=== PATIENT | male | born 1945 | race Caucasian/White ===

== ENCOUNTER → 2017-11-18 06:08 | Outpatient (CLI) | payer MEDICARE, OTHER, SELFPAY ==
[2017-11-09 09:23] VITALS: BMI 35.1
[2017-11-09 10:01] VITALS: BP 110/80
--- NOTE | 2017-11-18 09:02 | STRESSREP ---
Stress Test Report Pharmacologic myocardial perfusion stress test. 72-year-old man with a history of chest pain. Stress protocol: Resting EKG demonstrates normal sinus rhythm with a rate of 65 bpm normal intervals and noted resting blood pressure is 132/78 mmHg. 0.4 mg of regadenoson was infused per usual protocol followed by rapid intravenous saline flush injection continuous EKG monitoring was performed. The patient maintained sinus rhythm with occasional premature atrial complexes noted. Heart rate attained was 83 bpm which was 56% of the maximum predicted heart rate the maximum workload attained was 1 metabolic equivalent. The resting blood pressure was 132/78 with a final blood pressure 136/76 meters of mercury. Cardial perfusion protocol. 14.7 mCi of technetium 99m sestamibi was injected at rest. 0.4 mg of regadenoson was infused per usual protocol peak infusion 44.4 mCi of technetium 99m sestamibi was injected. Stress images were obtained. Stress and rest images were reconstructed and compared in the short axis vertical long and horizontal long axis. Gated images were also obtained. Perfusion SPECT analysis. View of the stress images demonstrate normal uptake of tracer noted in all areas of the myocardium. The resting images similarly demonstrate normal uptake of tracer noted in all areas myocardium. There is some GI attenuation artifact noted which obscures the inferior wall. However overt ischemia is not apparent. Gated SPECT analysis: The gated ejection fraction is noted to be 41%. Conclusion Pharmacologic myocardial perfusion stress test with no overt ischemia noted. Extensive GI attenuation artifact noted. Low normal ejection fraction.
== END ==
PROVIDERS: Family Provider Family Medicine; PCP Family Medicine; Visit Provider Physician Assistant Medical
DX: I25.10 Atherosclerotic heart disease of native coronary artery without angina pectoris (principal); R06.09 Other forms of dyspnea; E11.9 Type 2 diabetes mellitus without complications; I10 Essential (primary) hypertension
CPT/HCPCS: 78452; 93017; A9500; A4216; J2785

== ENCOUNTER 2018-01-06 12:13 | Inpatient (IN) | payer MEDICARE, OTHER, SELFPAY ==
[2018-01-06] VITALS (15 sets, daily range): BP systolic 141–183; BP diastolic 74–80; PULSE 69–78; RESP 16–24; TEMP 36.6–37.1; O2SAT 88–98; BMI 34.2; BMI 34.3; BMI 34.0
--- NOTE | 2018-01-06 13:00 | EKG12_ITS ---
Test Reason : SOB Blood Pressure : / mmHG Vent. Rate : 074 BPM Atrial Rate : 074 BPM P-R Int : 160 ms QRS Dur : 112 ms QT Int : 412 ms P-R-T Axes : 007 -33 146 degrees QTc Int : 457 ms Sinus rhythm with Premature atrial complexes Left axis deviation Left ventricular hypertrophy with repolarization abnormality Abnormal ECG Confirmed by ABRAHAM KILGORE, IRINA ([id number]), web content editor KEN SIFUENTES ([id number]) on 01/12/2018 8:55:24 AM Referred By: JUNG/ALICIA Confirmed By:IRINA ROSARIO MD
--- NOTE | 2018-01-06 13:02 | ED.VISSUMM ---
- ER Visit Summary Date of Service: 01/06/18 Chief Complaint: Cough with wheezing with shortness of breath and chest tightness History of Present Illness: The patient is a 72 M history diabetes, hypertension, high cholesterol, renal insufficiency and known CAD. Had a quadruple bypass in 1997 at [facility]. Patient had a negative stress test within the last 6 months. Basically for the last week he has had cough and congestion with wheezing. He was seen at a urgent care at the [facility]. They started him on doxycycline with an inhaler. Today went for a follow-up appointment his pulse ox was 80s and a sodium in the ER. Physical Examination: Older male vital signs are stable reportedly his pulse ox here is 93% on room air however he is on oxygen when I am in the room. Is in mild respiratory distress. H EENT exam unremarkable. Neck nontender no JVD no lymphadenopathy. Lungs inspiratory wheezing throughout both sides. No rales or rhonchi. Heart regular rate and rhythm rate 70s no murmur. Chest wall nontender. Abdomen soft nontender. Normal bowel sounds no peritoneal signs. He is moving all 4 extremities. Neurovascular intact. He has 1+ pitting edema bilaterally which is chronic. Calves are nontender without cords. Neurologically is awake and alert moving all 4 extremities. Answering questions and following commands. Test Results: Show EKG is a sinus rhythm with LVH. He does have ST depression in leads V4 5 and 6 which is new when changed with the most recent EKG I have is from 2015. 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 EKG is changed from a prior. A second EKG was done today in the ER which is unchanged from the first. Both show ST-T wave inversion depression in V4 5 and 6. Consistent with cardiac ischemia. CBC shows a white count of 3 H&H 12 and 39. Electrolytes show a BUN of 47 creatinine 1.87 he has known renal insufficiency. Anion gap is 6. Troponin is elevated at 3.16. Chest x-ray shows chronic changes with a elevated right hemidiaphragm and a prior sternotomy. Also atelectasis read both by myself the radiologist. Emergency Department Course and Treatment: To undergo a cardiac workup along with receiving IV Solu-Medrol and aerosol treatments. Treatment Plan: Rad exam patient feels better his wheezing is much better after aerosols and Solu-Medrol. I discussed with both he and his that I think there is 2 problems going on. I do think he has an underlying URI. I think the hypoxia and a URI stressed his heart and he also had a cardiac event. I have spoken to Dr. Burton who will be consult the patient's care. We will start the patient on Plavix and Lovenox along with one subcu nitroglycerin. I spoken to the hospitalist Dr. Gaffney and she will be done to evaluate patient for admission to the PCU. Disposition: [place] Impression: Acute dyspnea Acute non-ST elevation [place] with EKG changes in leads V4, 5 and 6 Acute bronchitis Acute on chronic renal insufficiency History of insulin-dependent diabetes History of CAD with prior CABG in 1997 This note was generated with [employer] dictation software. It may contain incorrect words, spelling, and punctuation that were not noted in review of the chart prior to signing ED Disposition - Plan for ED Patient: Chief Complaint: Shortness of Breath Referrals: Jackson Mesa MD [Primary Care Provider] -
--- NOTE | 2018-01-06 13:06 | ED.DCSUM_ITS ---
- ER Visit Summary Date of Service: 01/06/18 Chief Complaint: Cough with wheezing with shortness of breath and chest tightness History of Present Illness: The patient is a 72 M history diabetes, hypertension , high cholesterol, renal insufficiency and known CAD. Had a quadruple bypass in 1997 at [facility]. Patient had a negative stress test within the last 6 months. Basically for the last week he has had cough and congestion with wheezing. He was seen at a urgent care at the [facility]. They started him on doxycycline with an inhaler. Today went for a follow-up appointment his pulse ox was 80s and a sodium in the ER. Physical Examination: Older male vital signs are stable reportedly his pulse ox here is 93% on room air however he is on oxygen when I am in the room. Is in mild respiratory distress. H EENT exam unremarkable. Neck nontender no JVD no lymphadenopathy. Lungs inspiratory wheezing throughout both sides. No rales or rhonchi. Heart regular rate and rhythm rate 70s no murmur. Chest wall nontender. Abdomen soft nontender. Normal bowel sounds no peritoneal signs. He is moving all 4 extremities. Neurovascular intact. He has 1+ pitting edema bilaterally which is chronic. Calves are nontender without cords. Neurologically is awake and alert moving all 4 extremities. Answering questions and following commands. Test Results: Show EKG is a sinus rhythm with LVH. He does have ST depression in leads V4 5 and 6 which is new when changed with the most recent EKG I have is from 2015. 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 EKG is changed from a prior. A second EKG was done today in the ER which is unchanged from the first. Both show ST-T wave inversion depression in V4 5 and 6. Consistent with cardiac ischemia. CBC shows a white count of 3 H&H 12 and 39. Electrolytes show a BUN of 47 creatinine 1.87 he has known renal insufficiency. Anion gap is 6. Troponin is elevated at 3.16. Chest x-ray shows chronic changes with a elevated right hemidiaphragm and a prior sternotomy. Also atelectasis read both by myself the radiologist. Emergency Department Course and Treatment: To undergo a cardiac workup along with receiving IV Solu-Medrol and aerosol treatments. Treatment Plan: Rad exam patient feels better his wheezing is much better after aerosols and Solu-Medrol. I discussed with both he and his that I think there is 2 problems going on. I do think he has an underlying URI. I think the hypoxia and a URI stressed his heart and he also had a cardiac event. I have spoken to Dr. Burton who will be consult the patient's care. We will start the patient on Plavix and Lovenox along with one subcu nitroglycerin. I spoken to the hospitalist Dr. Gaffney and she will be done to evaluate patient for admission to the PCU. Disposition: [place] Impression: Acute dyspnea Acute non-ST elevation [place] with EKG changes in leads V4, 5 and 6 Acute bronchitis Acute on chronic renal insufficiency History of insulin-dependent diabetes History of CAD with prior CABG in 1997 This note was generated with i[employer]ise dictation software. It may contain incorrect words, spelling, and punctuation that were not noted in review of the chart prior to signing ED Disposition - Plan for ED Patient: Chief Complaint: Shortness of Breath Referrals: Jackson Mesa MD [Primary Care Provider] -
[2018-01-06] MEDS: Aspirin 81 MG TAB.CHEW 324 MG PO (13:07)
[2018-01-06] MEDS: Ipratropium/Albuterol Sulfate 3 ML AMPUL.NEB INHALATION ×3 (13:08→23:16)
[2018-01-06] MEDS: Albuterol 2.5 MG/3 ML VIAL.NEB. INHALATION ×2 (13:08→13:31)
[2018-01-06] MEDS: MethylPREDNISolone 125 MG/2 ML Vial IV (13:09)
--- NOTE | 2018-01-06 13:10 | RAD_ITS ---
STUDY: X-RAY CHEST REASON FOR EXAM: Male, 72 years old. Chest pain. Shortness of breath. TECHNIQUE: Single AP portable view of the chest. COMPARISON: Comparison is made with prior study dated October 16, 2014. FINDINGS: EKG markers are seen. Elevation of the right hemidiaphragm with underlying right basilar atelectasis and/or infiltrate. There is no demonstrated pleural abnormality. Sternal cerclage wires and vascular clips are present from a prior sternotomy and coronary artery bypass graft procedure (CABG). Moderate sized cardiomegaly. Normal mediastinum and jacinto. Normal visualized pulmonary arteries. Normal visualized aortic arch and descending thoracic aorta. Normal visualized thoracic spine. Normal visualized ribs, clavicles, and shoulders. There is no demonstrated abnormality of the visualized soft tissue structures of the upper abdomen. RAD/Chest 1 View (Portable) IMPRESSION: Elevation of the right hemidiaphragm with right basilar atelectasis and/or infiltrate. Electronically Signed: Lonny Henry MD at 13:51 EDT Tel [phone], Service support ,
[2018-01-06 13:40] LABS: Absolute Lymphocyte Count 0.56 X10^3/ul (0.83-4.51); Absolute Neutrophil Count 2.3 X10^3/uL (2.0-7.7); Basophil# 0.01 X10^3/uL; Basophil% 0.3 % (0-1); Eosinophil# 0.03 X10^3/uL; Eosinophils% 0.9 % (0-5); Hematocrit 39.9 % (40-54); Hemoglobin 12.5 g/dl (13.0-16.5); Lymphocyte # 0.56 X10^3/ul (4.0); Lymphocyte % 17.1 % (19-41); Mean Corp Hgb Conc 31.3 g/gl (32-36); Mean Corpuscular Volume 92.6 fL (80-94); Mean Platelet Vol. 9.4 fl (6.2-12.0); Monocyte% 12.2 % (0-10); Neutrophil # 2.26 X10^3/uL (2.7-7.7); Neutrophil % 69.2 % (47-70); Platelet Count 141 K/mm3 (150-450); RBC Distribution Width CV 14.3 % (11.6-14.6); RBC Distribution Width SD 48.5 fl (35.1-43.9); Red Blood Count 4.31 M/mm3 (4.6-6.2); White Blood Count 3.3 K/mm3 (4.4-11.0)
[2018-01-06 13:41] LABS: Differential Indicated SCAN CRITERIA MET; POSITIVE COUNT NO; POSITIVE DIFFERENTIAL YES; POSITIVE MORPHOLOGY NO
[2018-01-06 13:41] LABS: Anion Gap 6 (5-15); BUN 47 mg/dL (7-18); BUN/Creat Ratio 25.1 RATIO (10-20); Calcium,Total 8.8 mg/dL (8.5-10.1); Chloride 102 mmol/L (98-107); Creatinine, Serum 1.87 mg/dL (0.70-1.30); EST Glomerular Filtration Rate 38 mL/min (>60); Est Glom Filt Rate - Afr Amer 46 mL/min (>60); Estimated Creatinine Clearance 34.66 ml/min; Glucose 212 mg/dL (74-106); Potassium 3.9 mmol/L (3.5-5.1); Sodium Level 141 mmol/L (136-145)
--- NOTE | 2018-01-06 14:00 | EKG12_ITS ---
Test Reason : REPEAT-SOB Blood Pressure : / mmHG Vent. Rate : 072 BPM Atrial Rate : 072 BPM P-R Int : 160 ms QRS Dur : 110 ms QT Int : 426 ms P-R-T Axes : 000 -30 167 degrees QTc Int : 466 ms Sinus rhythm with Premature atrial complexes Left axis deviation Left ventricular hypertrophy with repolarization abnormality Abnormal ECG Confirmed by ABRAHAM KILGORE, IRINA ([id number]), society editor KEN SIFUENTES ([id number]) on 01/12/2018 8:55:39 AM Referred By: ALICIA Confirmed By:IRINA ROSARIO MD
--- NOTE | 2018-01-06 14:17 | ECHOD_ITS ---
Reason For Study: Abn. EKG Procedure This was a 2D Doppler, Color Flow transthoracic echocardiogram. Exam performed portable in ED. Left Ventricle Moderately dilated left ventricle. Mild concentric left ventricular hypertrophy. The estimated ejection fraction is 35-40 %. Stage 2 diastolic dysfunction. There is moderate to severe global hypokinesis of the left ventricle. Right Ventricle Normal size and thickness. Normal systolic function. Atria The left atrium is moderately enlarged. Normal right atrium. Normal atrial septum. Mitral Valve The mitral valve is structurally normal. No prolapse or stenosis seen. Mild (1+) mitral valve insufficiency. Tricuspid Valve Normal tricuspid valve. Trivial tricuspid valve insufficiency. Right ventricular systolic pressure estimated to be 28 mmHg. Aortic Valve Trisinus/trileaflet aortic valve. Mild focal aortic valve thickening. Pulmonic Valve The pulmonic valve is not well visualized. Great Vessels Normal aortic root. Normal arch. The inferior vena cava is dilated. No collapse of the inferior vena cava. Pericardium/Pleural No pericardial effusion. MMode/2D Measurements & Calculations LVIDd: 5.2 cm IVSd: 1.2 cm Ao root diam: 2.9 cm LVIDs: 4.0 cm LVPWd: 1.4 cm LA dimension: 5.5 cm RVDd: 3.7 cm FS: 22.4 % LAV(MOD-bp): 90.5 ml LA A4 area: 22.9 cm2 RA A4 area: 15.9 cm2 LAV(MOD-bp) Indexed: 41.1 ml/m2 LAV(MOD-sp2): 101.9 ml LAV(MOD-sp4): 77.1 ml Doppler Measurements & Calculations MV E max moisés: 82.3 cm/sec Lat Peak E' Moisés: 4.8 cm/sec Med Peak E' Moisés: 5.0 cm/sec MV A max moisés: 47.9 cm/sec E/E' lat: 17.0 E/E' med: 16.3 MV E/A: 1.7 Ao V2 max: 137.5 cm/sec LV V1 max: 99.4 cm/sec PA V2 max: 76.4 cm/sec Ao max P.6 mmHg LV V1 max P.0 mmHg TR max moisés: 241.6 cm/sec TR max P.4 mmHg Interpretation Summary Moderately dilated left ventricle. The estimated ejection fraction is 35-40 %. There is moderate to severe global hypokinesis of the left ventricle. Stage 2 diastolic dysfunction. The left atrium is moderately enlarged. Mild (1+) mitral valve insufficiency. Right ventricular systolic pressure estimated to be 28 mmHg. The inferior vena cava is dilated Compared to echo rerport dated 10/16/2014, LV Function has worsened from 55% to 30-35%. RVSP has remained the same. Ordering Physician: Jackson Coffman Referring Physician: Jackson Mesa Performed By: Ayaka Tejada RDCS
[2018-01-06] MEDS: Clopidogrel Bisulfate 75 MG Tablet PO (14:34)
[2018-01-06] MEDS: Enoxaparin 100 MG/ML Syringe SC ×2 (14:34→22:29)
--- NOTE | 2018-01-06 14:40 | PCM.HP.STD ---
Problem List (1) NSTEMI (non-ST elevated myocardial infarction) Status: Acute (2) Bronchitis with bronchospasm Status: Acute (3) Acute respiratory failure with hypoxia Status: Acute (4) Renal insufficiency Status: Chronic Comment: CKD3, creatinines ranings 1.7 since 2015 (5) Atherosclerotic heart disease of [place] coronary artery without angina pectoris Status: Chronic Qualifiers: [place] vs. transplanted heart: [place] heart (6) H/O coronary artery bypass surgery Status: Chronic Comment: CABG X 1988 @ [facility] records unavailable (7) Chronic diastolic (congestive) heart failure Status: Chronic (8) Type II diabetes mellitus Status: Chronic Qualifiers: Diabetes mellitus fdc insulin use: with roasterman use Diabetes mellitus complication detail: with chronic kidney disease Chronic kidney disease stage: stage 3 (moderate) (9) Hypertension Status: Chronic Qualifiers: Hypertension type: essential hypertension (10) Hyperlipidemia Status: Chronic Qualifiers: Hyperlipidemia type: mixed hyperlipidemia Qualified Code(s): E78.2 - Mixed hyperlipidemia (11) Coronary artery disease Status: Chronic Qualifiers: Coronary Disease-Associated Artery/Lesion type: [place] artery [place] vs. transplanted heart: [place] heart Comment: Status post CABG History of Present Illness Date of Admission: 01/06/18 Chief Complaint: Shortness of breath; chest tightness The patient is a 72 year old M A of CAD, status post CABG ?4 in 1997, hypertension, diabetes mellitus 2 on insulin with CKD 3, hyperlipidemia, remote smoker. He presented to emergency department for further evaluation of weeks history of cough with wheezing and chest tightness. He was seen earlier this week and placed on doxycycline and pro-air inhaler. On follow-up today he was noted to be hypoxemic and still wheezing with pulse ox in the 80s. He received an aerosol in the urgent care and was referred to ED. In the emergency department, he was noted to be wheezing with saturation 96% on 4 L, heart rate 74, blood pressure 183/77, respiratory rate 21. Orders were pertinent for white count 3.3, hemoglobin 12.5, platelet count 141, creatinine 1.87, BUN 47, random glucose 212, and troponin 3.16. Chest x-ray revealed no acute disease. EKG revealed new T-wave inversions across the anterior precordium. He received albuterol aerosol, DuoNeb aerosol, aspirin 324 mg, Plavix 75 mg, Lovenox 100 mg subcu, nitro sublingual, and Solu-Medrol 125 mg IV. Upon seeing the patient, he denies any chest discomfort. The patient endorses over the past week worsening exertional shortness of breath. He notes wheezing, cough is productive. He has had no fevers or toxic symptoms. He has had no yong orthopnea or PND. Leg edema is stable. He denies syncope, presyncope, headache, pleuritic pain or back pain. Allergies, prior to admission medications are reviewed. [] Past Medical History Past Medical History (Chronic Problems): Chronic Problems (Last Updated 11/09/17 @ 09:46 by MALIK Howell) Atherosclerosis of coronary artery bypass graft without angina pectoris (Chronic) CABG X 1988 @ [facility] records unavailable Bilateral lower extremity edema (Chronic) Renal insufficiency (Chronic) CKD3, creatinines ranings 1.7 since 2014 Atherosclerotic heart disease of [place] coronary artery without angina pectoris (Chronic) H/O coronary artery bypass surgery (Chronic) CABG X 1988 @ [facility] records unavailable Premature atrial contractions (Chronic) Chronic diastolic (congestive) heart failure (Chronic) Type II diabetes mellitus (Chronic) Hypertension (Chronic) Hyperlipidemia (Chronic) Coronary artery disease (Chronic) Status post CABG Allergies No Known Allergies Allergy (Verified 01/06/18 12:14) Home Medications: Ambulatory Orders Medication Instructions Recorded Atorvastatin Calcium [Lipitor] 80 mg PO QHS 10/16/14 aspirin 81 mg tablet,delayed 81 mg PO DAILY 10/27/17 release bumetanide 2 mg tablet 2 mg PO BID 10/27/17 cholecalciferol (vitamin D3) 2,000 2,000 unit PO DAILY tab 10/27/17 unit tablet losartan 50 mg tablet 50 mg PO BID tab 11/09/17 Amlodipine [Norvasc] 5 mg PO DAILY 01/06/18 Doxycycline Hyclate [Doxycycline 100 mg PO BID 01/06/18 Hyclate] Insulin U-500 [Humulin R U-500 75 mg PO DINNER 01/06/18 ([facility])] Insulin U-500 [Humulin R U-500 75 unit SC LUNCH 01/06/18 ([facility])] Insulin U-500 [Humulin R U-500 90 units SC BREAKFAST 01/06/18 ([facility])] Metoprolol(XL)Succ [Toprol Xl 100 mg PO DAILY 01/06/18 ([facility] Harshal)] Surgical History: appendectomy, coronary bypass surgery Psychiatric History: No pertinent psych hx Lives: Spouse/ Significant Other Smoking Status: Former smoker Alcohol: Rare Drugs: None - *Family History Maternal History Items: No pertinent history Paternal History Items: No pertinent history Review of Systems Respiratory: Reports: Cough, Shortness of breath upon exertion, Wheezing VTE Information - Inpt Only VTE Present on Admission: No VTE Mechan Device Prophylaxis: SCD's VTE Pharm Prophylaxis ordered?: No Reason prophylaxis not ordered:: Medical Contraindication - already anticoagulated (therapeutic Lovenox) Patient Problems: Active and Suspected Problems (Last Updated 11/09/17 @ 09:46 by MALIK Howell) NSTEMI (non-ST elevated myocardial infarction) (Acute) Bronchitis with bronchospasm (Acute) Acute respiratory failure with hypoxia (Acute) - Physical Exam General: Alert, Oriented x3, Cooperative, No apparent distress HEENT: Atraumatic, PERRLA, EOMI Oral: Moist Mucosa Neck: Supple, No JVD, Negative Carotid Bruits, Negative Hepatojugular Reflux Lungs: Wheezes Cardiovascular: Regular rate, Regular Rhythm, Normal S1, Normal S2, No murmurs Abdomen: Bowel Sounds Present, Soft, Non Tender Extremities: Edema - trace bilaterally Skin: No rashes, No breakdown Psych/Mental Status: Normal Affect, Appropriate Vital Signs Temp Pulse Resp BP Pulse Ox 97.9 F 73 21 H 183/77 H 96 01/06/18 12:14 01/06/18 14:34 01/06/18 14:33 01/06/18 14:34 01/06/18 14:33 Oxygen Flow Rate (L/min) 4 Oxygen Delivery Method Nasal Cannula Weight: 232 lb 2.348 oz Body Mass Index (BMI) 34.2 Laboratory Tests Past 24 Hrs 01/06/18 01/06/18 12:15 12:40 WBC 3.3 L RBC 4.31 L Hgb 12.5 L Hct 39.9 L MCV 92.6 MCH 29.0 MCHC 31.3 L RDW 14.3 RDW Differential 48.5 H Plt Count 141 L MPV 9.4 Immature Gran % (Auto) 0.300 Neut % (Auto) 69.2 Lymph % (Auto) 17.1 L [place] % (Auto) 12.2 H Eos % (Auto) 0.9 Baso % (Auto) 0.3 Absolute Neuts (auto) 2.3 Absolute Lymphs (auto) 0.56 L Total Counted Not Reportable Sodium 141 Potassium 3.9 Chloride 102 Carbon Dioxide 33.0 H Anion Gap 6 BUN 47 H Creatinine 1.87 H Estim Creat Clear Calc 34.66 Est GFR (MDRD) Af Amer 46 L Est GFR (MDRD) Non-Af 38 L BUN/Creatinine Ratio 25.1 H Glucose 212 H Calcium 8.8 Troponin I 3.16 H* Assessment/Plan Active and Suspected Problems (Last Updated 11/09/17 @ 09:46 by MALIK Howell) NSTEMI (non-ST elevated myocardial infarction) (Acute) Bronchitis with bronchospasm (Acute) Acute respiratory failure with hypoxia (Acute) The patient is a 72-year-old pleasant gentleman who has had an upper respiratory infection/bronchitis for the past week, characterized by wheezing and productive cough, for which he has been on doxycycline/inhaler started 2 days ago. He presented to the office for follow-up today where he was found to be diffusely wheezing and hypoxemic. He was referred to emergency department where he was found to have new EKG changes (T-wave inversion across the precordial leads) and elevated troponin T of 3. He denied chest pain, but felt more short of breath with exertion. He currently is pain-free with acceptable vital signs. Creatinine is 1.8. Plan at this time is admission to PCU, medical management with the addition of nitrates, Lovenox, and Plavix, aggressive pulmonary toilet with steroids, glycemic control, gentle hydration, and cardiac consultation for planned catheterization tomorrow. NPO post MN except meds; hold AM insulin dose. 1. Non-STEMI -consistent with type II event, demand ischemia in setting of acute illness T-wave inversions across the anterior precordium Plavix 75 mg daily, Lovenox 100 mg subcu twice daily, oxygen, nitrates as needed, continue statin and beta-harshal Add metoprolol 2.5 mg IV every 4 hours as needed heart rate greater than 100 Telemetry monitoring and serial cardiac biomarkers Cardiology opinion N.p.o. post midnight; cardiac catheterization planned 2. Bronchitis with bronchospasm Pulmonary toilet with aerosols, IV Solu-Medrol Glycemic control whilst on IV Solu-Medrol Supportive oxygen Mucinex, Cepacol as needed Continue doxycycline Legionella and streptococcal urinary antigens 3. acute hypoxemic respiratory failure 2/2 #2 oxygen protocol 3. Diabetes mellitus 2 on insulin, with CKD 3 Continue usual insulin dosing mealtime; add NovoLog scale medium. Hold his morning as scheduled insulin as he will be n.p.o. for cardiac catheterization 4.CKD 3 Baseline creatinine 1.7; gently hydrate, daily lab 5. Hypertension Continue metoprolol, amlodipine, losartan 6. Hyperlipidemia Statin 7. DVT prophylaxis Already anticoagulated Code Visit Inpatient E&M: 93646 Init Hosp L2
--- NOTE | 2018-01-06 15:02 | HP.PCM_ITS ---
Problem List (1) NSTEMI (non-ST elevated myocardial infarction) Status: Acute (2) Bronchitis with bronchospasm Status: Acute (3) Acute respiratory failure with hypoxia Status: Acute (4) Renal insufficiency Status: Chronic Comment: CKD3, creatinines ranings 1.7 since 2015 (5) Atherosclerotic heart disease of [place] coronary artery without angina pectoris Status: Chronic Qualifiers: [place] vs. transplanted heart: [place] heart (6) H/O coronary artery bypass surgery Status: Chronic Comment: CABG X 1988 @ [facility] records unavailable (7) Chronic diastolic (congestive) heart failure Status: Chronic (8) Type II diabetes mellitus Status: Chronic Qualifiers: Diabetes mellitus snf insulin use: with terminal gauger use Diabetes mellitus complication detail: with chronic kidney disease Chronic kidney disease stage: stage 3 (moderate) (9) Hypertension Status: Chronic Qualifiers: Hypertension type: essential hypertension (10) Hyperlipidemia Status: Chronic Qualifiers: Hyperlipidemia type: mixed hyperlipidemia Qualified Code(s): E78.2 - Mixed hyperlipidemia (11) Coronary artery disease Status: Chronic Qualifiers: Coronary Disease-Associated Artery/Lesion type: [place] artery [place] vs. transplanted heart: [place] heart Comment: Status post CABG History of Present Illness Date of Admission: 01/06/18 Chief Complaint: Shortness of breath; chest tightness The patient is a 72 year old M A of CAD, status post CABG ?4 in 1997, hypertension, diabetes mellitus 2 on insulin with CKD 3, hyperlipidemia, remote smoker. He presented to emergency department for further evaluation of weeks history of cough with wheezing and chest tightness. He was seen earlier this week and placed on doxycycline and pro-air inhaler. On follow-up today he was noted to be hypoxemic and still wheezing with pulse ox in the 80s. He received an aerosol in the urgent care and was referred to ED. In the emergency department, he was noted to be wheezing with saturation 96% on 4 L, heart rate 74, blood pressure 183/77, respiratory rate 21. Orders were pertinent for white count 3.3, hemoglobin 12.5, platelet count 141, creatinine 1.87, BUN 47, random glucose 212, and troponin 3.16. Chest x-ray revealed no acute disease. EKG revealed new T-wave inversions across the anterior precordium. He received albuterol aerosol, DuoNeb aerosol, aspirin 324 mg, Plavix 75 mg, Lovenox 100 mg subcu, nitro sublingual, and Solu-Medrol 125 mg IV. Upon seeing the patient, he denies any chest discomfort. The patient endorses over the past week worsening exertional shortness of breath. He notes wheezing , cough is productive. He has had no fevers or toxic symptoms. He has had no yong orthopnea or PND. Leg edema is stable. He denies syncope, presyncope, headache, pleuritic pain or back pain. Allergies, prior to admission medications are reviewed. [] Past Medical History Past Medical History (Chronic Problems): Chronic Problems (Last Updated 11/09/17 @ 09:46 by MALIK Howell) Atherosclerosis of coronary artery bypass graft without angina pectoris (Chronic ) CABG X 1988 @ [facility] records unavailable Bilateral lower extremity edema (Chronic) Renal insufficiency (Chronic) CKD3, creatinines ranings 1.7 since 2014 Atherosclerotic heart disease of [place] coronary artery without angina pectoris (Chronic) H/O coronary artery bypass surgery (Chronic) CABG X 1988 @ [facility] records unavailable Premature atrial contractions (Chronic) Chronic diastolic (congestive) heart failure (Chronic) Type II diabetes mellitus (Chronic) Hypertension (Chronic) Hyperlipidemia (Chronic) Coronary artery disease (Chronic) Status post CABG Allergies No Known Allergies Allergy (Verified 01/06/18 12:14) Home Medications: Ambulatory Orders Medication Instructions Recorded Atorvastatin Calcium [Lipitor] 80 mg PO QHS 10/16/14 aspirin 81 mg tablet,delayed 81 mg PO DAILY 10/27/17 release bumetanide 2 mg tablet 2 mg PO BID 10/27/17 cholecalciferol (vitamin D3) 2,000 2,000 unit PO DAILY tab 10/27/17 unit tablet losartan 50 mg tablet 50 mg PO BID tab 11/09/17 Amlodipine [Norvasc] 5 mg PO DAILY 01/06/18 Doxycycline Hyclate [Doxycycline 100 mg PO BID 01/06/18 Hyclate] Insulin U-500 [Humulin R U-500 75 mg PO DINNER 01/06/18 ([facility])] Insulin U-500 [Humulin R U-500 75 unit SC LUNCH 01/06/18 ([facility])] Insulin U-500 [Humulin R U-500 90 units SC BREAKFAST 01/06/18 ([facility])] Metoprolol(XL)Succ [Toprol Xl 100 mg PO DAILY 01/06/18 ([facility])] Surgical History: appendectomy, coronary bypass surgery Psychiatric History: No pertinent psych hx Lives: Spouse/ Significant Other Smoking Status: Former smoker Alcohol: Rare Drugs: None - *Family History Maternal History Items: No pertinent history Paternal History Items: No pertinent history Review of Systems Respiratory: Reports: Cough, Shortness of breath upon exertion, Wheezing VTE Information - Inpt Only VTE Present on Admission: No VTE Mechan Device Prophylaxis: SCD's VTE Pharm Prophylaxis ordered?: No Reason prophylaxis not ordered:: Medical Contraindication - already anticoagulated (therapeutic Lovenox) Patient Problems: Active and Suspected Problems (Last Updated 11/09/17 @ 09:46 by MALIK Howell) NSTEMI (non-ST elevated myocardial infarction) (Acute) Bronchitis with bronchospasm (Acute) Acute respiratory failure with hypoxia (Acute) - Physical Exam General: Alert, Oriented x3, Cooperative, No apparent distress HEENT: Atraumatic, PERRLA, EOMI Oral: Moist Mucosa Neck: Supple, No JVD, Negative Carotid Bruits, Negative Hepatojugular Reflux Lungs: Wheezes Cardiovascular: Regular rate, Regular Rhythm, Normal S1, Normal S2, No murmurs Abdomen: Bowel Sounds Present, Soft, Non Tender Extremities: Edema - trace bilaterally Skin: No rashes, No breakdown Psych/Mental Status: Normal Affect, Appropriate Vital Signs Temp Pulse Resp BP Pulse Ox 97.9 F 73 21 H 183/77 H 96 01/06/18 12:14 01/06/18 14:34 01/06/18 14:33 01/06/18 14:34 01/06/18 14:33 Oxygen Flow Rate (L/min) 4 Oxygen Delivery Method Nasal Cannula Weight: 232 lb 2.348 oz Body Mass Index (BMI) 34.2 Laboratory Tests Past 24 Hrs 01/06/18 01/06/18 12:15 12:40 WBC 3.3 L RBC 4.31 L Hgb 12.5 L Hct 39.9 L MCV 92.6 MCH 29.0 MCHC 31.3 L RDW 14.3 RDW Differential 48.5 H Plt Count 141 L MPV 9.4 Immature Gran % (Auto) 0.300 Neut % (Auto) 69.2 Lymph % (Auto) 17.1 L [place] % (Auto) 12.2 H Eos % (Auto) 0.9 Baso % (Auto) 0.3 Absolute Neuts (auto) 2.3 Absolute Lymphs (auto) 0.56 L Total Counted Not Reportable Sodium 141 Potassium 3.9 Chloride 102 Carbon Dioxide 33.0 H Anion Gap 6 BUN 47 H Creatinine 1.87 H Estim Creat Clear Calc 34.66 Est GFR (MDRD) Af Amer 46 L Est GFR (MDRD) Non-Af 38 L BUN/Creatinine Ratio 25.1 H Glucose 212 H Calcium 8.8 Troponin I 3.16 H* Assessment/Plan Active and Suspected Problems (Last Updated 11/09/17 @ 09:46 by MALIK Howell) NSTEMI (non-ST elevated myocardial infarction) (Acute) Bronchitis with bronchospasm (Acute) Acute respiratory failure with hypoxia (Acute) The patient is a 72-year-old pleasant gentleman who has had an upper respiratory infection/bronchitis for the past week, characterized by wheezing and productive cough, for which he has been on doxycycline/inhaler started 2 days ago. He presented to the office for follow-up today where he was found to be diffusely wheezing and hypoxemic. He was referred to emergency department where he was found to have new EKG changes (T-wave inversion across the precordial leads) and elevated troponin T of 3. He denied chest pain, but felt more short of breath with exertion. He currently is pain-free with acceptable vital signs. Creatinine is 1.8. Plan at this time is admission to PCU, medical management with the addition of nitrates, Lovenox, and Plavix, aggressive pulmonary toilet with steroids, glycemic control, gentle hydration, and cardiac consultation for planned catheterization tomorrow. NPO post MN except meds; hold AM insulin dose. 1. Non-STEMI -consistent with type II event, demand ischemia in setting of acute illness T-wave inversions across the anterior precordium Plavix 75 mg daily, Lovenox 100 mg subcu twice daily, oxygen, nitrates as needed , continue statin and beta-harshal Add metoprolol 2.5 mg IV every 4 hours as needed heart rate greater than 100 Telemetry monitoring and serial cardiac biomarkers Cardiology opinion N.p.o. post midnight; cardiac catheterization planned 2. Bronchitis with bronchospasm Pulmonary toilet with aerosols, IV Solu-Medrol Glycemic control whilst on IV Solu-Medrol Supportive oxygen Mucinex, Cepacol as needed Continue doxycycline Legionella and streptococcal urinary antigens 3. acute hypoxemic respiratory failure 2/2 #2 oxygen protocol 3. Diabetes mellitus 2 on insulin, with CKD 3 Continue usual insulin dosing mealtime; add NovoLog scale medium. Hold his morning as scheduled insulin as he will be n.p.o. for cardiac catheterization 4.CKD 3 Baseline creatinine 1.7; gently hydrate, daily lab 5. Hypertension Continue metoprolol, amlodipine, losartan 6. Hyperlipidemia Statin 7. DVT prophylaxis Already anticoagulated Code Visit Inpatient E&M: 04675 Init Hosp L2
--- NOTE | 2018-01-06 15:02 | NURSING ---
127 NSTEMI, BRONCHOSPASM RAGHAV
--- NOTE | 2018-01-06 15:06 | CASEMGMT ---
Social Work Note SW attempted to see pt for initial assessment before admission, but presently undergoing an echo and then will be transported to floor. RN CM to follow to identify transition of care needs. Glenna Dowd, MASH FILTER PRESS OPERATOR, COMPUTER TECHNOLOGY INSTRUCTOR
[2018-01-06 15:36] LABS: Bedside Glucose 115 mg/dL (70-110)
[2018-01-06] MEDS: 0.9% Normal Saline 1,000 ML 75 ML IV (16:27)
--- NOTE | 2018-01-06 17:42 | PCM.CONS.C ---
Problem List (1) NSTEMI (non-ST elevated myocardial infarction) Status: Acute (2) Atherosclerosis of coronary artery bypass graft without angina pectoris Status: Chronic Comment: CABG X 1988 @ [facility] records unavailable (3) Atherosclerotic heart disease of [place] coronary artery without angina pectoris Status: Chronic Qualifiers: [place] vs. transplanted heart: [place] heart (4) H/O coronary artery bypass surgery Status: Chronic Comment: CABG X 4, 1988 @ [facility] records unavailable (5) Hypertension Status: Chronic Qualifiers: Hypertension type: essential hypertension (6) Hyperlipidemia Status: Chronic Qualifiers: Hyperlipidemia type: mixed hyperlipidemia Qualified Code(s): E78.2 - Mixed hyperlipidemia (7) Coronary artery disease Status: Chronic Qualifiers: Coronary Disease-Associated Artery/Lesion type: [place] artery [place] vs. transplanted heart: [place] heart Comment: Status post CABG Reason for Consult Date of Consultation: 01/06/18 Reason for Consultation: Non-STEMI, abnormal EKG, coronary artery disease, shortness of breath, congestive heart failure. History of Present Illness: The patient is a 72 year old M, patient of Dr. Rizo's with a history of hypertension, obesity, diabetes, hypercholesterolemia, coronary artery disease status post four-vessel bypass surgery at [facility] in 1997. At that time his presenting symptoms were shortness of breath and fatigue. He had no anginal symptoms that he can recollect. Patient quit smoking in the 1980s after approximately 1 pack per day for about 10 years during the 1970s. He has never had pulmonary function tests. Patient's most recent visit with Dr. Rizo was approximately 8 months ago, and he was doing fairly well. Apparently he had seen in CARDIOTHORACIC ANESTHESIA TECHNICIAN in our office in November 2017, and underwent a stress test which apparently was negative for inducible ischemia per the patient. The patient was doing well up until last when he began developing fatigue, productive cough, feeling of unwellness, and worsening shortness of breath/dyspnea on exertion. Over the patient 8 [place] salty foods, and his shortness of breath worsened. The patient sought medical attention at an urgent care center on Thursday, and he had apparently decreased O2 sats but was subsequently sent home for follow-up today. Patient followed up today and was found to be worse with bilateral wheezing, shortness of breath, increasing oxygen requirements. He was referred to [facility] ER where he was found to have bilateral wheezing, decreased O2 sats, tachycardia, with new anterolateral ST segment depression, and what appeared to be new inferior Q waves consistent with myocardial infarction which was different from EKG in November 2017. His initial troponin was 3.16, and the patient was treated with oxygen, nebulizer therapy, IV steroids, IV diuretics, Lovenox, baby aspirin and loaded with Plavix. Currently the patient is resting comfortably on O2 nasal cannula, denies any chest pain or angina either prior to or subsequent to this admission. He also has baseline lower extremity edema which has not appreciably worsened. He is on Bumex at home and has been compliant with his medications. He has never had pulmonary function test and denies obstructive sleep apnea. Patient underwent repeat echocardiogram today which demonstrates moderate to severe LV dysfunction with an EF around 35% with evidence of inferior basal hypokinesis, RVSP of approximately 20 mmHg, may be underestimated, previous echocardiogram showed an EF of 55%. His bilateral pulmonary edema. [] Past Medical History Allergies/Adverse Reactions: Allergies No Known Allergies Allergy (Verified 01/06/18 12:14) Home Medications: Ambulatory Orders Medication Instructions Recorded Atorvastatin Calcium [Lipitor] 80 mg PO QHS 10/16/14 aspirin 81 mg tablet,delayed 81 mg PO DAILY 10/27/17 release bumetanide 2 mg tablet 2 mg PO BID 10/27/17 cholecalciferol (vitamin D3) 2,000 2,000 unit PO DAILY tab 10/27/17 unit tablet losartan 50 mg tablet 50 mg PO BID tab 11/09/17 Amlodipine [Norvasc] 5 mg PO DAILY 01/06/18 Doxycycline Hyclate [Doxycycline 100 mg PO BID 01/06/18 Hyclate] Insulin U-500 [Humulin R U-500 75 mg PO DINNER 01/06/18 ([facility])] Insulin U-500 [Humulin R U-500 75 unit SC LUNCH 01/06/18 ([facility])] Insulin U-500 [Humulin R U-500 90 units SC BREAKFAST 01/06/18 ([facility])] Metoprolol(XL)Succ [Toprol Xl 100 mg PO DAILY 01/06/18 ([facility])] Past Medical History (Chronic Problems): Chronic Problems (Last Updated 11/09/17 @ 09:46 by MALIK Howell) Atherosclerosis of coronary artery bypass graft without angina pectoris (Chronic) CABG X 4, 1988 @ [facility] records unavailable Bilateral lower extremity edema (Chronic) Renal insufficiency (Chronic) CKD3, creatinines ranings 1.7 since 2014 Atherosclerotic heart disease of [place] coronary artery without angina pectoris (Chronic) H/O coronary artery bypass surgery (Chronic) CABG X 4, 1988 @ [facility] records unavailable Premature atrial contractions (Chronic) Chronic diastolic (congestive) heart failure (Chronic) Type II diabetes mellitus (Chronic) Hypertension (Chronic) Hyperlipidemia (Chronic) Coronary artery disease (Chronic) Status post CABG Surgical History: appendectomy, coronary bypass surgery Psychiatric History: No pertinent psych hx - *Family History Maternal Family History: Family History (Last Updated 11/06/17 @ 18:12 by Fidel Gtz) Mother Cancer History Items: No pertinent history Paternal Family History: Family History (Last Updated 11/06/17 @ 18:12 by Fidel Gtz) Mother Cancer History Items: No pertinent history Lives: Spouse/ Significant Other Smoking Status: Former smoker Alcohol: Rare Drugs: None Review of Systems - Review of Systems General: Denies: Fever, Night Sweats, Fatigue Cardiovascular: Reports: Shortness of Breath at Rest, Orthopnea, PND, Peripheral Edema. Denies: Chest Discomfort, Shortness of Breath, Palpitations, Lightheadedness, Dizziness, Near Syncope, Syncope Respiratory: Reports: Cough, Sputum Production, Wheezing. Denies: Hemoptysis Gastrointestinal: Denies: Hematemesis, Hematochezia, Melena Genitourinary: Denies: Dysuria, Hematuria Skin: Denies: Rash Subjectve: Patient sitting up in bed, no acute distress. Unable to lay down flat due to shortness of breath. Objective: Vital Signs Temp Pulse Resp BP Pulse Ox 98.2 F 73 24 H 169/80 H 95 01/06/18 15:20 01/06/18 15:47 01/06/18 15:20 01/06/18 15:20 01/06/18 15:20 Oxygen Flow Rate (L/min) 4 Oxygen Delivery Method Nasal Cannula Weight: 229 lb 8 oz Body Mass Index (BMI) 34.0 General: Awake, Alert, Oriented x 3 HEENT: PERRL, EOMI, Sclera Non Icteric Neck: Supple, Good ROM, No Lymph Node Enlargement Lungs: Rales - Scott Bases, Expiratory Wheezes-Scott Cardiovascular: Regular Rhythm, Normal S1, Normal S2, No Murmurs, No Rubs, No Gallops Vascular: No Carotid Bruits, Normal Femoral Pulses, Normal Radial Pulses, Normal Dorsalis Pedal Pulse, Normal Posterior Tibial Pulses Abdomen: Bowel Sounds Present, Soft, Non Tender, No HSM, No Organomegaly Extremities: No Cyanosis, No Clubbing, No edema Neurological: No Focal Motor or Sensory Deficit 01/06/18 16:44: Troponin I 3.76 H* Rhythm: EKG: As above ECHO: As above Stress Test: Cardiac Cath: Pending PCI: CT Surgery: Holter monitor: EPS: PPM: CXR: Chest CT Scan: Assessment/Plan 1. Non-STEMI: The patient has progressively worsening dyspnea on exertion, shortness of breath, bilateral wheezing, lower extremity edema, and evidence on chest x-ray of worsening pulmonary edema. In addition his echocardiogram today demonstrates a marked difference in his LV function decreasing from 55% to around 35-40% with inferior posterior hypokinesis. In addition he has dynamic EKG changes of anterolateral leads consistent with ischemia and evidence of new inferior Q waves possible posterior involvement. I recommend the patient continue baby aspirin, be loaded with Plavix 3 mg ?1 followed by 75 mg a day, Lasix 40 mg IV every 8 hours to attempt diuresis of the patient may be able to lay down flat for eventual left her catheterization with graft angiography. Patient has baseline chronic renal insufficiency, and would recommend consideration of avoiding LV gram during catheterization. The patient is unable to lay down flat tomorrow morning, we will hold off on catheterization until Thursday. In addition his chest x-ray demonstrates elevated right hemidiaphragm, which may be a right pleural effusion given the patient's presenting symptoms. Would recommend IV diuresis and consideration of either repeat chest x-ray, or ultrasound evaluation for possible thoracentesis. Would also recommend discontinuation of Toprol, and switching him to Coreg 6.25 mg p.o. twice daily. Patient has baseline chronic renal insufficiency and is on losartan 100 mg p.o. daily. Recommend continuing this for now. It also recommend 1500 cc fluid restriction given the patient's significant LV dysfunction. In addition recommend Lovenox 1 mg/kg subcu for anticoagulation given his non-STEMI. Obtaining his old bypass surgery records has been somewhat problematic, catheterization may need to take place without previous bypass surgery report. 2. Hyperlipidemia: Recommend obtaining a fasting lipid profile, and continuing Lipitor therapy. His LDL should be less than 70. 3. Discussed patient findings with his primary river driver Dr. Rizo, who will proceed with catheterization either tomorrow, , or Thursday depending upon the patient's ability to lay down flat. 4. Thank you very much for the opportunity to participate in the cardiac care of your patient. Consultation time took place between 515 and 5:57 PM. Code Visit Inpatient E&M: 06253 Init Hosp L2
--- NOTE | 2018-01-06 17:53 | CON.PCM_ITS ---
Problem List (1) NSTEMI (non-ST elevated myocardial infarction) Status: Acute (2) Atherosclerosis of coronary artery bypass graft without angina pectoris Status: Chronic Comment: CABG X 1988 @ [facility] records unavailable (3) Atherosclerotic heart disease of [place] coronary artery without angina pectoris Status: Chronic Qualifiers: [place] vs. transplanted heart: [place] heart (4) H/O coronary artery bypass surgery Status: Chronic Comment: CABG X 4, 1988 @ [facility] records unavailable (5) Hypertension Status: Chronic Qualifiers: Hypertension type: essential hypertension (6) Hyperlipidemia Status: Chronic Qualifiers: Hyperlipidemia type: mixed hyperlipidemia Qualified Code(s): E78.2 - Mixed hyperlipidemia (7) Coronary artery disease Status: Chronic Qualifiers: Coronary Disease-Associated Artery/Lesion type: [place] artery [place] vs. transplanted heart: [place] heart Comment: Status post CABG Reason for Consult Date of Consultation: 01/06/18 Reason for Consultation: Non-STEMI, abnormal EKG, coronary artery disease, shortness of breath, congestive heart failure. History of Present Illness: The patient is a 72 year old M, patient of Dr. Rizo's with a history of hypertension, obesity, diabetes, hypercholesterolemia, coronary artery disease status post four-vessel bypass surgery at [facility] in 1997. At that time his presenting symptoms were shortness of breath and fatigue. He had no anginal symptoms that he can recollect. Patient quit smoking in the 1980s after approximately 1 pack per day for about 10 years during the 1970s. He has never had pulmonary function tests. Patient's most recent visit with Dr. Rizo was approximately 8 months ago, and he was doing fairly well. Apparently he had seen in BUSINESS TEAM LEADER in our office in November 2017, and underwent a stress test which apparently was negative for inducible ischemia per the patient. The patient was doing well up until last when he began developing fatigue, productive cough, feeling of unwellness, and worsening shortness of breath/dyspnea on exertion. Over the patient 8 [place] salty foods, and his shortness of breath worsened. The patient sought medical attention at an urgent care center on Thursday, and he had apparently decreased O2 sats but was subsequently sent home for follow-up today. Patient followed up today and was found to be worse with bilateral wheezing, shortness of breath , increasing oxygen requirements. He was referred to [facility] ER where he was found to have bilateral wheezing, decreased O2 sats, tachycardia, with new anterolateral ST segment depression, and what appeared to be new inferior Q waves consistent with myocardial infarction which was different from EKG in November 2017. His initial troponin was 3.16, and the patient was treated with oxygen, nebulizer therapy, IV steroids, IV diuretics, Lovenox, baby aspirin and loaded with Plavix. Currently the patient is resting comfortably on O2 nasal cannula, denies any chest pain or angina either prior to or subsequent to this admission. He also has baseline lower extremity edema which has not appreciably worsened. He is on Bumex at home and has been compliant with his medications. He has never had pulmonary function test and denies obstructive sleep apnea. Patient underwent repeat echocardiogram today which demonstrates moderate to severe LV dysfunction with an EF around 35% with evidence of inferior basal hypokinesis, RVSP of approximately 20 mmHg, may be underestimated, previous echocardiogram showed an EF of 55%. His bilateral pulmonary edema. [] Past Medical History Allergies/Adverse Reactions: Allergies No Known Allergies Allergy (Verified 01/06/18 12:14) Home Medications: Ambulatory Orders Medication Instructions Recorded Atorvastatin Calcium [Lipitor] 80 mg PO QHS 10/16/14 aspirin 81 mg tablet,delayed 81 mg PO DAILY 10/27/17 release bumetanide 2 mg tablet 2 mg PO BID 10/27/17 cholecalciferol (vitamin D3) 2,000 2,000 unit PO DAILY tab 10/27/17 unit tablet losartan 50 mg tablet 50 mg PO BID tab 11/09/17 Amlodipine [Norvasc] 5 mg PO DAILY 01/06/18 Doxycycline Hyclate [Doxycycline 100 mg PO BID 01/06/18 Hyclate] Insulin U-500 [Humulin R U-500 75 mg PO DINNER 01/06/18 ([facility])] Insulin U-500 [Humulin R U-500 75 unit SC LUNCH 01/06/18 ([facility])] Insulin U-500 [Humulin R U-500 90 units SC BREAKFAST 01/06/18 ([facility])] Metoprolol(XL)Succ [Toprol Xl 100 mg PO DAILY 01/06/18 ([facility])] Past Medical History (Chronic Problems): Chronic Problems (Last Updated 11/09/17 @ 09:46 by MALIK Howell) Atherosclerosis of coronary artery bypass graft without angina pectoris (Chronic ) CABG X 4, 1988 @ [facility] records unavailable Bilateral lower extremity edema (Chronic) Renal insufficiency (Chronic) CKD3, creatinines ranings 1.7 since 2014 Atherosclerotic heart disease of [place] coronary artery without angina pectoris (Chronic) H/O coronary artery bypass surgery (Chronic) CABG X 4, 1988 @ [facility] records unavailable Premature atrial contractions (Chronic) Chronic diastolic (congestive) heart failure (Chronic) Type II diabetes mellitus (Chronic) Hypertension (Chronic) Hyperlipidemia (Chronic) Coronary artery disease (Chronic) Status post CABG Surgical History: appendectomy, coronary bypass surgery Psychiatric History: No pertinent psych hx - *Family History Maternal Family History: Family History (Last Updated 11/06/17 @ 18:12 by Fidel Gtz) Mother Cancer History Items: No pertinent history Paternal Family History: Family History (Last Updated 11/06/17 @ 18:12 by Fidel Gtz) Mother Cancer History Items: No pertinent history Lives: Spouse/ Significant Other Smoking Status: Former smoker Alcohol: Rare Drugs: None Review of Systems - Review of Systems General: Denies: Fever, Night Sweats, Fatigue Cardiovascular: Reports: Shortness of Breath at Rest, Orthopnea, PND, Peripheral Edema. Denies: Chest Discomfort, Shortness of Breath, Palpitations, Lightheadedness, Dizziness, Near Syncope, Syncope Respiratory: Reports: Cough, Sputum Production, Wheezing. Denies: Hemoptysis Gastrointestinal: Denies: Hematemesis, Hematochezia, Melena Genitourinary: Denies: Dysuria, Hematuria Skin: Denies: Rash Subjectve: Patient sitting up in bed, no acute distress. Unable to lay down flat due to shortness of breath. Objective: Vital Signs Temp Pulse Resp BP Pulse Ox 98.2 F 73 24 H 169/80 H 95 01/06/18 15:20 01/06/18 15:47 01/06/18 15:20 01/06/18 15:20 01/06/18 15:20 Oxygen Flow Rate (L/min) 4 Oxygen Delivery Method Nasal Cannula Weight: 229 lb 8 oz Body Mass Index (BMI) 34.0 General: Awake, Alert, Oriented x 3 HEENT: PERRL, EOMI, Sclera Non Icteric Neck: Supple, Good ROM, No Lymph Node Enlargement Lungs: Rales - Scott Bases, Expiratory Wheezes-Scott Cardiovascular: Regular Rhythm, Normal S1, Normal S2, No Murmurs, No Rubs, No Gallops Vascular: No Carotid Bruits, Normal Femoral Pulses, Normal Radial Pulses, Normal Dorsalis Pedal Pulse, Normal Posterior Tibial Pulses Abdomen: Bowel Sounds Present, Soft, Non Tender, No HSM, No Organomegaly Extremities: No Cyanosis, No Clubbing, No edema Neurological: No Focal Motor or Sensory Deficit 01/06/18 16:44: Troponin I 3.76 H* Rhythm: EKG: As above ECHO: As above Stress Test: Cardiac Cath: Pending PCI: CT Surgery: Holter monitor: EPS: PPM: CXR: Chest CT Scan: Assessment/Plan 1. Non-STEMI: The patient has progressively worsening dyspnea on exertion, shortness of breath, bilateral wheezing, lower extremity edema, and evidence on chest x-ray of worsening pulmonary edema. In addition his echocardiogram today demonstrates a marked difference in his LV function decreasing from 55% to around 35-40% with inferior posterior hypokinesis. In addition he has dynamic EKG changes of anterolateral leads consistent with ischemia and evidence of new inferior Q waves possible posterior involvement. I recommend the patient continue baby aspirin, be loaded with Plavix 3 mg ?1 followed by 75 mg a day, Lasix 40 mg IV every 8 hours to attempt diuresis of the patient may be able to lay down flat for eventual left her catheterization with graft angiography. Patient has baseline chronic renal insufficiency, and would recommend consideration of avoiding LV gram during catheterization. The patient is unable to lay down flat tomorrow morning, we will hold off on catheterization until Thursday. In addition his chest x-ray demonstrates elevated right hemidiaphragm, which may be a right pleural effusion given the patient's presenting symptoms. Would recommend IV diuresis and consideration of either repeat chest x-ray, or ultrasound evaluation for possible thoracentesis. Would also recommend discontinuation of Toprol, and switching him to Coreg 6.25 mg p.o. twice daily. Patient has baseline chronic renal insufficiency and is on losartan 100 mg p.o. daily. Recommend continuing this for now. It also recommend 1500 cc fluid restriction given the patient's significant LV dysfunction. In addition recommend Lovenox 1 mg/kg subcu for anticoagulation given his non-STEMI. Obtaining his old bypass surgery records has been somewhat problematic, catheterization may need to take place without previous bypass surgery report. 2. Hyperlipidemia: Recommend obtaining a fasting lipid profile, and continuing Lipitor therapy. His LDL should be less than 70. 3. Discussed patient findings with his primary chairman & chief executive officer Dr. Rizo, who will proceed with catheterization either tomorrow, , or Thursday depending upon the patient's ability to lay down flat. 4. Thank you very much for the opportunity to participate in the cardiac care of your patient. Consultation time took place between 515 and 5:57 PM. Code Visit Inpatient E&M: 17551 Init Hosp L2
--- NOTE | 2018-01-06 17:59 | US_ITS ---
STUDY: SUPERFICIAL ULTRASOUND - LEFT PLEURAL SPACE. REASON FOR EXAM: Male, 72 years old. Possible left pleural effusion and thoracentesis. TECHNIQUE: A superficial ultrasound was performed with real-time and static villeda-scale imaging. COMPARISON: None. FINDINGS: No pleural effusion is seen. US/Chest IMPRESSION: No pleural effusion is seen. Electronically Signed: Lonny Henry MD at 12:43 EDT Tel [phone], Service support ,
[2018-01-06 18:50] LABS: Cholesterol 108 mg/dL (200); High Density Lipoprotein 31 mg/dL; Triglycerides 111 mg/dL; Very Low Density Lipoprotein 22 mg/dL (5-40)
[2018-01-06 21:07] LABS: International Normalized Ratio 1.2; Prothrombin Time (Protime)PT. 14.9 SECONDS (11.7-14.9)
[2018-01-06 21:08] LABS: Partial Thromboplast Time 42.9 Seconds (24.1-36.2)
[2018-01-06] MEDS: Doxycycline 100 MG CAPSULE PO (22:27)
[2018-01-06] MEDS: Losartan Potassium 50 MG Tablet PO (22:27)
[2018-01-06] MEDS: MethylPREDNISolone 125 MG/2 ML Vial 60 MG IV (22:28)
[2018-01-06] MEDS: Atorvastatin Calcium 80 MG Tablet PO (22:28)
[2018-01-06] MEDS: Carvedilol 6.25 MG Tablet PO (22:33)
[2018-01-06] MEDS: Furosemide 40 MG/4 ML Vial IV (22:33)
[2018-01-06] MEDS: guaiFENesin 600 MG Tablet PO (22:39)
[2018-01-06 23:25] LABS: Bedside Glucose 230 mg/dL (70-110)
[2018-01-07] VITALS (17 sets, daily range): BP systolic 155–178; BP diastolic 67–74; PULSE 69–90; RESP 16–24; TEMP 36.6–36.8; O2SAT 93–95
[2018-01-07 00:56] LABS: Mucous, Urine 0 SEEN /hpf (<or=2+); White Blood Cells 0 SEEN /hpf (0-5)
[2018-01-07 00:58] LABS: Color, Urine Yellow (Yellow); Glucose, Dipstick Normal (Normal); Ketone-Dipstick Negative (Negative); Leukocyte Esterase-Dipstick Negative /ul (Negative); Nitrite-Dipstick Negative (Negative); Occult Blood-Urine 10 /ul (Negative); Protein-Dipstick 100 mg/dl (Negative); Urine Bilirubin Dipstick Negative (Negative); Urine Clarity Clear (Clear); Urine Urobilinogen Normal (Normal)
[2018-01-07 01:11] LABS: Bacteria RARE /hpf (None Seen); Red Blood Cells-Urine 0-5 SEEN /hpf (0-5); Squamous Epithelial Cells - UA 0-5 SEEN /hpf (0-5)
[2018-01-07 02:46] LABS: Absolute Lymphocyte Count 0.32 X10^3/ul (0.83-4.51); Absolute Neutrophil Count 2.9 X10^3/uL (2.0-7.7); Hematocrit 40.5 % (40-54); Hemoglobin 12.9 g/dl (13.0-16.5); Lymphocyte # 0.32 X10^3/ul (4.0); Lymphocyte % 9.8 % (19-41); Mean Corp Hgb Conc 31.9 g/gl (32-36); Mean Corpuscular Hgb 28.8 pg (27.0-32.0); Mean Corpuscular Volume 90.4 fL (80-94); Mean Platelet Vol. 8.9 fl (6.2-12.0); Monocyte# 0.07 X10^3/uL; Monocyte% 2.1 % (0-10); Neutrophil # 2.87 X10^3/uL (2.7-7.7); Neutrophil % 87.5 % (47-70); Platelet Count 150 K/mm3 (150-450); RBC Distribution Width SD 46.5 fl (35.1-43.9); Red Blood Count 4.48 M/mm3 (4.6-6.2); White Blood Count 3.3 K/mm3 (4.4-11.0)
[2018-01-07 02:47] LABS: Differential Indicated SCAN CRITERIA MET; POSITIVE COUNT NO; POSITIVE DIFFERENTIAL YES; POSITIVE MORPHOLOGY NO
[2018-01-07 02:57] LABS: International Normalized Ratio 1.2; Prothrombin Time (Protime)PT. 14.9 SECONDS (11.7-14.9)
[2018-01-07 02:58] LABS: Partial Thromboplast Time 42.2 Seconds (24.1-36.2)
[2018-01-07 03:06] LABS: ALB/GLOB Ratio 0.9 RATIO (0.9-2.4); AST(SGOT) 35 U/L (15-37); Alanine Aminotransfer ALT/SGPT 33 U/L (16-61); Albumin, Serum 3.4 g/dL (3.2-5.0); Alkaline Phosphatase 78 U/L (45-117); Anion Gap 9 (5-15); BUN 47 mg/dL (7-18); BUN/Creat Ratio 28.3 RATIO (10-20); Calcium,Total 8.8 mg/dL (8.5-10.1); Chloride 99 mmol/L (98-107); Cholesterol 117 mg/dL (200); Creatinine, Serum 1.66 mg/dL (0.70-1.30); EST Glomerular Filtration Rate 43 mL/min (>60); Est Glom Filt Rate - Afr Amer 52 mL/min (>60); Estimated Creatinine Clearance 37.77 ml/min; Globulin 3.7 g/dL (2.2-4.2); Glucose 258 mg/dL (74-106); High Density Lipoprotein 33 mg/dL; Magnesium 2.1 mg/dL (1.6-2.6); Potassium 3.7 mmol/L (3.5-5.1); Protein, Total 7.1 g/dL (6.4-8.2); Sodium Level 138 mmol/L (136-145); Triglycerides 110 mg/dL; Very Low Density Lipoprotein 22 mg/dL (5-40)
[2018-01-07] MEDS: Ipratropium/Albuterol Sulfate 3 ML AMPUL.NEB INHALATION ×5 (03:16→19:22)
[2018-01-07 04:17] LABS: BNP,B-Type NATRIURETIC PEPTIDE 262.7 pg/mL (0-100)
[2018-01-07] MEDS: MethylPREDNISolone 125 MG/2 ML Vial 60 MG IV ×3 (05:45→20:58)
[2018-01-07] MEDS: Losartan Potassium 50 MG Tablet PO ×2 (05:46→20:57)
[2018-01-07] MEDS: Carvedilol 6.25 MG Tablet PO ×2 (05:46→20:57)
[2018-01-07] MEDS: amLODIPine 5 MG Tablet PO (05:47)
--- NOTE | 2018-01-07 05:55 | EKG12_ITS ---
Test Reason : AM EKG Blood Pressure : / mmHG Vent. Rate : 073 BPM Atrial Rate : 073 BPM P-R Int : 166 ms QRS Dur : 114 ms QT Int : 406 ms P-R-T Axes : 013 -29 184 degrees QTc Int : 447 ms Sinus rhythm with occasional Premature ventricular complexes and Premature atrial complexes Left ventricular hypertrophy with repolarization abnormality Abnormal ECG When compared with ECG of 06-JAN-2018 14:00, MANUAL COMPARISON REQUIRED, DATA IS UNCONFIRMED Confirmed by ABRAHAM KILGORE, IRINA ([id number]), scientific editor KEN SIFUENTES ([id number]) on 01/12/2018 9:17:33 AM Referred By: RAGHAV Confirmed By:IRINA ROSARIO MD
[2018-01-07 07:06] LABS: Bedside Glucose 278 mg/dL (70-110)
[2018-01-07] MEDS: Furosemide 40 MG/4 ML Vial IV ×2 (07:33→13:50)
--- NOTE | 2018-01-07 08:48 | PN.CARD_ITS ---
Subjectve: Patient seen and evaluated and still short of breath Objective: Vital Signs Temp Pulse Resp BP Pulse Ox 98.3 F 72 18 155/74 H 95 01/07/18 04:15 01/07/18 07:15 01/07/18 07:15 01/07/18 04:15 01/07/18 07:54 Oxygen Flow Rate (L/min) 3 Oxygen Delivery Method Nasal Cannula Weight: 229 lb 8 oz Body Mass Index (BMI) 34.0 Intake and Output for Last 24 Hours 01/05/18 01/06/18 01/07/18 23:59 23:59 23:59 Intake Total 652 / 652 240 / 240 Output Total 400 / 400 400 / 400 Balance 252 / 252 -160 / -160 General: Awake, Alert, Oriented x 3 HEENT: PERRL, EOMI, Sclera Non Icteric Neck: Supple, Good ROM, No Lymph Node Enlargement Lungs: Diminished Scott Bases Cardiovascular: Regular Rhythm, Normal S1, Normal S2, No Murmurs, No Rubs, No Gallops Vascular: No Carotid Bruits, Normal Femoral Pulses, Normal Radial Pulses, Normal Dorsalis Pedal Pulse, Normal Posterior Tibial Pulses Abdomen: Bowel Sounds Present, Soft, Non Tender, No HSM, No Organomegaly Extremities: No Cyanosis, No Clubbing, Bilateral Edema +1 Neurological: No Focal Motor or Sensory Deficit 01/06/18 16:44: Troponin I 3.76 H* 01/06/18 16:44: Triglycerides 111, Cholesterol 108, LDL Cholesterol 55, VLDL Cholesterol 22, HDL Cholesterol 31 L 01/06/18 20:43: Troponin I 3.09 H* 01/06/18 20:43: PT 14.9, INR 1.2, APTT 42.9 H 01/06/18 23:00: Urine Color Yellow, Urine Clarity Clear, Urine pH 5.0, Ur Specific [place] 1.020, Urine Protein 100 H, Urine Glucose (UA) Normal, Urine Ketones Negative, Urine Occult Blood 10 H, Urine Nitrite Negative, Urine Bilirubin Negative, Urine Urobilinogen Normal, Ur Leukocyte Esterase Negative, Urine RBC 0-5 SEEN, Urine WBC 0 SEEN 01/07/18 02:25: B-Natriuretic Peptide 262.7 H 01/07/18 02:25: WBC 3.3 L, RBC 4.48 L, Hgb 12.9 L, Hct 40.5, MCV 90.4, MCH 28.8 , MCHC 31.9 L, RDW 14.0, RDW Differential 46.5 H, Plt Count 150, MPV 8.9, Immature Gran % (Auto) 0.600, Neut % (Auto) 87.5 H, Lymph % (Auto) 9.8 L, [place] % (Auto) 2.1, Eos % (Auto) 0.0, Baso % (Auto) 0.0, Absolute Neuts (auto) 2.9, Total Counted Not Reportable 01/07/18 02:25: Sodium 138, Potassium 3.7, Chloride 99, Carbon Dioxide 30.0, Anion Gap 9, BUN 47 H, Creatinine 1.66 H, Est GFR (MDRD) Af Amer 52 L, Est GFR ( MDRD) Non-Af 43 L, BUN/Creatinine Ratio 28.3 H, Glucose 258 H, Calcium 8.8, Magnesium 2.1, Total Bilirubin 0.60, Troponin I 2.52 H*, Triglycerides 110, Cholesterol 117, LDL Cholesterol 62, VLDL Cholesterol 22, HDL Cholesterol 33 L 01/07/18 02:25: PT 14.9, INR 1.2, APTT 42.2 H Rhythm: EKG: ECHO: Stress Test: Cardiac Cath: PCI: CT Surgery: Holter monitor: EPS: PPM: CXR: Chest CT Scan: Medical Necessity - Tobacco Use Smoking Status: Former smoker Assessment/Plan 1. Non-STEMI: The patient had progressively worsening dyspnea on exertion, shortness of breath, bilateral wheezing, lower extremity edema, and evidence on chest x-ray of worsening pulmonary edema. In addition his echocardiogram demonstrated a marked difference in his LV function decreasing from 55% to around 35-40% with inferior posterior hypokinesis. In addition he has dynamic EKG changes of anterolateral leads consistent with ischemia and evidence of new inferior Q waves possible posterior involvement. I recommend the patient continue baby aspirin, continue Plavix 75 mg a day, Lasix 40 mg IV every 8 hours to attempt diuresis of the patient may be able to lay down flat for eventual left her catheterization with graft angiography. At this time the patient still has some orthopnea and I would recommend deferring cardiac catheterization till AM. In addition his has some records regarding the bypass surgery and she will try and obtain this. 2. Congestive heart failure acute systolic In addition his chest x-ray demonstrates elevated right hemidiaphragm, I do not think that there is significant pleural effusion but he is scheduled for an ultrasound and depending on those findings further recommendations will be made. Would also recommend Coreg 6.25 mg p.o. twice daily. Patient has baseline chronic renal insufficiency and is on losartan 100 mg p.o. daily. Recommend continuing this for now. It also recommend 1500 cc fluid restriction given the patient's significant LV dysfunction. 3. Hyperlipidemia: Recommend obtaining a fasting lipid profile, and continuing Lipitor therapy. His LDL should be less than 70. 4. Status post coronary bypass surgery. He underwent coronary artery bypass surgery in 1997 with a left internal mammary artery sequential to the diagonal vessel as well as the left anterior descending artery, a saphenous vein graft to the circumflex artery obtuse marginal vessel, and a saphenous vein graft to the right coronary artery. This will be evaluated with the upcoming cardiac catheterization. Thank you for allowing me to participate in the care of your patient. Please don't hesitate to call if any issues arise
[2018-01-07] MEDS: Aspirin E.C. 81 MG Tablet PO (11:01)
[2018-01-07] MEDS: guaiFENesin 600 MG Tablet PO ×2 (11:01→20:58)
[2018-01-07] MEDS: Clopidogrel Bisulfate 75 MG Tablet PO (11:01)
[2018-01-07] MEDS: Doxycycline 100 MG CAPSULE PO ×2 (11:01→20:57)
--- NOTE | 2018-01-07 11:20 | CASEMGMT ---
Face to Face with patient for initial transition planning/care coordination assessment. JOSÉ LUIS GARCIA introduced self and role at [facility], pt voices understanding and consents to assessment at this time. Pt is sitting up in bed in no distress at this time. Pt A/O x4 at this time and answers all questions appropriately at this time. Care providers, pharmacy, and demographics verified. See attached link. Pt voices no further questions/concerns at this time. Advised pt to ask for CM if any further questions/concerns/needs arise, voices understanding. Advised pt/ that Ebonie HYDE would be in to complete AD paperwork sometime later today, voice understanding. Pt requests that no other friends/family other than be present when SW returns and Ebonie HYDE aware, voices understanding. [place] JOSÉ LUIS GARCIA
[2018-01-07 11:45] LABS: Bedside Glucose 397 mg/dL (70-110)
[2018-01-07] MEDS: 0.9% NaCl Peripheral Flush Adult/Peds IV ×2 (13:52→18:28)
--- NOTE | 2018-01-07 14:36 | CASEMGMT ---
SW received referral to complete LW/POA forms w/pt. SW assisted both pt and in completing living will/power of managed care specialist papers, pt put daughter Linda Toney([phone]) as primary and son Tuan Orantes([phone]) as secondary. SW gave pt and originals and copies, and copies placed on chart. 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
[2018-01-07 16:40] LABS: Bedside Glucose 401 mg/dL (70-110)
--- NOTE | 2018-01-07 17:08 | PCM.PN.HOSP ---
Patient Problems: Active and Suspected Problems (Last Updated 11/09/17 @ 09:46 by MALIK Howell) NSTEMI (non-ST elevated myocardial infarction) (Acute) Bronchitis with bronchospasm (Acute) Subjective: CC: Shortness of breath and cough Objective: This is a 72-year-old male who presented with shortness of breath and cough and found to have bronchitis as well as elevated troponin consistent with NSTEMI. Allergies have been consulted and the patient would likely undergo left heart catheterization tomorrow. He reports no chest pain, palpitations or rapid heartbeat at this point. Vitals/I&O's: Vital Signs Temp Pulse Resp BP Pulse Ox 98.1 F 72 24 H 178/67 H 95 01/07/18 14:42 01/07/18 15:42 01/07/18 15:15 01/07/18 14:42 01/07/18 14:42 Oxygen Flow Rate (L/min) 3 Oxygen Delivery Method Nasal Cannula Weight: 104.1 kg Body Mass Index (BMI) 34.0 Intake and Output for Last 24 Hours 01/05/18 01/06/18 01/07/18 23:59 23:59 23:59 Intake Total 652 / 652 760 / 760 Output Total 400 / 400 700 / 700 Balance 252 / 252 60 / 60 General: Alert, Oriented x3 Oral: Moist Mucosa Neck: Supple, No JVD Lungs: Wheezes Cardiovascular: Regular rate, Normal S1, Normal S2 Abdomen: Bowel Sounds Present, Soft, Non Tender, Non-Distended Extremities: No edema Musculoskeletal: Tenderness Neurological: Cranial nerves II-XII grossly intact, Motor Exam 5/5 strength throughout Psych/Mental Status: Normal Affect Microbiology Past 72 Hours 01/06/18 16:39 Urine, Clean Catch Legionella Antigen - Final 01/06/18 16:39 Urine, Clean Catch Streptococcus pneumoniae Antigen (M - Final Laboratory Results 01/06/18 16:44: Troponin I 3.76 H* 01/06/18 16:44: Triglycerides 111, Cholesterol 108, LDL Cholesterol 55, VLDL Cholesterol 22, HDL Cholesterol 31 L 01/06/18 20:43: Troponin I 3.09 H* 01/06/18 20:43: PT 14.9, INR 1.2, APTT 42.9 H 01/06/18 22:21: POC Glucose 230 H 01/06/18 23:00: Urine Color Yellow, Urine Clarity Clear, Urine pH 5.0, Ur Specific [place] 1.020, Urine Protein 100 H, Urine Glucose (UA) Normal, Urine Ketones Negative, Urine Occult Blood 10 H, Urine Nitrite Negative, Urine Bilirubin Negative, Urine Urobilinogen Normal, Ur Leukocyte Esterase Negative, Urine RBC 0-5 SEEN, Urine WBC 0 SEEN, Ur Squamous Epith Cells 0-5 SEEN, Urine Bacteria RARE, Urine Mucus 0 SEEN 01/07/18 02:25: B-Natriuretic Peptide 262.7 H 01/07/18 02:25: WBC 3.3 L, RBC 4.48 L, Hgb 12.9 L, Hct 40.5, MCV 90.4, MCH 28.8, MCHC 31.9 L, RDW 14.0, RDW Differential 46.5 H, Plt Count 150, MPV 8.9, Immature Gran % (Auto) 0.600, Neut % (Auto) 87.5 H, Lymph % (Auto) 9.8 L, [place] % (Auto) 2.1, Eos % (Auto) 0.0, Baso % (Auto) 0.0, Absolute Neuts (auto) 2.9, Absolute Lymphs (auto) 0.32 L, Total Counted Not Reportable 01/07/18 02:25: Sodium 138, Potassium 3.7, Chloride 99, Carbon Dioxide 30.0, Anion Gap 9, BUN 47 H, Creatinine 1.66 H, Estim Creat Clear Calc 37.77, Est GFR (MDRD) Af Amer 52 L, Est GFR (MDRD) Non-Af 43 L, BUN/Creatinine Ratio 28.3 H, Glucose 258 H, Calcium 8.8, Magnesium 2.1, Total Bilirubin 0.60, AST 35, ALT 33, Alkaline Phosphatase 78, Troponin I 2.52 H*, Total Protein 7.1, Albumin 3.4, Globulin 3.7, Albumin/Globulin Ratio 0.9, Triglycerides 110, Cholesterol 117, LDL Cholesterol 62, VLDL Cholesterol 22, HDL Cholesterol 33 L 01/07/18 02:25: PT 14.9, INR 1.2, APTT 42.2 H 01/07/18 06:51: POC Glucose 278 H 01/07/18 11:08: POC Glucose 397 H 01/07/18 16:36: POC Glucose 401 H Current Medications Acetaminophen (Tylenol) 650 mg PO Q6H PRN PRN PRN Reason: Mild Pain (scale 0-3)/T>100.7 Albuterol Sulfate (Ventolin Aerosols) 2.5 mg INHALATION Q2H.RT PRN PRN Reason: SOB/WHEEZING Albuterol/Ipratropium (Duoneb) 3 ml INHALATION Q4HWA.RT AUDREY Amlodipine Besylate (Norvasc) 5 mg PO DAILY [facility] Last Admin: 01/07/18 05:47 Dose: 5 mg Aspirin (Ecotrin) 81 mg PO DAILY [facility] Last Admin: 01/07/18 11:01 Dose: 81 mg Atorvastatin Calcium (Lipitor) 80 mg PO QHS [facility] Last Admin: 01/06/18 22:28 Dose: 80 mg Bisacodyl (Dulcolax) 10 mg PO DAILY PRN PRN PRN Reason: Constipation Carvedilol (Coreg) 6.25 mg PO BID [facility] Last Admin: 01/07/18 05:46 Dose: 6.25 mg Clopidogrel Bisulfate (Plavix) 75 mg PO DAILY [facility] Last Admin: 01/07/18 11:01 Dose: 75 mg Dextrose (D50w Syringe) 0 gm IV X1 PRN; Protocol PRN Reason: Hypoglycemia Diphenhydramine HCl (Benadryl) 50 mg PO X1 ONE Stop: 01/08/18 05:01 Docusate Sodium (Colace) 200 mg PO BID PRN PRN PRN Reason: Constipation Doxycycline Monohydrate (Doxycycline) 100 mg PO BID [facility] Last Admin: 01/07/18 11:01 Dose: 100 mg Furosemide (Lasix) 40 mg IV Q8 [facility] Last Admin: 01/07/18 13:50 Dose: 40 mg Glucagon () 1 mg IM .X1 PRN PRN Reason: Hypoglycemia Guaifenesin (Mucinex) 600 mg PO BID [facility] Last Admin: 01/07/18 11:01 Dose: 600 mg Sodium Chloride () 1,000 mls @ 0 mls/hr IV .Q0M [facility] PRN Reason: KVO Insulin Aspart (Novolog Flexpen ([facility])) 0 units SC ACHS [facility] PRN Reason: Protocol Last Admin: 01/07/18 11:10 Dose: 6 u Insulin Human Regular (Humulin R U-500 ([facility])) 0.15 ml SC DINNER [facility] Last Admin: 01/06/18 18:44 Dose: 0.15 ml Insulin Human Regular (Humulin R U-500 ([facility])) 0.15 ml SC LUNCH [facility] Last Admin: 01/07/18 12:22 Dose: 75 units Insulin Human Regular (Humulin R U-500 ([facility])) 0.18 ml SC BREAKFAST [facility] Last Admin: 01/07/18 09:25 Dose: 90 units Losartan Potassium (Cozaar) 50 mg PO BID [facility] Last Admin: 01/07/18 05:46 Dose: 50 mg Magnesium Hydroxide (Milk Of Magnesia) 30 ml PO DAILY PRN PRN Reason: Constipation Melatonin (Melatonin) 3 - 6 mg PO QHS PRN PRN Reason: SLEEP Methylprednisolone (Solu-Medrol) 60 mg IV Q8 [facility] Last Admin: 01/07/18 13:50 Dose: 60 mg Metoprolol Tartrate (Lopressor (Beta Harshal)) 2.5 mg IV Q4 PRN PRN Reason: heart rate greater than 100 Morphine Sulfate () 2 - 4 mg IV Q3H PRN PRN PRN Reason: Severe Pain (pain scale 6-10) Morphine Sulfate () 2 - 4 mg IV Q3H PRN PRN PRN Reason: Severe Pain (pain scale 6-10) Nitroglycerin (Nitrostat) 0.4 mg SUBLINGUAL Q5M PRN PRN Reason: CHEST PAIN Ondansetron HCl (Zofran) 4 mg IV Q8H PRN PRN PRN Reason: Nausea Sodium Chloride () 5 - 30 ml IV UD PRN PRN Reason: SALINE FLUSH Last Admin: 01/07/18 13:52 Dose: 30 ml Throat Lozenges (Cepacol Sore Throat Lozenge) 1 lozenge MUCOUS MEM PRN PRN PRN Reason: PAIN Medical Necessity - Tobacco Use Smoking Status: Former smoker Assessment/Plan Active and Suspected Problems (Last Updated 11/09/17 @ 09:46 by MALIK Howell) NSTEMI (non-ST elevated myocardial infarction) (Acute) Bronchitis with bronchospasm (Acute) 1. Non-STEMI; continue on current cardioprotective medications, left heart catheterization in a.m. 2. Bronchitis with bronchospasm; continue on IV steroids, bronchodilator therapy and p.o. doxycycline. 3. Acute Respiratory failure with hypoxia; continue on supplemental oxygen. 4. Coronary artery disease status post CABG; 5. DM type II; he is on U-500. 6. CKD 3; gentle hydration 7. Hypertension; BP still elevated I will increase his Coreg dose Code Visit Inpatient E&M: 29002 Subs Hosp L2
--- NOTE | 2018-01-07 17:11 | PN_ITS ---
Patient Problems: Active and Suspected Problems (Last Updated 11/09/17 @ 09:46 by MALIK Howell) NSTEMI (non-ST elevated myocardial infarction) (Acute) Bronchitis with bronchospasm (Acute) Subjective: CC: Shortness of breath and cough Objective: This is a 72-year-old male who presented with shortness of breath and cough and found to have bronchitis as well as elevated troponin consistent with NSTEMI. Allergies have been consulted and the patient would likely undergo left heart catheterization tomorrow. He reports no chest pain, palpitations or rapid heartbeat at this point. Vitals/I&O's: Vital Signs Temp Pulse Resp BP Pulse Ox 98.1 F 72 24 H 178/67 H 95 01/07/18 14:42 01/07/18 15:42 01/07/18 15:15 01/07/18 14:42 01/07/18 14:42 Oxygen Flow Rate (L/min) 3 Oxygen Delivery Method Nasal Cannula Weight: 104.1 kg Body Mass Index (BMI) 34.0 Intake and Output for Last 24 Hours 01/05/18 01/06/18 01/07/18 23:59 23:59 23:59 Intake Total 652 / 652 760 / 760 Output Total 400 / 400 700 / 700 Balance 252 / 252 60 / 60 General: Alert, Oriented x3 Oral: Moist Mucosa Neck: Supple, No JVD Lungs: Wheezes Cardiovascular: Regular rate, Normal S1, Normal S2 Abdomen: Bowel Sounds Present, Soft, Non Tender, Non-Distended Extremities: No edema Musculoskeletal: Tenderness Neurological: Cranial nerves II-XII grossly intact, Motor Exam 5/5 strength throughout Psych/Mental Status: Normal Affect Microbiology Past 72 Hours 01/06/18 16:39 Urine, Clean Catch Legionella Antigen - Final 01/06/18 16:39 Urine, Clean Catch Streptococcus pneumoniae Antigen (M - Final Laboratory Results 01/06/18 16:44: Troponin I 3.76 H* 01/06/18 16:44: Triglycerides 111, Cholesterol 108, LDL Cholesterol 55, VLDL Cholesterol 22, HDL Cholesterol 31 L 01/06/18 20:43: Troponin I 3.09 H* 01/06/18 20:43: PT 14.9, INR 1.2, APTT 42.9 H 01/06/18 22:21: POC Glucose 230 H 01/06/18 23:00: Urine Color Yellow, Urine Clarity Clear, Urine pH 5.0, Ur Specific [place] 1.020, Urine Protein 100 H, Urine Glucose (UA) Normal, Urine Ketones Negative, Urine Occult Blood 10 H, Urine Nitrite Negative, Urine Bilirubin Negative, Urine Urobilinogen Normal, Ur Leukocyte Esterase Negative, Urine RBC 0-5 SEEN, Urine WBC 0 SEEN, Ur Squamous Epith Cells 0-5 SEEN, Urine Bacteria RARE, Urine Mucus 0 SEEN 01/07/18 02:25: B-Natriuretic Peptide 262.7 H 01/07/18 02:25: WBC 3.3 L, RBC 4.48 L, Hgb 12.9 L, Hct 40.5, MCV 90.4, MCH 28.8 , MCHC 31.9 L, RDW 14.0, RDW Differential 46.5 H, Plt Count 150, MPV 8.9, Immature Gran % (Auto) 0.600, Neut % (Auto) 87.5 H, Lymph % (Auto) 9.8 L, [place] % (Auto) 2.1, Eos % (Auto) 0.0, Baso % (Auto) 0.0, Absolute Neuts (auto) 2.9, Absolute Lymphs (auto) 0.32 L, Total Counted Not Reportable 01/07/18 02:25: Sodium 138, Potassium 3.7, Chloride 99, Carbon Dioxide 30.0, Anion Gap 9, BUN 47 H, Creatinine 1.66 H, Estim Creat Clear Calc 37.77, Est GFR (MDRD) Af Amer 52 L, Est GFR (MDRD) Non-Af 43 L, BUN/Creatinine Ratio 28.3 H, Glucose 258 H, Calcium 8.8, Magnesium 2.1, Total Bilirubin 0.60, AST 35, ALT 33 , Alkaline Phosphatase 78, Troponin I 2.52 H*, Total Protein 7.1, Albumin 3.4, Globulin 3.7, Albumin/Globulin Ratio 0.9, Triglycerides 110, Cholesterol 117, LDL Cholesterol 62, VLDL Cholesterol 22, HDL Cholesterol 33 L 01/07/18 02:25: PT 14.9, INR 1.2, APTT 42.2 H 01/07/18 06:51: POC Glucose 278 H 01/07/18 11:08: POC Glucose 397 H 01/07/18 16:36: POC Glucose 401 H Current Medications Acetaminophen (Tylenol) 650 mg PO Q6H PRN PRN PRN Reason: Mild Pain (scale 0-3)/T>100.7 Albuterol Sulfate (Ventolin Aerosols) 2.5 mg INHALATION Q2H.RT PRN PRN Reason: SOB/WHEEZING Albuterol/Ipratropium (Duoneb) 3 ml INHALATION Q4HWA.RT AUDREY Amlodipine Besylate (Norvasc) 5 mg PO DAILY [facility] Last Admin: 01/07/18 05:47 Dose: 5 mg Aspirin (Ecotrin) 81 mg PO DAILY [facility] Last Admin: 01/07/18 11:01 Dose: 81 mg Atorvastatin Calcium (Lipitor) 80 mg PO QHS [facility] Last Admin: 01/06/18 22:28 Dose: 80 mg Bisacodyl (Dulcolax) 10 mg PO DAILY PRN PRN PRN Reason: Constipation Carvedilol (Coreg) 6.25 mg PO BID [facility] Last Admin: 01/07/18 05:46 Dose: 6.25 mg Clopidogrel Bisulfate (Plavix) 75 mg PO DAILY [facility] Last Admin: 01/07/18 11:01 Dose: 75 mg Dextrose (D50w Syringe) 0 gm IV X1 PRN; Protocol PRN Reason: Hypoglycemia Diphenhydramine HCl (Benadryl) 50 mg PO X1 ONE Stop: 01/08/18 05:01 Docusate Sodium (Colace) 200 mg PO BID PRN PRN PRN Reason: Constipation Doxycycline Monohydrate (Doxycycline) 100 mg PO BID [facility] Last Admin: 01/07/18 11:01 Dose: 100 mg Furosemide (Lasix) 40 mg IV Q8 [facility] Last Admin: 01/07/18 13:50 Dose: 40 mg Glucagon () 1 mg IM .X1 PRN PRN Reason: Hypoglycemia Guaifenesin (Mucinex) 600 mg PO BID [facility] Last Admin: 01/07/18 11:01 Dose: 600 mg Sodium Chloride () 1,000 mls @ 0 mls/hr IV .Q0M [facility] PRN Reason: KVO Insulin Aspart (Novolog Flexpen ([facility])) 0 units SC ACHS [facility] PRN Reason: Protocol Last Admin: 01/07/18 11:10 Dose: 6 u Insulin Human Regular (Humulin R U-500 ([facility])) 0.15 ml SC DINNER [facility] Last Admin: 01/06/18 18:44 Dose: 0.15 ml Insulin Human Regular (Humulin R U-500 ([facility])) 0.15 ml SC LUNCH [facility] Last Admin: 01/07/18 12:22 Dose: 75 units Insulin Human Regular (Humulin R U-500 ([facility])) 0.18 ml SC BREAKFAST [facility] Last Admin: 01/07/18 09:25 Dose: 90 units Losartan Potassium (Cozaar) 50 mg PO BID [facility] Last Admin: 01/07/18 05:46 Dose: 50 mg Magnesium Hydroxide (Milk Of Magnesia) 30 ml PO DAILY PRN PRN Reason: Constipation Melatonin (Melatonin) 3 - 6 mg PO QHS PRN PRN Reason: SLEEP Methylprednisolone (Solu-Medrol) 60 mg IV Q8 [facility] Last Admin: 01/07/18 13:50 Dose: 60 mg Metoprolol Tartrate (Lopressor (Beta Harshal)) 2.5 mg IV Q4 PRN PRN Reason: heart rate greater than 100 Morphine Sulfate () 2 - 4 mg IV Q3H PRN PRN PRN Reason: Severe Pain (pain scale 6-10) Morphine Sulfate () 2 - 4 mg IV Q3H PRN PRN PRN Reason: Severe Pain (pain scale 6-10) Nitroglycerin (Nitrostat) 0.4 mg SUBLINGUAL Q5M PRN PRN Reason: CHEST PAIN Ondansetron HCl (Zofran) 4 mg IV Q8H PRN PRN PRN Reason: Nausea Sodium Chloride () 5 - 30 ml IV UD PRN PRN Reason: SALINE FLUSH Last Admin: 01/07/18 13:52 Dose: 30 ml Throat Lozenges (Cepacol Sore Throat Lozenge) 1 lozenge MUCOUS MEM PRN PRN PRN Reason: PAIN Medical Necessity - Tobacco Use Smoking Status: Former smoker Assessment/Plan Active and Suspected Problems (Last Updated 11/09/17 @ 09:46 by MALIK Howell) NSTEMI (non-ST elevated myocardial infarction) (Acute) Bronchitis with bronchospasm (Acute) 1. Non-STEMI; continue on current cardioprotective medications, left heart catheterization in a.m. 2. Bronchitis with bronchospasm; continue on IV steroids, bronchodilator therapy and p.o. doxycycline. 3. Acute Respiratory failure with hypoxia; continue on supplemental oxygen. 4. Coronary artery disease status post CABG; 5. DM type II; he is on U-500. 6. CKD 3; gentle hydration 7. Hypertension; BP still elevated I will increase his Coreg dose Code Visit Inpatient E&M: 37853 Subs Hosp L2
[2018-01-07] MEDS: Furosemide 40 MG/4 ML Vial 80 MG IV (18:27)
[2018-01-07] MEDS: Atorvastatin Calcium 80 MG Tablet PO (20:57)
[2018-01-07] MEDS: MELATONIN 3 MG TABLET PO (21:01)
[2018-01-07 22:36] LABS: Bedside Glucose 232 mg/dL (70-110)
[2018-01-08] VITALS (57 sets, daily range): BP systolic 116–187; BP diastolic 46–97; PULSE 61–86; RESP 14–24; TEMP 36.3–37.1; O2SAT 90–98
[2018-01-08] MEDS: Furosemide 40 MG/4 ML Vial IV ×3 (04:55→21:09)
[2018-01-08] MEDS: MethylPREDNISolone 125 MG/2 ML Vial 60 MG IV ×3 (04:55→21:31)
--- NOTE | 2018-01-08 05:55 | EKG12_ITS ---
Test Reason : AM EKG Blood Pressure : / mmHG Vent. Rate : 063 BPM Atrial Rate : 063 BPM P-R Int : 184 ms QRS Dur : 114 ms QT Int : 444 ms P-R-T Axes : 013 -23 141 degrees QTc Int : 454 ms Sinus rhythm with Blocked Premature atrial complexes ST & T wave abnormality, consider lateral ischemia Abnormal ECG Confirmed by ABRAHAM KILGORE, IRINA ([id number]), editor book KEN SIFUENTES ([id number]) on 01/12/2018 9:08:06 AM Referred By: BETHANIE Confirmed By:IRINA ROSARIO MD
[2018-01-08 06:06] LABS: International Normalized Ratio 1.2; Partial Thromboplast Time 30.4 Seconds (24.1-36.2); Prothrombin Time (Protime)PT. 15.4 SECONDS (11.7-14.9)
[2018-01-08 06:08] LABS: Absolute Lymphocyte Count 0.48 X10^3/ul (0.83-4.51); Absolute Neutrophil Count 6.2 X10^3/uL (2.0-7.7); Differential Indicated SCAN CRITERIA MET; Hematocrit 39.9 % (40-54); Hemoglobin 12.6 g/dl (13.0-16.5); Lymphocyte # 0.48 X10^3/ul (4.0); Lymphocyte % 6.9 % (19-41); Mean Corp Hgb Conc 31.6 g/gl (32-36); Mean Corpuscular Hgb 28.8 pg (27.0-32.0); Mean Corpuscular Volume 91.3 fL (80-94); Mean Platelet Vol. 9.1 fl (6.2-12.0); Monocyte# 0.32 X10^3/uL; Monocyte% 4.6 % (0-10); Neutrophil # 6.17 X10^3/uL (2.7-7.7); Neutrophil % 88.4 % (47-70); POSITIVE COUNT NO; POSITIVE DIFFERENTIAL YES; POSITIVE MORPHOLOGY NO; Platelet Count 182 K/mm3 (150-450); RBC Distribution Width CV 14.1 % (11.6-14.6); Red Blood Count 4.37 M/mm3 (4.6-6.2)
[2018-01-08 06:13] LABS: Anion Gap 7 (5-15); BUN 62 mg/dL (7-18); BUN/Creat Ratio 37.3 RATIO (10-20); Calcium,Total 9.1 mg/dL (8.5-10.1); Chloride 104 mmol/L (98-107); Creatinine, Serum 1.66 mg/dL (0.70-1.30); EST Glomerular Filtration Rate 43 mL/min (>60); Est Glom Filt Rate - Afr Amer 52 mL/min (>60); Estimated Creatinine Clearance 37.77 ml/min; Glucose 93 mg/dL (74-106); Potassium 3.7 mmol/L (3.5-5.1); Sodium Level 145 mmol/L (136-145)
[2018-01-08] MEDS: Losartan Potassium 50 MG Tablet PO ×2 (06:18→21:08)
[2018-01-08] MEDS: Aspirin E.C. 81 MG Tablet PO (06:20)
[2018-01-08] MEDS: Carvedilol 6.25 MG Tablet PO (06:20)
[2018-01-08] MEDS: Clopidogrel Bisulfate 75 MG Tablet PO (06:20)
[2018-01-08] MEDS: amLODIPine 5 MG Tablet PO (06:20)
[2018-01-08 06:32] LABS: Differential Comment SCANNED
[2018-01-08] MEDS: DiphenhydrAMINE 25 MG Capsule 50 MG PO (06:52)
[2018-01-08 07:10] LABS: Bedside Glucose 93 mg/dL (70-110)
--- NOTE | 2018-01-08 07:45 | PCM.PN.CARD ---
Subjectve: Patient seen and evaluated and underwent cardiac catheterization today. Objective: Vital Signs Temp Pulse Resp BP Pulse Ox 97.8 F 69 20 H 160/74 H 97 01/08/18 06:14 01/08/18 06:53 01/08/18 06:14 01/08/18 06:14 01/08/18 06:14 Oxygen Flow Rate (L/min) 2 Oxygen Delivery Method Room Air Weight: 229 lb 8.019 oz Body Mass Index (BMI) 34.0 Intake and Output for Last 24 Hours 01/06/18 01/07/18 01/08/18 23:59 23:59 23:59 Intake Total 652 / 652 1240 / 1240 Output Total 400 / 400 1800 / 1800 750 / 750 Balance 252 / 252 -560 / -560 -750 / -750 General: Awake, Alert, Oriented x 3 HEENT: PERRL, EOMI, Sclera Non Icteric Neck: Supple, Good ROM, No Lymph Node Enlargement Lungs: Clear to auscultation Cardiovascular: Regular Rhythm, Normal S1, Normal S2, No Murmurs, No Rubs, No Gallops Vascular: No Carotid Bruits, Normal Femoral Pulses, Normal Radial Pulses, Normal Dorsalis Pedal Pulse, Normal Posterior Tibial Pulses Abdomen: Bowel Sounds Present, Soft, Non Tender, No HSM, No Organomegaly Extremities: No Cyanosis, No Clubbing, No edema Neurological: No Focal Motor or Sensory Deficit 01/08/18 05:40: WBC 7.0, RBC 4.37 L, Hgb 12.6 L, Hct 39.9 L, MCV 91.3, MCH 28.8, MCHC 31.6 L, RDW 14.1, RDW Differential 47.0 H, Plt Count 182, MPV 9.1, Immature Gran % (Auto) 0.100, Neut % (Auto) 88.4 H, Lymph % (Auto) 6.9 L, [place] % (Auto) 4.6, Eos % (Auto) 0.0, Baso % (Auto) 0.0, Absolute Neuts (auto) 6.2, Total Counted Not Reportable 01/08/18 05:40: PT 15.4 H, INR 1.2, APTT 30.4 01/08/18 05:40: Sodium 145, Potassium 3.7, Chloride 104, Carbon Dioxide 34.0 H, Anion Gap 7, BUN 62 H, Creatinine 1.66 H, Est GFR (MDRD) Af Amer 52 L, Est GFR (MDRD) Non-Af 43 L, BUN/Creatinine Ratio 37.3 H, Glucose 93, Calcium 9.1 Rhythm: EKG: ECHO: Stress Test: Cardiac Cath: PCI: CT Surgery: Holter monitor: EPS: PPM: CXR: Chest CT Scan: Medical Necessity - Tobacco Use Smoking Status: Former smoker Assessment/Plan 1. Non-STEMI: The patient had progressively worsening dyspnea on exertion, shortness of breath, bilateral wheezing, lower extremity edema, and evidence on chest x-ray of worsening pulmonary edema. In addition his echocardiogram demonstrated a marked difference in his LV function decreasing from 55% to around 35-40% with inferior posterior hypokinesis. In addition he has dynamic EKG changes of anterolateral leads consistent with ischemia and evidence of new inferior Q waves possible posterior involvement. His cardiac catheterization today demonstrated the following: Severe left main coronary artery stenosis. Left anterior descending artery totally occluded. Left circumflex artery totally occluded. Right coronary artery severely diseased and totally occluded. Left internal mammary artery to left anterior descending artery which is patent. Saphenous vein graft to the right coronary artery which is patent with mild distal disease. Saphenous vein graft to the circumflex artery which is patent with moderately severe distal [place] vessel disease. Based on the above angiographic findings, EKG changes will recommend patient undergo angioplasty to the [place] circumflex artery. Discussed with interventional list. I recommend the patient continue baby aspirin, continue Plavix 75 mg a day, 2. Congestive heart failure acute systolic The above has improved significantly. We will continue limited diuretics. Would also recommend Coreg 6.25 mg p.o. twice daily. Patient has baseline chronic renal insufficiency and is on losartan 100 mg p.o. daily. Recommend continuing this for now. It also recommend 1500 cc fluid restriction given the patient's significant LV dysfunction. 3. Hyperlipidemia: Recommend obtaining a fasting lipid profile, and continuing Lipitor therapy. His LDL should be less than 70. 4. Status post coronary bypass surgery. He underwent coronary artery bypass surgery in 1997 with a left internal mammary artery sequential to the diagonal vessel as well as the left anterior descending artery, a saphenous vein graft to the circumflex artery obtuse marginal vessel, and a saphenous vein graft to the right coronary artery. This will be evaluated with the upcoming cardiac catheterization. Thank you for allowing me to participate in the care of your patient. Please don't hesitate to call if any issues arise
--- NOTE | 2018-01-08 07:52 | PN.CARD_ITS ---
Subjectve: Patient seen and evaluated and underwent cardiac catheterization today. Objective: Vital Signs Temp Pulse Resp BP Pulse Ox 97.8 F 69 20 H 160/74 H 97 01/08/18 06:14 01/08/18 06:53 01/08/18 06:14 01/08/18 06:14 01/08/18 06:14 Oxygen Flow Rate (L/min) 2 Oxygen Delivery Method Room Air Weight: 229 lb 8.019 oz Body Mass Index (BMI) 34.0 Intake and Output for Last 24 Hours 01/06/18 01/07/18 01/08/18 23:59 23:59 23:59 Intake Total 652 / 652 1240 / 1240 Output Total 400 / 400 1800 / 1800 750 / 750 Balance 252 / 252 -560 / -560 -750 / -750 General: Awake, Alert, Oriented x 3 HEENT: PERRL, EOMI, Sclera Non Icteric Neck: Supple, Good ROM, No Lymph Node Enlargement Lungs: Clear to auscultation Cardiovascular: Regular Rhythm, Normal S1, Normal S2, No Murmurs, No Rubs, No Gallops Vascular: No Carotid Bruits, Normal Femoral Pulses, Normal Radial Pulses, Normal Dorsalis Pedal Pulse, Normal Posterior Tibial Pulses Abdomen: Bowel Sounds Present, Soft, Non Tender, No HSM, No Organomegaly Extremities: No Cyanosis, No Clubbing, No edema Neurological: No Focal Motor or Sensory Deficit 01/08/18 05:40: WBC 7.0, RBC 4.37 L, Hgb 12.6 L, Hct 39.9 L, MCV 91.3, MCH 28.8 , MCHC 31.6 L, RDW 14.1, RDW Differential 47.0 H, Plt Count 182, MPV 9.1, Immature Gran % (Auto) 0.100, Neut % (Auto) 88.4 H, Lymph % (Auto) 6.9 L, [place] % (Auto) 4.6, Eos % (Auto) 0.0, Baso % (Auto) 0.0, Absolute Neuts (auto) 6.2, Total Counted Not Reportable 01/08/18 05:40: PT 15.4 H, INR 1.2, APTT 30.4 01/08/18 05:40: Sodium 145, Potassium 3.7, Chloride 104, Carbon Dioxide 34.0 H, Anion Gap 7, BUN 62 H, Creatinine 1.66 H, Est GFR (MDRD) Af Amer 52 L, Est GFR ( MDRD) Non-Af 43 L, BUN/Creatinine Ratio 37.3 H, Glucose 93, Calcium 9.1 Rhythm: EKG: ECHO: Stress Test: Cardiac Cath: PCI: CT Surgery: Holter monitor: EPS: PPM: CXR: Chest CT Scan: Medical Necessity - Tobacco Use Smoking Status: Former smoker Assessment/Plan 1. Non-STEMI: The patient had progressively worsening dyspnea on exertion, shortness of breath, bilateral wheezing, lower extremity edema, and evidence on chest x-ray of worsening pulmonary edema. In addition his echocardiogram demonstrated a marked difference in his LV function decreasing from 55% to around 35-40% with inferior posterior hypokinesis. In addition he has dynamic EKG changes of anterolateral leads consistent with ischemia and evidence of new inferior Q waves possible posterior involvement. His cardiac catheterization today demonstrated the following: Severe left main coronary artery stenosis. Left anterior descending artery totally occluded. Left circumflex artery totally occluded. Right coronary artery severely diseased and totally occluded. Left internal mammary artery to left anterior descending artery which is patent. Saphenous vein graft to the right coronary artery which is patent with mild distal disease. Saphenous vein graft to the circumflex artery which is patent with moderately severe distal [place] vessel disease. Based on the above angiographic findings, EKG changes will recommend patient undergo angioplasty to the [place] circumflex artery. Discussed with interventional list. I recommend the patient continue baby aspirin, continue Plavix 75 mg a day, 2. Congestive heart failure acute systolic The above has improved significantly. We will continue limited diuretics. Would also recommend Coreg 6.25 mg p.o. twice daily. Patient has baseline chronic renal insufficiency and is on losartan 100 mg p.o. daily. Recommend continuing this for now. It also recommend 1500 cc fluid restriction given the patient's significant LV dysfunction. 3. Hyperlipidemia: Recommend obtaining a fasting lipid profile, and continuing Lipitor therapy. His LDL should be less than 70. 4. Status post coronary bypass surgery. He underwent coronary artery bypass surgery in 1997 with a left internal mammary artery sequential to the diagonal vessel as well as the left anterior descending artery, a saphenous vein graft to the circumflex artery obtuse marginal vessel, and a saphenous vein graft to the right coronary artery. This will be evaluated with the upcoming cardiac catheterization. Thank you for allowing me to participate in the care of your patient. Please don't hesitate to call if any issues arise
--- NOTE | 2018-01-08 08:13 | CL.D_ITS ---
Patient Name: SANJAY MORRIS Study Date: 01/08/2018 Performing: Eduardo Rizo MD Ht: 68.89 inches 175 cm : 1945 Wt: 229.28 lbs 104 kg Age: 72 Gender: male BSA: 2.19 PROCEDURE(S) PERFORMED [id number]/CABG CLINICAL PROFILE AND INDICATIONS Indications: ACS <= 24 hrs Heart Failure: NYHA Class: 2, Newly Diagnosed: Yes, Heart Failure Type: Systolic Stress/Imaging Stress/Image Study Performed: No CONCLUSIONS Severe [place] vessel disease. Saphenous vein graft to the right coronary artery and to the circumfle x artery patent with distal [place] circumflex artery disease. Internal mammary artery to the left an terior descending artery which is patent with distal LAD with mild disease. RECOMMENDATIONS Referred for immediate PCI DESCRIPTION OF PROCEDURE The patient arrived to the procedure lab. The risks and benefits of the procedure as well as a full d escription of our services here and current unavailability of surgical backup were fully explained to the patient and/or their significant other prior to the catheterization. The Timeout was completed, verifying the correct patient and procedure. The patient's procedural site was prepped and draped in the usual fashion. Local anesthetic was given subcutaneously to right groin region with Lidocaine 2%. Using a modified Seldinger technique, arterial access was obtained via the right femoral artery, a 5 Fr sheath was inserted. Left Coronary Artery selective angiography was performed in multiple views u sing a 5 Fr. JL4 catheter. Right Coronary Artery selective angiography was then performed in multiple views using a 5 Fr. 3DRC (Doe) catheter. Left internal mammary artery graft to the LAD selectiv e angiography was performed in multiple views using a 5 Fr. 3DRC (Doe) catheter. Left internal m ammary artery graft to the LAD sequential to Diag selective angiography was performed in multiple vie ws using a 5 Fr. IM catheter. Saphenous Vein graft to the Circumflex selective angiography was perfor med in multiple views using a 5 Fr. IM catheter. Saphenous Vein graft to the RCA selective angiograph y was performed in multiple views using a 5 Fr. IM catheter. CORONARY ANGIOGRAPHY DOMINANCE: Right Dominant LEFT HEART ASSESSMENT Left Ventricular Ejection Fraction: by Echo 35 % LEFT MAIN: 90 % Stenosis LEFT ANTERIOR DECENDING ARTERY: is occluded CIRCUMFLEX ARTERY: is occluded OM 2: Mid - 70 % Stenosis RIGHT CORONARY ARTERY: severe [place] vessel disease. GRAFTS: GANN graft to the Mid LAD is patent Saphenous Vein graft to the 2nd OM is patent Saphenous Vein graft to the RPDA is patent COMPLICATIONS PROCEDURE MEDICATIONS Versed 1 mg IV Versed 1 mg IV Oxygen: 2 L/min via nasal cannula Heparin 6000 unit(s) IV 01/08/2018 08:15:04 SUMMARY OF HEMODYNAMIC DATA Time AIR REST ECG 07:08:47 AO 187/91 (134) SA 07:19:27 Signed By Eduardo Rizo MD On 01/08/2018 08:15:31 Eduardo Rizo MD
--- NOTE | 2018-01-08 08:24 | NURSING ---
Called report to KESHAWN Silvestre RN at this time.
--- NOTE | 2018-01-08 08:48 | EKG12_ITS ---
Test Reason : PCI Blood Pressure : / mmHG Vent. Rate : 065 BPM Atrial Rate : 065 BPM P-R Int : 160 ms QRS Dur : 072 ms QT Int : 392 ms P-R-T Axes : 061 065 059 degrees QTc Int : 407 ms Normal sinus rhythm Normal ECG When compared with ECG of 08-JAN-2018 08:51, MANUAL COMPARISON REQUIRED, DATA IS UNCONFIRMED Confirmed by ABRAHAM KILGORE, IRINA ([id number]), assignment editor KEN SIFUENTES ([id number]) on 01/14/2018 2:23:33 PM Referred By: LIZZ Confirmed By:IRINA ROSARIO MD
[2018-01-08 09:41] LABS: Hematocrit 38.4 % (40-54); Hemoglobin 12.5 g/dl (13.0-16.5); Mean Corp Hgb Conc 32.6 g/gl (32-36); Mean Corpuscular Hgb 29.8 pg (27.0-32.0); Mean Corpuscular Volume 91.4 fL (80-94); Mean Platelet Vol. 9.2 fl (6.2-12.0); Platelet Count 216 K/mm3 (150-450); RBC Distribution Width SD 46.1 fl (35.1-43.9); White Blood Count 7.5 K/mm3 (4.4-11.0)
[2018-01-08 09:43] LABS: Scan Indicated on CBC? Y/N NO
[2018-01-08] MEDS: 0.9% Normal Saline 1,000 ML 150 ML IV (09:48)
[2018-01-08 10:04] LABS: CPK Total, Creatine Kinase 223 U/L (39-308)
[2018-01-08 10:16] LABS: ACT Activated Clotting Time 180 sec (74-137)
[2018-01-08 10:45] LABS: ACT Activated Clotting Time 136 sec (74-137)
[2018-01-08 11:16] LABS: M R Staph aureus DNA By PCR Negative (Negative); Probe Check PASS; Specimen Processing Control PASS
--- NOTE | 2018-01-08 13:40 | CRPHASE1 ---
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 ENGINEER Risk Factors/Lifestyle Smoking Status: Former smoker Hx Hypertension: Yes Hx Diabetes Mellitus Type 2: Yes Hx Dyslipidemia: Yes Hx Obesity: Yes Height: 5 ft 8 in - 229# Stress: Home/Family ETOH: Yes Risk Factor for Sedentary Lifestyle: Moderate Risk, Highest Risk Family History: Family History (Last Updated 11/06/17 @ 18:12 by Fidel Gtz) Mother Cancer Family History: Cancer Laboratory Values: Cardiac Rehab Phase I Labs Triglycerides 110 mg/dL (-199) 01/07/18 02:25 Cholesterol 117 mg/dL (200) 01/07/18 02:25 LDL Cholesterol 62 mg/dL (0-130) 01/07/18 02:25 HDL Cholesterol 33 mg/dL (40-) L 01/07/18 02:25 Phase I Education Given On:: [place], Nutrition, Antiplatelet medication, Diabetes - Type II Issues Affecting Care:: None Knowledge of Condition:: Yes Learning Preferences: Verbal Hospital Course Presenting Symptoms:: NSTEMI Medical/Surgical History [facility]:: Yes - NSTEMI CAD:: Yes Diabetes Type II:: Yes Hypertension:: Yes Dyslipidemia:: Yes Renal:: Yes - INSUFFIENCY CABG: Yes PTCA:: No - CABG 1989 Discharge/Home/Social Eval Discharge Disposition: Home Marital Status:
--- NOTE | 2018-01-08 13:44 | CRPHASE1_ITS ---
Patient Data/Charges Phase II Referral:: [facility] Start Phase II:: FOLLOWING OFFICE VISIT WITH MEAL ATTENDANT Risk Factors/Lifestyle Smoking Status: Former smoker Hx Hypertension: Yes Hx Diabetes Mellitus Type 2: Yes Hx Dyslipidemia: Yes Hx Obesity: Yes Height: 5 ft 8 in - 229# Stress: Home/Family ETOH: Yes Risk Factor for Sedentary Lifestyle: Moderate Risk, Highest Risk Family History: Family History (Last Updated 11/06/17 @ 18:12 by Fidel Gtz) Mother Cancer Family History: Cancer Laboratory Values: Cardiac Rehab Phase I Labs Triglycerides 110 mg/dL (-199) 01/07/18 02:25 Cholesterol 117 mg/dL (200) 01/07/18 02:25 LDL Cholesterol 62 mg/dL (0-130) 01/07/18 02:25 HDL Cholesterol 33 mg/dL (40-) L 01/07/18 02:25 Phase I Education Given On:: [place], Nutrition, Antiplatelet medication, Diabetes - Type II Issues Affecting Care:: None Knowledge of Condition:: Yes Learning Preferences: Verbal Hospital Course Presenting Symptoms:: NSTEMI Medical/Surgical History [place]:: Yes - NSTEMI CAD:: Yes Diabetes Type II:: Yes Hypertension:: Yes Dyslipidemia:: Yes Renal:: Yes - INSUFFIENCY CABG: Yes PTCA:: No - CABG 1989 Discharge/Home/Social Eval Discharge Disposition: Home Marital Status:
--- NOTE | 2018-01-08 13:44 | CRPH1.INSTRU ---
General Education CAD and cardiac anatomy and function:: Patient communicates acknowledgment, Family communicates acknowledgment Explanation of diagnoses and procedures:: Patient communicates acknowledgment, Family communicates acknowledgment Sign/Symptoms of [place]:: Patient communicates acknowledgment, Family communicates acknowledgment Antiplatelet therapy: Patient communicates acknowledgment, Family communicates acknowledgment Proper use of NTG-SL: Patient communicates acknowledgment, Family communicates acknowledgment Emergency procedures and activation of EMS: Patient communicates acknowledgment, Family communicates acknowledgment Compliance of all prescribed medications: Patient communicates acknowledgment, Family communicates acknowledgment Smoking Patient Nicotine/Smoking Risk Factors Are:: Non-smoker Recommendations Include:: Previous smoker; encourage continued cessation Nicotine/Smoking Response Code:: Patient communicates acknowledgment, Family communicates acknowledgment Dyslipidemia Recommendations Include:: Lipid profile provided, Reviewed NCEP/ATP guidelines, Therapeutic Lifestyle Change dietary guidelines Dyslipidemia Response Code:: Patient communicates acknowledgment, Family communicates acknowledgment Overweight/Obesity Patient Overweight/Obesity Risk Factors Are:: Obesity - > or = 30 Recommendations Include:: Weight loss of 5-10%, Reduced calorie diet, Exercise 5-7 times/week Overweight/Obesity:: Patient communicates acknowledgment, Family communicates acknowledgment Hypertension Recommendations Include:: BP <130/80 if diabetic, DASH dietary guidelines, Decrease/maintain normal body weight, Moderation of ETOH Hypertension:: Patient communicates acknowledgment, Family communicates acknowledgment Heart Disease Patient Heart Disease Risk Factors Are:: Previous cardiac event Recommendations Include:: Educated family members of their risk, Educated family members of importance of prevention of heart disease Heart Disease Response Code:: Patient communicates acknowledgment, Family communicates acknowledgment Diabetes Patient Diabetes Risk Factors Are:: Elevated blood sugars Recommendations Include:: Maintain fasting blood sugars 70-110 md/dL, Maintain HgbA1c of 6% or less, Monitor blood sugar as prescribed, Diabetic dietary guidelines, Decrease/maintain body weight Diabetes:: Patient communicates acknowledgment, Family communicates acknowledgment Metabolic Syndrome Patient Metabolic Syndrome Risk Factors Are [3 of 5]:: Waist circumference > 35 [female] or 40 [male], Hypertension, Low HDL <40 [male] or < 50 [female] Recommendations Include:: Reinforce compliance to risk factor modifications, Patient is diabetic, Encouraged follow-up with Primary Care Physician Metabolic Syndrome Response Code:: Patient communicates acknowledgment, Family communicates acknowledgment Sedentary Patient Sedentary Risk Factors Are:: Lack of regular exercise Recommendations Include:: Aerobic exercise 5-7 times/week for 20-30 minutes continuously, Benefits of regular exercise, Discussed home walking program, Monitored Outpatient Cardiac Rehab Sedentary Response Code:: Patient communicates acknowledgment, Family communicates acknowledgment Stress Recommendations Include:: Identification of stressors, and assessment of coping skills, Stress management techniques
--- NOTE | 2018-01-08 13:47 | CRPH1.INST_ITS ---
General Education CAD and cardiac anatomy and function:: Patient communicates acknowledgment, Family communicates acknowledgment Explanation of diagnoses and procedures:: Patient communicates acknowledgment, Family communicates acknowledgment Sign/Symptoms of [place]:: Patient communicates acknowledgment, Family communicates acknowledgment Antiplatelet therapy: Patient communicates acknowledgment, Family communicates acknowledgment Proper use of NTG-SL: Patient communicates acknowledgment, Family communicates acknowledgment Emergency procedures and activation of EMS: Patient communicates acknowledgment , Family communicates acknowledgment Compliance of all prescribed medications: Patient communicates acknowledgment, Family communicates acknowledgment Smoking Patient Nicotine/Smoking Risk Factors Are:: Non-smoker Recommendations Include:: Previous smoker; encourage continued cessation Nicotine/Smoking Response Code:: Patient communicates acknowledgment, Family communicates acknowledgment Dyslipidemia Recommendations Include:: Lipid profile provided, Reviewed NCEP/ATP guidelines, Therapeutic Lifestyle Change dietary guidelines Dyslipidemia Response Code:: Patient communicates acknowledgment, Family communicates acknowledgment Overweight/Obesity Patient Overweight/Obesity Risk Factors Are:: Obesity - > or = 30 Recommendations Include:: Weight loss of 5-10%, Reduced calorie diet, Exercise 5 -7 times/week Overweight/Obesity:: Patient communicates acknowledgment, Family communicates acknowledgment Hypertension Recommendations Include:: BP <130/80 if diabetic, DASH dietary guidelines, Decrease/maintain normal body weight, Moderation of ETOH Hypertension:: Patient communicates acknowledgment, Family communicates acknowledgment Heart Disease Patient Heart Disease Risk Factors Are:: Previous cardiac event Recommendations Include:: Educated family members of their risk, Educated family members of importance of prevention of heart disease Heart Disease Response Code:: Patient communicates acknowledgment, Family communicates acknowledgment Diabetes Patient Diabetes Risk Factors Are:: Elevated blood sugars Recommendations Include:: Maintain fasting blood sugars 70-110 md/dL, Maintain HgbA1c of 6% or less, Monitor blood sugar as prescribed, Diabetic dietary guidelines, Decrease/maintain body weight Diabetes:: Patient communicates acknowledgment, Family communicates acknowledgment Metabolic Syndrome Patient Metabolic Syndrome Risk Factors Are [3 of 5]:: Waist circumference > 35 [female] or 40 [male], Hypertension, Low HDL <40 [male] or < 50 [female] Recommendations Include:: Reinforce compliance to risk factor modifications, Patient is diabetic, Encouraged follow-up with Primary Care Physician Metabolic Syndrome Response Code:: Patient communicates acknowledgment, Family communicates acknowledgment Sedentary Patient Sedentary Risk Factors Are:: Lack of regular exercise Recommendations Include:: Aerobic exercise 5-7 times/week for 20-30 minutes continuously, Benefits of regular exercise, Discussed home walking program, Monitored Outpatient Cardiac Rehab Sedentary Response Code:: Patient communicates acknowledgment, Family communicates acknowledgment Stress Recommendations Include:: Identification of stressors, and assessment of coping skills, Stress management techniques
--- NOTE | 2018-01-08 13:50 | PCM.PN.HOSP ---
Patient Problems: Active and Suspected Problems (Last Updated 11/09/17 @ 09:46 by MALIK Howell) NSTEMI (non-ST elevated myocardial infarction) (Acute) Bronchitis with bronchospasm (Acute) Subjective: CC: Shortness of breath and cough Objective: Interval history: This is a 72-year-old male with coronary artery disease status post remote CABG who presented with shortness of breath and cough and found to have bronchitis as well as elevated troponin consistent with NSTEMI. He underwent left heart catheterization which angioplasty and stent placement to his [place] circumflex artery. He currently denies any chest pain, palpitations or rapid heartbeat. Vitals/I&O's: Vital Signs Temp Pulse Resp BP Pulse Ox 97.9 F 74 20 H 163/64 H 96 01/08/18 12:00 01/08/18 12:45 01/08/18 12:45 01/08/18 12:45 01/08/18 12:45 Oxygen Flow Rate (L/min) 2 Oxygen Delivery Method Nasal Cannula Weight: 104.1 kg Body Mass Index (BMI) 34.0 Intake and Output for Last 24 Hours 01/06/18 01/07/18 01/08/18 23:59 23:59 23:59 Intake Total 652 / 652 1240 / 1240 Output Total 400 / 400 1800 / 1800 750 / 750 Balance 252 / 252 -560 / -560 -750 / -750 General: Alert, Oriented x3 Oral: Moist Mucosa Neck: Supple, No JVD Lungs: Clear to auscultation Cardiovascular: Regular rate, Normal S1, Normal S2 Abdomen: Bowel Sounds Present, Soft, Non Tender Extremities: No edema Neurological: Cranial nerves II-XII grossly intact, Motor Exam 5/5 strength throughout Microbiology Past 72 Hours 01/06/18 16:39 Urine, Clean Catch Legionella Antigen - Final 01/06/18 16:39 Urine, Clean Catch Streptococcus pneumoniae Antigen (M - Final Laboratory Results 01/07/18 16:36: POC Glucose 401 H 01/07/18 20:53: POC Glucose 232 H 01/08/18 05:40: WBC 7.0, RBC 4.37 L, Hgb 12.6 L, Hct 39.9 L, MCV 91.3, MCH 28.8, MCHC 31.6 L, RDW 14.1, RDW Differential 47.0 H, Plt Count 182, MPV 9.1, Immature Gran % (Auto) 0.100, Neut % (Auto) 88.4 H, Lymph % (Auto) 6.9 L, [place] % (Auto) 4.6, Eos % (Auto) 0.0, Baso % (Auto) 0.0, Absolute Neuts (auto) 6.2, Absolute Lymphs (auto) 0.48 L, Total Counted Not Reportable, Differential Comment SCANNED 01/08/18 05:40: PT 15.4 H, INR 1.2, APTT 30.4 01/08/18 05:40: Sodium 145, Potassium 3.7, Chloride 104, Carbon Dioxide 34.0 H, Anion Gap 7, BUN 62 H, Creatinine 1.66 H, Estim Creat Clear Calc 37.77, Est GFR (MDRD) Af Amer 52 L, Est GFR (MDRD) Non-Af 43 L, BUN/Creatinine Ratio 37.3 H, Glucose 93, Calcium 9.1 01/08/18 06:50: POC Glucose 93 01/08/18 08:31: Activated Clotting Time 180 H 01/08/18 09:10: Total Creatine Kinase 223 01/08/18 09:10: WBC 7.5, RBC 4.20 L, Hgb 12.5 L, Hct 38.4 L, MCV 91.4, MCH 29.8, MCHC 32.6, RDW 14.0, RDW Differential 46.1 H, Plt Count 216, MPV 9.2 01/08/18 09:10: MRSA (PCR) Negative 01/08/18 10:34: Activated Clotting Time 136 Current Medications Acetaminophen (Tylenol) 650 mg PO Q6H PRN PRN PRN Reason: Mild Pain (scale 0-3)/T>100.7 Albuterol Sulfate (Ventolin Aerosols) 2.5 mg INHALATION Q2H.RT PRN PRN Reason: SOB/WHEEZING Albuterol/Ipratropium (Duoneb) 3 ml INHALATION Q4HWA.RT AUDREY Last Admin: 01/08/18 11:40 Dose: Not Given Amlodipine Besylate (Norvasc) 5 mg PO DAILY [facility] Last Admin: 01/08/18 06:20 Dose: 5 mg Aspirin (Ecotrin) 81 mg PO DAILY [facility] Last Admin: 01/08/18 06:20 Dose: 81 mg Atorvastatin Calcium (Lipitor) 80 mg PO QHS [facility] Last Admin: 01/07/18 20:57 Dose: 80 mg Atropine Sulfate () 0.5 mg IV UD PRN PRN Reason: HR <50 bpm Bisacodyl (Dulcolax) 10 mg PO DAILY PRN PRN PRN Reason: Constipation Carvedilol (Coreg) 6.25 mg PO BID [facility] Last Admin: 01/08/18 06:20 Dose: 6.25 mg Clopidogrel Bisulfate (Plavix) 75 mg PO DAILY [facility] Last Admin: 01/08/18 06:20 Dose: 75 mg Dextrose (D50w Syringe) 0 gm IV X1 PRN; Protocol PRN Reason: Hypoglycemia Docusate Sodium (Colace) 200 mg PO BID PRN PRN PRN Reason: Constipation Doxycycline Monohydrate (Doxycycline) 100 mg PO BID [facility] Last Admin: 01/07/18 20:57 Dose: 100 mg Furosemide (Lasix) 40 mg IV Q8 [facility] Last Admin: 01/08/18 04:55 Dose: 40 mg Glucagon () 1 mg IM .X1 PRN PRN Reason: Hypoglycemia Guaifenesin (Mucinex) 600 mg PO BID [facility] Last Admin: 01/07/18 20:58 Dose: 600 mg Heparin Sodium (Beef Lung) (Heparin 500 Unit/5 Ml (100/Ml)) 500 unit IV UD PRN PRN Reason: HEPARIN FLUSH Sodium Chloride () 1,000 mls @ 0 mls/hr IV .Q0M AUDREY PRN Reason: KVO Sodium Chloride () 1,000 mls @ 150 mls/hr IV .[id number] [facility] Stop: 01/08/18 15:27 Last Admin: 01/08/18 09:48 Dose: 150 mls/hr Nitroglycerin/Dextrose 25 mg/ (N/A) 250 mls @ 3 mls/hr IV .[id number] AUDREY; 5 MCG/MIN PRN Reason: Protocol Last Admin: 01/08/18 10:02 Dose: Not Given Sodium Chloride () 250 mls @ 15 mls/hr IV .[id number] PRN PRN Reason: SALINE FLUSH Insulin Aspart (Novolog Flexpen (Bkc)) 0 units SC ACHS AUDREY PRN Reason: Protocol Last Admin: 01/08/18 07:31 Dose: Not Given Insulin Human Regular (Humulin R U-500 (Bkc)) 0.15 ml SC DINNER [facility] Last Admin: 01/07/18 17:23 Dose: 0.15 ml Insulin Human Regular (Humulin R U-500 (Bkc)) 0.15 ml SC LUNCH [facility] Last Admin: 01/07/18 12:22 Dose: 75 units Insulin Human Regular (Humulin R U-500 (Bkc)) 0.18 ml SC BREAKFAST [facility] Last Admin: 01/07/18 09:25 Dose: 90 units Losartan Potassium (Cozaar) 50 mg PO BID [facility] Last Admin: 01/08/18 06:18 Dose: 50 mg Magnesium Hydroxide (Milk Of Magnesia) 30 ml PO DAILY PRN PRN Reason: Constipation Melatonin (Melatonin) 3 - 6 mg PO QHS PRN PRN Reason: SLEEP Last Admin: 01/07/18 21:01 Dose: 6 mg Methylprednisolone (Solu-Medrol) 60 mg IV Q8 [facility] Last Admin: 01/08/18 04:55 Dose: 60 mg Metoclopramide HCl (Reglan) 5 mg IV Q6H PRN PRN PRN Reason: NAUSEA/VOMITING Metoprolol Tartrate (Lopressor (Beta Harshal)) 2.5 mg IV Q4 PRN PRN Reason: heart rate greater than 100 Morphine Sulfate () 2 - 4 mg IV Q3H PRN PRN PRN Reason: Severe Pain (pain scale 6-10) Morphine Sulfate () 2 - 4 mg IV Q3H PRN PRN PRN Reason: Severe Pain (pain scale 6-10) Nitroglycerin (Nitrostat) 0.4 mg SUBLINGUAL Q5M PRN PRN Reason: CHEST PAIN Ondansetron HCl (Zofran) 4 mg IV Q8H PRN PRN PRN Reason: Nausea Sodium Chloride () 5 - 30 ml IV UD PRN PRN Reason: SALINE FLUSH Last Admin: 01/07/18 18:28 Dose: 20 ml Sodium Chloride () 500 ml IV BOLUS PRN PRN Reason: VASO-VAGAL PROTOCOL Throat Lozenges (Cepacol Sore Throat Lozenge) 1 lozenge MUCOUS MEM PRN PRN PRN Reason: PAIN Medical Necessity - Tobacco Use Smoking Status: Former smoker Assessment/Plan Active and Suspected Problems (Last Updated 11/09/17 @ 09:46 by MALIK Howell) NSTEMI (non-ST elevated myocardial infarction) (Acute) Bronchitis with bronchospasm (Acute) 1. Non-STEMI; he is s/p left heart catheterization today with angioplasty with stent placement to his [place] circ. We will continue him on guideline directed medical therapy. 2. Coronary artery disease status post CABG with subsequent PTCA with stenting. 3. Bronchitis with bronchospasm; continue on IV steroids, bronchodilator therapy and p.o. doxycycline. 4. Acute Respiratory failure with hypoxia; he is on supplemental oxygen per nasal cannula, wean oxygen as tolerated. 5. DM type II; he is on U-500 tid. 6. CKD 3; we will continue gentle hydration post heart cath and repeat renal parameters in a.m. 7. Hypertension; BP still elevated I will increase his Coreg dose.
[2018-01-08 14:01] LABS: Bedside Glucose 201 mg/dL (70-110)
--- NOTE | 2018-01-08 14:02 | PN_ITS ---
Patient Problems: Active and Suspected Problems (Last Updated 11/09/17 @ 09:46 by MALIK Howell) NSTEMI (non-ST elevated myocardial infarction) (Acute) Bronchitis with bronchospasm (Acute) Subjective: CC: Shortness of breath and cough Objective: Interval history: This is a 72-year-old male with coronary artery disease status post remote CABG who presented with shortness of breath and cough and found to have bronchitis as well as elevated troponin consistent with NSTEMI. He underwent left heart catheterization which angioplasty and stent placement to his tolowa dee-ni' circumflex artery. He currently denies any chest pain, palpitations or rapid heartbeat. Vitals/I&O's: Vital Signs Temp Pulse Resp BP Pulse Ox 97.9 F 74 20 H 163/64 H 96 01/08/18 12:00 01/08/18 12:45 01/08/18 12:45 01/08/18 12:45 01/08/18 12:45 Oxygen Flow Rate (L/min) 2 Oxygen Delivery Method Nasal Cannula Weight: 104.1 kg Body Mass Index (BMI) 34.0 Intake and Output for Last 24 Hours 01/06/18 01/07/18 01/08/18 23:59 23:59 23:59 Intake Total 652 / 652 1240 / 1240 Output Total 400 / 400 1800 / 1800 750 / 750 Balance 252 / 252 -560 / -560 -750 / -750 General: Alert, Oriented x3 Oral: Moist Mucosa Neck: Supple, No JVD Lungs: Clear to auscultation Cardiovascular: Regular rate, Normal S1, Normal S2 Abdomen: Bowel Sounds Present, Soft, Non Tender Extremities: No edema Neurological: Cranial nerves II-XII grossly intact, Motor Exam 5/5 strength throughout Microbiology Past 72 Hours 01/06/18 16:39 Urine, Clean Catch Legionella Antigen - Final 01/06/18 16:39 Urine, Clean Catch Streptococcus pneumoniae Antigen (M - Final Laboratory Results 01/07/18 16:36: POC Glucose 401 H 01/07/18 20:53: POC Glucose 232 H 01/08/18 05:40: WBC 7.0, RBC 4.37 L, Hgb 12.6 L, Hct 39.9 L, MCV 91.3, MCH 28.8 , MCHC 31.6 L, RDW 14.1, RDW Differential 47.0 H, Plt Count 182, MPV 9.1, Immature Gran % (Auto) 0.100, Neut % (Auto) 88.4 H, Lymph % (Auto) 6.9 L, Hill % (Auto) 4.6, Eos % (Auto) 0.0, Baso % (Auto) 0.0, Absolute Neuts (auto) 6.2, Absolute Lymphs (auto) 0.48 L, Total Counted Not Reportable, Differential Comment SCANNED 01/08/18 05:40: PT 15.4 H, INR 1.2, APTT 30.4 01/08/18 05:40: Sodium 145, Potassium 3.7, Chloride 104, Carbon Dioxide 34.0 H, Anion Gap 7, BUN 62 H, Creatinine 1.66 H, Estim Creat Clear Calc 37.77, Est GFR (MDRD) Af Amer 52 L, Est GFR (MDRD) Non-Af 43 L, BUN/Creatinine Ratio 37.3 H, Glucose 93, Calcium 9.1 01/08/18 06:50: POC Glucose 93 01/08/18 08:31: Activated Clotting Time 180 H 01/08/18 09:10: Total Creatine Kinase 223 01/08/18 09:10: WBC 7.5, RBC 4.20 L, Hgb 12.5 L, Hct 38.4 L, MCV 91.4, MCH 29.8 , MCHC 32.6, RDW 14.0, RDW Differential 46.1 H, Plt Count 216, MPV 9.2 01/08/18 09:10: MRSA (PCR) Negative 01/08/18 10:34: Activated Clotting Time 136 Current Medications Acetaminophen (Tylenol) 650 mg PO Q6H PRN PRN PRN Reason: Mild Pain (scale 0-3)/T>100.7 Albuterol Sulfate (Ventolin Aerosols) 2.5 mg INHALATION Q2H.RT PRN PRN Reason: SOB/WHEEZING Albuterol/Ipratropium (Duoneb) 3 ml INHALATION Q4HWA.RT [facility] Last Admin: 01/08/18 11:40 Dose: Not Given Amlodipine Besylate (Norvasc) 5 mg PO DAILY [facility] Last Admin: 01/08/18 06:20 Dose: 5 mg Aspirin (Ecotrin) 81 mg PO DAILY [facility] Last Admin: 01/08/18 06:20 Dose: 81 mg Atorvastatin Calcium (Lipitor) 80 mg PO QHS [facility] Last Admin: 01/07/18 20:57 Dose: 80 mg Atropine Sulfate () 0.5 mg IV UD PRN PRN Reason: HR <50 bpm Bisacodyl (Dulcolax) 10 mg PO DAILY PRN PRN PRN Reason: Constipation Carvedilol (Coreg) 6.25 mg PO BID [facility] Last Admin: 01/08/18 06:20 Dose: 6.25 mg Clopidogrel Bisulfate (Plavix) 75 mg PO DAILY [facility] Last Admin: 01/08/18 06:20 Dose: 75 mg Dextrose (D50w Syringe) 0 gm IV X1 PRN; Protocol PRN Reason: Hypoglycemia Docusate Sodium (Colace) 200 mg PO BID PRN PRN PRN Reason: Constipation Doxycycline Monohydrate (Doxycycline) 100 mg PO BID [facility] Last Admin: 01/07/18 20:57 Dose: 100 mg Furosemide (Lasix) 40 mg IV Q8 [facility] Last Admin: 01/08/18 04:55 Dose: 40 mg Glucagon () 1 mg IM .X1 PRN PRN Reason: Hypoglycemia Guaifenesin (Mucinex) 600 mg PO BID [facility] Last Admin: 01/07/18 20:58 Dose: 600 mg Heparin Sodium (Beef Lung) (Heparin 500 Unit/5 Ml (100/Ml)) 500 unit IV UD PRN PRN Reason: HEPARIN FLUSH Sodium Chloride () 1,000 mls @ 0 mls/hr IV .Q0M [facility] PRN Reason: KVO Sodium Chloride () 1,000 mls @ 150 mls/hr IV .[id number] [facility] Stop: 01/08/18 15:27 Last Admin: 01/08/18 09:48 Dose: 150 mls/hr Nitroglycerin/Dextrose 25 mg/ (N/A) 250 mls @ 3 mls/hr IV .[id number] [facility]; 5 MCG/ MIN PRN Reason: Protocol Last Admin: 01/08/18 10:02 Dose: Not Given Sodium Chloride () 250 mls @ 15 mls/hr IV .[id number] PRN PRN Reason: SALINE FLUSH Insulin Aspart (Novolog Flexpen (Bkc)) 0 units SC ACHS [facility] PRN Reason: Protocol Last Admin: 01/08/18 07:31 Dose: Not Given Insulin Human Regular (Humulin R U-500 (Bkc)) 0.15 ml SC DINNER [facility] Last Admin: 01/07/18 17:23 Dose: 0.15 ml Insulin Human Regular (Humulin R U-500 (Bkc)) 0.15 ml SC LUNCH [facility] Last Admin: 01/07/18 12:22 Dose: 75 units Insulin Human Regular (Humulin R U-500 (Bkc)) 0.18 ml SC BREAKFAST [facility] Last Admin: 01/07/18 09:25 Dose: 90 units Losartan Potassium (Cozaar) 50 mg PO BID [facility] Last Admin: 01/08/18 06:18 Dose: 50 mg Magnesium Hydroxide (Milk Of Magnesia) 30 ml PO DAILY PRN PRN Reason: Constipation Melatonin (Melatonin) 3 - 6 mg PO QHS PRN PRN Reason: SLEEP Last Admin: 01/07/18 21:01 Dose: 6 mg Methylprednisolone (Solu-Medrol) 60 mg IV Q8 [facility] Last Admin: 01/08/18 04:55 Dose: 60 mg Metoclopramide HCl (Reglan) 5 mg IV Q6H PRN PRN PRN Reason: NAUSEA/VOMITING Metoprolol Tartrate (Lopressor (Beta Harshal)) 2.5 mg IV Q4 PRN PRN Reason: heart rate greater than 100 Morphine Sulfate () 2 - 4 mg IV Q3H PRN PRN PRN Reason: Severe Pain (pain scale 6-10) Morphine Sulfate () 2 - 4 mg IV Q3H PRN PRN PRN Reason: Severe Pain (pain scale 6-10) Nitroglycerin (Nitrostat) 0.4 mg SUBLINGUAL Q5M PRN PRN Reason: CHEST PAIN Ondansetron HCl (Zofran) 4 mg IV Q8H PRN PRN PRN Reason: Nausea Sodium Chloride () 5 - 30 ml IV UD PRN PRN Reason: SALINE FLUSH Last Admin: 01/07/18 18:28 Dose: 20 ml Sodium Chloride () 500 ml IV BOLUS PRN PRN Reason: VASO-VAGAL PROTOCOL Throat Lozenges (Cepacol Sore Throat Lozenge) 1 lozenge MUCOUS MEM PRN PRN PRN Reason: PAIN Medical Necessity - Tobacco Use Smoking Status: Former smoker Assessment/Plan Active and Suspected Problems (Last Updated 11/09/17 @ 09:46 by MALIK Howell) NSTEMI (non-ST elevated myocardial infarction) (Acute) Bronchitis with bronchospasm (Acute) 1. Non-STEMI; he is s/p left heart catheterization today with angioplasty with stent placement to his tolowa dee-ni' circ. We will continue him on guideline directed medical therapy. 2. Coronary artery disease status post CABG with subsequent PTCA with stenting. 3. Bronchitis with bronchospasm; continue on IV steroids, bronchodilator therapy and p.o. doxycycline. 4. Acute Respiratory failure with hypoxia; he is on supplemental oxygen per nasal cannula, wean oxygen as tolerated. 5. DM type II; he is on U-500 tid. 6. CKD 3; we will continue gentle hydration post heart cath and repeat renal parameters in a.m. 7. Hypertension; BP still elevated I will increase his Coreg dose.
[2018-01-08] MEDS: 0.9% NaCl Peripheral Flush Adult/Peds IV (14:32)
[2018-01-08 14:34] LABS: Hematocrit 37.2 % (40-54); Hemoglobin 12.3 g/dl (13.0-16.5); Mean Corp Hgb Conc 33.1 g/gl (32-36); Mean Corpuscular Hgb 30.5 pg (27.0-32.0); Mean Corpuscular Volume 92.3 fL (80-94); Mean Platelet Vol. 8.9 fl (6.2-12.0); Platelet Count 206 K/mm3 (150-450); RBC Distribution Width CV 14.1 % (11.6-14.6); RBC Distribution Width SD 46.2 fl (35.1-43.9); Red Blood Count 4.03 M/mm3 (4.6-6.2); Scan Indicated on CBC? Y/N NO; White Blood Count 7.6 K/mm3 (4.4-11.0)
[2018-01-08 14:50] LABS: CPK Total, Creatine Kinase 161 U/L (39-308)
[2018-01-08] MEDS: Ipratropium/Albuterol Sulfate 3 ML AMPUL.NEB INHALATION ×2 (14:57→19:39)
[2018-01-08] MEDS: guaiFENesin 600 MG Tablet PO ×2 (16:35→21:31)
[2018-01-08] MEDS: Doxycycline 100 MG CAPSULE PO ×2 (16:35→21:06)
--- NOTE | 2018-01-08 17:47 | NURSING ---
Pt up & walked around in room. RT femoral site remains benign. Up in chair for supper.
[2018-01-08 17:50] LABS: Bedside Glucose 328 mg/dL (70-110)
[2018-01-08] MEDS: Acetaminophen 325 MG Tablet 650 MG PO (20:40)
[2018-01-08 20:48] LABS: Hematocrit 39.4 % (40-54); Hemoglobin 12.4 g/dl (13.0-16.5); Mean Corp Hgb Conc 31.5 g/gl (32-36); Mean Corpuscular Hgb 29.1 pg (27.0-32.0); Mean Corpuscular Volume 92.5 fL (80-94); Mean Platelet Vol. 9.2 fl (6.2-12.0); Platelet Count 202 K/mm3 (150-450); RBC Distribution Width CV 14.3 % (11.6-14.6); RBC Distribution Width SD 47.9 fl (35.1-43.9); Red Blood Count 4.26 M/mm3 (4.6-6.2)
[2018-01-08 20:50] LABS: Scan Indicated on CBC? Y/N NO
[2018-01-08 21:05] LABS: CPK Total, Creatine Kinase 154 U/L (39-308)
[2018-01-08] MEDS: MELATONIN 3 MG TABLET PO (21:05)
[2018-01-08] MEDS: Atorvastatin Calcium 80 MG Tablet PO (21:06)
[2018-01-08] MEDS: Carvedilol 12.5 MG Tablet PO (21:07)
[2018-01-08 21:41] LABS: Bedside Glucose 298 mg/dL (70-110)
[2018-01-09] VITALS (17 sets, daily range): BP systolic 122–163; BP diastolic 44–75; PULSE 63–94; RESP 11–20; TEMP 36.7–37.1; O2SAT 93–98
[2018-01-09 02:34] LABS: Hematocrit 36.8 % (40-54); Hemoglobin 11.7 g/dl (13.0-16.5); Mean Corp Hgb Conc 31.8 g/gl (32-36); Mean Corpuscular Hgb 29.1 pg (27.0-32.0); Mean Corpuscular Volume 91.5 fL (80-94); Mean Platelet Vol. 9.2 fl (6.2-12.0); Platelet Count 185 K/mm3 (150-450); RBC Distribution Width CV 14.4 % (11.6-14.6); RBC Distribution Width SD 48.1 fl (35.1-43.9); Red Blood Count 4.02 M/mm3 (4.6-6.2)
[2018-01-09 02:35] LABS: Scan Indicated on CBC? Y/N NO
--- NOTE | 2018-01-09 05:55 | EKG12_ITS ---
Test Reason : PCI Blood Pressure : / mmHG Vent. Rate : 078 BPM Atrial Rate : 078 BPM P-R Int : 172 ms QRS Dur : 120 ms QT Int : 438 ms P-R-T Axes : 049 -26 072 degrees QTc Int : 499 ms Sinus rhythm with Premature atrial complexes Left ventricular hypertrophy with QRS widening Nonspecific ST and T wave abnormality Abnormal ECG When compared with ECG of 08-JAN-2018 05:40, MANUAL COMPARISON REQUIRED, DATA IS UNCONFIRMED Confirmed by ABRAHAM KILGORE, IRINA ([id number]), rewrite editor KEN SIFUENTES ([id number]) on 01/14/2018 2:23:43 PM Referred By: LIZZ Confirmed By:IRINA ROSARIO MD
[2018-01-09] MEDS: MethylPREDNISolone 125 MG/2 ML Vial 60 MG IV (06:44)
[2018-01-09] MEDS: Furosemide 40 MG/4 ML Vial IV (06:44)
[2018-01-09] MEDS: Ipratropium/Albuterol Sulfate 3 ML AMPUL.NEB INHALATION ×2 (06:48→11:18)
[2018-01-09] MEDS: 0.9% NaCl Peripheral Flush Adult/Peds IV ×2 (06:48→08:39)
[2018-01-09 06:59] LABS: Anion Gap 9 (5-15); BUN 71 mg/dL (7-18); BUN/Creat Ratio 36.8 RATIO (10-20); Calcium,Total 8.3 mg/dL (8.5-10.1); Chloride 102 mmol/L (98-107); Creatinine, Serum 1.93 mg/dL (0.70-1.30); EST Glomerular Filtration Rate 36 mL/min (>60); Est Glom Filt Rate - Afr Amer 44 mL/min (>60); Estimated Creatinine Clearance 32.49 ml/min; Glucose 202 mg/dL (74-106); Potassium 3.7 mmol/L (3.5-5.1); Sodium Level 143 mmol/L (136-145)
[2018-01-09 07:01] LABS: Bedside Glucose 259 mg/dL (70-110)
[2018-01-09] MEDS: Carvedilol 12.5 MG Tablet PO ×2 (08:22→12:47)
[2018-01-09] MEDS: Clopidogrel Bisulfate 75 MG Tablet PO (08:24)
[2018-01-09] MEDS: Doxycycline 100 MG CAPSULE PO (08:24)
[2018-01-09] MEDS: amLODIPine 5 MG Tablet PO (08:24)
[2018-01-09] MEDS: Aspirin E.C. 81 MG Tablet PO (08:24)
[2018-01-09] MEDS: guaiFENesin 600 MG Tablet PO (08:24)
[2018-01-09] MEDS: Losartan Potassium 50 MG Tablet PO (08:35)
--- NOTE | 2018-01-09 08:48 | EKG12_ITS ---
Test Reason : AM EKG Blood Pressure : / mmHG Vent. Rate : 068 BPM Atrial Rate : 068 BPM P-R Int : 158 ms QRS Dur : 120 ms QT Int : 438 ms P-R-T Axes : 021 -24 128 degrees QTc Int : 465 ms Sinus rhythm with Blocked Premature atrial complexes Left ventricular hypertrophy with QRS widening ST & T wave abnormality, consider lateral ischemia Abnormal ECG When compared with ECG of 08-JAN-2018 12:05, MANUAL COMPARISON REQUIRED, DATA IS UNCONFIRMED Confirmed by ABRAHAM KILGORE, IRINA ([id number]), photographic editor KEN SIFUENTES ([id number]) on 01/14/2018 2:22:13 PM Referred By: BETHANIE Confirmed By:IRINA ROSARIO MD
[2018-01-09 08:54] LABS: Hematocrit 38.4 % (40-54); Hemoglobin 12.2 g/dl (13.0-16.5); Mean Corp Hgb Conc 31.8 g/gl (32-36); Mean Corpuscular Volume 91.4 fL (80-94); Mean Platelet Vol. 9.1 fl (6.2-12.0); Platelet Count 184 K/mm3 (150-450); RBC Distribution Width CV 14.4 % (11.6-14.6); RBC Distribution Width SD 47.9 fl (35.1-43.9); Scan Indicated on CBC? Y/N NO; White Blood Count 6.8 K/mm3 (4.4-11.0)
--- NOTE | 2018-01-09 09:10 | PCM.PN.HOSP ---
Subjective: Patient seen and examined. He is 73-year-old male with a history of CAD status post remote CABG was admitted with a complaint of shortness of breath and cough and was found to have bronchitis. He also had elevated troponins consistent with an STEMI. He had left heart catheterization and status post stent placement and angioplasties to his chilkat circumflex arteries. Patient was seen this morning. He had no complaints this morning. He denied any fever or chills, shortness of breath, chest pain, abdominal pain, palpitations, diarrhea vomiting. He was concerned about his insulin because his Humulin had been on hold as he had a left heart cath yesterday. Per patient, he was previously on Lantus but this was held by his doctor because he kept on having episodes of hypoglycemia and hypoglycemia. He has since been on Humulin 90 units in the morning, 75 units in the afternoons and 75 units in the evening which she says it does stick in a year to get to the state control his blood sugars. Review of systems otherwise negative. Vitals/I&O's: Vital Signs Temp Pulse Resp BP Pulse Ox 98.0 F 66 17 148/56 H 98 01/09/18 08:00 01/09/18 08:00 01/09/18 08:00 01/09/18 08:00 01/09/18 08:00 Oxygen Flow Rate (L/min) 2 Oxygen Delivery Method Room Air Weight: 236 lb 15.951 oz Body Mass Index (BMI) 34.0 Intake and Output for Last 24 Hours 01/07/18 01/08/18 01/09/18 23:59 23:59 23:59 Intake Total 1240 / 1240 1932 / 1932 201 / 201 Output Total 1800 / 1800 2125 / 2125 720 / 720 Balance -560 / -560 -193 / -193 -519 / -519 General: Alert, Oriented x3, Cooperative, No apparent distress HEENT: Atraumatic, PERRLA, EOMI, Normocephalic Oral: Moist Mucosa Neck: Supple, No JVD, Negative Carotid Bruits Lungs: Clear to auscultation, Normal air movement, No rhonchi, No wheeze, No rales Cardiovascular: Regular rate, Regular Rhythm, Normal S1, Normal S2, No murmurs Abdomen: Bowel Sounds Present, Soft, Non Tender, Non-Distended, No Hepato-splenomegaly Extremities: No clubbing, No cyanosis, No edema Skin: No rashes, No breakdown, - - Right groin area outside of cath is nontender and nonerythematous with no swelling. Dressing is clean and dry. Musculoskeletal: No Tenderness to Palpation of Joints or Extremities Lymphatic: No Cervical, Supraclavicular, or Inguinal Adenopathy Neurological: Cranial nerves II-XII grossly intact, Neuro grossly intact Psych/Mental Status: Normal Affect, Appropriate, Alert and oriented to time, place, person, mood and affect Microbiology Past 72 Hours 01/06/18 16:39 Urine, Clean Catch Legionella Antigen - Final 01/06/18 16:39 Urine, Clean Catch Streptococcus pneumoniae Antigen (M - Final Laboratory Results 01/08/18 08:31: Activated Clotting Time 180 H 01/08/18 09:10: Total Creatine Kinase 223 01/08/18 09:10: WBC 7.5, RBC 4.20 L, Hgb 12.5 L, Hct 38.4 L, MCV 91.4, MCH 29.8, MCHC 32.6, RDW 14.0, RDW Differential 46.1 H, Plt Count 216, MPV 9.2 01/08/18 09:10: MRSA (PCR) Negative 01/08/18 10:34: Activated Clotting Time 136 01/08/18 13:40: POC Glucose 201 H 01/08/18 14:25: WBC 7.6, RBC 4.03 L, Hgb 12.3 L, Hct 37.2 L, MCV 92.3, MCH 30.5, MCHC 33.1, RDW 14.1, RDW Differential 46.2 H, Plt Count 206, MPV 8.9 01/08/18 14:25: Total Creatine Kinase 161 01/08/18 17:38: POC Glucose 328 H 01/08/18 20:35: WBC 8.0, RBC 4.26 L, Hgb 12.4 L, Hct 39.4 L, MCV 92.5, MCH 29.1, MCHC 31.5 L, RDW 14.3, RDW Differential 47.9 H, Plt Count 202, MPV 9.2 01/08/18 20:35: Total Creatine Kinase 154 01/08/18 21:25: POC Glucose 298 H 01/09/18 02:00: WBC 7.0, RBC 4.02 L, Hgb 11.7 L, Hct 36.8 L, MCV 91.5, MCH 29.1, MCHC 31.8 L, RDW 14.4, RDW Differential 48.1 H, Plt Count 185, MPV 9.2 01/09/18 06:30: Sodium 143, Potassium 3.7, Chloride 102, Carbon Dioxide 32.0, Anion Gap 9, BUN 71 H, Creatinine 1.93 H, Estim Creat Clear Calc 32.49, Est GFR (MDRD) Af Amer 44 L, Est GFR (MDRD) Non-Af 36 L, BUN/Creatinine Ratio 36.8 H, Glucose 202 H, Calcium 8.3 L 01/09/18 06:52: POC Glucose 259 H 01/09/18 08:38: WBC 6.8, RBC 4.20 L, Hgb 12.2 L, Hct 38.4 L, MCV 91.4, MCH 29.0, MCHC 31.8 L, RDW 14.4, RDW Differential 47.9 H, Plt Count 184, MPV 9.1 Current Medications Acetaminophen (Tylenol) 650 mg PO Q6H PRN PRN PRN Reason: Mild Pain (scale 0-3)/T>100.7 Last Admin: 01/08/18 20:40 Dose: 650 mg Albuterol Sulfate (Ventolin Aerosols) 2.5 mg INHALATION Q2H.RT PRN PRN Reason: SOB/WHEEZING Albuterol/Ipratropium (Duoneb) 3 ml INHALATION Q4HWA.RT [facility] Last Admin: 01/09/18 06:48 Dose: 3 ml Amlodipine Besylate (Norvasc) 5 mg PO DAILY [facility] Last Admin: 01/09/18 08:24 Dose: 5 mg Aspirin (Ecotrin) 81 mg PO DAILY [facility] Last Admin: 01/09/18 08:24 Dose: 81 mg Atorvastatin Calcium (Lipitor) 80 mg PO QHS [facility] Last Admin: 01/08/18 21:06 Dose: 80 mg Atropine Sulfate () 0.5 mg IV UD PRN PRN Reason: HR <50 bpm Bisacodyl (Dulcolax) 10 mg PO DAILY PRN PRN PRN Reason: Constipation Carvedilol (Coreg) 12.5 mg PO BID [facility] Last Admin: 01/09/18 08:22 Dose: 12.5 mg Clopidogrel Bisulfate (Plavix) 75 mg PO DAILY [facility] Last Admin: 01/09/18 08:24 Dose: 75 mg Dextrose (D50w Syringe) 0 gm IV X1 PRN; Protocol PRN Reason: Hypoglycemia Docusate Sodium (Colace) 200 mg PO BID PRN PRN PRN Reason: Constipation Doxycycline Monohydrate (Doxycycline) 100 mg PO BID [facility] Last Admin: 01/09/18 08:24 Dose: 100 mg Furosemide (Lasix) 40 mg IV Q8 [facility] Last Admin: 01/09/18 06:44 Dose: 40 mg Glucagon () 1 mg IM .X1 PRN PRN Reason: Hypoglycemia Guaifenesin (Mucinex) 600 mg PO BID [facility] Last Admin: 01/09/18 08:24 Dose: 600 mg Heparin Sodium (Beef Lung) (Heparin 500 Unit/5 Ml (100/Ml)) 500 unit IV UD PRN PRN Reason: HEPARIN FLUSH Sodium Chloride () 1,000 mls @ 0 mls/hr IV .Q0M [facility] PRN Reason: KVO Sodium Chloride () 250 mls @ 15 mls/hr IV .[id number] PRN PRN Reason: SALINE FLUSH Insulin Aspart (Novolog Flexpen (Bkc)) 0 units SC ACHS [facility] PRN Reason: Protocol Last Admin: 01/09/18 08:21 Dose: 3 u Insulin Human Regular (Humulin R U-500 (Bkc)) 0.15 ml SC DINNER [facility] Last Admin: 01/08/18 18:02 Dose: 0.15 ml Insulin Human Regular (Humulin R U-500 (Bkc)) 0.15 ml SC LUNCH [facility] Last Admin: 01/08/18 14:33 Dose: 75 units Insulin Human Regular (Humulin R U-500 (Bkc)) 0.18 ml SC BREAKFAST [facility] Last Admin: 01/09/18 08:19 Dose: 90 units Losartan Potassium (Cozaar) 50 mg PO BID [facility] Last Admin: 01/09/18 08:35 Dose: 50 mg Magnesium Hydroxide (Milk Of Magnesia) 30 ml PO DAILY PRN PRN Reason: Constipation Melatonin (Melatonin) 3 - 6 mg PO QHS PRN PRN Reason: SLEEP Last Admin: 01/08/18 21:05 Dose: 6 mg Methylprednisolone (Solu-Medrol) 60 mg IV Q8 [facility] Last Admin: 01/09/18 06:44 Dose: 60 mg Metoclopramide HCl (Reglan) 5 mg IV Q6H PRN PRN PRN Reason: NAUSEA/VOMITING Metoprolol Tartrate (Lopressor (Beta Harshal)) 2.5 mg IV Q4 PRN PRN Reason: heart rate greater than 100 Morphine Sulfate () 2 - 4 mg IV Q3H PRN PRN PRN Reason: Severe Pain (pain scale 6-10) Morphine Sulfate () 2 - 4 mg IV Q3H PRN PRN PRN Reason: Severe Pain (pain scale 6-10) Nitroglycerin (Nitrostat) 0.4 mg SUBLINGUAL Q5M PRN PRN Reason: CHEST PAIN Ondansetron HCl (Zofran) 4 mg IV Q8H PRN PRN PRN Reason: Nausea Sodium Chloride () 5 - 30 ml IV UD PRN PRN Reason: SALINE FLUSH Last Admin: 01/09/18 08:39 Dose: 10 ml Sodium Chloride () 500 ml IV BOLUS PRN PRN Reason: VASO-VAGAL PROTOCOL Throat Lozenges (Cepacol Sore Throat Lozenge) 1 lozenge MUCOUS MEM PRN PRN PRN Reason: PAIN Medical Necessity - Tobacco Use Smoking Status: Former smoker Assessment/Plan 1. NSTEMI status left heart cath with angioplasty and stent placement to his chilkat circ. Stable. Still on nitroglycerin drip, discussed with application security specialist and stopped. Currently on aspirin and Plavix. Will continue. On statin and Coreg. Will continue. 2. Bronchitis: stable. Lungs are clear to auscultation. On IV steroids, breathing treatments and PO doxycycline. Will dc home on prednisone 40mg daily x 5 days, and PO doxycycline to complete 7 day course. 3. Acute respiratory failure with hypoxia: Stable. On as needed supplemental oxygen as needed. 4. Dm2: fasting sugar today is 201. 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 He is now on humulin 90IU in the morning, 75Iu in the afternoon and 50IU in the evenings. When had been on hold because patient was took off yesterday. Will resume Humulin. 5. CKD stage III: Creatinine is 1.93 today. Baseline is around 1.7. Will encourage gentle oral hydration. 6. Hypertension: BP today is 148/56 this morning. On amlodipine, losartan, and coreg. Coreg dose increased to 12.5mg bid. Will maintain current meds; to be adjusted as needed on outpatient basis, 7. CAD s/p remote CABG: on SL nitroglycerin prn. 8. DVT prophylaxis: heparin Disposition: DC home today. To follow up with PCP and application security specialist in one week. This note was generated with [employer] dictation software. It may contain incorrect words, spelling, and punctuation that were not noted in checking the note before signing. Code Visit Inpatient E&M: 89902 Subs Hosp L3
--- NOTE | 2018-01-09 09:22 | PN_ITS ---
Subjective: Patient seen and examined. He is 73-year-old male with a history of CAD status post remote CABG was admitted with a complaint of shortness of breath and cough and was found to have bronchitis. He also had elevated troponins consistent with an STEMI. He had left heart catheterization and status post stent placement and angioplasties to his [place] circumflex arteries. Patient was seen this morning. He had no complaints this morning. He denied any fever or chills, shortness of breath, chest pain, abdominal pain, palpitations, diarrhea vomiting. He was concerned about his insulin because his Humulin had been on hold as he had a left heart cath yesterday. Per patient , he was previously on Lantus but this was held by his doctor because he kept on having episodes of hypoglycemia and hypoglycemia. He has since been on Humulin 90 units in the morning, 75 units in the afternoons and 75 units in the evening which she says it does stick in a year to get to the state control his blood sugars. Review of systems otherwise negative. Vitals/I&O's: Vital Signs Temp Pulse Resp BP Pulse Ox 98.0 F 66 17 148/56 H 98 01/09/18 08:00 01/09/18 08:00 01/09/18 08:00 01/09/18 08:00 01/09/18 08:00 Oxygen Flow Rate (L/min) 2 Oxygen Delivery Method Room Air Weight: 236 lb 15.951 oz Body Mass Index (BMI) 34.0 Intake and Output for Last 24 Hours 01/07/18 01/08/18 01/09/18 23:59 23:59 23:59 Intake Total 1240 / 1240 1932 / 1932 201 / 201 Output Total 1800 / 1800 2125 / 2125 720 / 720 Balance -560 / -560 -193 / -193 -519 / -519 General: Alert, Oriented x3, Cooperative, No apparent distress HEENT: Atraumatic, PERRLA, EOMI, Normocephalic Oral: Moist Mucosa Neck: Supple, No JVD, Negative Carotid Bruits Lungs: Clear to auscultation, Normal air movement, No rhonchi, No wheeze, No rales Cardiovascular: Regular rate, Regular Rhythm, Normal S1, Normal S2, No murmurs Abdomen: Bowel Sounds Present, Soft, Non Tender, Non-Distended, No Hepato- splenomegaly Extremities: No clubbing, No cyanosis, No edema Skin: No rashes, No breakdown, - - Right groin area outside of cath is nontender and nonerythematous with no swelling. Dressing is clean and dry. Musculoskeletal: No Tenderness to Palpation of Joints or Extremities Lymphatic: No Cervical, Supraclavicular, or Inguinal Adenopathy Neurological: Cranial nerves II-XII grossly intact, Neuro grossly intact Psych/Mental Status: Normal Affect, Appropriate, Alert and oriented to time, place, person, mood and affect Microbiology Past 72 Hours 01/06/18 16:39 Urine, Clean Catch Legionella Antigen - Final 01/06/18 16:39 Urine, Clean Catch Streptococcus pneumoniae Antigen (M - Final Laboratory Results 01/08/18 08:31: Activated Clotting Time 180 H 01/08/18 09:10: Total Creatine Kinase 223 01/08/18 09:10: WBC 7.5, RBC 4.20 L, Hgb 12.5 L, Hct 38.4 L, MCV 91.4, MCH 29.8 , MCHC 32.6, RDW 14.0, RDW Differential 46.1 H, Plt Count 216, MPV 9.2 01/08/18 09:10: MRSA (PCR) Negative 01/08/18 10:34: Activated Clotting Time 136 01/08/18 13:40: POC Glucose 201 H 01/08/18 14:25: WBC 7.6, RBC 4.03 L, Hgb 12.3 L, Hct 37.2 L, MCV 92.3, MCH 30.5 , MCHC 33.1, RDW 14.1, RDW Differential 46.2 H, Plt Count 206, MPV 8.9 01/08/18 14:25: Total Creatine Kinase 161 01/08/18 17:38: POC Glucose 328 H 01/08/18 20:35: WBC 8.0, RBC 4.26 L, Hgb 12.4 L, Hct 39.4 L, MCV 92.5, MCH 29.1 , MCHC 31.5 L, RDW 14.3, RDW Differential 47.9 H, Plt Count 202, MPV 9.2 01/08/18 20:35: Total Creatine Kinase 154 01/08/18 21:25: POC Glucose 298 H 01/09/18 02:00: WBC 7.0, RBC 4.02 L, Hgb 11.7 L, Hct 36.8 L, MCV 91.5, MCH 29.1 , MCHC 31.8 L, RDW 14.4, RDW Differential 48.1 H, Plt Count 185, MPV 9.2 01/09/18 06:30: Sodium 143, Potassium 3.7, Chloride 102, Carbon Dioxide 32.0, Anion Gap 9, BUN 71 H, Creatinine 1.93 H, Estim Creat Clear Calc 32.49, Est GFR (MDRD) Af Amer 44 L, Est GFR (MDRD) Non-Af 36 L, BUN/Creatinine Ratio 36.8 H, Glucose 202 H, Calcium 8.3 L 01/09/18 06:52: POC Glucose 259 H 01/09/18 08:38: WBC 6.8, RBC 4.20 L, Hgb 12.2 L, Hct 38.4 L, MCV 91.4, MCH 29.0 , MCHC 31.8 L, RDW 14.4, RDW Differential 47.9 H, Plt Count 184, MPV 9.1 Current Medications Acetaminophen (Tylenol) 650 mg PO Q6H PRN PRN PRN Reason: Mild Pain (scale 0-3)/T>100.7 Last Admin: 01/08/18 20:40 Dose: 650 mg Albuterol Sulfate (Ventolin Aerosols) 2.5 mg INHALATION Q2H.RT PRN PRN Reason: SOB/WHEEZING Albuterol/Ipratropium (Duoneb) 3 ml INHALATION Q4HWA.RT [facility] Last Admin: 01/09/18 06:48 Dose: 3 ml Amlodipine Besylate (Norvasc) 5 mg PO DAILY [facility] Last Admin: 01/09/18 08:24 Dose: 5 mg Aspirin (Ecotrin) 81 mg PO DAILY [facility] Last Admin: 01/09/18 08:24 Dose: 81 mg Atorvastatin Calcium (Lipitor) 80 mg PO QHS [facility] Last Admin: 01/08/18 21:06 Dose: 80 mg Atropine Sulfate () 0.5 mg IV UD PRN PRN Reason: HR <50 bpm Bisacodyl (Dulcolax) 10 mg PO DAILY PRN PRN PRN Reason: Constipation Carvedilol (Coreg) 12.5 mg PO BID [facility] Last Admin: 01/09/18 08:22 Dose: 12.5 mg Clopidogrel Bisulfate (Plavix) 75 mg PO DAILY [facility] Last Admin: 01/09/18 08:24 Dose: 75 mg Dextrose (D50w Syringe) 0 gm IV X1 PRN; Protocol PRN Reason: Hypoglycemia Docusate Sodium (Colace) 200 mg PO BID PRN PRN PRN Reason: Constipation Doxycycline Monohydrate (Doxycycline) 100 mg PO BID [facility] Last Admin: 01/09/18 08:24 Dose: 100 mg Furosemide (Lasix) 40 mg IV Q8 [facility] Last Admin: 01/09/18 06:44 Dose: 40 mg Glucagon () 1 mg IM .X1 PRN PRN Reason: Hypoglycemia Guaifenesin (Mucinex) 600 mg PO BID [facility] Last Admin: 01/09/18 08:24 Dose: 600 mg Heparin Sodium (Beef Lung) (Heparin 500 Unit/5 Ml (100/Ml)) 500 unit IV UD PRN PRN Reason: HEPARIN FLUSH Sodium Chloride () 1,000 mls @ 0 mls/hr IV .Q0M [facility] PRN Reason: KVO Sodium Chloride () 250 mls @ 15 mls/hr IV .[id number] PRN PRN Reason: SALINE FLUSH Insulin Aspart (Novolog Flexpen (Bkc)) 0 units SC ACHS [facility] PRN Reason: Protocol Last Admin: 01/09/18 08:21 Dose: 3 u Insulin Human Regular (Humulin R U-500 (Bkc)) 0.15 ml SC DINNER [facility] Last Admin: 01/08/18 18:02 Dose: 0.15 ml Insulin Human Regular (Humulin R U-500 (Bkc)) 0.15 ml SC LUNCH [facility] Last Admin: 01/08/18 14:33 Dose: 75 units Insulin Human Regular (Humulin R U-500 (Bkc)) 0.18 ml SC BREAKFAST [facility] Last Admin: 01/09/18 08:19 Dose: 90 units Losartan Potassium (Cozaar) 50 mg PO BID [facility] Last Admin: 01/09/18 08:35 Dose: 50 mg Magnesium Hydroxide (Milk Of Magnesia) 30 ml PO DAILY PRN PRN Reason: Constipation Melatonin (Melatonin) 3 - 6 mg PO QHS PRN PRN Reason: SLEEP Last Admin: 01/08/18 21:05 Dose: 6 mg Methylprednisolone (Solu-Medrol) 60 mg IV Q8 [facility] Last Admin: 01/09/18 06:44 Dose: 60 mg Metoclopramide HCl (Reglan) 5 mg IV Q6H PRN PRN PRN Reason: NAUSEA/VOMITING Metoprolol Tartrate (Lopressor (Beta Harshal)) 2.5 mg IV Q4 PRN PRN Reason: heart rate greater than 100 Morphine Sulfate () 2 - 4 mg IV Q3H PRN PRN PRN Reason: Severe Pain (pain scale 6-10) Morphine Sulfate () 2 - 4 mg IV Q3H PRN PRN PRN Reason: Severe Pain (pain scale 6-10) Nitroglycerin (Nitrostat) 0.4 mg SUBLINGUAL Q5M PRN PRN Reason: CHEST PAIN Ondansetron HCl (Zofran) 4 mg IV Q8H PRN PRN PRN Reason: Nausea Sodium Chloride () 5 - 30 ml IV UD PRN PRN Reason: SALINE FLUSH Last Admin: 01/09/18 08:39 Dose: 10 ml Sodium Chloride () 500 ml IV BOLUS PRN PRN Reason: VASO-VAGAL PROTOCOL Throat Lozenges (Cepacol Sore Throat Lozenge) 1 lozenge MUCOUS MEM PRN PRN PRN Reason: PAIN Medical Necessity - Tobacco Use Smoking Status: Former smoker Assessment/Plan 1. NSTEMI status left heart cath with angioplasty and stent placement to his [place] circ. * Stable. Still on nitroglycerin drip, discussed with cloth shrinking machine operator and stopped. * Currently on aspirin and Plavix. Will continue. * On statin and Coreg. Will continue. * 2. Bronchitis: stable. Lungs are clear to auscultation. On IV steroids, breathing treatments and PO doxycycline. Will dc home on prednisone 40mg daily x 5 days, and PO doxycycline to complete 7 day course. 3. Acute respiratory failure with hypoxia: Stable. On as needed supplemental oxygen as needed. 4. Dm2: fasting sugar today is 201. 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 He is now on humulin 90IU in the morning, 75Iu in the afternoon and 50IU in the evenings. When had been on hold because patient was took off yesterday. Will resume Humulin. 5. CKD stage III: Creatinine is 1.93 today. Baseline is around 1.7. Will encourage gentle oral hydration. 6. Hypertension: BP today is 148/56 this morning. On amlodipine, losartan, and coreg. Coreg dose increased to 12.5mg bid. Will maintain current meds; to be adjusted as needed on outpatient basis, 7. CAD s/p remote CABG: on SL nitroglycerin prn. 8. DVT prophylaxis: heparin Disposition: DC home today. To follow up with PCP and cloth shrinking machine operator in one week. This note was generated with [employer] dictation software. It may contain incorrect words, spelling, and punctuation that were not noted in checking the note before signing. Code Visit Inpatient E&M: 25486 Subs Hosp L3
--- NOTE | 2018-01-09 09:28 | PCM.DC ---
- Discharge Diagnoses Current Active Problems: Current Active and Chronic Problems (Last Updated 11/09/17 @ 09:46 by MALIK Howell) NSTEMI (non-ST elevated myocardial infarction) (Acute) Bronchitis with bronchospasm (Acute) Discharge Activity: Return to Normal Activity May resume sexual activity in: No Restrictions Weight Bearing Status: Weight bearing as tolerated Allergies/Adverse Reactions: Allergies No Known Allergies Allergy (Verified 01/06/18 12:14) Medications to take at Discharge Atorvastatin Calcium [Lipitor] 80 mg PO QHS 10/16/14 aspirin 81 mg tablet,delayed release 81 mg PO DAILY 10/27/17 bumetanide 2 mg tablet 2 mg PO BID 10/27/17 cholecalciferol (vitamin D3) 2,000 unit tablet 2,000 unit PO DAILY tab 10/27/17 losartan 50 mg tablet 50 mg PO BID tab 11/09/17 Amlodipine [Norvasc] 5 mg PO DAILY 01/06/18 Insulin U-500 [Humulin R U-500 (BKC)] 75 mg PO DINNER 01/06/18 Insulin U-500 [Humulin R U-500 (BKC)] 75 unit SC LUNCH 01/06/18 Insulin U-500 [Humulin R U-500 (BKC)] 90 units SC BREAKFAST 01/06/18 Bisacodyl [Dulcolax] 10 mg PO DAILY PRN PRN tablet 01/09/18 Carvedilol [Coreg (Beta Harshal)] 12.5 mg PO BID 30 Days #60 tab 01/09/18 Clopidogrel Bisulfate [Plavix] 75 mg PO DAILY #30 tab 01/09/18 Doxycycline Hyclate 100 mg PO BID 3 Days #6 tab 01/09/18 Nitroglycerin [Nitrostat] 0.4 mg SUBLINGUAL Q5M PRN #30 tab 01/09/18 Prednisone [Deltasone] 40 mg PO DAILY 5 Days #10 tab 01/09/18 The following prescriptions were given: Clopidogrel Bisulfate [Plavix] 75 mg PO DAILY #30 tab Nitroglycerin [Nitrostat] 0.4 mg SUBLINGUAL Q5M PRN #30 tab PRN Reason: Chest Pain Prednisone [Deltasone] 40 mg PO DAILY 5 Days #10 tab Carvedilol [Coreg (Beta Harshal)] 12.5 mg PO BID 30 Days #60 tab Doxycycline Hyclate 100 mg PO BID 3 Days #6 tab Primary Care Physician: Jackson Mesa MD [Primary Care Provider] - Please Follow Up With: Eduardo Rizo MD When: in one week
--- NOTE | 2018-01-09 09:29 | PCM.PN.CARD ---
Subjectve: Patient seen and evaluated.. Appears to be doing very well. No complaints. Objective: Vital Signs Temp Pulse Resp BP Pulse Ox 98.0 F 78 15 157/52 H 93 01/09/18 08:00 01/09/18 09:00 01/09/18 09:00 01/09/18 09:00 01/09/18 09:00 Oxygen Flow Rate (L/min) 2 Oxygen Delivery Method Room Air Weight: 236 lb 15.951 oz Body Mass Index (BMI) 34.0 Intake and Output for Last 24 Hours 01/07/18 01/08/18 01/09/18 23:59 23:59 23:59 Intake Total 1240 / 1240 1932 / 1932 201 / 201 Output Total 1800 / 1800 2125 / 2125 720 / 720 Balance -560 / -560 -193 / -193 -519 / -519 General: Awake, Alert, Oriented x 3 HEENT: PERRL, EOMI, Sclera Non Icteric Neck: Supple, Good ROM, No Lymph Node Enlargement Lungs: Clear to auscultation Cardiovascular: Regular Rhythm, Normal S1, Normal S2, No Murmurs, No Rubs, No Gallops Vascular: No Carotid Bruits, Normal Femoral Pulses, Normal Radial Pulses, Normal Dorsalis Pedal Pulse, Normal Posterior Tibial Pulses Abdomen: Bowel Sounds Present, Soft, Non Tender, No HSM, No Organomegaly Extremities: No Cyanosis, No Clubbing, No edema Neurological: No Focal Motor or Sensory Deficit 01/08/18 09:10: WBC 7.5, RBC 4.20 L, Hgb 12.5 L, Hct 38.4 L, MCV 91.4, MCH 29.8, MCHC 32.6, RDW 14.0, RDW Differential 46.1 H, Plt Count 216, MPV 9.2 01/08/18 14:25: WBC 7.6, RBC 4.03 L, Hgb 12.3 L, Hct 37.2 L, MCV 92.3, MCH 30.5, MCHC 33.1, RDW 14.1, RDW Differential 46.2 H, Plt Count 206, MPV 8.9 01/08/18 20:35: WBC 8.0, RBC 4.26 L, Hgb 12.4 L, Hct 39.4 L, MCV 92.5, MCH 29.1, MCHC 31.5 L, RDW 14.3, RDW Differential 47.9 H, Plt Count 202, MPV 9.2 01/09/18 02:00: WBC 7.0, RBC 4.02 L, Hgb 11.7 L, Hct 36.8 L, MCV 91.5, MCH 29.1, MCHC 31.8 L, RDW 14.4, RDW Differential 48.1 H, Plt Count 185, MPV 9.2 01/09/18 06:30: Sodium 143, Potassium 3.7, Chloride 102, Carbon Dioxide 32.0, Anion Gap 9, BUN 71 H, Creatinine 1.93 H, Est GFR (MDRD) Af Amer 44 L, Est GFR (MDRD) Non-Af 36 L, BUN/Creatinine Ratio 36.8 H, Glucose 202 H, Calcium 8.3 L 01/09/18 08:38: WBC 6.8, RBC 4.20 L, Hgb 12.2 L, Hct 38.4 L, MCV 91.4, MCH 29.0, MCHC 31.8 L, RDW 14.4, RDW Differential 47.9 H, Plt Count 184, MPV 9.1 Rhythm: EKG: ECHO: Stress Test: Cardiac Cath: PCI: CT Surgery: Holter monitor: EPS: PPM: CXR: Chest CT Scan: Medical Necessity - Tobacco Use Smoking Status: Former smoker Assessment/Plan 1. Non-STEMI: The patient had progressively worsening dyspnea on exertion, shortness of breath, bilateral wheezing, lower extremity edema, and evidence on chest x-ray of worsening pulmonary edema. In addition his echocardiogram demonstrated a marked difference in his LV function decreasing from 55% to around 35-40% with inferior posterior hypokinesis. In addition he has dynamic EKG changes of anterolateral leads consistent with ischemia and evidence of new inferior Q waves possible posterior involvement. His cardiac catheterization demonstrated the following: Severe left main coronary artery stenosis. Left anterior descending artery totally occluded. Left circumflex artery totally occluded. Right coronary artery severely diseased and totally occluded. Left internal mammary artery to left anterior descending artery which is patent. Saphenous vein graft to the right coronary artery which is patent with mild distal disease. Saphenous vein graft to the circumflex artery which is patent with moderately severe distal [place] vessel disease. He underwent angioplasty and stenting of the [place] circumflex artery. He did well overnight with no significant drop in the hemoglobin. His creatinine however jumped by approximately 0.3. This will be rechecked as an outpatient. He did have baseline renal dysfunction and he will be hydrated orally. I recommend the patient continue baby aspirin, continue Plavix 75 mg a day, 2. Congestive heart failure acute systolic The above has improved significantly. We will continue limited diuretics. Would also recommend Coreg 6.25 mg p.o. twice daily. Patient has baseline chronic renal insufficiency and is on losartan 100 mg p.o. daily. Recommend continuing this for now. 3. Hyperlipidemia: Recommend obtaining a fasting lipid profile, and continuing Lipitor therapy. His LDL should be less than 70. 4. Status post coronary bypass surgery. He underwent coronary artery bypass surgery in 1997 with a left internal mammary artery sequential to the diagonal vessel as well as the left anterior descending artery, a saphenous vein graft to the circumflex artery obtuse marginal vessel, and a saphenous vein graft to the right coronary artery. 5. Hypertension He does have elevated blood pressure and in addition to the Coreg and losartan amlodipine 5 mg a day has been added to his regimen. This will be followed up in the office. The chemistry profile would also be obtained within the next week. Above was discussed with patient and hospitalist. Thank you for allowing me to participate in the care of your patient. Please don't hesitate to call if any issues arise
--- NOTE | 2018-01-09 09:32 | PN.CARD_ITS ---
Subjectve: Patient seen and evaluated.. Appears to be doing very well. No complaints. Objective: Vital Signs Temp Pulse Resp BP Pulse Ox 98.0 F 78 15 157/52 H 93 01/09/18 08:00 01/09/18 09:00 01/09/18 09:00 01/09/18 09:00 01/09/18 09:00 Oxygen Flow Rate (L/min) 2 Oxygen Delivery Method Room Air Weight: 236 lb 15.951 oz Body Mass Index (BMI) 34.0 Intake and Output for Last 24 Hours 01/07/18 01/08/18 01/09/18 23:59 23:59 23:59 Intake Total 1240 / 1240 1932 / 1932 201 / 201 Output Total 1800 / 1800 2125 / 2125 720 / 720 Balance -560 / -560 -193 / -193 -519 / -519 General: Awake, Alert, Oriented x 3 HEENT: PERRL, EOMI, Sclera Non Icteric Neck: Supple, Good ROM, No Lymph Node Enlargement Lungs: Clear to auscultation Cardiovascular: Regular Rhythm, Normal S1, Normal S2, No Murmurs, No Rubs, No Gallops Vascular: No Carotid Bruits, Normal Femoral Pulses, Normal Radial Pulses, Normal Dorsalis Pedal Pulse, Normal Posterior Tibial Pulses Abdomen: Bowel Sounds Present, Soft, Non Tender, No HSM, No Organomegaly Extremities: No Cyanosis, No Clubbing, No edema Neurological: No Focal Motor or Sensory Deficit 01/08/18 09:10: WBC 7.5, RBC 4.20 L, Hgb 12.5 L, Hct 38.4 L, MCV 91.4, MCH 29.8 , MCHC 32.6, RDW 14.0, RDW Differential 46.1 H, Plt Count 216, MPV 9.2 01/08/18 14:25: WBC 7.6, RBC 4.03 L, Hgb 12.3 L, Hct 37.2 L, MCV 92.3, MCH 30.5 , MCHC 33.1, RDW 14.1, RDW Differential 46.2 H, Plt Count 206, MPV 8.9 01/08/18 20:35: WBC 8.0, RBC 4.26 L, Hgb 12.4 L, Hct 39.4 L, MCV 92.5, MCH 29.1 , MCHC 31.5 L, RDW 14.3, RDW Differential 47.9 H, Plt Count 202, MPV 9.2 01/09/18 02:00: WBC 7.0, RBC 4.02 L, Hgb 11.7 L, Hct 36.8 L, MCV 91.5, MCH 29.1 , MCHC 31.8 L, RDW 14.4, RDW Differential 48.1 H, Plt Count 185, MPV 9.2 01/09/18 06:30: Sodium 143, Potassium 3.7, Chloride 102, Carbon Dioxide 32.0, Anion Gap 9, BUN 71 H, Creatinine 1.93 H, Est GFR (MDRD) Af Amer 44 L, Est GFR ( MDRD) Non-Af 36 L, BUN/Creatinine Ratio 36.8 H, Glucose 202 H, Calcium 8.3 L 01/09/18 08:38: WBC 6.8, RBC 4.20 L, Hgb 12.2 L, Hct 38.4 L, MCV 91.4, MCH 29.0 , MCHC 31.8 L, RDW 14.4, RDW Differential 47.9 H, Plt Count 184, MPV 9.1 Rhythm: EKG: ECHO: Stress Test: Cardiac Cath: PCI: CT Surgery: Holter monitor: EPS: PPM: CXR: Chest CT Scan: Medical Necessity - Tobacco Use Smoking Status: Former smoker Assessment/Plan 1. Non-STEMI: The patient had progressively worsening dyspnea on exertion, shortness of breath, bilateral wheezing, lower extremity edema, and evidence on chest x-ray of worsening pulmonary edema. In addition his echocardiogram demonstrated a marked difference in his LV function decreasing from 55% to around 35-40% with inferior posterior hypokinesis. In addition he has dynamic EKG changes of anterolateral leads consistent with ischemia and evidence of new inferior Q waves possible posterior involvement. His cardiac catheterization demonstrated the following: Severe left main coronary artery stenosis. Left anterior descending artery totally occluded. Left circumflex artery totally occluded. Right coronary artery severely diseased and totally occluded. Left internal mammary artery to left anterior descending artery which is patent. Saphenous vein graft to the right coronary artery which is patent with mild distal disease. Saphenous vein graft to the circumflex artery which is patent with moderately severe distal [place] vessel disease. He underwent angioplasty and stenting of the [place] circumflex artery. He did well overnight with no significant drop in the hemoglobin. His creatinine however jumped by approximately 0.3. This will be rechecked as an outpatient. He did have baseline renal dysfunction and he will be hydrated orally. I recommend the patient continue baby aspirin, continue Plavix 75 mg a day, 2. Congestive heart failure acute systolic The above has improved significantly. We will continue limited diuretics. Would also recommend Coreg 6.25 mg p.o. twice daily. Patient has baseline chronic renal insufficiency and is on losartan 100 mg p.o. daily. Recommend continuing this for now. 3. Hyperlipidemia: Recommend obtaining a fasting lipid profile, and continuing Lipitor therapy. His LDL should be less than 70. 4. Status post coronary bypass surgery. He underwent coronary artery bypass surgery in 1997 with a left internal mammary artery sequential to the diagonal vessel as well as the left anterior descending artery, a saphenous vein graft to the circumflex artery obtuse marginal vessel, and a saphenous vein graft to the right coronary artery. 5. Hypertension He does have elevated blood pressure and in addition to the Coreg and losartan amlodipine 5 mg a day has been added to his regimen. This will be followed up in the office. The chemistry profile would also be obtained within the next week. Above was discussed with patient and hospitalist. Thank you for allowing me to participate in the care of your patient. Please don't hesitate to call if any issues arise
--- NOTE | 2018-01-09 09:33 | PCM.DC.SUM ---
Discharge Date and Diagnosis Date of Admission: 01/06/18 Date of Discharge: 01/09/18 - Primary Discharge Diagnosis Active and Suspected Problems (Last Updated 11/09/17 @ 09:46 by MALIK Howell) NSTEMI (non-ST elevated myocardial infarction) (Acute) Bronchitis with bronchospasm (Acute) - Secondary Discharge Diagnosis Chronic Problems (Last Updated 11/09/17 @ 09:46 by MALIK Howell) Atherosclerosis of coronary artery bypass graft without angina pectoris (Chronic) CABG X 41988 @ [facility] records unavailable Bilateral lower extremity edema (Chronic) Renal insufficiency (Chronic) CKD3, creatinines ranings 1.7 since 2014 Atherosclerotic heart disease of [place] coronary artery without angina pectoris (Chronic) H/O coronary artery bypass surgery (Chronic) CABG X 1988 @ [facility] records unavailable Premature atrial contractions (Chronic) Chronic diastolic (congestive) heart failure (Chronic) Type II diabetes mellitus (Chronic) Hypertension (Chronic) Hyperlipidemia (Chronic) Coronary artery disease (Chronic) Status post CABG Hospital Course and Treatment Imaging Results: Diagnostic Data Chest X-Ray 01/06/18 13:10 IMPRESSION: Elevation of the right hemidiaphragm with right basilar atelectasis and/or infiltrate. Electronically Signed: Lonny Henry MD at 13:51 EDT Tel [phone], Service support , Chest Ultrasound 01/06/18 17:59 IMPRESSION: No pleural effusion is seen. Electronically Signed: Lonny Henry MD at 12:43 EDT Tel [phone], Service support , cardiology Operations: None, - Procedures: 2-D Echocardiogram - moderately enlarged LV, with mild concentric LV hypertrophy, and EF of 35-40%. Stage 2 diastolic dysfunction, moderate to severe global hypokinesis of LV.LA moderately enlarged. RVSP is 28mmHg., Thoracentesis Summary of Care Provided: The patient is a 72 year old M with a PMH of CAD s/p remote CABG who was admitted with a complaint of SOB and cough. He was managed for bronchitis. He was also found to have elevated troponins and was managed for NSTEMI. EKG showed t wave inversions in anterolateral leads and evidence of new inferior Q waves, indicating possible posterior involvement. He had a left heart cath which showed severe left main coronary artery stenosis, with LAD and left circumflex arteries totally occluded, and RCA severely diseased and totally occluded. He underwent angioplasty and stenting of his circumflex artery. He remained stable and was dced home on on aspirin and plavix. Coreg was also increased to 12.5mg bid. He is to have a follow up BMP in one week to assess his creatinine, as he had mild JUSTIN on CKD during admission. Cr at discharge was 1.93, with baseline being 1.7.He was discharged on aspirin, plavix, Coreg, losartan and lipitor. He is to follow up with PCP and arbitrator in one week. He is also to have cardiac rehab. [] Discharge Diet: 1800 Calorie Control Diet Discharge Activity: Return to Normal Activity May resume sexual activity in: No Restrictions Weight Bearing Status: Weight bearing as tolerated Home Medications: Medications to take at Discharge Atorvastatin Calcium [Lipitor] 80 mg PO QHS 10/16/14 aspirin 81 mg tablet,delayed release 81 mg PO DAILY 10/27/17 bumetanide 2 mg tablet 2 mg PO BID 10/27/17 cholecalciferol (vitamin D3) 2,000 unit tablet 2,000 unit PO DAILY tab 10/27/17 losartan 50 mg tablet 50 mg PO BID tab 11/09/17 Amlodipine [Norvasc] 5 mg PO DAILY 01/06/18 Insulin U-500 [Humulin R U-500 ([facility])] 75 mg PO DINNER 01/06/18 Insulin U-500 [Humulin R U-500 ([facility])] 75 unit SC LUNCH 01/06/18 Insulin U-500 [Humulin R U-500 ([facility])] 90 units SC BREAKFAST 01/06/18 Benzonatate [Tessalon Perle] 100 mg PO Q4H PRN PRN #30 cap 01/09/18 Bisacodyl [Dulcolax] 10 mg PO DAILY PRN PRN tablet 01/09/18 Carvedilol [Coreg (Beta Harshal)] 12.5 mg PO BID 30 Days #60 tab 01/09/18 Clopidogrel Bisulfate [Plavix] 75 mg PO DAILY #30 tab 01/09/18 Doxycycline Hyclate 100 mg PO BID 3 Days #6 tab 01/09/18 Nitroglycerin [Nitrostat] 0.4 mg SUBLINGUAL Q5M PRN #30 tab 01/09/18 Prednisone [Deltasone] 40 mg PO DAILY 5 Days #10 tab 01/09/18 Following Prescrptions Were Given to Patient: Benzonatate [Tessalon Perle] 100 mg PO Q4H PRN PRN #30 cap PRN Reason: Cough Clopidogrel Bisulfate [Plavix] 75 mg PO DAILY #30 tab Nitroglycerin [Nitrostat] 0.4 mg SUBLINGUAL Q5M PRN #30 tab PRN Reason: Chest Pain Prednisone [Deltasone] 40 mg PO DAILY 5 Days #10 tab Carvedilol [Coreg (Beta Harshal)] 12.5 mg PO BID 30 Days #60 tab Doxycycline Hyclate 100 mg PO BID 3 Days #6 tab Primary Care Physician: Jackson Mesa MD [Primary Care Provider] - Please follow up with your Primary Care Physician in: one week Please Follow Up With: Eduardo Rizo MD When: in one week Pending Tests Upon Discharge: to have renal function panel in one week. Disposition: Home Minutes spent on discharge:: 35 Patient Condition:: Good Medical Necessity - Tobacco Use Smoking Status: Former smoker Meaningful Use Info Meaningful Use Diagnoses (Choose all that apply): AMI - AMI Aspirin given w/in 24hrs of arrival?: Yes ASA at discharge?: Yes Statins at discharge?: Yes Thanh/ARB at discharge?: Yes Beta Harshal at discharge?: Yes Done w/ Acute OR measure.: Yes Code Visit Inpatient E&M: 52045 Disch Hosp
--- NOTE | 2018-01-12 13:05 | CL.I_ITS ---
Patient Name: SANJAY MORRIS Study Date: 01/08/2018 Performing: Ron Burton MD Ht: 68.9 inches 175 cm : 1945 Wt: 229.28 lbs 104 kg Age: 72 Gender: male BSA: 2.19 PROCEDURE(S) PERFORMED AH89-ZXT W OR WO PTCA, SINGLE CORONARY ARTERY CLINICAL PROFILE AND CO-MORBIDITIES Patient presents with NSTEMI for urgent cardiac cath Indications: ACS <= 24 hrs, ACS > 24 hrs, New Onset Angina <= 2 months, Cardiomyopathy Heart Failure: NYHA Class: 2, Newly Diagnosed: Yes, Heart Failure Type: Systolic, NYHA Class: 2 Stress/Imaging Stress/Image Study Performed: No Stress/Image Study Performed: No Angina Classification Anginal Classification w/in 2 Weeks: CCS III CAD Presentations: Unstable angina. Comorbidities/Risk Factors: Hypertension Dyslipidemia Prior CHF Prior CABG CONCLUSIONS Successful PTCA/VINICIO of the through SVG to OM#2, deployed in [place] OM#2 with a 2.25 x 16 Promus Syner gy, post dilated with a 2.25 x 8 NC balloon; 75%-->0%, no dissection. RECOMMENDATIONS Highly recommend quitting all tobacco products Follow up with primary horse rider Risk factor modification ASA Indefinitley Plavix for life given CAD and age of CABG grafts. Routine post interventional care Refer for Outpatient Cardiac Rehab Manual sheath removal per protocol Follow up with Dr. Rizo Risk factor modification DESCRIPTION OF PROCEDURE The patient arrived to the procedure lab. The risks and benefits of the procedure as well as a full d escription of our services here and current unavailability of surgical backup were fully explained to the patient and/or their significant other prior to the catheterization. The Timeout was completed, verifying the correct patient and procedure. The patient's procedural site was prepped and draped in the usual fashion. Local anesthetic was given subcutaneously to right groin region with Lidocaine 2% Using a modified Seldinger technique,arterial access was obtained via the right femoral artery, a 5Fr sheath was inserted. Left Coronary Artery selective angiography was performed in multiple views usin g a 5 Fr. JL4 catheter. Right Coronary Artery selective angiography was then performed in multiple vi ews using a 5 Fr. 3DRC (Doe) catheter. Left internal mammary artery graft to the LAD selective a ngiography was performed in multiple views using a 5 Fr. 3DRC (Doe) catheter. Left internal mamm lynette artery graft to the LAD sequential to Diag selective angiography was performed in multiple views using a 5 Fr. IM catheter. Saphenous Vein graft to the Circumflex selective angiography was performed in multiple views using a 5 Fr. IM catheter. Saphenous Vein graft to the RCA selective angiography w as performed in multiple views using a 5 Fr. IM catheter.The images were reviewed and options discuss ed. A decision was then made to proceed with an Intervention, IVUS or other adjunct procedure. Arterial sheath was exchanged for a 6 Fr Sheath HS II Guide catheter was inserted and engaged into th e SVG to the OM 1. BMW Guide wire was advanced to the OM emerge 2.00x12 Balloon catheter was inserted . PTCA balloon inflated at 8 atms for 12 secs synergy 2.25x16 Drug Eluting stent was inserted Angiogr am performed post stent deployment. nc emerge 2.25x8 Balloon catheter was inserted. PTCA balloon infl ated at 14 atms for 10 secs PTCA balloon inflated at 15 atms for 14 secs Angiogram performed post bal loon dilatation.. . The arterial sheath was sutured in place and capped. INTERVENTION INFORMATION LESION SITE: 2nd OM (Distal) Lesion Complexity: Non-High/Non-C, lesion at bifurcation: No, thrombus present: No, lesion length: 16 mm, culprit lesion: Yes Pre Stenosis: 75 % Pre intervention ALESSIA flow: 3 PROCEDURE: Drug Eluting Stent with pre and post dilatation Post Stenosis: 0 % Post intervention ALESSIA flow: 3 Lesion Devices: Smith .014 BMW Ovid Straight 190cm Dilip Sci EMERGE MR 2.00x12 BALLOON Dilip Sci Synergy MR VINICIO 2.25x16 Dilip Sci NC EMERGE MR 2.25x08 BALLOON Learndottronic 6 Fr HSII 100cm Guide Catheter COMPLICATIONS No Complications PROCEDURE MEDICATIONS Versed 1 mg IV Versed 1 mg IV Oxygen: 2 L/min via nasal cannula Heparin 6000 unit(s) IV 01/08/2018 08:15:04 Nitro 200 mcg IC 01/08/2018 08:19:22 Nitro 200 mcg IC 01/08/2018 08:19:22 Nitro glycerin 25mg / 250ml D5W @ 5 mcg/min IV started 01/08/2018 08:27:10 IV Bolus: .9 NaCl ml total 01/08/2018 08:15:11 SUMMARY OF HEMODYNAMIC DATA Time AIR REST ECG 07:08:47 AO 187/91 (134) SA 07:19:27 Signed By Ron Burton MD On 01/12/2018 13:05:09 Ron Burton MD
== END 2018-01-09 12:35 | disposition home or self-care (01) | DRG 246 ==
LOC: ED 13:16 → PCU 15:08 → ICU 01-08 08:55 → PCU 01-11 10:03
PROVIDERS: Internal Medicine; Internal Medicine Cardiovascular Disease; Admitting Provider Internal Medicine; Emergency Provider Emergency Medicine; Family Provider Family Medicine; PCP Family Medicine; Visit Provider Student in an Organized Health Care Education/Training Program
DX: I21.4 Non-ST elevation (NSTEMI) myocardial infarction (principal); J96.01 Acute respiratory failure with hypoxia; I50.23 Acute on chronic systolic (congestive) heart failure; N17.9 Acute kidney failure, unspecified; I13.0 Hypertensive heart and chronic kidney disease with heart failure and stage 1 through stage 4 chronic kidney disease, or unspecified chronic kidney disease; J20.9 Acute bronchitis, unspecified; I25.10 Atherosclerotic heart disease of native coronary artery without angina pectoris; I25.82 Chronic total occlusion of coronary artery; E11.22 Type 2 diabetes mellitus with diabetic chronic kidney disease; N18.3 Chronic kidney disease, stage 3 (moderate); E78.2 Mixed hyperlipidemia; Z79.4 Long term (current) use of insulin; Z79.82 Long term (current) use of aspirin; Z79.899 Other long term (current) drug therapy; Z95.1 Presence of aortocoronary bypass graft; Z87.891 Personal history of nicotine dependence
CPT/HCPCS: 36415; 71045; 76604; 80048; 80053; 80061; 81001; 82550; 82962; 83735; 83880; 84484; 85025; 85027; 85347; 85610; 85730; 87449; 87641; 92928; 93005; 93306; 93455; 94640; 97162; 99152; 99153; 99251; 99285; 99406; J7030; A4216; C1725; C1769; C1874; C1887; C9600; G0463; J1940; Q9967

== ENCOUNTER → 2018-01-15 12:40 | Outpatient (CLI) | payer MEDICARE, OTHER, SELFPAY ==
[2018-01-15 14:03] LABS: BUN 43 mg/dL (7-18); BUN/Creat Ratio 28.1 RATIO (10-20); Calcium,Total 8.4 mg/dL (8.5-10.1); Chloride 106 mmol/L (98-107); Creatinine, Serum 1.53 mg/dL (0.70-1.30); EST Glomerular Filtration Rate 48 mL/min (>60); Est Glom Filt Rate - Afr Amer 58 mL/min (>60); Glucose 205 mg/dL (74-106); Phosphorus 2.9 mg/dL (2.5-4.9); Potassium 3.7 mmol/L (3.5-5.1); Sodium Level 146 mmol/L (136-145)
== END ==
PROVIDERS: Family Provider Family Medicine; PCP Family Medicine; Visit Provider Student in an Organized Health Care Education/Training Program
DX: N18.3 Chronic kidney disease, stage 3 (moderate) (principal)
CPT/HCPCS: 36415; 80069

== ENCOUNTER → 2018-01-20 11:05 | Outpatient (CLI) | payer MEDICARE, OTHER, SELFPAY ==
[2018-01-20 12:43] LABS: BNP,B-Type NATRIURETIC PEPTIDE 163.8 pg/mL (0-100)
== END ==
PROVIDERS: Family Provider Family Medicine; PCP Family Medicine; Visit Provider Nurse Practitioner Family
DX: R06.00 Dyspnea, unspecified (principal)
CPT/HCPCS: 36415; 83880

== ENCOUNTER → 2018-02-03 12:37 | Outpatient (CLI) | payer MEDICARE, OTHER, SELFPAY ==
--- NOTE | 2018-02-03 12:48 | PCM.CR.HP2 ---
CR - History & Physical - General Arrival date:: 02/03/18 Arrival time:: 12:50 Date of Referral:: 01/21/18 Date of CR Evaluation:: 02/03/18 Referring Physician: Dr. Eduardo Rizo Primary Diagnosis: PCI w/coronary artery stent placement - History of Present Cardiac Event Onset Date: Enter Onset Date of cardiac illnesses in Comment field below Acute Myocardial Infarction within 12 months:: Yes - 01/07/2018 PTCA or coronary stenting:: Yes - 01/07/2018 Type of Symptoms:: thought just to be bronchitis or respiratory problem, just shortness of breath and coughing. Interventions with present event:: admitted for a couple of days and then taken for heart cath procedure Were there any complications?: none - Medications Home Medications: Ambulatory Orders Medication Instructions Recorded Atorvastatin Calcium [Lipitor] 80 mg PO QHS 10/16/14 aspirin 81 mg tablet,delayed 81 mg PO DAILY 10/27/17 release bumetanide 2 mg tablet 2 mg PO BID 10/27/17 cholecalciferol (vitamin D3) 2,000 2,000 unit PO DAILY tab 10/27/17 unit tablet losartan 50 mg tablet 50 mg PO BID tab 11/09/17 Amlodipine [Norvasc] 5 mg PO DAILY 01/06/18 Insulin U-500 [Humulin R U-500 75 mg PO DINNER 01/06/18 ([facility])] Insulin U-500 [Humulin R U-500 75 unit SC LUNCH 01/06/18 ([facility])] Insulin U-500 [Humulin R U-500 90 units SC BREAKFAST 01/06/18 ([facility])] Bisacodyl [Dulcolax] 10 mg PO DAILY PRN PRN tab 01/09/18 Carvedilol [Coreg (Beta Harshal)] 12.5 mg PO BID 30 Days #60 tab 01/09/18 Clopidogrel Bisulfate [Plavix] 75 mg PO DAILY #30 tab 01/09/18 Nitroglycerin [Nitrostat] 0.4 mg SUBLINGUAL Q5M PRN #30 tab 01/09/18 albuterol sulfate 2.5 mg/3 mL 2.5 mg INHALATION Q4H PRN #75 ml 01/20/18 (0.083 %) solution for nebulization - Allergies Allergies/Adverse Reactions: Allergies No Known Allergies Allergy (Verified 01/20/18 10:08) - Sleep Disorder Evaluation Hx of Sleep Apnea: No Do you snore loudly (louder than talking or can be heard through closed doors)?: No Do you often feel tired/ fatigued/ sleepy during daytime?: No Has anyone observed you stop breathing during sleep?: No History of Hypertension (for STOP score): Yes STOP Results: Negative Advanced Directives - Advanced Directives 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 Postal 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 Living Will: Yes Advance Directives Information Provided: No Advance Directives on File: Yes DNR Order?:: No - MOLST See MOLST form: No Past Medical History - Past Medical Illness Medical History: Past Medical History (Last Updated 02/03/18 @ 12:55 by Alberto Mckeon, QUIN, ROUGHING MILL OPERATOR, BS) History of coronary artery stent placement (Acute) Z95.5 NSTEMI (non-ST elevated myocardial infarction) (Acute) I21.4 Bronchitis with bronchospasm (Acute) J20.9 Atherosclerosis of coronary artery bypass graft without angina pectoris (Chronic) I25.810 CABG X 1988 @ [facility] records unavailable Bilateral lower extremity edema (Chronic) R60.0 Renal insufficiency (Chronic) N28.9 CKD3, creatinines ranings 1.7 since 2014 [address] heart disease of [place] coronary artery without angina pectoris (Chronic) I25.10 S/P CABG x4 in 1997; PTCA/VINICIO to 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 Social History - Smoking History Smoking Status: Former smoker Years Smokin Packs Smoked per Day: 1 Hx Smoking Cessation Date: 1981 Hx Tobacco Use: No Hx Smoking Exposure: No - Alcohol Use Alcohol Usage: Yes - occasionally - Substance Abuse Hx Substance Use: No - Occupation Occupation (List type of work in comments):: Retired - Hobbies, Recreation, Social Activities Hobbies: Other - auctions Recreational Activities: I am able to engage in a few activities - really weak, hard to get active. Social Environment - Status Marital Status: - Current Living Arrangements Living Environment:: Spouse - Children How many children do you have?: 2 Do any of your children live nearby?: Yes - Safety Do you feel safe in your surroundings?: Yes - Assistance Do you need any assistance at home?: none Review of Systems - Review of Systems Hints: Right click = Denies (Slash). Left click = Reports ([place]) Review of Present Symptoms: Reports: Shortness of Breath with Exertion - still experiencing, Dizziness/Lightheadedness - when first lays down at night for bed, split 2-3 seconds feels a little dizziness lightheadedness., Fatigue, Appetite - Normal - close to normal, Appetite - Special Diet - Diabetic diet, fighting going low BS; checks FSBS 3-4 times /day, Sleep - Normal - just getting bacl to beiong bale to sleep in bed, whole month of January pretty much out of synce, slept up in chair becasue of persistant coughing.. Denies: Shortness of Breath at Rest - Pain Is Patient Pain Free?: No Risk Factor Assessment - Vital Signs Temperature: 98.7 F Respiratory Rate: 16 Pulse Ox: 90 - room air Blood Pressure: 138/68 Nailbeds:: pink - Pulse Pulse Rate: 62 Pulse Rhythm: Regular - Hypertension How long have you been treated?: since about 1988 Blood Pressure Sitting - Right Arm: 138/68 - at rest - Diabetes Diabetic History: Type II, Insulin Dependent Nutrition Referral for Diabetes: Yes - Obesity Height: 5 ft 8 in Weight:: 236 lb - fully dressed Weight in Pounds: 236.0 lbs Body Mass Index (BMI): 35.9 Nutritional Referral for Obesity: Yes - Physical Inactivity Physical Inactivity: None Exercise Limitations: quickly. - Risk Stratification Risk Guidelines: Lowest Risk: Risk Factor for Smoking, Risk Factor for Dyslipidemia, Risk Factor for Depression, Moderate Risk: Risk Factor for Diabetes, Risk Factor for Hypertension, Risk Factor for Sedentary Lifestyle, Highest Risk: Risk Factor for Obesity - For Smoking Smoking Risk Guidelines: Smoking Low Risk: None or quit greater than 6 months ago. Smoking Moderate Risk: Smoker or quit 6 months or less ago. Smoking High Risk: Smoker - For Dyslipidemia Dyslipidemia Risk Guidelines: Low Risk: Moderate Risk: High Risk: 15-25% fat 25.1-29% fat >/= 30% fat. <7% sat fat 7-9% sat fat >9% sat fat. <150 mg chol 150-299 mg chol >/= 300 mg chol. LDL <100 LDL 100-129 LDL >/= 130. Chol/HDL ratio <5.0 Chol/HDL ratio 5.0-6.0 Chol/HDL ratio >6.0. Triglycerides <100 Triglycerides 100-149 Triglycerides >/= 150 - For Diabetes Mellitus Diabetes Risk Guidelines: Diabetes Low Risk: HgA1c <6.5% and/or FBG <120. Diabetes Moderate Risk: HgA1c 6.6-7.9% and/or FBG 120-180. Diabetes High Risk: HgA1c >/= 8% and/or FBG >180 - For Obesity/Overweight Obesity/Overweight Risk Guidelines: Obesity Low Risk: BMI <25.0. Obesity Moderate Risk: BMI 25-29.9. Obesity High Risk: BMI >/= 30.0 - For Hypertension Hypertension Risk Guidelines: Hypertension Low Risk: Systolic <120 and Diastolic <80. Hypertension Moderate Risk: Systolic 120-139 and Diastolic 80-89. Hypertension High Risk: Systolic >/= 140 and Diastolic >/= 90 - For Sedentary Lifestyle Sedentary Lifestyle Risk Guidelines: Sedentary Lifestyle Low Risk: >/= 1,500 kcal/week. Sedentary Lifestyle Moderate Risk: 700-1,499 kcal/week. Sedentary Lifestyle High Risk: < 700 kcal/week - For Depression Depression Risk Guidelines: Depression Low Risk: Not clinically depressed. Depression Moderate Risk: Mildly depressed. Depression High Risk: Clinically depressed - Family History Family History: Family History (Last Updated 02/03/18 @ 12:56 by Alberto Mckeon, WAFER MOUNTER, ROUGHING MILL OPERATOR, BS) Mother Cancer Father No problems noted. Motivation - Motivation to Participate On a scale of 1 to 10, how prepared are you to commit to attending program?: 10 What do you see as barriers to successfully being able to complete the program?: not being able to do the exercise What do you see as the benefits of succesfully completing the program? In other words, what do you hope to get out of participating in the program?: longevity and better health Are there issues you are dealing with that will interfere with completing the program?: weakness and being so tired. Do you have a spouse or signficant other, family or friends who will help support you to complete the program?: yes, excellent
--- NOTE | 2018-02-03 12:49 | PCM.CR.ITP ---
General Information - General Information Admitting Diagnosis: PCI w/ status post coronary stent placement 01/07/2018 Oxygen: none - Education/Goals Barriers to Learning: Vision Impairment Individual Counseling: Initial Assessment: Abnormal Cholesterol Levels, High Blood Pressure, Overweight/Obesity, Diabetes, Metabolic Syndrome (as evidenced by 3 of 5 A-E below), B. Waist Circumference >35/Females >40/Males, C. High Triglycerides >150, Hypertension, Sedentary Lifestyle Cardiac Rehabilitation Goals: 1. Maintain the individual as the primary focus of care. 2. To improve the patient's quality of life. 3. Identification of cardiac risk factors and provide cardiac risk factor management. 4. Enhance the psychosocial status of the patient. 5. Reconditioning enough to allow the patient to resume customary activities. 6. Control symptoms of cardiac disease Scale for measuring improvement of personal goals: Enter appropriate number in Comments. 2 = Unchanged. 3 = Slightly Better. 4 = Moderate Improvement. 5 = Met my Goal Personal Goals: Initial Assessment: Improve management of stress and emotions, Improve energy level, Get back to work, or to resume activities faster, Improve knowledge of cardiac disease, Improve muscle strength and endurance, Improve diet and eating habits (eat healthier), Control risk factors (learn risk factor modification) Exercise - Initial Assessment - Visit Date of Eval: 02/03/18 - established initial ITP w/patient. Session #:: 0 - Start date: - Stages of Change Stages of Change:: Action - Exercise Prescription Mode:: Treadmill, Rower, Airdyne, NuStep Angina with exercise?: No Target Heart Rate:: 109-116 - Hypertension Do any of the following apply?: Yes Resting Blood Pressure:: 138/68 - Intervention Home Exercise/Activity Goal:: Sitting Time <3 hrs/day - Education Goals:: Warm-up, RPE JENNIFER Scale, S/S, Safe Exercise, Self-Monitoring - Exercise Program Goals Exercise Program Goals: Aerobic Activity >30 min Nutrition - Initial Assessment - Program Goals Nutrition Program Goals: LDL <70. Total Cholesterol <200. HDL >45. Triglycerides <150. HgbA1C <7%. BMI <25 - Visit Date of Assessment:: 02/03/18 - start date: - Stages of Change Stages of Change:: Action - Diabetes Diabetes:: Yes Insulin: Yes Non-Insulin Dependent?: No Do you monitor your blood sugar at home?: Yes - 3-4 times daily - Weight Management Height: 5 ft 8 in Weight:: 236 lb Weight Goal (kg):: 218 lb - 1.5 pound weekly weight loss Body Fat %:: 35.9 Goal % Body Fat:: 30 - Intervention Referral to dietitian:: Yes Referral to Diabetic Clinic:: Yes Will attend diet classes:: Yes - Education Gave educational materials for:: Signs & symptoms of hypoglycemia, Signs & symptoms of hyperglycemia, Relate diabetes to coronary artery disease, Healthy eating Tobacco - Initial Assessment - Program Goals Tobacco Program Goals: Complete smoking cessation. Attend education classes. Improve Knowledge Test score - Stage of Change Stages of Change:: Action - Learning Barriers Learning Barriers: Vision, Ready to Learn - Family Support Do you have family support?: Yes - Tobacco Use Tobacco Use: Non-smoker - Quit smoking 1982, smoked less than 1 PPD. Do you use smokeless tobacco?: No - Intervention Smoking Cessation Referral:: No Individual Education/Counseling:: No Education Schedule Given:: Yes - Education Gave educational material for:: Coronary artery disease, Risk factors, Sexuality, Medical compliance, Cardiac A&P, Angina signs & symptoms Psychosocial - Initial Assess - Target Goals Target Goals: Assess presence or absence of depression. Using a valid screening tool, maximizes coping skills. Positive support system - Stages of Change Stages of Change:: Action - Psychosocial Test Tool Used:: HANDS Depression Questionnaire Self-reported stress:: dealing with the general weakness following this event. - Intervention PS - Interventions: Yes Attend Stress Management Classes, Yes Uses Stress Management Skills, No Referral to Mental Health, No Referral to [facility] Case Management, No Referral to Physician - Education Gave educational materials for:: Coping techniques, Signs & symptoms of depression, Stress management, Relaxation techniques - Patient/Program Goal Preventative Medication(s):: Aspirin, Clopidogrel, Statin/lipid - Assistive Devices Assistive Devices:: None Fall Risk Assessed:: Yes Patient Health Questionnaire Initial Assessment 1. Little interest or pleasure in doing things: More than half the days 2. Feeling down, depressed, or hopeless: Several days 3. Trouble falling or staying asleep, or sleeping too much: More than half the days 4. Feeling tired or having little energy: More than half the days 5. Poor appetite or overeating: More than half the days 6. Feeling bad about yourself -- or that you are a failure or have let yourself or your family down: More than half the days 7. Trouble concentrating on things, such as reading the newspaper or watching television: Several days 8. Moving or speaking so slowly that other people could have noticed. Or the opposite - being so fidgety or restless that you have been moving around a lot more than usual: Several days 9. Thoughts that you would be better off , or of hurting yourself in some way: Nearly every day How difficult have these problems made it for you to do your work, take care of things at home, or get along with other people?: Somewhat difficult Total Score: 16 CLYDE-Q SV Test - Statements CAD is a disease of the arteries in the heart: False Examples of risk factors for heart disease: True Angina is chest pain or discomfort: True The benefits of resistance training include: True Eating more meat and dairy products: False Anti-platelet medications such as aspirin are important: True The only effective way to manage stress: False An exercise warm-up slowly increases heart rate: True Prepared, processed foods usually have high sodium: True Depression is common after a heart attack: True The statin medications lower cholesterol: True To control blood pressure, lower the amount of sodium: True If someone gets chest discomfort during walking: False Transfats are partially hydrogenated vegetable oils: True Sleep apnea that is not treated increases the risk: False To control cholesterol, one should become a vegetarian: False Someone knows if he/she is exercising at the right level: False Diabetes cannot be prevented with exercise & health eating: True Stress is a large risk for heart attack: True A diet that can help lower blood pressure is rich in: True - Total Score Total Correct Responses: 18 Self-Efficacy Initial Assessment We would like to know how confident you are in doing certain activities. Please select your confidence level for:: Select your confidence level for the following using the scale 1-10 where 1 is not at all confident and 10 is totally confident. Your score is the average of all 6 responses. Fatigue: How confident are you that you can keep the fatigue caused by your disease from interfering with the things you want to do? Select Number: 4 Physical Discomfort or Pain: How confident are you that you can keep the physical discomfort or pain of your disease from interfering with the things you want to do? Select Number: 8 Emotional Distress: How confident are you that you can keep the emotional distress caused by your disease from interfering with the things you want to do? Select Number: 8 Other Symptoms or Health Problems: How confident are you that you can keep other symptoms or health problems from interfering with the things you want to do? Select Number: 5 Different Tasks and Activities: How confident are you that you can do the different tasks and activities needed to manage your health condition so as to reduce your need to see a doctor? Select Number: 5 Medication: How confident are you that you can do things other than just taking medication to reduce how much your illness affects your everyday life? Select Number: 8 Total Score:: 6 Nutrition Survey - Nutrition Survey Instructions Scoring Instructions: Scoring is as follows: Yes = 1 points. No = 0 point. Patient score that is >/=12 is considered to be at potential nutritional risk and could benefit from a referral to a registered dietitian. - Nutrition Survey Initial Have you lost >10 lbs over the past 2 months without trying?: No Are you following a special diet at home for diabetes, low fat, or low salt?: Yes Are you interested in meeting with a dietitian for help understanding your diet?: No Do you eat less than 3 meals a day?: No Do you eat fatty meats (kim, sausage, ribs, etc), fried foods, desserts, large amounts of salad dressings, margarine, butter, or cheese most days?: Yes Do you have food allergies? [Enter types in comment field]: No Do you eat in restaurants more than 3 times a week?: No Do you season food with salt, seasoning salt, or garlic salt?: Yes Do you used canned, boxed, frozen meals, or soups, seasoning packets?: Yes Total Score:: 4
--- NOTE | 2018-02-03 12:59 | CR.HP_ITS ---
CR - History & Physical - General Arrival date:: 02/03/18 Arrival time:: 12:50 Date of Referral:: 01/21/18 Date of CR Evaluation:: 02/03/18 Referring Physician: Dr. Eduardo Rizo Primary Diagnosis: PCI w/coronary artery stent placement - History of Present Cardiac Event Onset Date: Enter Onset Date of cardiac illnesses in Comment field below Acute Myocardial Infarction within 12 months:: Yes - 01/07/2018 PTCA or coronary stenting:: Yes - 01/07/2018 Type of Symptoms:: thought just to be bronchitis or respiratory problem, just shortness of breath and coughing. Interventions with present event:: admitted for a couple of days and then taken for heart cath procedure Were there any complications?: none - Medications Home Medications: Ambulatory Orders Medication Instructions Recorded Atorvastatin Calcium [Lipitor] 80 mg PO QHS 10/16/14 aspirin 81 mg tablet,delayed 81 mg PO DAILY 10/27/17 release bumetanide 2 mg tablet 2 mg PO BID 10/27/17 cholecalciferol (vitamin D3) 2,000 2,000 unit PO DAILY tab 10/27/17 unit tablet losartan 50 mg tablet 50 mg PO BID tab 11/09/17 Amlodipine [Norvasc] 5 mg PO DAILY 01/06/18 Insulin U-500 [Humulin R U-500 75 mg PO DINNER 01/06/18 ([facility])] Insulin U-500 [Humulin R U-500 75 unit SC LUNCH 01/06/18 ([facility])] Insulin U-500 [Humulin R U-500 90 units SC BREAKFAST 01/06/18 ([facility])] Bisacodyl [Dulcolax] 10 mg PO DAILY PRN PRN tab 01/09/18 Carvedilol [Coreg (Beta Harshal)] 12.5 mg PO BID 30 Days #60 tab 01/09/18 Clopidogrel Bisulfate [Plavix] 75 mg PO DAILY #30 tab 01/09/18 Nitroglycerin [Nitrostat] 0.4 mg SUBLINGUAL Q5M PRN #30 tab 01/09/18 albuterol sulfate 2.5 mg/3 mL 2.5 mg INHALATION Q4H PRN #75 ml 01/20/18 (0.083 %) solution for nebulization - Allergies Allergies/Adverse Reactions: Allergies No Known Allergies Allergy (Verified 01/20/18 10:08) - Sleep Disorder Evaluation Hx of Sleep Apnea: No Do you snore loudly (louder than talking or can be heard through closed doors)? : No Do you often feel tired/ fatigued/ sleepy during daytime?: No Has anyone observed you stop breathing during sleep?: No History of Hypertension (for STOP score): Yes STOP Results: Negative Advanced Directives - Advanced Directives Power of Supervisor Uranium Processing: Yes Living Will: Yes Advance Directives Information Provided: No Advance Directives on File: Yes DNR Order?:: No - MOLST See MOLST form: No Past Medical History - Past Medical Illness Medical History: Past Medical History (Last Updated 02/03/18 @ 12:55 by Alberto Mckeon, QUIN, HORIZONTAL DRILL OPERATOR, BS) History of coronary artery stent placement (Acute) Z95.5 NSTEMI (non-ST elevated myocardial infarction) (Acute) I21.4 Bronchitis with bronchospasm (Acute) J20.9 Atherosclerosis of coronary artery bypass graft without angina pectoris (Chronic ) I25.810 CABG X 1988 @ [facility] records unavailable Bilateral lower extremity edema (Chronic) R60.0 Renal insufficiency (Chronic) N28.9 CKD3, creatinines ranings 1.7 since 2014 Atherosclerotic heart disease of [place] coronary artery without angina pectoris (Chronic) I25.10 S/P CABG x4 in 1997; PTCA/VINICIO to [place] LCX in January 2018; Premature atrial contractions (Chronic) I49.1 Chronic diastolic (congestive) heart failure (Chronic) I50.32 Type II diabetes mellitus (Chronic) E11.9 Hypertension (Chronic) I10 Hyperlipidemia (Chronic) E78.5 Coronary artery disease (Chronic) I25.10 Status post CABG 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 Social History - Smoking History Smoking Status: Former smoker Years Smokin Packs Smoked per Day: 1 Hx Smoking Cessation Date: 1981 Hx Tobacco Use: No Hx Smoking Exposure: No - Alcohol Use Alcohol Usage: Yes - occasionally - Substance Abuse Hx Substance Use: No - Occupation Occupation (List type of work in comments):: Retired - Hobbies, Recreation, Social Activities Hobbies: Other - auctions Recreational Activities: I am able to engage in a few activities - really weak, hard to get active. Social Environment - Status Marital Status: - Current Living Arrangements Living Environment:: Spouse - Children How many children do you have?: 2 Do any of your children live nearby?: Yes - Safety Do you feel safe in your surroundings?: Yes - Assistance Do you need any assistance at home?: none Review of Systems - Review of Systems Hints: Right click = Denies ([place]). Left click = Reports ([place]) Review of Present Symptoms: Reports: Shortness of Breath with Exertion - still experiencing, Dizziness/Lightheadedness - when first lays down at night for bed , split 2-3 seconds feels a little dizziness lightheadedness., Fatigue, Appetite - Normal - close to normal, Appetite - Special Diet - Diabetic diet, fighting going low BS; checks FSBS 3-4 times /day, Sleep - Normal - just getting bacl to beiong bale to sleep in bed, whole month of January pretty much out of synce, slept up in chair becasue of persistant coughing.. Denies: Shortness of Breath at Rest - Pain Is Patient Pain Free?: No Risk Factor Assessment - Vital Signs Temperature: 98.7 F Respiratory Rate: 16 Pulse Ox: 90 - room air Blood Pressure: 138/68 Nailbeds:: pink - Pulse Pulse Rate: 62 Pulse Rhythm: Regular - Hypertension How long have you been treated?: since about 1988 Blood Pressure Sitting - Right Arm: 138/68 - at rest - Diabetes Diabetic History: Type II, Insulin Dependent Nutrition Referral for Diabetes: Yes - Obesity Height: 5 ft 8 in Weight:: 236 lb - fully dressed Weight in Pounds: 236.0 lbs Body Mass Index (BMI): 35.9 Nutritional Referral for Obesity: Yes - Physical Inactivity Physical Inactivity: None Exercise Limitations: quickly. - Risk Stratification Risk Guidelines: Lowest Risk: Risk Factor for Smoking, Risk Factor for Dyslipidemia, Risk Factor for Depression, Moderate Risk: Risk Factor for Diabetes, Risk Factor for Hypertension, Risk Factor for Sedentary Lifestyle, Highest Risk: Risk Factor for Obesity - For Smoking Smoking Risk Guidelines: Smoking Low Risk: None or quit greater than 6 months ago. Smoking Moderate Risk: Smoker or quit 6 months or less ago. Smoking High Risk: Smoker - For Dyslipidemia Dyslipidemia Risk Guidelines: Low Risk: Moderate Risk: High Risk: 15-25% fat 25.1-29% fat >/= 30% fat. <7% sat fat 7-9% sat fat >9% sat fat. <150 mg chol 150-299 mg chol >/= 300 mg chol. LDL <100 LDL 100-129 LDL >/= 130. Chol/HDL ratio <5.0 Chol/HDL ratio 5.0-6.0 Chol/HDL ratio >6.0. Triglycerides <100 Triglycerides 100-149 Triglycerides >/= 150 - For Diabetes Mellitus Diabetes Risk Guidelines: Diabetes Low Risk: HgA1c <6.5% and/or FBG <120. Diabetes Moderate Risk: HgA1c 6.6-7.9% and/or FBG 120-180. Diabetes High Risk: HgA1c >/= 8% and/or FBG >180 - For Obesity/Overweight Obesity/Overweight Risk Guidelines: Obesity Low Risk: BMI <25.0. Obesity Moderate Risk: BMI 25-29.9. Obesity High Risk: BMI >/= 30.0 - For Hypertension Hypertension Risk Guidelines: Hypertension Low Risk: Systolic <120 and Diastolic <80. Hypertension Moderate Risk: Systolic 120-139 and Diastolic 80-89. Hypertension High Risk: Systolic >/= 140 and Diastolic >/= 90 - For Sedentary Lifestyle Sedentary Lifestyle Risk Guidelines: Sedentary Lifestyle Low Risk: >/= 1 ,500 kcal/week. Sedentary Lifestyle Moderate Risk: 700-1,499 kcal/week. Sedentary Lifestyle High Risk: < 700 kcal/week - For Depression Depression Risk Guidelines: Depression Low Risk: Not clinically depressed. Depression Moderate Risk: Mildly depressed. Depression High Risk: Clinically depressed - Family History Family History: Family History (Last Updated 02/03/18 @ 12:56 by Alberto Mckeon, [employer], HORIZONTAL DRILL OPERATOR, BS) Mother Cancer Father No problems noted. Motivation - Motivation to Participate On a scale of 1 to 10, how prepared are you to commit to attending program?: 10 What do you see as barriers to successfully being able to complete the program? : not being able to do the exercise What do you see as the benefits of succesfully completing the program? In other words, what do you hope to get out of participating in the program?: longevity and better health Are there issues you are dealing with that will interfere with completing the program?: weakness and being so tired. Do you have a spouse or signficant other, family or friends who will help support you to complete the program?: yes, excellent
[2018-02-03 13:09] VITALS: BP 138/68; PULSE 62; RESP 16; TEMP 37.1; O2SAT 90; BMI 35.9
[2018-02-03 14:17] VITALS: BP 138/68
== END ==
PROVIDERS: Family Provider Family Medicine; PCP Family Medicine; Visit Provider Internal Medicine Cardiovascular Disease
DX: I25.10 Atherosclerotic heart disease of native coronary artery without angina pectoris (principal); E11.9 Type 2 diabetes mellitus without complications; I10 Essential (primary) hypertension; E78.5 Hyperlipidemia, unspecified; I25.2 Old myocardial infarction; Z95.5 Presence of coronary angioplasty implant and graft

== ENCOUNTER → 2018-02-17 10:44 | Outpatient (CLI) | payer MEDICARE, OTHER, SELFPAY | PROVIDERS: Family Provider Family Medicine; PCP Family Medicine; Visit Provider Internal Medicine Cardiovascular Disease | DX: I49.1 Atrial premature depolarization (principal) | CPT/HCPCS: 93225; 93226 ==

== ENCOUNTER 2018-03-03 14:15 | Outpatient (RCR) | payer MEDICARE, OTHER, SELFPAY ==
--- NOTE | 2018-02-24 09:11 | PCM.CR.ITP ---
General Information - General Information Admitting Diagnosis: NSTEMI - Education/Goals Barriers to Learning: None Cardiac Rehabilitation Goals: 1. Maintain the individual as the primary focus of care. 2. To improve the patient's quality of life. 3. Identification of cardiac risk factors and provide cardiac risk factor management. 4. Enhance the psychosocial status of the patient. 5. Reconditioning enough to allow the patient to resume customary activities. 6. Control symptoms of cardiac disease Scale for measuring improvement of personal goals: Enter appropriate number in Comments. 2 = Unchanged. 3 = Slightly Better. 4 = Moderate Improvement. 5 = Met my Goal Personal Goals: 30-day Re-assessment: Improve energy level, Improve muscle strength and endurance Exercise - 30-day Assessment - Visit Date of Eval: 02/24/18 Session #:: 8 - Stages of Change Stages of Change:: Contemplate - Exercise Prescription Mode:: Airdyne, NuStep Frequency (x/week): 3 - 20% met increase Duration:: 30 METs - Progression: 0.5-1 MET as tolerated: 3.0 Target Heart Rate:: 109-116 - Hypertension Resting Blood Pressure:: 134/60 Peak Exercise Blood Pressure:: 158/70 Medication Changes:: No - Intervention Home Exercise/Activity Goal:: Sitting Time <3 hrs/day - Education Goals:: Warm-up, RPE JENNIFER Scale, S/S, Safe Exercise, Self-Monitoring - Exercise Program Goals Exercise Program Goals: Aerobic Activity >30 min, B/P <130/80 Nutrition - Initial Assessment - Program Goals Nutrition Program Goals: LDL <70. Total Cholesterol <200. HDL >45. Triglycerides <150. HgbA1C <7%. BMI <25 - Diabetes Do you monitor your blood sugar at home?: Yes - 3-4 times daily Nutrition - 30-Day Assessment - Program Goals Nutrition Program Goals: LDL <70. Total Cholesterol <200. HDL >45. Triglycerides <150. HgbA1C <7%. BMI <25 - Visit Date of Eval: 02/24/18 - Stages of Change Stages of Change:: Contemplate - Diabetes Diabetes:: No - Weight Management Weight:: 109.996 kg - Intervention Referral to dietitian:: No Referral to Diabetic Clinic:: No Will attend diet classes:: Yes - Education Attended class for:: Signs & symptoms of hypoglycemia, Signs & symptoms of hyperglycemia, Relate diabetes to coronary artery disease, Healthy eating Tobacco - Initial Assessment - Program Goals Tobacco Program Goals: Complete smoking cessation. Attend education classes. Improve Knowledge Test score - Learning Barriers Learning Barriers: Vision, Ready to Learn Tobacco - 30-Day Assessment - Program Goals Tobacco Program Goals: Complete smoking cessation. Attend education classes. Improve Knowledge Test score - Stage of Change Stages of Change:: Contemplate - Learning Barriers Learning Barriers: Participates in education - Family Support Do you have family support?: Yes - Tobacco Use Tobacco Use: Non-smoker Do you use smokeless tobacco?: No - Intervention Smoking Cessation Referral:: No Individual Education/Counseling:: No Education Schedule Given:: Yes - Education Attended class for:: Tobacco triggers, Coronary artery disease, Risk factors, Sexuality, Medical compliance, Cardiac A&P, Angina signs & symptoms Psychosocial - Initial Assess - Target Goals Target Goals: Assess presence or absence of depression. Using a valid screening tool, maximizes coping skills. Positive support system - Psychosocial Test Tool Used:: HANDS Depression Questionnaire - Assistive Devices Fall Risk Assessed:: Yes Psychosocial - 30-Day Assess - Target Goals Target Goals: Assess presence or absence of depression. Using a valid screening tool, maximizes coping skills. Positive support system - Stages of Change Stages of Change:: Contemplate - Psychosocial Test Tool Used:: HANDS Depression Questionnaire - Intervention PS - Interventions: Yes Attend Stress Management Classes, Yes Uses Stress Management Skills, No Referral to Mental Health, No Referral to [facility] Case Management, No Referral to Physician - Education Attended classes for:: Coping techniques, Signs & symptoms of depression, Stress management, Relaxation techniques - Assistive Devices Assistive Devices:: None Fall Risk Assessed:: Yes Patient Health Questionnaire 30-Day Re-eval Assessment 1. Little interest or pleasure in doing things: More than half the days 2. Feeling down, depressed, or hopeless: Several days 3. Trouble falling or staying asleep, or sleeping too much: Several days 4. Feeling tired or having little energy: More than half the days 5. Poor appetite or overeating: Several days 6. Feeling bad about yourself -- or that you are a failure or have let yourself or your family down: Several days 7. Trouble concentrating on things, such as reading the newspaper or watching television: Several days 8. Moving or speaking so slowly that other people could have noticed. Or the opposite - being so fidgety or restless that you have been moving around a lot more than usual: Several days 9. Thoughts that you would be better off , or of hurting yourself in some way: Not at all How difficult have these problems made it for you to do your work, take care of things at home, or get along with other people?: Somewhat difficult Total Score: 10 Self-Efficacy 30-Day Re-eval Assessment We would like to know how confident you are in doing certain activities. Please select your confidence level for:: Select your confidence level for the following using the scale 1-10 where 1 is not at all confident and 10 is totally confident. Your score is the average of all 6 responses. Fatigue: How confident are you that you can keep the fatigue caused by your disease from interfering with the things you want to do? Select Number: 8 Physical Discomfort or Pain: How confident are you that you can keep the physical discomfort or pain of your disease from interfering with the things you want to do? Select Number: 8 Emotional Distress: How confident are you that you can keep the emotional distress caused by your disease from interfering with the things you want to do? Select Number: 8 Other Symptoms or Health Problems: How confident are you that you can keep other symptoms or health problems from interfering with the things you want to do? Select Number: 8 Different Tasks and Activities: How confident are you that you can do the different tasks and activities needed to manage your health condition so as to reduce your need to see a doctor? Select Number: 8 Medication: How confident are you that you can do things other than just taking medication to reduce how much your illness affects your everyday life? Select Number: 8 Total Score:: 8
[2018-02-24 09:20] VITALS: BP 134/60; BP 158/70
== END 2018-03-04 23:59 ==
LOC: CR 14:15
PROVIDERS: Family Provider Family Medicine; PCP Family Medicine; Visit Provider Internal Medicine Cardiovascular Disease
DX: I21.4 Non-ST elevation (NSTEMI) myocardial infarction (principal); I25.10 Atherosclerotic heart disease of native coronary artery without angina pectoris; Z95.5 Presence of coronary angioplasty implant and graft; Z95.1 Presence of aortocoronary bypass graft
CPT/HCPCS: 93798

== ENCOUNTER 2018-04-02 10:15 | Outpatient (RCR) | payer MEDICARE, OTHER, SELFPAY ==
[2018-03-05 01:07] VITALS: BP 134/60; BP 158/70
--- NOTE | 2018-03-26 14:29 | PCM.CR.ITP ---
Exercise - 60-Day Assessment - Visit Date of Eval: 03/26/18 Session #:: 18 - Stages of Change Stages of Change:: Action - Exercise Prescription Mode:: Treadmill, Rower, Airdyne, NuStep Frequency (x/week): 3 Duration:: 30 METs: 4 Target Heart Rate:: 109-116 - Hypertension Resting Blood Pressure:: 118/50 Peak Exercise Blood Pressure:: 142/78 Medication Changes:: No - Intervention Home Exercise/Activity Goal:: Moderate Exercise 30 min/day x 5 days/wk - Education Goals:: Warm-up, RPE JENNIFER Scale, S/S, Safe Exercise, Self-Monitoring - Exercise Program Goals Exercise Program Goals: Aerobic Activity >30 min Nutrition - Initial Assessment - Program Goals Nutrition Program Goals: LDL <70. Total Cholesterol <200. HDL >45. Triglycerides <150. HgbA1C <7%. BMI <25 - Diabetes Do you monitor your blood sugar at home?: Yes - 3-4 times daily Nutrition - 60-Day Assessment - Program Goals Nutrition Program Goals: LDL <70. Total Cholesterol <200. HDL >45. Triglycerides <150. HgbA1C <7%. BMI <25 - Visit Date of Eval: 03/26/18 - Stages of Change Stages of Change:: Action - Lipids Has the patient seen the dietitian?: Yes - Diabetes Diabetes:: Yes Insulin: Yes - U-500, - Weight Management Weight:: 232 lb - Intervention Referral to dietitian:: Yes Referral to Diabetic Clinic:: Yes Will attend diet classes:: Yes - Education Attended class for:: Signs & symptoms of hypoglycemia, Signs & symptoms of hyperglycemia, Relate diabetes to coronary artery disease, Healthy eating Tobacco - Initial Assessment - Program Goals Tobacco Program Goals: Complete smoking cessation. Attend education classes. Improve Knowledge Test score - Learning Barriers Learning Barriers: Vision, Ready to Learn Tobacco - 60-Day Assessment - Program Goals Tobacco Program Goals: Complete smoking cessation. Attend education classes. Improve Knowledge Test score - Stage of Change Stages of Change:: Action - Learning Barriers Learning Barriers: Participates in education - Family Support Do you have family support?: Yes - Tobacco Use Tobacco Use: Non-smoker - Intervention Education Schedule Given:: Yes - Education Attended class for:: Tobacco triggers, Coronary artery disease, Risk factors, Sexuality, Medical compliance, Cardiac A&P, Angina signs & symptoms Psychosocial - 60-Day Assess - Target Goals Target Goals: Assess presence or absence of depression. Using a valid screening tool, maximizes coping skills. Positive support system - Stages of Change Stages of Change:: Action - Psychosocial Test Tool Used:: HANDS Depression Questionnaire - Intervention PS - Interventions: Yes Attend Stress Management Classes, Yes Uses Stress Management Skills, No Referral to Mental Health, No Referral to [facility] Case Management, No Referral to Physician - Education Attended classes for:: Coping techniques, Signs & symptoms of depression, Stress management, Relaxation techniques - Patient/Program Goal Preventative Medication(s):: Aspirin, GEORGINA inhibitor, Clopidogrel, Beta monica, Statin/lipid - Assistive Devices Assistive Devices:: None Fall Risk Assessed:: Yes Patient Health Questionnaire 60-Day Re-eval Assessment 1. Little interest or pleasure in doing things: More than half the days 2. Feeling down, depressed, or hopeless: Several days 3. Trouble falling or staying asleep, or sleeping too much: Several days 4. Feeling tired or having little energy: More than half the days 5. Poor appetite or overeating: Several days 6. Feeling bad about yourself -- or that you are a failure or have let yourself or your family down: Several days 7. Trouble concentrating on things, such as reading the newspaper or watching television: Several days 8. Moving or speaking so slowly that other people could have noticed. Or the opposite - being so fidgety or restless that you have been moving around a lot more than usual: Several days 9. Thoughts that you would be better off , or of hurting yourself in some way: Not at all How difficult have these problems made it for you to do your work, take care of things at home, or get along with other people?: Somewhat difficult Total Score: 10 Self-Efficacy 60-Day Re-eval Assessment We would like to know how confident you are in doing certain activities. Please select your confidence level for:: Select your confidence level for the following using the scale 1-10 where 1 is not at all confident and 10 is totally confident. Your score is the average of all 6 responses. Fatigue: How confident are you that you can keep the fatigue caused by your disease from interfering with the things you want to do? Select Number: 8 Physical Discomfort or Pain: How confident are you that you can keep the physical discomfort or pain of your disease from interfering with the things you want to do? Select Number: 8 Emotional Distress: How confident are you that you can keep the emotional distress caused by your disease from interfering with the things you want to do? Select Number: 8 Other Symptoms or Health Problems: How confident are you that you can keep other symptoms or health problems from interfering with the things you want to do? Select Number: 8 Different Tasks and Activities: How confident are you that you can do the different tasks and activities needed to manage your health condition so as to reduce your need to see a doctor? Select Number: 8 Medication: How confident are you that you can do things other than just taking medication to reduce how much your illness affects your everyday life? Select Number: 8 Total Score:: 8
[2018-03-26 14:34] VITALS: BP 118/50; BP 142/78
== END 2018-04-03 23:59 ==
LOC: CR 10:15
PROVIDERS: Family Provider Family Medicine; PCP Family Medicine; Visit Provider Internal Medicine Cardiovascular Disease
DX: I25.810 Atherosclerosis of coronary artery bypass graft(s) without angina pectoris (principal); I21.4 Non-ST elevation (NSTEMI) myocardial infarction; I25.10 Atherosclerotic heart disease of native coronary artery without angina pectoris; Z95.1 Presence of aortocoronary bypass graft; Z95.5 Presence of coronary angioplasty implant and graft
CPT/HCPCS: 93798

== ENCOUNTER 2018-05-03 10:15 | Outpatient (RCR) | payer MEDICARE, OTHER, SELFPAY ==
[2018-04-04 00:56] VITALS: BP 118/50; BP 142/78
--- NOTE | 2018-04-28 14:42 | CR.ITP_ITS ---
Exercise - 90-Day Assessment - Visit Date of Eval: 04/28/18 Session #:: 30 - Stages of Change Stages of Change:: Action - Exercise Prescription Mode:: Treadmill, Rower, NuStep Frequency (x/week): 3 Duration:: 30 METs: 5 Target Heart Rate:: 109-116 - Hypertension Resting Blood Pressure:: 116/58 Peak Exercise Blood Pressure:: 154/70 Medication Changes:: Yes - Intervention Home Exercise/Activity Goal:: Moderate Exercise 30 min/day x 5 days/wk - Education Goals:: Warm-up, RPE JENNIFER Scale, S/S, Safe Exercise, Self-Monitoring - Exercise Program Goals Exercise Program Goals: Aerobic Activity >30 min Nutrition - Initial Assessment - Program Goals Nutrition Program Goals: LDL <70. Total Cholesterol <200. HDL >45. Triglycerides <150. HgbA1C <7%. BMI <25 - Diabetes Do you monitor your blood sugar at home?: Yes - 3-4 times daily Nutrition - 90-Day Assessment - Program Goals Nutrition Program Goals: LDL <70. Total Cholesterol <200. HDL >45. Triglycerides <150. HgbA1C <7%. BMI <25 - Visit Date of Eval: 04/28/18 - Stages of Change Stages of Change:: Action - Diabetes Diabetes:: No Insulin: No Non-Insulin Dependent?: No - Weight Management Weight:: 228 lb - Intervention Referral to dietitian:: No Referral to Diabetic Clinic:: No Will attend diet classes:: Yes - Education Attended class for:: Healthy eating Tobacco - Initial Assessment - Program Goals Tobacco Program Goals: Complete smoking cessation. Attend education classes. Improve Knowledge Test score - Learning Barriers Learning Barriers: Vision, Ready to Learn Tobacco - 90-Day Assessment - Program Goals Tobacco Program Goals: Complete smoking cessation. Attend education classes. Improve Knowledge Test score - Family Support Do you have family support?: Yes - Tobacco Use Tobacco Use: Non-smoker Do you use smokeless tobacco?: No - Intervention Smoking Cessation Referral:: No Individual Education/Counseling:: No Education Schedule Given:: Yes - Education Attended class for:: Coronary artery disease, Risk factors, Sexuality, Medical compliance, Cardiac A&P, Angina signs & symptoms Psychosocial - Initial Assess - Target Goals Target Goals: Assess presence or absence of depression. Using a valid screening tool, maximizes coping skills. Positive support system - Psychosocial Test Tool Used:: HANDS Depression Questionnaire - Assistive Devices Fall Risk Assessed:: Yes Psychosocial - 90-Day Assess - Target Goals Target Goals: Assess presence or absence of depression. Using a valid screening tool, maximizes coping skills. Positive support system - Stages of Change Stages of Change:: Action - Psychosocial Test Tool Used:: HANDS Depression Questionnaire - Intervention PS - Interventions: Yes Attend Stress Management Classes, Yes Uses Stress Management Skills, No Referral to Mental Health, No Referral to [facility] Case Management, No Referral to Physician - Education Attended classes for:: Coping techniques, Signs & symptoms of depression, Stress management, Relaxation techniques - Patient/Program Goal Preventative Medication(s):: Aspirin, Clopidogrel, Beta monica, Statin/lipid - Assistive Devices Assistive Devices:: None Fall Risk Assessed:: Yes Patient Health Questionnaire 90-Day Re-eval Assessment 1. Little interest or pleasure in doing things: Several days 2. Feeling down, depressed, or hopeless: Not at all 3. Trouble falling or staying asleep, or sleeping too much: Not at all 4. Feeling tired or having little energy: Several days 5. Poor appetite or overeating: Not at all 6. Feeling bad about yourself -- or that you are a failure or have let yourself or your family down: Not at all 7. Trouble concentrating on things, such as reading the newspaper or watching television: Not at all 8. Moving or speaking so slowly that other people could have noticed. Or the opposite - being so fidgety or restless that you have been moving around a lot more than usual: Several days 9. Thoughts that you would be better off , or of hurting yourself in some way: Not at all How difficult have these problems made it for you to do your work, take care of things at home, or get along with other people?: Not difficult at all Total Score: 3 Self-Efficacy 90-Day Re-eval Assessment We would like to know how confident you are in doing certain activities. Please select your confidence level for:: Select your confidence level for the following using the scale 1-10 where 1 is not at all confident and 10 is totally confident. Your score is the average of all 6 responses. Fatigue: How confident are you that you can keep the fatigue caused by your disease from interfering with the things you want to do? Select Number: 9 Physical Discomfort or Pain: How confident are you that you can keep the physical discomfort or pain of your disease from interfering with the things you want to do? Select Number: 9 Emotional Distress: How confident are you that you can keep the emotional distress caused by your disease from interfering with the things you want to do? Select Number: 9 Other Symptoms or Health Problems: How confident are you that you can keep other symptoms or health problems from interfering with the things you want to do? Select Number: 9 Different Tasks and Activities: How confident are you that you can do the different tasks and activities needed to manage your health condition so as to reduce your need to see a doctor? Select Number: 9 Medication: How confident are you that you can do things other than just taking medication to reduce how much your illness affects your everyday life? Select Number: 9 Total Score:: 9
[2018-04-28 15:01] VITALS: BP 116/58; BP 154/70
== END 2018-05-04 23:59 ==
LOC: CR 10:15
PROVIDERS: Family Provider Family Medicine; PCP Family Medicine; Visit Provider Internal Medicine Cardiovascular Disease
DX: I25.810 Atherosclerosis of coronary artery bypass graft(s) without angina pectoris (principal); I21.4 Non-ST elevation (NSTEMI) myocardial infarction; Z95.1 Presence of aortocoronary bypass graft; Z95.5 Presence of coronary angioplasty implant and graft
CPT/HCPCS: 93798

== ENCOUNTER 2018-05-07 10:15 | Outpatient (RCR) | payer MEDICARE, OTHER, SELFPAY ==
[2018-05-05 00:54] VITALS: BP 116/58; BP 154/70
--- NOTE | 2018-05-28 13:18 | CR.ITP_ITS ---
Exercise - Final/Discharge - Visit Date of Eval: 05/28/18 - graduated 05/07/18 - Stages of Change Stages of Change:: Action - Exercise Prescription Mode:: Treadmill, Rower, Airdyne, NuStep Frequency (x/week): 3 Duration:: 35 METs: 5 Target Heart Rate:: 109-116 - Hypertension Do any of the following apply?: Yes Resting Blood Pressure:: 128/64 Peak Exercise Blood Pressure:: 130/62 - Intervention Home Exercise/Activity Goal:: Moderate Exercise 30 min/day x 5 days/wk - Education Goal Progress: Goal Met - Exercise Program Goals Exercise Program Goals: Aerobic Activity >30 min Nutrition - Initial Assessment - Program Goals Nutrition Program Goals: LDL <70. Total Cholesterol <200. HDL >45. Triglycerides <150. HgbA1C <7%. BMI <25 - Diabetes Do you monitor your blood sugar at home?: Yes - 3-4 times daily Nutrition - Final Assessment - Program Goals Nutrition Program Goals: LDL <70. Total Cholesterol <200. HDL >45. Triglycerides <150. HgbA1C <7%. BMI <25 - Visit Date of Eval: 05/07/18 - graduated - Stages of Change Stages of Change:: Action - Diabetes Diabetes:: No - Weight Management Height: 5 ft 8 in Weight:: 228 lb 8 oz Body Fat %:: 35.9 - Intervention Referral to dietitian:: No Referral to Diabetic Clinic:: No Will attend diet classes:: Yes - Education Education Goal Reached?: Yes Tobacco - Initial Assessment - Program Goals Tobacco Program Goals: Complete smoking cessation. Attend education classes. Improve Knowledge Test score - Learning Barriers Learning Barriers: Vision, Ready to Learn Tobacco - Final Assessment - Program Goals Tobacco Program Goals: Complete smoking cessation. Attend education classes. Improve Knowledge Test score - Stage of Change Stages of Change:: Action - Learning Barriers Cardiac Knowledge Test Score:: 20 - Family Support Do you have family support?: Yes - Tobacco Use Tobacco Use: Non-smoker Do you use smokeless tobacco?: No - Intervention Smoking Cessation Referral:: No Education Schedule Given:: Yes - Education Education Goal Reached?: Yes Psychosocial - Initial Assess - Target Goals Target Goals: Assess presence or absence of depression. Using a valid screening tool, maximizes coping skills. Positive support system - Psychosocial Test Tool Used:: HANDS Depression Questionnaire - Assistive Devices Fall Risk Assessed:: Yes Psychosocial - Final Assessmen - Target Goals Target Goals: Assess presence or absence of depression. Using a valid screening tool, maximizes coping skills. Positive support system - Stages of Change Stages of Change:: Action - Psychosocial Test Tool Used:: HANDS Depression Questionnaire - Intervention PS - Interventions: Yes Attend Stress Management Classes, Yes Uses Stress Management Skills, No Referral to Mental Health, No Referral to [facility] Case Management, No Referral to Physician - Education Education Goal Reached?: Yes - Patient/Program Goal Preventative Medication(s):: Aspirin, Clopidogrel, Beta monica, Statin/lipid - Assistive Devices Assistive Devices:: None Fall Risk Assessed:: Yes Patient Health Questionnaire Discharge Assessment 1. Little interest or pleasure in doing things: Not at all 2. Feeling down, depressed, or hopeless: Not at all 3. Trouble falling or staying asleep, or sleeping too much: Several days 4. Feeling tired or having little energy: Not at all 5. Poor appetite or overeating: Not at all 6. Feeling bad about yourself -- or that you are a failure or have let yourself or your family down: Not at all 7. Trouble concentrating on things, such as reading the newspaper or watching television: Not at all 8. Moving or speaking so slowly that other people could have noticed. Or the opposite - being so fidgety or restless that you have been moving around a lot more than usual: Not at all 9. Thoughts that you would be better off , or of hurting yourself in some way: Not at all How difficult have these problems made it for you to do your work, take care of things at home, or get along with other people?: Not difficult at all Total Score: 1 CLYDE-Q SV Test - Statements CAD is a disease of the arteries in the heart: True Examples of risk factors for heart disease: True Angina is chest pain or discomfort: True The benefits of resistance training include: True Eating more meat and dairy products: False Anti-platelet medications such as aspirin are important: True The only effective way to manage stress: False An exercise warm-up slowly increases heart rate: True Prepared, processed foods usually have high sodium: True Depression is common after a heart attack: True The statin medications lower cholesterol: True To control blood pressure, lower the amount of sodium: True If someone gets chest discomfort during walking: False Transfats are partially hydrogenated vegetable oils: True Sleep apnea that is not treated increases the risk: False To control cholesterol, one should become a vegetarian: False Someone knows if he/she is exercising at the right level: True Diabetes cannot be prevented with exercise & health eating: False Stress is a large risk for heart attack: True A diet that can help lower blood pressure is rich in: True - Total Score Total Correct Responses: 19 Self-Efficacy Discharge Assessment We would like to know how confident you are in doing certain activities. Please select your confidence level for:: Select your confidence level for the following using the scale 1-10 where 1 is not at all confident and 10 is totally confident. Your score is the average of all 6 responses. Fatigue: How confident are you that you can keep the fatigue caused by your disease from interfering with the things you want to do? Select Number: 9 Physical Discomfort or Pain: How confident are you that you can keep the physical discomfort or pain of your disease from interfering with the things you want to do? Select Number: 10 Emotional Distress: How confident are you that you can keep the emotional distress caused by your disease from interfering with the things you want to do? Select Number: 10 Other Symptoms or Health Problems: How confident are you that you can keep other symptoms or health problems from interfering with the things you want to do? Select Number: 9 Different Tasks and Activities: How confident are you that you can do the different tasks and activities needed to manage your health condition so as to reduce your need to see a doctor? Select Number: 9 Medication: How confident are you that you can do things other than just taking medication to reduce how much your illness affects your everyday life? Select Number: 10 Total Score:: 9 Nutrition Survey - Nutrition Survey Instructions Scoring Instructions: Scoring is as follows: Yes = 1 points. No = 0 point. Patient score that is >/=12 is considered to be at potential nutritional risk and could benefit from a referral to a registered dietitian. - Nutrition Survey Discharge Have you lost >10 lbs over the past 2 months without trying?: No Are you following a special diet at home for diabetes, low fat, or low salt?: Yes Are you interested in meeting with a dietitian for help understanding your diet? : No Do you eat less than 3 meals a day?: No Do you eat fatty meats (kim, sausage, ribs, etc), fried foods, desserts, large amounts of salad dressings, margarine, butter, or cheese most days?: No Do you have food allergies? [Enter types in comment field]: No Do you eat in restaurants more than 3 times a week?: No Do you season food with salt, seasoning salt, or garlic salt?: No Do you used canned, boxed, frozen meals, or soups, seasoning packets?: No Total Score:: 1
[2018-05-28 13:21] VITALS: BP 128/64; BP 130/62
== END 2018-06-04 23:59 ==
LOC: CR 10:15
PROVIDERS: Family Provider Family Medicine; PCP Family Medicine; Visit Provider Internal Medicine Cardiovascular Disease
DX: I25.810 Atherosclerosis of coronary artery bypass graft(s) without angina pectoris (principal); I21.4 Non-ST elevation (NSTEMI) myocardial infarction; Z95.1 Presence of aortocoronary bypass graft; Z95.5 Presence of coronary angioplasty implant and graft
CPT/HCPCS: 93798

== ENCOUNTER → 2018-05-27 10:40 | Outpatient (CLI) | payer MEDICARE, OTHER, SELFPAY ==
[2018-05-27 11:44] LABS: BUN 44 mg/dL (7-18); Creatinine, Serum 1.68 mg/dL (0.70-1.30); Glucose 213 mg/dL (74-106)
[2018-05-27 11:45] LABS: Anion Gap 7 (5-15); BUN/Creat Ratio 26.2 RATIO (10-20); Calcium,Total 9.2 mg/dL (8.5-10.1); Chloride 102 mmol/L (98-107); EST Glomerular Filtration Rate 43 mL/min (>60); Est Glom Filt Rate - Afr Amer 52 mL/min (>60); Potassium 3.7 mmol/L (3.5-5.1); Sodium Level 142 mmol/L (136-145)
== END ==
PROVIDERS: Family Provider Family Medicine; PCP Family Medicine; Visit Provider Internal Medicine Cardiovascular Disease
DX: I50.32 Chronic diastolic (congestive) heart failure (principal)
CPT/HCPCS: 36415; 80048

== ENCOUNTER → 2019-07-06 06:18 | Outpatient (CLI) | payer MEDICARE, OTHER, SELFPAY ==
[2019-06-23 08:37] VITALS: BMI 34.4
--- NOTE | 2019-07-06 11:11 | STRESSREP ---
Stress Test Report Exercise myocardial perfusion stress test. 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 Presents with chest shortness of breath. Medications: Lipitor, aspirin, Bumex, Plavix, losartan, carvedilol. Resting EKG: The resting EKG demonstrates sinus rhythm with a rate of 76 bpm premature ventricular complexes are noted mildly downsloping ST depression is noted in leads II, III and aVF and V5 and V6. The patient exercised according to regular Wood protocol for total duration of 4 minutes. Patient completed 1 minute into stage II of the Wood protocol the maximum heart rate attained was 129 bpm which was 88% of maximum predicted heart rate the maximum workload was 5.[address] At rest ST-T wave changes were noted at peak exercise nonspecific ST-T wave changes were noted with no meet the criteria for ischemia. The patient developed marked shortness of breath necessitating termination of the test. No chest pain was noted. The resting blood pressure was 126/82 with a peak blood pressure 160/72 mmHg. Myocardial perfusion protocol. 11.8 mCi of technetium 99m sestamibi was injected at rest. Patient exercised for 4 minutes and at peak exercise 35.8 mCi of technetium 99m sestamibi was injected stress images were obtained stress and rest images were reconstructed and compared in the short axis vertical long horizontal long axis. Gated images were also obtained Perfusion SPECT analysis: Review of the stress images demonstrate a normal cardiac silhouette size. There is a medium-sized defect noted on the stress images in the inferolateral segment which appears to completely reperfused on the resting images suggesting a moderate amount of inferolateral ischemia noted. No previous infarct is noted. Gated SPECT analysis: The gated ejection fraction is noted to be 40%. Conclusion: Ischemic cardiomyopathy. Abnormal exercise myocardial perfusion scan with medium size of ischemia noted in the inferolateral distribution. Low exercise capacity noted
== END ==
PROVIDERS: Family Provider Family Medicine; PCP Family Medicine; Referring Provider Internal Medicine Cardiovascular Disease; Visit Provider Internal Medicine Cardiovascular Disease
DX: R06.02 Shortness of breath (principal); Z79.82 Long term (current) use of aspirin; Z79.899 Other long term (current) drug therapy; Z95.1 Presence of aortocoronary bypass graft
CPT/HCPCS: 78452; 93017; A9500; A4216

== ENCOUNTER → 2019-07-22 09:46 | Outpatient (CLI) | payer MEDICARE, OTHER, SELFPAY ==
[2019-06-23 08:37] VITALS: BMI 34.4
--- NOTE | 2019-07-22 09:49 | ECHOCS_ITS ---
Reason For Study: CAD/ASHD Procedure This was a 2D Doppler, Color Flow transthoracic echocardiogram. Contrast injection was performed. The study was technically difficult. Exam performed in department. Left Ventricle Normal LV size. Moderate concentric left ventricular hypertrophy. The estimated ejection fraction is 55 %. Stage 2 diastolic dysfunction. Left ventricular systolic function is normal. No regional wall motion abnormalities noted. Right Ventricle Normal RV size. Normal systolic function. Atria The left atrium is mildly enlarged. Normal right atrium. Mitral Valve Normal mitral valve. Tricuspid Valve Normal tricuspid valve. Aortic Valve Mild focal aortic valve calcification. Pulmonic Valve Normal pulmonic valve. Great Vessels Normal aortic root. The pulmonary artery is normal size. Normal inferior vena cava. Pericardium/Pleural No pericardial effusion. Medication 22 gauge I.V. with prn adaptor inserted into right arm. Diluted definity 2ml given slow IV push to enhance endocardial definition. MMode/2D Measurements & Calculations LVIDd: 4.9 cm IVSd: 1.6 cm LVOT diam: 2.0 cm LVIDs: 3.6 cm LVPWd: 1.3 cm FS: 26.0 % LVOT area: 3.0 cm2 Ao root diam: 3.0 cm LAV(MOD-bp): 66.8 ml LA A4 area: 22.8 cm2 LA dimension: 5.2 cm LAV(MOD-bp) Indexed: 29.9 ml/m2 LAV(MOD-sp2): 56.9 ml LAV(MOD-sp4): 71.8 ml RA A4 area: 14.3 cm2 Time Measurements MV dec time: 0.19 sec Doppler Measurements & Calculations MV E max moisés: 80.3 cm/sec Lat Peak E' Moisés: 8.4 cm/sec Med Peak E' Moisés: 5.6 cm/sec MV A max moisés: 61.5 cm/sec E/E' lat: 9.6 E/E' med: 14.3 MV E/A: 1.3 MV V2 max: 92.7 cm/sec MV P1/2t max moisés: 94.1 cm/sec Ao V2 max: 140.2 cm/sec MV max P.4 mmHg MV P1/2t: 99.2 msec Ao max P.9 mmHg MV V2 mean: 49.8 cm/sec MV dec slope: 277.7 cm/sec2 LORRIE(V,D): 1.8 cm2 MV mean P.2 mmHg MV V2 VTI: 32.2 cm MVA(P1/2t): 2.2 cm2 LV V1 max: 83.1 cm/sec PA V2 max: 114.6 cm/sec LV V1 max P.8 mmHg Interpretation Summary Normal LV size. Moderate concentric left ventricular hypertrophy. The estimated ejection fraction is 55 %. Stage 2 diastolic dysfunction. Left ventricular systolic function is normal. Contrast injection was performed. Compared to previous study, the left ventricular systolic function has improved.. Ordering Physician: Eduardo Rizo Referring Physician: SASKIA RAMOS Performed By: Kalyan Kwan RCS
--- NOTE | 2019-07-22 10:34 | RAD_ITS ---
STUDY: X-RAY CHEST REASON FOR EXAM: Male, 73 years old. Abnormal stress test TECHNIQUE: PA and lateral views of the chest. COMPARISON: 01/06/2018 FINDINGS: Right hemidiaphragm remains elevated. There is no demonstrated pleural abnormality. Normal size heart. Sternal wires and mediastinal surgical clips compatible with prior CABG. Normal mediastinum and jacinto. Normal visualized pulmonary arteries. Normal visualized aortic arch and descending thoracic aorta. Normal visualized thoracic spine. Normal visualized ribs, clavicles, and shoulders. There is no demonstrated abnormality of the visualized soft tissue structures of the upper abdomen. RAD/Chest PA and Lateral IMPRESSION: No airspace consolidation or pleural effusion. Electronically Signed: Bharat Rodas MD ([place]) at 15:37 EDT , Service support ,
[2019-07-22 11:38] LABS: Absolute Lymphocyte Count 1.06 X10^3/uL (0.83-4.51); Absolute Neutrophil Count 5.3 X10^3/uL (2.0-7.7); Basophil# 0.04 X10^3/uL; Basophil% 0.5 % (0-1); Eosinophils% 2.7 % (0-5); Hematocrit 38.7 % (40-54); Hemoglobin 12.7 g/dL (13.0-16.5); Lymphocyte # 1.06 X10^3/ul (4.0); Lymphocyte % 14.4 % (19-41); Mean Corp Hgb Conc 32.8 g/dL (32-36); Mean Corpuscular Hgb 32.2 pg (27.0-32.0); Mean Corpuscular Volume 98.2 fL (80-94); Mean Platelet Vol. 9.5 fl (6.2-12.0); Monocyte# 0.71 X10^3/uL; Monocyte% 9.7 % (0-10); NRBC Flagged by Analyzer 0 % (0-5); Neutrophil % 72.3 % (47-70); Platelet Count 156 K/mm3 (150-450); RBC Distribution Width CV 13.6 % (11.6-14.6); RBC Distribution Width SD 49.1 fl (35.1-43.9); Red Blood Count 3.94 M/mm3 (4.6-6.2); White Blood Count 7.3 K/mm3 (4.4-11.0)
[2019-07-22 11:58] LABS: Anion Gap 7 (5-15); BUN 68 mg/dL (7-18); BUN/Creat Ratio 28.2 RATIO (10-20); Calcium,Total 9.7 mg/dL (8.5-10.1); Chloride 97 mmol/L (98-107); Creatinine, Serum 2.41 mg/dL (0.70-1.30); EST Glomerular Filtration Rate 28 mL/min (>60); Est Glom Filt Rate - Afr Amer 34 mL/min (>60); Glucose 70 mg/dL (74-106); Potassium 3.6 mmol/L (3.5-5.1); Sodium Level 141 mmol/L (136-145)
== END ==
PROVIDERS: Family Provider Family Medicine; PCP Family Medicine; Referring Provider Internal Medicine Cardiovascular Disease; Visit Provider Internal Medicine Cardiovascular Disease
DX: I25.10 Atherosclerotic heart disease of native coronary artery without angina pectoris (principal); I11.0 Hypertensive heart disease with heart failure; I50.42 Chronic combined systolic (congestive) and diastolic (congestive) heart failure; I25.5 Ischemic cardiomyopathy; E78.5 Hyperlipidemia, unspecified; R06.02 Shortness of breath; R94.39 Abnormal result of other cardiovascular function study; Z95.1 Presence of aortocoronary bypass graft; Z95.5 Presence of coronary angioplasty implant and graft
CPT/HCPCS: 36415; 71046; 80048; 85025; 93306; Q9957; A4216; C8929

== ENCOUNTER → 2019-07-26 14:23 | Outpatient (CLI) | payer MEDICARE, OTHER, SELFPAY ==
[2019-07-25 08:54] VITALS: BMI 35.2
[2019-07-26 15:34] LABS: Hematocrit 37.7 % (40-54); Hemoglobin 12.4 g/dL (13.0-16.5); Mean Corp Hgb Conc 32.9 g/dL (32-36); Mean Corpuscular Hgb 32.8 pg (27.0-32.0); Mean Corpuscular Volume 99.7 fL (80-94); Mean Platelet Vol. 9.5 fl (6.2-12.0); Platelet Count 143 K/mm3 (150-450); RBC Distribution Width CV 13.6 % (11.6-14.6); RBC Distribution Width SD 49.1 fl (35.1-43.9); Red Blood Count 3.78 M/mm3 (4.6-6.2); White Blood Count 5.8 K/mm3 (4.4-11.0)
[2019-07-26 16:43] LABS: Albumin, Serum 3.9 g/dL (3.2-5.0); BUN 78 mg/dL (7-18); BUN/Creat Ratio 26.3 RATIO (10-20); Calcium,Total 9.6 mg/dL (8.5-10.1); Chloride 98 mmol/L (98-107); Creatinine, Serum 2.97 mg/dL (0.70-1.30); EST Glomerular Filtration Rate 22 mL/min (>60); Est Glom Filt Rate - Afr Amer 27 mL/min (>60); Glucose 244 mg/dL (74-106); Phosphorus 3.6 mg/dL (2.5-4.9); Potassium 3.9 mmol/L (3.5-5.1); Protein, Urine (Random) 12.4 mg/dL (<11.9); Protein:Creat Ratio 141 mg/g CRE (0-200); Sodium Level 142 mmol/L (136-145)
[2019-07-27 09:48] LABS: PTHIN 148.7 pg/mL (18.4-80.1)
== END ==
PROVIDERS: Family Provider Family Medicine; PCP Family Medicine; Referring Provider Internal Medicine Nephrology; Visit Provider Internal Medicine Nephrology
DX: N18.3 Chronic kidney disease, stage 3 (moderate) (principal); E83.52 Hypercalcemia; N25.81 Secondary hyperparathyroidism of renal origin
CPT/HCPCS: 36415; 80069; 82306; 82570; 83970; 84156; 85027

== ENCOUNTER → 2019-08-08 12:09 | Outpatient (CLI) | payer MEDICARE, OTHER, SELFPAY ==
[2019-08-02 06:11] VITALS: BMI 35.2
[2019-08-08 13:00] LABS: Anion Gap 11 (5-15); BUN 83 mg/dL (7-18); Chloride 94 mmol/L (98-107); Creatinine, Serum 3.07 mg/dL (0.70-1.30); EST Glomerular Filtration Rate 21 mL/min (>60); Est Glom Filt Rate - Afr Amer 26 mL/min (>60); Glucose 235 mg/dL (74-106); Potassium 3.9 mmol/L (3.5-5.1); Sodium Level 139 mmol/L (136-145)
== END ==
PROVIDERS: Family Provider Family Medicine; PCP Family Medicine; Referring Provider Internal Medicine Nephrology; Visit Provider Internal Medicine Nephrology
DX: N18.3 Chronic kidney disease, stage 3 (moderate) (principal)
CPT/HCPCS: 36415; 80048

== ENCOUNTER → 2019-09-02 13:13 | Outpatient (CLI) | payer MEDICARE, OTHER, SELFPAY ==
[2019-08-02 06:11] VITALS: BMI 35.2
[2019-09-02 14:25] LABS: Anion Gap 10 (5-15); BUN 69 mg/dL (7-18); BUN/Creat Ratio 24.1 RATIO (10-20); Calcium,Total 9.5 mg/dL (8.5-10.1); Chloride 100 mmol/L (98-107); Creatinine, Serum 2.86 mg/dL (0.70-1.30); EST Glomerular Filtration Rate 23 mL/min (>60); Est Glom Filt Rate - Afr Amer 28 mL/min (>60); Glucose 204 mg/dL (74-106); Potassium 3.7 mmol/L (3.5-5.1); Sodium Level 140 mmol/L (136-145)
== END ==
PROVIDERS: Family Provider Family Medicine; PCP Family Medicine; Referring Provider Internal Medicine Nephrology; Visit Provider Internal Medicine Nephrology
DX: N18.3 Chronic kidney disease, stage 3 (moderate) (principal)
CPT/HCPCS: 36415; 80048

== ENCOUNTER → 2019-10-10 11:08 | Outpatient (CLI) | payer MEDICARE, OTHER, SELFPAY ==
[2019-10-10 09:50] VITALS: BMI 35.6
[2019-10-10 11:30] LABS: Absolute Lymphocyte Count 1.05 X10^3/uL (0.83-4.51); Absolute Neutrophil Count 6.3 X10^3/uL (2.0-7.7); Basophil# 0.03 X10^3/uL; Basophil% 0.4 % (0-1); Eosinophil# 0.22 X10^3/uL; Eosinophils% 2.6 % (0-5); Hematocrit 41.8 % (40-54); Hemoglobin 13.5 g/dL (13.0-16.5); Lymphocyte # 1.05 X10^3/ul (4.0); Lymphocyte % 12.6 % (19-41); Mean Corp Hgb Conc 32.3 g/dL (32-36); Mean Corpuscular Hgb 31.2 pg (27.0-32.0); Mean Corpuscular Volume 96.5 fL (80-94); Mean Platelet Vol. 9.2 fl (6.2-12.0); Monocyte# 0.75 X10^3/uL; NRBC Flagged by Analyzer 0 % (0-5); Neutrophil # 6.26 X10^3/uL (2.7-7.7); Platelet Count 148 K/mm3 (150-450); RBC Distribution Width CV 13.5 % (11.6-14.6); RBC Distribution Width SD 48.4 fl (35.1-43.9); Red Blood Count 4.33 M/mm3 (4.6-6.2); White Blood Count 8.3 K/mm3 (4.4-11.0)
[2019-10-10 11:50] LABS: Anion Gap 4 (5-15); BUN 70 mg/dL (7-18); BUN/Creat Ratio 28.1 RATIO (10-20); Calcium,Total 10.5 mg/dL (8.5-10.1); Chloride 98 mmol/L (98-107); Creatinine, Serum 2.49 mg/dL (0.70-1.30); EST Glomerular Filtration Rate 27 mL/min (>60); Est Glom Filt Rate - Afr Amer 33 mL/min (>60); Glucose 177 mg/dL (74-106); Potassium 3.7 mmol/L (3.5-5.1); Sodium Level 140 mmol/L (136-145)
== END ==
PROVIDERS: Family Provider Family Medicine; PCP Family Medicine; Referring Provider Nurse Practitioner Family; Visit Provider Nurse Practitioner Family
DX: I25.10 Atherosclerotic heart disease of native coronary artery without angina pectoris (principal); I25.5 Ischemic cardiomyopathy; I12.9 Hypertensive chronic kidney disease with stage 1 through stage 4 chronic kidney disease, or unspecified chronic kidney disease; N18.9 Chronic kidney disease, unspecified; E78.5 Hyperlipidemia, unspecified; Z95.1 Presence of aortocoronary bypass graft; Z95.5 Presence of coronary angioplasty implant and graft
CPT/HCPCS: 36415; 80048; 85025

== ENCOUNTER → 2019-12-01 14:09 | Outpatient (CLI) | payer MEDICARE, OTHER, SELFPAY ==
[2019-11-21 08:55] VITALS: BMI 35.6
[2019-12-01 14:40] LABS: Hematocrit 40.3 % (40-54); Hemoglobin 12.9 g/dL (13.0-16.5); Mean Corpuscular Hgb 31.2 pg (27.0-32.0); Mean Corpuscular Volume 97.3 fL (80-94); Mean Platelet Vol. 9.5 fl (6.2-12.0); Platelet Count 138 K/mm3 (150-450); RBC Distribution Width CV 14.1 % (11.6-14.6); RBC Distribution Width SD 50.3 fl (35.1-43.9); Red Blood Count 4.14 M/mm3 (4.6-6.2); White Blood Count 6.3 K/mm3 (4.4-11.0)
[2019-12-01 15:09] LABS: Albumin, Serum 3.9 g/dL (3.2-5.0); BUN 66 mg/dL (7-18); BUN/Creat Ratio 26.3 RATIO (10-20); Calcium,Total 10.6 mg/dL (8.5-10.1); Chloride 100 mmol/L (98-107); Creatinine, Serum 2.51 mg/dL (0.70-1.30); EST Glomerular Filtration Rate 27 mL/min (>60); Est Glom Filt Rate - Afr Amer 32 mL/min (>60); Glucose 203 mg/dL (74-106); PTHIN 125.4 pg/mL (18.4-80.1); Phosphorus 3.6 mg/dL (2.5-4.9); Potassium 3.9 mmol/L (3.5-5.1); Sodium Level 141 mmol/L (136-145)
[2019-12-01 16:08] LABS: Protein, Urine (Random) 6.3 mg/dL (<11.9); Protein:Creat Ratio 129 mg/g CRE (0-200)
== END ==
PROVIDERS: PCP Family Medicine; Referring Provider Internal Medicine Nephrology; Visit Provider Internal Medicine Nephrology
DX: N18.3 Chronic kidney disease, stage 3 (moderate) (principal); N25.81 Secondary hyperparathyroidism of renal origin; Z13.0 Encounter for screening for diseases of the blood and blood-forming organs and certain disorders involving the immune mechanism
CPT/HCPCS: 36415; 80069; 82306; 82570; 83970; 84156; 85027

== ENCOUNTER → 2020-03-27 14:16 | Outpatient (CLI) | payer MEDICARE, OTHER, SELFPAY ==
[2020-03-08 11:03] VITALS: BMI 35.6
[2020-03-27 15:21] LABS: Anion Gap 6 (5-15); BUN 97 mg/dL (7-18); BUN/Creat Ratio 35.1 RATIO (10-20); Calcium,Total 9.7 mg/dL (8.5-10.1); Chloride 96 mmol/L (98-107); Creatinine, Serum 2.76 mg/dL (0.70-1.30); EST Glomerular Filtration Rate 24 mL/min (>60); Est Glom Filt Rate - Afr Amer 29 mL/min (>60); Glucose 163 mg/dL (74-106); Potassium 3.6 mmol/L (3.5-5.1); Sodium Level 140 mmol/L (136-145)
[2020-03-27 16:43] LABS: Protein, Urine (Random) 8.6 mg/dL (<11.9); Protein:Creat Ratio 133 mg/g CRE (0-200)
== END ==
PROVIDERS: PCP Family Medicine; Referring Provider Internal Medicine Nephrology; Visit Provider Internal Medicine Nephrology
DX: N18.3 Chronic kidney disease, stage 3 (moderate) (principal)
CPT/HCPCS: 36415; 80048; 82570; 84156

== ENCOUNTER → 2020-04-10 09:53 | Outpatient (CLI) | payer MEDICARE, OTHER, SELFPAY ==
[2020-01-10 06:06] VITALS: BMI 35.6
[2020-03-08 11:03] VITALS: BMI 35.6
--- NOTE | 2020-04-10 14:21 | PFTCOMP_ITS ---
COMPLETE PULMONARY FUNCTION TEST INTERPRETATION Brief HPI: Patient is a 74 year old male, currently under the care of myself, who presents to [facility] for complete pulmonary function tests secondary to diagnosis of COPD. Respiratory therapist reports good effort and reproducible results. Interpretation: Forced expiration spirometry shows no large airways obstructive ventilatory defect with an FEV1 of 52% predicted. There is no significant bronchodilator response by strict ATS criteria. Spirograms are of good quality and plateau normally. The respiratory flow volume loop shows a normal pattern. Lung volumes by body plethysmography show a decreased total lung capacity at 3.65 L, 59% predicted. All other lung volumes are reduced symmetrically. Diffusion capacity by carbon monoxide is normal at 77% predicted. The airway resistance is normal. No previous pulmonary function tests were available for review. Impression: Moderate restrictive ventilatory defect with relatively preserved diffusion capacity
== END ==
PROVIDERS: PCP Family Medicine; Referring Provider Internal Medicine Critical Care Medicine; Visit Provider Internal Medicine Critical Care Medicine
DX: R06.09 Other forms of dyspnea (principal); J44.9 Chronic obstructive pulmonary disease, unspecified
CPT/HCPCS: 94060; 94726; 94729

== ENCOUNTER → 2020-04-12 10:44 | Outpatient (CLI) | payer MEDICARE, OTHER, SELFPAY ==
[2020-01-10 06:06] VITALS: BMI 35.6
[2020-03-08 11:03] VITALS: BMI 35.6
[2020-04-12 11:22] VITALS: PULSE 64; PULSE 67; PULSE 86; PULSE 87; PULSE 89; PULSE 90; PULSE 94; O2SAT 89; O2SAT 90; O2SAT 91; O2SAT 92; O2SAT 94
--- NOTE | 2020-04-12 11:24 | CPS ---
Patient walked entire 6 minutes without oxygen, took one brief break in the middle of the second minute for <5 seconds. I stopped the patient because SpO2 was 87% at that time with a good reading. Patient's SpO2 came right back up to 89% and patient stated that he would refuse oxygen. Patient was able to walk the rest of the test keeping saturations between an occasional 88% and 92%. At the end of the test I explained to the patient the importance of maintaining a blood oxygen level above 89%. He stated that he still does not want oxygen but he does have a pulse oximeter at home and understands the importance of monitoring and not letting his SpO2 get below 89%. I stated that Dr. Taylor would likely be discussing home O2 with the patient and the patient was pleasant and understanding with all information provided to him.
--- NOTE | 2020-04-12 14:20 | WT_ITS ---
PSN 6 Minute Walk Test - 6 Minute Walk Test 6 Minute Walk Test: 6 Minute Walk Test PSN:6-Minute Walk Test Start: 04/12/20 11:21 Freq: Status: Active Protocol: RESP.6MINW Document 04/12/20 11:22 MANISHA (Rec: 04/12/20 11:31 MANISHA [id number]) 6 Minute Walk Test Date Performed 04/12/20 Time Performed 11:00 Height 5 ft 9 in Weight: 106.594 kg Weight in Pounds 235.[address]: Wood Taylor Assistive device used: None Pre-test Oxygen Delivery Method Room Air Pulse Ox (%) 92 Pulse Rate (60-100 beats/min) 64 Dyspnea Piyush Scale (0-10) 0 Exertion Piyush Scale (6-20) 6 1st minute Oxygen Delivery Method Room Air Pulse Ox (%) 90 Pulse Rate (60-100 beats/min) 86 2nd minute Oxygen Delivery Method Room Air Pulse Ox (%) 89 Pulse Rate (60-100 beats/min) 86 Number of Rests Taken 1 3rd minute Oxygen Delivery Method Room Air Pulse Ox (%) 91 Pulse Rate (60-100 beats/min) 87 4th minute Oxygen Delivery Method Room Air Pulse Ox (%) 92 Pulse Rate (60-100 beats/min) 89 5th minute Oxygen Delivery Method Room Air Pulse Ox (%) 90 Pulse Rate (60-100 beats/min) 90 6th minute Oxygen Delivery Method Room Air Pulse Ox (%) 89 Pulse Rate (60-100 beats/min) 94 Dyspnea Piyush Scale (0-10) 2 Exertion Piyush Scale (6-20) 12 Post-test Oxygen Delivery Method Room Air Pulse Ox (%) 94 Pulse Rate (60-100 beats/min) 67 Full Laps Walked 16 Partial Lap, Number of Tiles Walked 20 Total Distance Walked (ft) 964 04/12/20 11:24 Cardiopulmonary Services by Thuy Ortiz Patient walked entire 6 minutes without oxygen, took one brief break in the middle of the second minute for <5 seconds. I stopped the patient because SpO2 was 87% at that time with a good reading. Patient's SpO2 came right back up to 89% and patient stated that he would refuse oxygen. Patient was able to walk the rest of the test keeping saturations between an occasional 88% and 92%. At the end of the test I explained to the patient the importance of maintaining a blood oxygen level above 89%. He stated that he still does not want oxygen but he does have a pulse oximeter at home and understands the importance of monitoring and not letting his SpO2 get below 89%. I stated that Dr. Taylor would likely be discussing home O2 with the patient and the patient was pleasant and understanding with all information provided to him. Initialized on 04/12/20 11:24 - END OF NOTE - Interpretation Interpretation: The patient was able to ambulate 964 feet over the course of 6 minutes on room air with no assistive devices or breaks. The patient did have a brief desaturation to 87%, but improved with less than 5-second rest. The patient refused oxygen and completed walking. These findings are consistent with a respiratory limitation exercise tolerance. No significant tachycardia was no olga. - Recommendations Recommendations: The patient needs to be followed closely given level of desaturation.
== END ==
PROVIDERS: PCP Family Medicine; Referring Provider Internal Medicine Critical Care Medicine; Visit Provider Internal Medicine Critical Care Medicine
DX: R06.09 Other forms of dyspnea (principal)
CPT/HCPCS: 94618

== ENCOUNTER → 2020-04-16 14:36 | Outpatient (CLI) | payer MEDICARE, OTHER, SELFPAY ==
[2020-03-08 11:03] VITALS: BMI 35.6
[2020-04-16 15:45] LABS: Anion Gap 4 (5-15); BUN 69 mg/dL (7-18); BUN/Creat Ratio 27.7 RATIO (10-20); Calcium,Total 9.2 mg/dL (8.5-10.1); Chloride 102 mmol/L (98-107); Creatinine, Serum 2.49 mg/dL (0.70-1.30); EST Glomerular Filtration Rate 27 mL/min (>60); Est Glom Filt Rate - Afr Amer 33 mL/min (>60); Glucose 226 mg/dL (74-106); Sodium Level 141 mmol/L (136-145)
== END ==
PROVIDERS: PCP Family Medicine; Referring Provider Internal Medicine Nephrology; Visit Provider Internal Medicine Nephrology
DX: N18.3 Chronic kidney disease, stage 3 (moderate) (principal); R06.02 Shortness of breath
CPT/HCPCS: 36415; 80048; 83880

== ENCOUNTER → 2020-04-25 07:46 | Outpatient (CLI) | payer MEDICARE, OTHER, SELFPAY ==
[2020-04-19 05:41] VITALS: BMI 36.1
--- NOTE | 2020-04-25 07:46 | CT_ITS ---
STUDY: CT CHEST WITHOUT CONTRAST REASON FOR EXAM: Male, 74 years old. ? FIBROSIS. RESTRICTIVE PATTERN ON PFT''S. cabg/stent RADIATION DOSAGE (If Supplied By Facility): CTDIvol = ( 19.69 ) mGy, DLP = ( 639.57 ) mGycm TECHNIQUE: Transaxial imaging was performed without the administration of intravenous contrast material. Multiplanar coronal and sagittal images were reformatted. Individualized dose optimization techniques were used for this CT. COMPARISON: Previous plain films FINDINGS: Lung windows show lungs to be normally expanded. There is likely chronic elevation of the right hemidiaphragm. There is interstitial edema in both lung rivera without an organized infiltrate, suspicious groundglass opacifications, or noncalcified mass or nodule. There is a linear band of scarring or atelectasis in the right lung base. Soft tissue windows show normal-appearing thyroid gland. Scattered subcentimeter axillary and mediastinal lymph nodes. There is been remote CABG. No pleural or pericardial effusions. Normal hilar regions. Normal unenhanced pulmonary arteries. Normal aorta arch and descending thoracic aorta. There are multi-level degenerative changes of the thoracic spine. Limited cuts through the upper abdomen show diffuse atherosclerosis in the thoracic aorta and its visualized branches CT/Chest without Contrast IMPRESSION: Diffuse interstitial edema in both lung rivera suggest pulmonary vascular congestion. No organized infiltrate, groundglass opacifications or suspicious noncalcified mass or nodule. Remote CABG Degenerative bony changes Electronically Signed: Eleuterio Zapata MD at 8:32 EDT , Service support ,
== END ==
PROVIDERS: PCP Family Medicine; Referring Provider Internal Medicine Critical Care Medicine; Visit Provider Internal Medicine Critical Care Medicine
DX: R94.2 Abnormal results of pulmonary function studies (principal)
CPT/HCPCS: 71250

== ENCOUNTER → 2020-05-22 13:43 | Outpatient (CLI) | payer MEDICARE, OTHER, SELFPAY ==
[2020-04-19 05:41] VITALS: BMI 36.1
[2020-05-22 14:19] LABS: Protein, Urine (Random) 13.6 mg/dL (<11.9); Protein:Creat Ratio 265 mg/g CRE (0-200)
[2020-05-22 15:03] LABS: Anion Gap 6 (5-15); BUN 56 mg/dL (7-18); BUN/Creat Ratio 28.4 RATIO (10-20); Calcium,Total 9.6 mg/dL (8.5-10.1); Chloride 107 mmol/L (98-107); Creatinine, Serum 1.97 mg/dL (0.70-1.30); EST Glomerular Filtration Rate 35 mL/min (>60); Est Glom Filt Rate - Afr Amer 43 mL/min (>60); Glucose 148 mg/dL (74-106); Sodium Level 145 mmol/L (136-145)
== END ==
PROVIDERS: PCP Family Medicine; Referring Provider Internal Medicine Nephrology; Visit Provider Internal Medicine Nephrology
DX: N18.3 Chronic kidney disease, stage 3 (moderate) (principal)
CPT/HCPCS: 36415; 80048; 82570; 84156

== ENCOUNTER → 2020-08-06 17:28 | Outpatient (CLI) | payer MEDICARE, OTHER, SELFPAY ==
[2020-07-31 13:19] VITALS: BMI 35.7
== END ==
PROVIDERS: PCP Family Medicine; Referring Provider Nurse Practitioner Acute Care; Visit Provider Nurse Practitioner Acute Care
DX: R05 Cough (principal)
CPT/HCPCS: 87635; C9803; U0003

== ENCOUNTER → 2020-09-05 12:54 | Outpatient (CLI) | payer MEDICARE, OTHER, SELFPAY ==
[2020-08-28 11:10] VITALS: BMI 35.2
[2020-09-05 14:19] LABS: Protein, Urine (Random) 11.7 mg/dL (<11.9); Protein:Creat Ratio 226 mg/g CRE (0-200)
[2020-09-05 14:31] LABS: Anion Gap 4 (5-15); BUN 64 mg/dL (7-18); BUN/Creat Ratio 28.8 RATIO (10-20); Calcium,Total 9.9 mg/dL (8.5-10.1); Chloride 105 mmol/L (98-107); Creatinine, Serum 2.22 mg/dL (0.70-1.30); EST Glomerular Filtration Rate 31 mL/min (>60); Est Glom Filt Rate - Afr Amer 37 mL/min (>60); Glucose 226 mg/dL (74-106); Potassium 3.8 mmol/L (3.5-5.1); Sodium Level 143 mmol/L (136-145)
== END ==
PROVIDERS: PCP Family Medicine; Referring Provider Internal Medicine Nephrology; Visit Provider Internal Medicine Nephrology
DX: N18.30 Chronic kidney disease, stage 3 unspecified (principal)
CPT/HCPCS: 36415; 80048; 82570; 84156

== ENCOUNTER 2020-11-16 13:17 | Outpatient (RCR) | payer MEDICARE, OTHER, SELFPAY ==
[2020-10-18 08:41] VITALS: BMI 36.1
== END 2020-11-16 23:59 ==
LOC: IMMUN 13:17
PROVIDERS: PCP Family Medicine; Visit Provider Family Medicine
DX: Z23 Encounter for immunization (principal)
CPT/HCPCS: 0011A; 0012A; 91301

== ENCOUNTER → 2021-03-08 13:50 | Outpatient (CLI) | payer MEDICARE, OTHER, SELFPAY ==
[2021-02-05 08:59] VITALS: BMI 36.1
[2021-03-08 14:43] LABS: Hematocrit 44.4 % (40-54); Hemoglobin 13.9 g/dL (13.0-16.5); Mean Corp Hgb Conc 31.3 g/dL (32-36); Mean Corpuscular Hgb 30.8 pg (27.0-32.0); Mean Corpuscular Volume 98.2 fL (80-94); Mean Platelet Vol. 10.3 fl (6.2-12.0); Platelet Count 115 K/mm3 (150-450); RBC Distribution Width CV 14.8 % (11.6-14.6); RBC Distribution Width SD 53.8 fl (35.1-43.9); Red Blood Count 4.52 M/mm3 (4.6-6.2); White Blood Count 5.3 K/mm3 (4.4-11.0)
[2021-03-08 14:55] LABS: Protein, Urine (Random) 9.6 mg/dL (<11.9); Protein:Creat Ratio 198 mg/g CRE (0-200)
[2021-03-08 15:00] LABS: PTHIN 460.4 pg/mL (18.4-80.1)
[2021-03-08 15:04] LABS: Vitamin D,25 Hydroxy 40.6 ng/mL
[2021-03-08 15:33] LABS: Albumin, Serum 4.2 g/dL (3.2-5.0); BUN 116 mg/dL (7-18); BUN/Creat Ratio 43.1 RATIO (10-20); Calcium,Total 9.8 mg/dL (8.5-10.1); Chloride 98 mmol/L (98-107); Creatinine, Serum 2.69 mg/dL (0.70-1.30); EST Glomerular Filtration Rate 25 mL/min (>60); Est Glom Filt Rate - Afr Amer 30 mL/min (>60); Glucose 231 mg/dL (74-106); Phosphorus 3.6 mg/dL (2.5-4.9); Sodium Level 139 mmol/L (136-145)
== END ==
PROVIDERS: PCP Family Medicine; Referring Provider Internal Medicine Nephrology; Visit Provider Internal Medicine Nephrology
DX: N18.32 Chronic kidney disease, stage 3b (principal); N25.81 Secondary hyperparathyroidism of renal origin
CPT/HCPCS: 36415; 80069; 82306; 82570; 83970; 84156; 85027

== ENCOUNTER → 2021-04-12 12:03 | Outpatient (CLI) | payer MEDICARE, OTHER, SELFPAY ==
[2021-04-01 07:38] VITALS: BMI 36.0
[2021-04-12 13:18] LABS: Anion Gap 8 (5-15); BUN 110 mg/dL (7-18); BUN/Creat Ratio 33.5 RATIO (10-20); Calcium,Total 9.4 mg/dL (8.5-10.1); Chloride 94 mmol/L (98-107); Creatinine, Serum 3.28 mg/dL (0.70-1.30); EST Glomerular Filtration Rate 20 mL/min (>60); Est Glom Filt Rate - Afr Amer 24 mL/min (>60); Glucose 227 mg/dL (74-106); Potassium 3.7 mmol/L (3.5-5.1); Sodium Level 138 mmol/L (136-145)
== END ==
PROVIDERS: PCP Family Medicine; Referring Provider Internal Medicine Nephrology; Visit Provider Internal Medicine Nephrology
DX: N18.32 Chronic kidney disease, stage 3b (principal)
CPT/HCPCS: 36415; 80048

== ENCOUNTER → 2021-05-07 10:33 | Outpatient (CLI) | payer MEDICARE, OTHER, SELFPAY ==
[2021-04-01 07:38] VITALS: BMI 36.0
[2021-05-07 11:49] LABS: Anion Gap 5 (5-15); BUN 86 mg/dL (7-18); BUN/Creat Ratio 32.7 RATIO (10-20); Calcium,Total 9.8 mg/dL (8.5-10.1); Chloride 99 mmol/L (98-107); Creatinine, Serum 2.63 mg/dL (0.70-1.30); EST Glomerular Filtration Rate 25 mL/min (>60); Est Glom Filt Rate - Afr Amer 31 mL/min (>60); Glucose 150 mg/dL (74-106); Sodium Level 141 mmol/L (136-145)
== END ==
PROVIDERS: PCP Family Medicine; Referring Provider Internal Medicine Nephrology; Visit Provider Internal Medicine Nephrology
DX: N18.32 Chronic kidney disease, stage 3b (principal)
CPT/HCPCS: 36415; 80048

== ENCOUNTER → 2021-06-27 11:37 | Outpatient (CLI) | payer MEDICARE, OTHER, SELFPAY ==
[2021-06-27 12:40] LABS: Hematocrit 43.5 % (40-54); Hemoglobin 13.6 g/dL (13.0-16.5); Mean Corp Hgb Conc 31.3 g/dL (32-36); Mean Corpuscular Hgb 30.1 pg (27.0-32.0); Mean Corpuscular Volume 96.2 fL (80-94); Mean Platelet Vol. 11.2 fl (6.2-12.0); POSITIVE COUNT YES; Platelet Count 87 K/mm3 (150-450); RBC Distribution Width CV 15.5 % (11.6-14.6); RBC Distribution Width SD 55.1 fl (35.1-43.9); Red Blood Count 4.52 M/mm3 (4.6-6.2)
[2021-06-27 12:43] LABS: Scan Indicated on CBC? Y/N YES- FLAGS NOTED
[2021-06-27 12:57] LABS: Protein, Urine (Random) 13.2 mg/dL (<11.9); Protein:Creat Ratio 172 mg/g CRE (0-200)
[2021-06-27 13:00] LABS: PTHIN 187.1 pg/mL (18.4-80.1)
[2021-06-27 13:04] LABS: Albumin, Serum 3.9 g/dL (3.2-5.0); BUN 90 mg/dL (7-18); BUN/Creat Ratio 28.1 RATIO (10-20); Calcium,Total 10.3 mg/dL (8.5-10.1); Chloride 97 mmol/L (98-107); EST Glomerular Filtration Rate 20 mL/min (>60); Est Glom Filt Rate - Afr Amer 24 mL/min (>60); Glucose 215 mg/dL (74-106); Phosphorus 3.4 mg/dL (2.5-4.9); Potassium 3.7 mmol/L (3.5-5.1); Sodium Level 136 mmol/L (136-145)
[2021-06-27 13:07] LABS: Vitamin D,25 Hydroxy 42.4 ng/mL
== END ==
PROVIDERS: PCP Family Medicine; Referring Provider Internal Medicine Nephrology; Visit Provider Internal Medicine Nephrology
DX: N18.32 Chronic kidney disease, stage 3b (principal)
CPT/HCPCS: 36415; 80069; 82306; 82570; 83970; 84156; 85027

== ENCOUNTER → 2021-07-18 12:15 | Outpatient (CLI) | payer MEDICARE, OTHER, SELFPAY ==
[2021-07-18 14:36] LABS: Anion Gap 13 (5-15); BUN 111 mg/dL (7-18); BUN/Creat Ratio 39.8 RATIO (10-20); Calcium,Total 9.9 mg/dL (8.5-10.1); Chloride 96 mmol/L (98-107); Creatinine, Serum 2.79 mg/dL (0.70-1.30); EST Glomerular Filtration Rate 24 mL/min (>60); Est Glom Filt Rate - Afr Amer 29 mL/min (>60); Glucose 264 mg/dL (74-106); Potassium 3.7 mmol/L (3.5-5.1); Sodium Level 140 mmol/L (136-145)
== END ==
PROVIDERS: PCP Family Medicine; Referring Provider Nurse Practitioner Gerontology; Visit Provider Nurse Practitioner Gerontology
DX: I10 Essential (primary) hypertension (principal)
CPT/HCPCS: 36415; 80048

== ENCOUNTER 2021-07-30 14:37 | Inpatient (IN) | payer MEDICARE, OTHER, SELFPAY ==
[2021-07-30] VITALS (10 sets, daily range): BP systolic 125–143; BP diastolic 68–88; PULSE 69–104; RESP 13–27; TEMP 35.7–36.8; O2SAT 92–101; BMI 36.5; BMI 35.6
--- NOTE | 2021-07-30 15:07 | EKG12_ITS ---
Test Reason : DIZZINESS Blood Pressure : / mmHG Vent. Rate : 098 BPM Atrial Rate : 098 BPM P-R Int : 148 ms QRS Dur : 146 ms QT Int : 410 ms P-R-T Axes : 105 -40 142 degrees QTc Int : 523 ms Sinus rhythm with frequent and consecutive Premature ventricular complexes and Fusion complexes Left axis deviation Left bundle branch block Abnormal ECG Confirmed by BARBI KILGORE, DANIEL ([id number]), scientific publications editor DYLAN ALVAREZ ([id number]) on 08/01/2021 9:30:18 AM Referred By: KAITLIN Confirmed By:DANIEL LANDON MD
--- NOTE | 2021-07-30 15:08 | EX.ED.DYSGE1 ---
HPI History of Present Illness Chief Complaint: Dizziness Informant: patient and spouse/S.O. Narrative Narrative: Patient sent in here from PCP office for evaluation. Reports intermittent lightheaded symptoms for the past 2 weeks worse with standing improved with sitting down. States blood pressures been running low throughout the 2 weeks, he had a list. The majority in the 100s he has had a few in the 90s and few in the 80s. He discussed with cardiology office 4 days ago, was told to hold his medications including his diuretics. He has history of CHF. He was concerned with his heart failure history. He held it for 1 day per their request. He is followed by Dr. Rizo. For the past day and a half he has not taken his blood pressure medicines however continue his diuretics. He is on Bumex 2 mg twice daily as needed metolazone however has not used metolazone recently. Denies any increasing leg swelling. Unclear on his dry weight, however he typically states he is normally around 235 pounds. Today was 247 with clothes on. Occasional dyspnea, he states can lay flat however prefers to sit more upright. Denies dyspnea. Denies chest or abdominal pain. Saw the PCP nurse practitioner today sent here due to concerns of increasing fluid in the lungs. Reviewing records, heart cath in January 2018 leading to drug-eluting stent to his OM 2 with 70% blockage at that time. An EF of 35%. He had patent grafts x3. Noted echocardiogram performed and May 2019 with a EF improved at 55%, stage II diastolic dysfunction, moderate concentric LV hypertrophy. 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 Premature atrial contractions Renal insufficiency Restrictive pattern present on pulmonary function testing Stage 4 chronic kidney disease due to type 2 diabetes mellitus Type II diabetes mellitus Home Medications atorvastatin 80 mg PO QHS 10/16/14 [History Last Taken 07/28/21] aspirin 81 mg tablet,delayed release 81 mg PO DAILY 10/27/17 [History Last Taken 07/28/21] bumetanide 2 mg tablet 2 mg PO BID 10/27/17 [History Last Taken 07/28/21] cholecalciferol (vitamin D3) 50 mcg (2,000 unit) capsule 2,000 unit PO DAILY 06/23/19 [History Last Taken 07/28/21] clopidogrel 75 mg tablet 75 mg PO DAILY #90 tab 10/10/19 [Rx Last Taken 07/28/21] metolazone 5 mg tablet 5 mg PO DAILY PRN 07/31/20 [History Last Taken 07/27/21] allopurinol 100 mg tablet 100 mg PO BID tab 11/29/20 [History Last Taken 07/28/21] carvedilol 6.25 mg tablet 6.25 mg PO BID #180 tab 02/05/21 [Rx Last Taken 07/28/21] zolpidem 5 mg tablet 5 mg PO QHS PRN 05/29/21 [History Last Taken 07/28/21] calcitriol 0.25 mcg PO DAILY 07/30/21 [History Last Taken 07/28/21] insulin regular hum U-500 conc 80 unit SC BREAKFAST 07/30/21 [History Last Taken 07/30/21] insulin regular hum U-500 conc [Humulin R U-500 (Conc) Kwikpen] 20 unit SUBCUT DINNER 07/30/21 [History Last Taken 07/29/21] insulin regular hum U-500 conc [Humulin R U-500 (Conc) Kwikpen] 80 unit SUBCUT LUNCH 07/30/21 [History Last Taken 07/30/21] isosorbide mononitrate 60 mg PO BID 07/30/21 [History Last Taken 07/28/21] losartan 25 mg PO DAILY 07/30/21 [History Last Taken 07/28/21] Allergy/AdvReac Type Severity Reaction Status Date / Time exenatide [From [place]] AdvReac Unknown Unknown Verified 07/30/21 15:29 lisinopril AdvReac Unknown Unknown Verified 07/30/21 15:29 Family History Mother Cancer Other Arthritis CVA (cerebral vascular accident) Diabetes High cholesterol Hypertension Myocardial infarction Surgical History H/O coronary artery bypass surgery (1988) H/O eye surgery History of coronary artery stent placement (01/12/18) History of parathyroidectomy Social History Smoking Status: Former smoker how long ago did patient quit smokin alcohol intake: current alcohol intake frequency: a few times a month substance use type: does not use caffeine: Yes Type: coffee Number of servings: 2 what type of physical activity do you participate in: none seatbelt use: always do you feel safe at home: Yes ROS ROS ED Constitutional Constitutional ED: Denies chills, fever(s) or sweats Eyes Eyes: Denies change in vision ENT ENT ED: Denies dysphagia or sore throat Cardiovascular Cardiovascular: Reports other Details: Lightheaded ; Denies chest pain, leg edema, palpitations or racing heartbeat Respiratory/Chest Respiratory/Chest: Denies cough, dyspnea or dyspnea on exertion Gastrointestinal Gastrointestinal: Denies abdominal pain, diarrhea, nausea or vomiting Genitourinary Genitourinary ED: Denies dysuria, hematuria or urinary frequency Musculoskeletal Musculoskeletal: Denies back pain, extremity pain or neck pain Integumentary Denies rash or wounds Neurologic Neurologic: Reports weakness; Denies headache(s) or paresthesias EXAM Physical Exam Const Vital Signs: 07/30/21 14:38 07/30/21 15:27 07/30/21 15:29 Temperature 96.3 F L Temperature Source Temporal Pulse Rate 69 96 Respiratory Rate 18 26 H Respiratory Effort Normal Blood Pressure 127/81 H 125/70 H Blood Pressure Mean 96 88 Pulse Ox 93 92 Oxygen Delivery Method Room Air Room Air 07/30/21 16:51 Temperature Temperature Source Pulse Rate 98 Respiratory Rate 27 H Respiratory Effort Blood Pressure 141/68 H Blood Pressure Mean 92 Pulse Ox 92 Oxygen Delivery Method Room Air Positive well nourished and well developed General Appearance ED: well developed and NAD HEENT Reports moist mucous membranes normocephalic and atraumatic Eyes PERRL, EOMs intact bilaterally and conjunctivae normal General Eye ED: Yes normal appearance of both eyes Neck no lymphadenopathy and supple General: Negative for tenderness Chest Wall Chest: Negative for tenderness Resp normal air movement Resp Narrative: Blunting lung sounds bilateral lower lobes. No respiratory distress. Effort and Inspection: symmetric chest movement; Negative for respiratory distress Auscultation: diminished lung sounds Cardio regular rate, regular rhythm and no murmurs Peripheral Pulses: pulses 2+ throughout GI normal to inspection, nondistended, normoactive bowel sounds and non-tender Palpation: Negative for guarding or rebound tenderness present Back/Spine no CVA tenderness and no thoracic nor lumbar tenderness Extremity normal to inspection Extremity Narrative: 1-2+ lower extremity pitting edema, pulses intact x4. General Extremety ED: Yes edema; Negative for tenderness General Extremity: edema Neuro oriented x3 and no sensory deficits noted Sensorium / Orientation: awake and alert Skin no rashes or lesions noted and no wounds MDM MDM MDM Narrative Medical decision making narrative: Patient blood pressure on arrival 120 systolic pulse ox 93% no respiratory distress. He has 1-2+ lower extremity edema which he states stable and not worsening. Work-up initiated, labs hemoglobin 13.6 WBC 6.1. Creatinine 3.62 up from 2.7 in the past 2 weeks. Creatinine clearance of 17. BNP 828. Troponin up at 196. He denies any chest pains or exertional dyspnea. He is ordered for aspirin. Chest x-ray per my view concerns for congestion of the lungs compared to chest x-ray from 2 years ago. Recheck blood pressure systolic 140s. I discussed with covering trigonometry teacher Dr. Menjivar at 1740, discussed patient's history findings and previous heart cath records. He recommended Lasix drips and monitoring his creatinine. Okay with aspirin, no other anticoagulations at this time. Recommended repeat echocardiogram while in the hospital. We will trend his troponins. Covid testing returned negative. Patient and family updated. Will discuss with hospitalist for admission. I discussed with Dr. Angelica Mac for admission to PCU. Lab Data Labs: Laboratory Results - last 24 hr 07/30/21 07/30/21 07/30/21 15:25 15:25 15:25 WBC 6.1 RBC 4.58 L Hgb 13.6 Hct 43.6 MCV 95.2 H MCH 29.7 MCHC 31.2 L RDW Std Deviation 56.9 H RDW Coeff of Alfreda 16.4 H Plt Count 97 L MPV 11.3 Immature Gran % (Auto) 0.500 Neut % (Auto) 74.4 H Lymph % (Auto) 10.4 L [place] % (Auto) 11.1 H Eos % (Auto) 3.1 Baso % (Auto) 0.5 Absolute Neuts (auto) 4.5 Absolute Lymphs (auto) 0.63 L Nucleated RBC % 0 Platelet Estimate MOD DEC Plt Morphology Comment LARGE RBC Morphology N CHROM Anisocytosis RARE Macrocytosis RARE Sodium 140 Potassium 3.7 Chloride 96 L Carbon Dioxide 34.0 H Anion Gap 10 BUN 128 H* Creatinine 3.62 H Estim Creat Clear Calc 17.09 Est GFR (MDRD) Af Amer 21 L Est GFR (MDRD) Non-Af 17 L BUN/Creatinine Ratio 35.4 H Glucose 143 H Calcium 10.0 Troponin I High Sens 196 H* B-Natriuretic Peptide 828.9 H POC Glucose 07/30/21 07/30/21 17:25 17:40 WBC RBC Hgb Hct MCV MCH MCHC RDW Std Deviation RDW Coeff of Alfreda Plt Count MPV Immature Gran % (Auto) Neut % (Auto) Lymph % (Auto) [place] % (Auto) Eos % (Auto) Baso % (Auto) Absolute Neuts (auto) Absolute Lymphs (auto) Nucleated RBC % Platelet Estimate Plt Morphology Comment RBC Morphology Anisocytosis Macrocytosis Sodium Potassium Chloride Carbon Dioxide Anion Gap BUN Creatinine Estim Creat Clear Calc Est GFR (MDRD) Af Amer Est GFR (MDRD) Non-Af BUN/Creatinine Ratio Glucose Calcium Troponin I High Sens 248 H* B-Natriuretic Peptide POC Glucose 88 Radiography Chest X-Ray - ED: 1 View, Read by ED Physician and - (Pulmonary congestion) Diagnostic Testing: Clinical Impression(s) from Imaging Studies Chest X-Ray 07/30/21 16:50 IMPRESSION: No active disease. Electronically Signed: Werner Saldana MD at 17:05 EDT Tel , Service support , EKG Initial EKG: Attestation: I personally reviewed and interpreted this EKG as follows: Comments: Sinus rate of 96, ST depressions lateral leads of 1 mm there is no elevations. PVCs noted. Left bundle branch block. ST changes new or from February 2018. Discharge Plan Dx/Rx/DC Orders Clinical Impression: Acute on chronic congestive heart failure, JUSTIN (acute kidney injury), Elevated troponin, Abnormal ECG Disposition Disposition: Acute Care Hospital [facility] Discharge Date/Time: 07/30/21 18:37
[2021-07-30 15:50] LABS: Absolute Lymphocyte Count 0.63 X10^3/uL (0.83-4.51); Absolute Neutrophil Count 4.5 X10^3/uL (2.0-7.7); Basophil# 0.03 X10^3/uL; Basophil% 0.5 % (0-1); Eosinophil# 0.19 X10^3/uL; Eosinophils% 3.1 % (0-5); Hematocrit 43.6 % (40-54); Hemoglobin 13.6 g/dL (13.0-16.5); Lymphocyte # 0.63 X10^3/ul (0.83-4.51); Lymphocyte % 10.4 % (19-41); Mean Corp Hgb Conc 31.2 g/dL (32-36); Mean Corpuscular Hgb 29.7 pg (27.0-32.0); Mean Corpuscular Volume 95.2 fL (80-94); Mean Platelet Vol. 11.3 fl (6.2-12.0); Monocyte# 0.67 X10^3/uL; Monocyte% 11.1 % (0-10); NRBC Flagged by Analyzer 0 % (0-5); Neutrophil # 4.51 X10^3/uL (2.7-7.7); Neutrophil % 74.4 % (47-70); POSITIVE COUNT YES; Platelet Count 97 K/mm3 (150-450); RBC Distribution Width CV 16.4 % (11.6-14.6); RBC Distribution Width SD 56.9 fl (35.1-43.9); Red Blood Count 4.58 M/mm3 (4.6-6.2); White Blood Count 6.1 K/mm3 (4.4-11.0)
[2021-07-30 15:51] LABS: Differential Indicated SCAN CRITERIA MET
[2021-07-30 16:12] LABS: Anion Gap 10 (5-15); BUN 128 mg/dL (7-18); BUN/Creat Ratio 35.4 RATIO (10-20); Chloride 96 mmol/L (98-107); Creatinine, Serum 3.62 mg/dL (0.70-1.30); EST Glomerular Filtration Rate 17 mL/min (>60); Est Glom Filt Rate - Afr Amer 21 mL/min (>60); Estimated Creatinine Clearance 17.09 ml/min; Glucose 143 mg/dL (74-106); Potassium 3.7 mmol/L (3.5-5.1); Sodium Level 140 mmol/L (136-145); Troponin-I HS 196 pg/mL (3.0-78.0)
[2021-07-30 16:14] LABS: Anisocytosis RARE; Macrocytosis RARE; Platelet Estimate MOD DEC (ADEQ); Platelet Morphology LARGE; Red Cell Morphology N CHROM NORMAL (NORM C&C)
--- NOTE | 2021-07-30 16:50 | RAD_ITS ---
STUDY: X-RAY CHEST REASON FOR EXAM: Male, 75 years old. sob TECHNIQUE: Single AP portable view of the chest. COMPARISON: 07/22/2019 FINDINGS: Status post median sternotomy. The lungs are clear and expanded. Elevated right hemidiaphragm. There is moderate cardiac enlargement. Normal mediastinum and jacinto. Normal visualized pulmonary arteries. Normal visualized aortic arch and descending thoracic aorta. Normal visualized thoracic spine. Normal visualized ribs, clavicles, and shoulders. There is no demonstrated abnormality of the visualized soft tissue structures of the upper abdomen. RAD/Chest 1 View (Portable) IMPRESSION: No active disease. Electronically Signed: Werner Saldana MD at 17:05 EDT Tel , Service support ,
[2021-07-30 17:02] LABS: BNP,B-Type NATRIURETIC PEPTIDE 828.9 pg/mL (0-100)
[2021-07-30 17:45] LABS: Bedside Glucose 88 mg/dL (70-110)
[2021-07-30] MEDS: Aspirin 81 MG TAB.CHEW 324 MG PO (17:48)
--- NOTE | 2021-07-30 17:59 | ED.RN ---
Patient called out for bedside glucose check, completed. Patient given apple juice.
--- NOTE | 2021-07-30 18:05 | NURSING ---
SANDY YOUNG CHF EXAC, ELEVATED TROP, ABN EKG
[2021-07-30 18:11] LABS: Troponin-I HS 248 pg/mL (3.0-78.0)
--- NOTE | 2021-07-30 18:16 | PCM.HP.STD ---
Documented by User: MARILUZ Perez 07/30/21 18:29 HPI - General General Date of Admission: 07/30/21 Date of Service: 07/30/21 Chief Complaint: Dizziness HPI Narrative SANJAY MORRIS, is a 75 M who presents with dizziness. Patient states that approximately 2 weeks ago he began to feel dizzy and lightheaded when standing. Patient has been tracking his blood pressures and states that they were lower than his normal sometimes with systolics in the 80s to 100s. He notified cardiology who told him to hold his blood pressure meds x4 days however patient states that he held all of his blood pressure medications except for his Bumex due to concerns over increased swelling and causing CHF exacerbation. Patient states that he has not had any improvement in his symptoms since holding his blood pressure medications. Patient states that he is typically around 235 pounds and today he was on 247 however patient denies any increase in leg swelling or other signs and symptoms of CHF exacerbation. 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 Premature atrial contractions Renal insufficiency Restrictive pattern present on pulmonary function testing Stage 4 chronic kidney disease due to type 2 diabetes mellitus Type II diabetes mellitus Home Medications atorvastatin 80 mg PO QHS 10/16/14 [History Last Taken 07/28/21] aspirin 81 mg tablet,delayed release 81 mg PO DAILY 10/27/17 [History Last Taken 07/28/21] bumetanide 2 mg tablet 2 mg PO BID 10/27/17 [History Last Taken 07/28/21] cholecalciferol (vitamin D3) 50 mcg (2,000 unit) capsule 2,000 unit PO DAILY 06/23/19 [History Last Taken 07/28/21] clopidogrel 75 mg tablet 75 mg PO DAILY #90 tab 10/10/19 [Rx Last Taken 07/28/21] metolazone 5 mg tablet 5 mg PO DAILY PRN 07/31/20 [History Last Taken 07/27/21] allopurinol 100 mg tablet 100 mg PO BID tab 11/29/20 [History Last Taken 07/28/21] carvedilol 6.25 mg tablet 6.25 mg PO BID #180 tab 02/05/21 [Rx Last Taken 07/28/21] zolpidem 5 mg tablet 5 mg PO QHS PRN 05/29/21 [History Last Taken 07/28/21] calcitriol 0.25 mcg PO DAILY 07/30/21 [History Last Taken 07/28/21] insulin regular hum U-500 conc 80 unit SC BREAKFAST 07/30/21 [History Last Taken 07/30/21] insulin regular hum U-500 conc [Humulin R U-500 (Conc) Kwikpen] 20 unit SUBCUT DINNER 07/30/21 [History Last Taken 07/29/21] insulin regular hum U-500 conc [Humulin R U-500 (Conc) Kwikpen] 80 unit SUBCUT LUNCH 07/30/21 [History Last Taken 07/30/21] isosorbide mononitrate 60 mg PO BID 07/30/21 [History Last Taken 07/28/21] losartan 25 mg PO DAILY 07/30/21 [History Last Taken 07/28/21] Allergy/AdvReac Type Severity Reaction Status Date / Time exenatide [From Byetta] AdvReac Unknown Unknown Verified 07/30/21 15:29 lisinopril AdvReac Unknown Unknown Verified 07/30/21 15:29 Family History Mother Cancer Other Arthritis CVA (cerebral vascular accident) Diabetes High cholesterol Hypertension Myocardial infarction Surgical History H/O coronary artery bypass surgery (1988) H/O eye surgery History of coronary artery stent placement (01/12/18) History of parathyroidectomy Social History Smoking Status: Former smoker how long ago did patient quit smokin alcohol intake: current alcohol intake frequency: a few times a month substance use type: does not use caffeine: Yes Type: coffee Number of servings: 2 what type of physical activity do you participate in: none seatbelt use: always do you feel safe at home: Yes ROS Constitutional Constitutional: Reports weight gain; Denies anorexia, chills, fatigue, fever(s) or weakness Cardiovascular Cardiovascular: Reports edema and lightheadedness; Denies chest pain, palpitations, rapid heart rate or syncope Respiratory/Chest Respiratory/Chest: Reports cough, dry cough, dyspnea on exertion and shortness of breath with exertion; Denies shortness of breath at rest Gastrointestinal Gastrointestinal: Denies abdominal pain, constipation, diarrhea, nausea or vomiting Genitourinary Genitourinary: Denies dysuria Musculoskeletal Musculoskeletal: Denies back pain, extremity pain, joint pain or joint stiffness Integumentary Integumentary: Denies dry skin Neurologic Neurologic: Denies abnormal gait, abnormal speech, confusion or dizziness Psychiatric Psychiatric: Denies anxiety or depression Endocrine Endocrinology: Denies change in body appearance Hematologic/Lymphatic Hematologic/Lymphatic: Denies anemia, easy bleeding or easy bruising Vital Signs Vital Signs Vital Signs: 07/30/21 14:38 07/30/21 15:27 07/30/21 15:29 Temperature 96.3 F L Temperature Source Temporal Pulse Rate 69 96 Respiratory Rate 18 26 H Respiratory Effort Normal Blood Pressure 127/81 H 125/70 H Blood Pressure Mean 96 88 Pulse Ox 93 92 Oxygen Delivery Method Room Air Room Air 07/30/21 16:51 07/30/21 18:01 07/30/21 18:05 Temperature 97.9 F Temperature Source Oral Pulse Rate 98 95 97 Respiratory Rate 27 H 13 27 H Respiratory Effort Blood Pressure 141/68 H 134/88 H 136/88 H Blood Pressure Mean 92 103 104 Pulse Ox 92 95 101 Oxygen Delivery Method Room Air Room Air Room Air Weight Weight: 247 lb 6.4 oz Body Mass Index (BMI) 36.5 Physical Exam Const alert, oriented x3 and no apparent distress General Appearance: cooperative HEENT normocephalic and head/scalp atraumatic Eyes conjunctivae normal and no scleral icterus Neck supple General: trachea midline Resp normal respiratory effort and normal air movement Effort and Inspection: tachypneic Auscultation: diminished lung sounds Cardio regular rate, regular rhythm, S1 normal heart sound, S2 normal heart sound and peripheral pulses 2+ throughout GI normal to inspection, nondistended, normoactive bowel sounds, soft to palpation and non-tender Extremity normal capillary refill General Extremity: edema bilateral lower extremity Details: moderate and no tenderness to palpation of joints or extremities Skin General Skin Exam: no breakdown and turgor normal Lesions: no lesions Rashes: no rashes Neuro oriented x3, moves all extremities, no focal motor deficits and no sensory deficits noted Speech: speech normal Motor Exam: Negative for general weakness Psych thought process normal, cooperative and affect normal Appearance: appropriate Results Lab / Micro Data Result Diagrams: 07/30/21 15:25 07/30/21 15:25 Labs: Laboratory Results - last 24 hr 07/30/21 15:25: WBC 6.1, RBC 4.58 L, Hgb 13.6, Hct 43.6, MCV 95.2 H, MCH 29.7, MCHC 31.2 L, RDW Std Deviation 56.9 H, RDW Coeff of Alfreda 16.4 H, Plt Count 97 L, MPV 11.3, Immature Gran % (Auto) 0.500, Neut % (Auto) 74.4 H, Lymph % (Auto) 10.4 L, [place] % (Auto) 11.1 H, Eos % (Auto) 3.1, Baso % (Auto) 0.5, Absolute Neuts (auto) 4.5, Absolute Lymphs (auto) 0.63 L, Nucleated RBC % 0, Platelet Estimate MOD DEC, Plt Morphology Comment LARGE, RBC Morphology N CHROM, Anisocytosis RARE, Macrocytosis RARE 07/30/21 15:25: Sodium 140, Potassium 3.7, Chloride 96 L, Carbon Dioxide 34.0 H, Anion Gap 10, BUN 128 H*, Creatinine 3.62 H, Estim Creat Clear Calc 17.09, Est GFR (MDRD) Af Amer 21 L, Est GFR (MDRD) Non-Af 17 L, BUN/Creatinine Ratio 35.4 H, Glucose 143 H, Calcium 10.0, Troponin I High Sens 196 H* 07/30/21 15:25: B-Natriuretic Peptide 828.9 H 07/30/21 17:25: Troponin I High Sens 248 H* 07/30/21 17:40: POC Glucose 88 Micro: Microbiology 07/30/21 16:20 Nasal Secretion SARS-CoV-2 Antigen (Rapid) - Final Radiology Impression Chest X-Ray 07/30/21 16:50 IMPRESSION: No active disease. Electronically Signed: Werner Saldana MD at 17:05 EDT Tel , Service support , Assessment & Plan Assessment/Plan (1) Acute on chronic congestive heart failure: QUALIFIERS: Heart failure type: combined systolic and diastolic Qualified Code(s): I50.43 - Acute on chronic combined systolic (congestive) and diastolic (congestive) heart failure (2) Acute renal failure superimposed on stage 4 chronic kidney disease: QUALIFIERS: Acute renal failure type: unspecified Qualified Code(s): N17.9 - Acute kidney failure, unspecified; N18.4 - Chronic kidney disease, stage 4 (severe) PLAN: 1. Acute on chronic congestive heart failure -Admit to PCU for cardiac monitoring -Patient will be initiated on a Lasix drip at cardiology's recommendation -Trend cardiac enzymes -Cardiology consulted, case discussed with Dr. Menjivar -Thanh wraps to bilateral lower legs -Cardiac calorie controlled diet ordered -Strict intake and output along with daily weights ordered -Elevate bilateral lower extremities -Echocardiogram ordered for a.m.-encourage incentive spirometry -CBC, BMP, magnesium, phosphorus, TSH ordered for a.m. -Orthostatic vital signs negative 2. Acute renal failure superimposed on stage IV chronic kidney disease -BMP daily, will monitor BUN and creatinine -Patient initiated on Lasix drip for CHF exacerbation -Nephrology consulted as patient follows with Dr. Menchaca outpatient 3. Diabetes mellitus type 2 -Continue patient's home dosing of U500 insulin at mealtimes -AC at bedtime blood sugars with sliding scale insulin ordered 4. Hypertension -We will continue to hold patient's blood pressure medications at this time. -Vital signs per protocol, trend BP We will continue patient's home medications unless specified above for patient's chronic diseases DVT prophylaxis-SCDs and subcu heparin This patient was seen by MARILUZ Perez under the supervision of Dr. Mac. Documented by User: Dr. Angelica Mac DO 07/30/21 19:57 HPI - General General Date of Admission: 07/30/21 Date of Service: 07/30/21 Chief Complaint: Dizziness HPI Narrative This patient was seen in conjunction with Adamaris Tracy NP. The following represents my independent history and physical examination. Please see below for addendum the above. Mr. Pierre is a 75-year-old white male who has complex past medical history who presented to the emergency department [facility] on 07/30/2021 for some lightheadedness that he has been experiencing for approximately 2 weeks that is worse with standing and improved with sitting down. The patient indicates his blood pressure has been running low for the last 2 weeks and the majority of his pressures have been in the 100 systolics but he indicates he had a few in the 90s and even the 80s. He discussed his issues with the [facility] office 4 days ago and they suggested he discontinue his diuretics. He was concerned about discontinuing his diuretics because he was afraid he go into heart failure again. He states for the last day and a half he has not taken any of his blood pressure medications but had continued his Bumex. He states typically he weighs approximately 235 pounds but his weight today with his close on was 247 pounds he states that he feels like he is developing worsening heart failure. He does indicate with discontinuing his antihypertensives his blood pressure has been much improved. He complains of occasional dyspnea and a dry cough but is able to lie flat although he does prefer to sit upright more he denies any significant dyspnea but states typically his heart failure exacerbations include increased swelling in his legs and progress from there. The case was discussed with weasand trimmer-Dr. Menjivar-in the emergency department and he recommended initiating a Lasix drip and repeating an echocardiogram. His blood pressure was stable in the emergency department and most recently was 129/68. His BUN and creatinine are elevated compared to his baseline. Current serum creatinine is 3.62 and baseline serum creatinine appears to be 2.6-3.0. He does follow with nephrology at baseline. His BNP is elevated 828.9. His troponin was noted to be elevated as well with an initial of 196 and a repeat draw at 248. 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 Premature atrial contractions Renal insufficiency Restrictive pattern present on pulmonary function testing Stage 4 chronic kidney disease due to type 2 diabetes mellitus Type II diabetes mellitus Home Medications atorvastatin 80 mg PO QHS 10/16/14 [History Last Taken 07/28/21] aspirin 81 mg tablet,delayed release 81 mg PO DAILY 10/27/17 [History Last Taken 07/28/21] bumetanide 2 mg tablet 2 mg PO BID 10/27/17 [History Last Taken 07/28/21] cholecalciferol (vitamin D3) 50 mcg (2,000 unit) capsule 2,000 unit PO DAILY 06/23/19 [History Last Taken 07/28/21] clopidogrel 75 mg tablet 75 mg PO DAILY #90 tab 10/10/19 [Rx Last Taken 07/28/21] metolazone 5 mg tablet 5 mg PO DAILY PRN 07/31/20 [History Last Taken 07/27/21] allopurinol 100 mg tablet 100 mg PO BID tab 11/29/20 [History Last Taken 07/28/21] carvedilol 6.25 mg tablet 6.25 mg PO BID #180 tab 02/05/21 [Rx Last Taken 07/28/21] zolpidem 5 mg tablet 5 mg PO QHS PRN 05/29/21 [History Last Taken 07/28/21] calcitriol 0.25 mcg PO DAILY 07/30/21 [History Last Taken 07/28/21] insulin regular hum U-500 conc 80 unit SC BREAKFAST 07/30/21 [History Last Taken 07/30/21] insulin regular hum U-500 conc [Humulin R U-500 (Conc) Kwikpen] 20 unit SUBCUT DINNER 07/30/21 [History Last Taken 07/29/21] insulin regular hum U-500 conc [Humulin R U-500 (Conc) Kwikpen] 80 unit SUBCUT LUNCH 07/30/21 [History Last Taken 07/30/21] isosorbide mononitrate 60 mg PO BID 07/30/21 [History Last Taken 07/28/21] losartan 25 mg PO DAILY 07/30/21 [History Last Taken 07/28/21] Allergy/AdvReac Type Severity Reaction Status Date / Time exenatide [From Byetta] AdvReac Unknown Unknown Verified 07/30/21 15:29 lisinopril AdvReac Unknown Unknown Verified 07/30/21 15:29 Family History Mother Cancer Other Arthritis CVA (cerebral vascular accident) Diabetes High cholesterol Hypertension Myocardial infarction Surgical History H/O coronary artery bypass surgery (1988) H/O eye surgery History of coronary artery stent placement (01/12/18) History of parathyroidectomy Social History Smoking Status: Former smoker how long ago did patient quit smokin alcohol intake: current alcohol intake frequency: a few times a month substance use type: does not use caffeine: Yes Type: coffee Number of servings: 2 what type of physical activity do you participate in: none seatbelt use: always do you feel safe at home: Yes ROS Constitutional Constitutional: Reports change in weight and weight gain; Denies anorexia, chills, fatigue, fever(s), malaise, night sweats, weakness or weight loss Eyes Eyes: Denies blurry vision, change in vision, discharge from eye(s), double vision, erythema, eye pain, irritation or itchy eyes ENT HEENT: Denies abnormal hearing, dysphagia, ear pain, epistaxis, headache(s), hearing loss, loss taste/smell, nasal congestion, nasal discharge, post nasal drip, sinus pain, sinus pressure, sore throat or throat swelling Cardiovascular Cardiovascular: Reports edema; Denies chest pain, claudication, orthopnea, palpitations, paroxysmal nocturnal dyspnea or syncope Respiratory/Chest Respiratory/Chest: Reports shortness of breath with exertion Gastrointestinal Gastrointestinal: Denies abdominal pain, constipation, diarrhea, dyspepsia, hematemesis, hematochezia, melena, nausea or vomiting Genitourinary Genitourinary: Denies dysuria, hematuria, nocturia, oliguria, polyuria, urinary frequency, urinary hesitancy, urinary incontinence or urinary urgency Musculoskeletal Musculoskeletal: Denies back pain, extremity pain, joint pain, joint stiffness, joint swelling, limited range of motion, muscle weakness, neck pain or stiffness Integumentary Integumentary: Denies dry skin, jaundice, lesions, pruritus, rash or wounds Neurologic Neurologic: Denies abnormal gait, abnormal speech, confusion, dizziness, focal weakness, headache(s), lack of coordination, numbness, seizures, sensory deficit, tingling, tremor(s) or weakness Psychiatric Psychiatric: Denies anxiety, depression, homicidal ideation or suicidal ideation Endocrine Endocrinology: Denies change in body appearance, cold intolerance, heat intolerance, polydipsia or polyuria Hematologic/Lymphatic Hematologic/Lymphatic: Denies anemia, easy bleeding, easy bruising or lymphadenopathy Physical Exam Const alert, oriented x3 and no apparent distress Constitutional Narrative: Obese white male sitting up in bed, is at the bedside, nontoxic-appearing, very pleasant General Appearance: cooperative and well developed HEENT normocephalic, head/scalp atraumatic and moist oral mucous membranes HEENT Narrative: Dentition is fair, Mallampati is 3, no thrush Eyes PERRL and EOMs intact bilaterally Eyes Narrative: Conjunctive are normal bilaterally, no scleral icterus Neck no lymphadenopathy, supple, No no JVD, thyroid normal and no carotid bruits Neck Narrative: Positive JVD General: trachea midline Resp normal respiratory effort, normal air movement and clear to auscultation bilaterally Resp Narrative: Distant breath sounds secondary to body habitus, upper airway end expiratory wheeze but no adventitious lung sounds otherwise Auscultation: Negative for rales, rhonchi or wheezes Cardio regular rate, regular rhythm, S1 normal heart sound, S2 normal heart sound, no murmurs, no rub, no gallops and peripheral pulses 2+ throughout GI normal to inspection, nondistended, normoactive bowel sounds, soft to palpation, non-tender and non-distended Extremity normal capillary refill and no calf tenderness Extremity Narrative: Bilateral lower extremity edema, 1-2+, no cyanosis or clubbing General Extremity: no tenderness to palpation of joints or extremities Skin no wounds, skin turgor normal, no jaundice, no petechiae and no mottling General Skin Exam: no breakdown and turgor normal Lesions: no lesions Rashes: no rashes Neuro CN's II-XII intact bilaterally and no focal motor deficits Neuro Narrative: Generalized weakness-mild, proximal greater than distal Speech: speech normal Motor Exam: general weakness Psych thought process normal, cooperative and affect normal Appearance: appropriate Results Lab / Micro Data Attestation: I reviewed the patient's lab results. Result Diagrams: 07/30/21 15:25 07/30/21 15:25 Assessment & Plan Assessment/Plan (1) Acute on chronic congestive heart failure: QUALIFIERS: Heart failure type: combined systolic and diastolic Qualified Code(s): I50.43 - Acute on chronic combined systolic (congestive) and diastolic (congestive) heart failure (2) Acute renal failure superimposed on stage 4 chronic kidney disease: QUALIFIERS: Acute renal failure type: unspecified Qualified Code(s): N17.9 - Acute kidney failure, unspecified; N18.4 - Chronic kidney disease, stage 4 (severe) (3) NSTEMI, initial episode of care: PLAN: Assessment: Acute on chronic decompensated systolic and diastolic heart failure NSTEMI JUSTIN CKD stage IV DM-2 Hypertension Gout Hyperlipidemia Vitamin D deficiency Insomnia Obesity hypoventilation syndrome Obesity Plan: -Lasix drip -Echocardiogram -Cardiology consultation -Nephrology consultation -Cycle cardiac enzymes -We will continue to hold antihypertensives at this time -Would recommend slow reinitiation and titration while admitted for tolerance -Check orthostatic vitals -EKG shows no signs of acute ischemia and patient is chest pain-free -Continue home insulin regimen -Check lipids Charges/Coding Visit Charges Inpatient E&M: 85198 Init Hosp L3
[2021-07-30] MEDS: Furosemide 500 MG in Empty Viaflex 50 mL 1 EACH CONT INF (18:23)
[2021-07-30 18:27] LABS: Bacteria 0 SEEN /hpf (None Seen); Color, Urine Yellow (Yellow); Glucose, Dipstick Normal (Normal); Ketone-Dipstick Negative (Negative); Leukocyte Esterase-Dipstick Negative /ul (Negative); Mucous, Urine 0 SEEN /hpf (<or=2+); Nitrite-Dipstick Negative (Negative); Occult Blood-Urine Negative /ul (Negative); Protein-Dipstick Negative (Negative); Red Blood Cells-Urine 0 SEEN /hpf (0-5); Squamous Epithelial Cells - UA 0 SEEN /hpf (0-5); Urine Bilirubin Dipstick Negative (Negative); Urine Clarity Clear (Clear); Urine Urobilinogen Normal (Normal); White Blood Cells 0 SEEN /hpf (0-5)
--- NOTE | 2021-07-30 18:59 | ECHOCS_ITS ---
Reason For Study: CHF Procedure This was a 2D Doppler, Color Flow transthoracic echocardiogram. The study was technically difficult. Contrast injection was performed. Exam performed portable in patient room. Left Ventricle Moderately dilated left ventricle. Severe segmental systolic dysfunction (see wall motion). The estimated ejection fraction is 15 %. Diastolic function is indeterminate. Anterio-Basal: Hypokinetic. Lateral-Basal: Severely Hypokinetic. Posterior-Basal: Severely hypokinetic. Infero- Basal: Severely Hypokinetic. Basal inferoseptal: Akinetic. Basal anteroseptal: Akinetic. Mid- Anterior : Hypokinetic. Mid-Lateral : Hypokinetic. Mid-Posterior: Akinetic. Mid-Inferior: Akinetic. Mid-inferoseptal : Akinetic. Mid-anteroseptal : Akinetic. Anterior [place] : Akinetic. Inferior [place] : Akinetic. Lateral [place] : Hypokinetic. Septal [place] : Hypokinetic. Right Ventricle Mildly dilated right ventricle. Normal systolic function. Atria The left atrium is mildly enlarged. Normal right atrium. No doppler evidence for ASD. Mitral Valve There is mild mitral annular calcification. Mild diffuse mitral valve thickening. The mitral valve chordae are thickened and/or calcified. Mild papillary muscle dysfunction of the mitral valve. Moderate (2+) eccentric mitral valve insufficiency. Tricuspid Valve Normal tricuspid valve. Mild tricuspid valve insufficiency. Right ventricular systolic pressure estimated to be 34 mmHg. Aortic Valve Trisinus/trileaflet aortic valve. Moderate focal aortic valve calcification. Pulmonic Valve The pulmonic valve is not well visualized. Trivial pulmonic valve insufficiency. Great Vessels Normal sized aortic root. Calcified aortic root. Pericardium/Pleural No pericardial effusion. Medication Diluted definity 4.5ml given slow IV push to enhance endocardial definition. MMode/2D Measurements & Calculations LVIDd: 6.1 cm IVSd: 1.0 cm Ao root diam: 2.9 cm LVIDs: 5.6 cm LVPWd: 1.2 cm RVDd: 4.6 cm FS: 6.7 % LAV(MOD-bp): 71.4 ml LVAd ap4: 36.9 cm2 SV(MOD-sp4): 32.4 ml LAV(MOD-bp) Indexed: 32.0 ml/m2 LVLd ap4: 8.8 cm LAV(MOD-sp2): 74.6 ml EDV(MOD-sp4): 125.2 ml LAV(MOD-sp4): 67.5 ml EDV(sp4-el): 131.6 ml LVAs ap4: 30.1 cm2 LVLs ap4: 8.0 cm ESV(MOD-sp4): 92.8 ml ESV(sp4-el): 95.9 ml EF(MOD-sp4): 25.9 % EF(sp4-el): 27.2 % SV(sp4-el): 35.8 ml LA A4 area: 21.4 cm2 LA dimension(2D): 5.5 cm RA A4 area: 18.0 cm2 Doppler Measurements & Calculations MV E max moisés: 69.8 cm/sec Lat Peak E' Mois[place]: 6.3 cm/sec Med Peak E' Moisés: 3.5 cm/sec MV A max moisés: 63.6 cm/sec E/E' lat: 11.0 E/E' med: 19.7 MV E/A: 1.1 Ao V2 max: 135.2 cm/sec LV V1 max: 87.4 cm/sec PA V2 max: 79.6 cm/sec Ao max P.3 mmHg LV V1 max P.1 mmHg Ao V2 mean: 103.9 cm/sec Ao mean P.6 mmHg Ao V2 VTI: 24.5 cm TR max moisés: 276.1 cm/sec TR max P.5 mmHg ECHO/Echo Complete W/ Contrast Interpretation Summary The study was technically difficult. Contrast injection was performed. Moderately dilated left ventricle. Severe segmental systolic dysfunction (see wall motion). The estimated ejection fraction is 15 %. Mildly dilated right ventricle. The left atrium is mildly enlarged. There is mild mitral annular calcification. Mild diffuse mitral valve thickening. The mitral valve chordae are thickened and/or calcified. Mild papillary muscle dysfunction of the mitral valve. Moderate (2+) eccentric mitral valve insufficiency. Mild tricuspid valve insufficiency. Moderate focal aortic valve calcification. Trivial pulmonic valve insufficiency. Calcified aortic root. Right ventricular systolic pressure estimated to be 34 mmHg. Diastolic function is indeterminate. Ordering Physician: Angelica Mac Referring Physician: Jackson Mesa Performed By: Saige Ferguson, DARRION, RVT
--- NOTE | 2021-07-30 19:40 | PCS.PANDOC ---
PANDEMIC DOCUMENTATION INITIATED: Date: 05/20/2021 Time: 190
--- NOTE | 2021-07-30 20:51 | CON.PCM.CA_ITS ---
Assessment & Plan Assessment/Plan (1) Abnormal cardiac enzyme level: PLAN: The patient does have abnormal cardiac enzymes/troponin I levels. At the present time the patient does not demonstrate ongoing symptoms of an a cute coronary syndrome. He has not had any acute electrocardiographic changes. His troponin I levels may be secondary to a type II event secondary to his underlying concerns of acute on chronic CHF as well as his acute on chronic renal insufficiency. The patient will continue to be monitored with his cardiac enzymes and his ECG. An echocardiogram will be requested to evaluate his left ventricular wall motion systolic function. He does have underlying CAD with previous noninvasive and invasive studies as noted. It appears in the past there is been a recommendation for further evaluation with diagnostic cardiac catheterization however this has been placed on hold based upon his underlying renal insufficiency and the concerns of IV contrast related nephropathy. DOS the patient has been continuing medical management. (2) Atherosclerotic heart disease of [place] coronary artery without angina pectoris: QUALIFIERS: [place] vs. transplanted heart: [place] heart Qualified Code(s): I25.10 - Atherosclerotic heart disease of [place] coronary artery without angina pectoris PLAN: The patient does have underlying CAD as previously described. He has continued medical therapy. He will continue his noninvasive evaluation at this time. (3) History of coronary artery stent placement: PLAN: The patient has a history of both PCI and CABG. His most recent PCI procedure is as noted. He will continue to be monitored, continue noninvasive valuation, and continue medical therapy. (4) H/O coronary artery bypass surgery: PLAN: The patient has undergone remote CABG in the past. Again he will continue his noninvasive evaluation and adequate management at this time. (5) Ischemic cardiomyopathy: PLAN: The patient has a history of an ischemic mediated cardiomyopathy. His left ventricular wall motion systolic function will be reassessed with an echocardiogram to help guide evaluation and care. (6) Diastolic CHF: PLAN: There is concern the patient has developed an element of acute on chronic diastolic mediated CHF. He will continue noninvasive valuation with an echocardiogram to reassess his left ventricular wall motion systolic function. In the interim he will continue medical therapy with his IV diuretic therapy. His renal function will be followed. (7) Hyperlipidemia: QUALIFIERS: Hyperlipidemia type: mixed hyperlipidemia Qualified Code(s): E78.2 - Mixed hyperlipidemia PLAN: The patient should continue risk factor evaluation and care/medical management. (8) Essential (primary) hypertension: PLAN: The patient states his blood pressure has been low. It is unclear whether this is related to an alteration in his cardiovascular status, renal function, medications, etc. The patient's blood pressure will be followed. His noninvasive study will proceed. He will need his medications readjusted accordingly. 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 (10) Acute renal failure superimposed on stage 4 chronic kidney disease: QUALIFIERS: Acute renal failure type: unspecified Qualified Code(s): N17.9 - Acute kidney failure, unspecified; N18.4 - Chronic kidney disease, stage 4 (severe) PLAN: The patient appears to have developed acute on chronic renal insufficiency. Is unclear whether this is related to a change in his cardiovascular status and concerns of acute on chronic diastolic mediated CHF and a cardiorenal syndrome. He will continue cardiovascular medical therapy/diuresis. His medications will be adjusted accordingly. He may need further input from his nephrology team. (11) Dizziness: PLAN: The patient appears to correlate his dizziness with low blood pressures. Again it is unclear as to the exact etiology of what transpired at home with alteration in his blood pressures. At the moment, at rest, he is not having these symptoms. Also his blood pressures do not appear to be low at the moment. He will need to be followed with reassessment and readjustment as needed. Addt'l Comments The above was discussed and reviewed with the patient and the [facility] emergency department staff. This note was generated using a voice recognition system and there may be incorrect words, spelling or punctuation that were not noted when reviewing the office note prior to saving. HPI Consult Data Date of Consult: 07/30/21 HPI Narrative HPI Narrative: SANJAY MORRIS, is a 75 year old white male who presents for cardiovascular consultation for accommodation of symptoms which he states included dizziness/lightheadedness and subsequent concerns by his PCP of CHF superimposed upon a history of underlying CAD, CABG, LCx PTCA/VINICIO (2018), chronic diastolic mediated CHF, hyperlipidemia, hypertension, diabetes mellitus, and chronic renal insufficiency. The patient states that recently has been noticing episodes of dizziness and lightheadedness. He states at home his blood pressures were low. He states he contacted the [facility] office and was given a recommendation to place his diuretic therapy on hold. He states he did so for 1 day without any significant changes. He elected to place his nondiuretic medications on hold, resume his diuretic medications, and continue his diabetic medications. He then made an appointment with his PCP. He states based upon his PCP appointment there was concerns that he may have entered CHF. He was referred to the emergency department for further evaluation. In the emergency department he was evaluated and found to have elevated troponin I levels, an ECG demonstrating sinus rhythm with PVCs with left axis deviation and a left bundle branch block pattern, and a chest x-ray which was thought to demonstrate an element of increased pulmonary vascularity compatible with CHF. He was also noted to have an abnormal BNP level at 828.9. His creatinine level had also increased from 2.79 on 07-18-20 1-3.62. A recommendation was made for the patient to be brought into the hospital for further evaluation and care including additional noninvasive studies such as a transthoracic echocardiogram and adjustment of the patient's medications including diuretic therapy to assist with the patient's volume control with monitoring of his renal function. The patient does state that he has undergone hemodialysis orientation based upon his nephrology recommendations and concerns that he will 1 day be a hemodialysis patient. The patient has denied any ongoing chest discomfort. He has denied any worsening of his chronic lower extremity peripheral pitting edema. There has been no near syncope or syncope. He states there is always a balancing act between his heart and his kidneys and his volume status. [facility] Medical History (Updated 07/30/21 @ 21:[address] 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 Premature atrial contractions Renal insufficiency Restrictive pattern present on pulmonary function testing Stage 4 chronic kidney disease due to type 2 diabetes mellitus Type II diabetes mellitus Home Medications atorvastatin 80 mg PO QHS 10/16/14 [History Last Taken 07/28/21] aspirin 81 mg tablet,delayed release 81 mg PO DAILY 10/27/17 [History Last Taken 07/28/21] bumetanide 2 mg tablet 2 mg PO BID 10/27/17 [History Last Taken 07/28/21] cholecalciferol (vitamin D3) 50 mcg (2,000 unit) capsule 2,000 unit PO DAILY 06/23/19 [History Last Taken 07/28/21] clopidogrel 75 mg tablet 75 mg PO DAILY #90 tab 10/10/19 [Rx Last Taken 07/28/21] metolazone 5 mg tablet 5 mg PO DAILY PRN 07/31/20 [History Last Taken 07/27/21] allopurinol 100 mg tablet 100 mg PO BID tab 11/29/20 [History Last Taken 07/28/21] carvedilol 6.25 mg tablet 6.25 mg PO BID #180 tab 02/05/21 [Rx Last Taken 07/28/21] zolpidem 5 mg tablet 5 mg PO QHS PRN 05/29/21 [History Last Taken 07/28/21] calcitriol 0.25 mcg PO DAILY 07/30/21 [History Last Taken 07/28/21] insulin regular hum U-500 conc 80 unit SC BREAKFAST 07/30/21 [History Last Taken 07/30/21] insulin regular hum U-500 conc [Humulin R U-500 (Conc) Kwikpen] 20 unit SUBCUT DINNER 07/30/21 [History Last Taken 07/29/21] insulin regular hum U-500 conc [Humulin R U-500 (Conc) Kwikpen] 80 unit SUBCUT LUNCH 07/30/21 [History Last Taken 07/30/21] isosorbide mononitrate 60 mg PO BID 07/30/21 [History Last Taken 07/28/21] losartan 25 mg PO DAILY 07/30/21 [History Last Taken 07/28/21] Allergy/AdvReac Type Severity Reaction Status Date / Time exenatide [From [place]] AdvReac Unknown Unknown Verified 07/30/21 15:29 lisinopril AdvReac Unknown Unknown Verified 07/30/21 15:29 Family History Mother Cancer Other Arthritis CVA (cerebral vascular accident) Diabetes High cholesterol Hypertension Myocardial infarction Surgical History H/O coronary artery bypass surgery (1988) H/O eye surgery History of coronary artery stent placement (01/12/18) History of parathyroidectomy Social History Smoking Status: Former smoker how long ago did patient quit smokin alcohol intake: current alcohol intake frequency: a few times a month substance use type: does not use caffeine: Yes Type: coffee Number of servings: 2 what type of physical activity do you participate in: none seatbelt use: always do you feel safe at home: Yes ROS ROS Narrative This is a 75-year-old white male who appears to be resting reasonably comfortably at the moment in no acute distress. Eyes Eyes: Reports as per HPI ENT HEENT: Reports as per HPI Cardiovascular Cardiovascular: Reports dizziness, dyspnea and pedal edema Respiratory/Chest Respiratory/Chest: Reports dyspnea Gastrointestinal Gastrointestinal: Reports as per HPI Genitourinary Genitourinary: Reports as per HPI Musculoskeletal Musculoskeletal: Reports as per HPI Integumentary Integumentary: Reports as per HPI Neurologic Neurologic: Reports as per HPI Psychiatric Psychiatric: Reports as per HPI Physical Exam Const alert, oriented x3 and no apparent distress Orientation / Consciousness: awake HEENT normocephalic, head/scalp atraumatic and hearing grossly normal bilaterally Eyes PERRL, EOMs intact bilaterally and conjunctivae normal Neck full ROM and supple Chest Chest: midline sternotomy incision Resp Auscultation: wheezes inspiratory wheezes and diminished lung sounds bilateral throughout Cardio regular rate, regular rhythm, S1 normal heart sound and S2 normal heart sound Jugular Venous Distention: JVD Rate: other Rhythm: abnormal rhythm ectopic beats GI normal to inspection, nondistended, normoactive bowel sounds Extremity General Extremity: edema bilateral lower extremity Details: mild Skin no rashes or lesions noted Neuro oriented x3, moves all extremities, no focal motor deficits and no sensory d eficits noted Psych mental status grossly normal Risk Stratification Risk Stratification Applicable: Yes Age >/= 65: Yes >/= 3 CAD Risk Factors (HTN, HLD, DM, family hx of CAD, or current smoker): Yes Aspirin Use in the Past 7 Days: Yes Severe Angina (>/= episodes in 24 hours): No EKG ST Changes >/= 0.5mm: No Positive Cardiac Marker: Yes ALESSIA Risk Stratification Score: 4 ALESSIA % Risk: 20% Risk Procedure Criteria Type of Procedure Procedure Type: Elective Elective Risks - COVID COVID Risk Discussion: The surgeon/proceduralist and patient have discussed in detail the risk of exposure to and/or potential harm posed by the COVID-19 virus with having a surgery/procedure at this time versus the risk of delaying the surgery/procedure. It is not possible to know either the risk of delaying the surgery or procedure or chance of getting an infection with perfect accuracy, but a joint decision was made between the patient and the surgeon/proceduralist to proceed at this time with the scheduled surgery/procedure as indicated on the consent form. Objective Data Vital Signs: Vital Signs Temp Pulse Resp BP Pulse Ox 98.2 F 93 16 129/68 H 93 07/30/21 19:01 07/30/21 19:01 07/30/21 19:01 07/30/21 19:01 07/30/21 19:20 Oxygen Delivery Method Room Air Weight: 241 lb 10.026 oz Body Mass Index (BMI) 35.6 Lab / Micro Data Result Diagrams: 07/30/21 15:25 07/30/21 15:25 Labs: Laboratory Results - last 24 hr 07/30/21 15:25: WBC 6.1, RBC 4.58 L, Hgb 13.6, Hct 43.6, MCV 95.2 H, MCH 29.7, MCHC 31.2 L, RDW Std Deviation 56.9 H, RDW Coeff of Alfreda 16.4 H, Plt Count 97 L, MPV 11.3, Immature Gran % (Auto) 0.500, Neut % (Auto) 74.4 H, Lymph % (Auto) 10.4 L, [place] % (Auto) 11.1 H, Eos % (Auto) 3.1, Baso % (Auto) 0.5, Absolute Neuts (auto) 4.5, Absolute Lymphs (auto) 0.63 L, Nucleated RBC % 0, Platelet Estimate MOD DEC, Plt Morphology Comment LARGE, RBC Morphology N CHROM, Anisocytosis RARE, Macrocytosis RARE 07/30/21 15:25: Sodium 140, Potassium 3.7, Chloride 96 L, Carbon Dioxide 34.0 H, Anion Gap 10, BUN 128 H*, Creatinine 3.62 H, Estim Creat Clear Calc 17.09, Est GFR (MDRD) Af Amer 21 L, Est GFR (MDRD) Non-Af 17 L, BUN/Creatinine Ratio 35.4 H , Glucose 143 H, Calcium 10.0, Troponin I High Sens 196 H* 07/30/21 15:25: B-Natriuretic Peptide 828.9 H 07/30/21 17:25: Troponin I High Sens 248 H* 07/30/21 17:40: POC Glucose 88 07/30/21 18:15: Urine Color Yellow, Urine Clarity Clear, Urine pH 6.0, Ur Specific Vancleve 1.010, Urine Protein Negative, Urine Glucose (UA) Normal, Urine Ketones Negative, Urine Occult Blood Negative, Urine Nitrite Negative, Urine Bilirubin Negative, Urine Urobilinogen Normal, Ur Leukocyte Esterase Negative, Urine RBC 0 SEEN, Urine WBC 0 SEEN, Ur Squamous Epith Cells 0 SEEN, Urine Bacteria 0 SEEN, Urine Mucus 0 SEEN Micro: Microbiology 07/30/21 16:20 Nasal Secretion SARS-CoV-2 Antigen (Rapid) - Final Cardiology Labs/Tests 07/30/21 15:25: WBC 6.1, RBC 4.58 L, Hgb 13.6, Hct 43.6, MCV 95.2 H, MCH 29.7, MCHC 31.2 L, Plt Count 97 L, MPV 11.3, Immature Gran % (Auto) 0.500, Neut % (Auto) 74.4 H, Lymph % (Auto) 10.4 L, [place] % (Auto) 11.1 H, Eos % (Auto) 3.1, Baso % (Auto) 0.5, Absolute Neuts (auto) 4.5, Nucleated RBC % 0 07/30/21 15:25: Sodium 140, Potassium 3.7, Chloride 96 L, Carbon Dioxide 34.0 H, Anion Gap 10, BUN 128 H*, Creatinine 3.62 H, Est GFR (MDRD) Af Amer 21 L, Est GFR (MDRD) Non-Af 17 L, BUN/Creatinine Ratio 35.4 H, Glucose 143 H, Calcium 10.0 07/30/21 15:25: B-Natriuretic Peptide 828.9 H 07/30/21 18:15: Urine Color Yellow, Urine Clarity Clear, Urine pH 6.0, Ur Specific [place]ancleve 1.010, Urine Protein Negative, Urine Glucose (UA) Normal, Urine Ketones Negative, Urine Occult Blood Negative, Urine Nitrite Negative, Urine Bilirubin Negative, Urine Urobilinogen Normal, Ur Leukocyte Esterase Negative, Urine RBC 0 SEEN, Urine WBC 0 SEEN Rhythm: Sinus rhythm; PVCs EKG: As noted above ECHO: 07-22-2019 Interpretation Summary Normal LV size. Moderate concentric left ventricular hypertrophy. The estimated ejection fraction is 55 %. Stage 2 diastolic dysfunction. Left ventricular systolic function is normal. Contrast injection was performed. Compared to previous study, the left ventricular systolic function has improved.. Stress Test: 07-06-2019 Stress Test Report Exercise myocardial perfusion stress test. 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 Presents with chest shortness of breath. Medications: Lipitor, aspirin, Bumex, Plavix, losartan, carvedilol. Resting EKG: The resting EKG demonstrates sinus rhythm with a rate of 76 bpm premature ventricular complexes are noted mildly downsloping ST depression is noted in leads II, III and aVF and V5 and V6. The patient exercised according to regular Wood protocol for total duration of 4 minutes. Patient completed 1 minute into stage II of the Wood protocol the maximum heart rate attained was 129 bpm which was 88% of maximum predicted heart rate the maximum workload was 5.[address] At rest ST-T wave changes were noted at peak exercis e nonspecific ST-T wave changes were noted with no meet the criteria for ischemia. The patient developed marked shortness of breath necessitating termination of the test. No chest pain was noted. The resting blood pressure was 126/82 with a peak blood pressure 160/72 mmHg. Myocardial perfusion protocol. 11.8 mCi of technetium 99m sestamibi was injected at rest. Patient exercised for 4 minutes and at peak exercise 35.8 mCi of technetium 99m sestamibi was injected stress images were obtained stress and rest images were reconstructed and compared in the short axis vertical long horizontal long axis. Gated images were also obtained Perfusion SPECT analysis: Review of the stress images demonstrate a normal cardiac silhouette size. There is a medium-sized defect noted on the stress images in the inferolateral segment which appears to completely reperfused on the resting images suggesting a moderate amount of inferolateral ischemia noted. No previous infarct is noted. Gated SPECT analysis: The gated ejection fraction is noted to be 40%. Conclusion: Ischemic cardiomyopathy. Abnormal exercise myocardial perfusion scan with medium size of ischemia noted in the inferolateral distribution. Low exercise capacity noted Cardiac Cath: 01-08-2018 CONCLUSIONS Severe [place] vessel disease. Saphenous vein graft to the right coronary artery and to the circumflex artery patent with distal [place] circumflex artery disease. Internal mammary artery to the left anterior descending artery which is patent with distal LAD with mild disease. RECOMMENDATIONS Referred for immediate PCI DESCRIPTION OF PROCEDURE The patient arrived to the procedure lab. The risks and benefits of the pr ocedure as well as a full description of our services here and current unavailability of surgical backup were fully explained to the patient and/or their significant other prior to the catheterization. The Timeout was completed, verifying the correct patient and procedure. The patient's procedural site was prepped and draped in the usual fashion. Local anesthetic was given subcutaneously to right groin region with Lidocaine 2%. Using a modified Seldinger technique, arterial access was obtained via the right femoral artery, a 5Fr sheath was inserted. Left Coronary Artery selective angiography was performed in multiple views using a 5 Fr. JL4 catheter. Right Coronary Artery selective angiography was then performed in multiple views using a 5 Fr. 3DRC (Doe) catheter. Left internal mammary artery graft to the LAD selective angiography was performed in multiple views using a 5 Fr. 3DRC (Doe) catheter. Left internal mammary artery graft to the LAD sequential to Diag selective angiography was performed in multiple views using a 5 Fr. IM catheter. Saphenous Vein graft to the Circumflex selective angiography was performed in multiple views using a 5 Fr. IM catheter. Saphenous Vein graft to the RCA selective angiography was performed in multiple views using a 5 Fr. IM catheter. CORONARY ANGIOGRAPHY DOMINANCE: Right Dominant LEFT HEART ASSESSMENT Left Ventricular Ejection Fraction: by Echo 35 % LEFT MAIN: 90 % Stenosis LEFT ANTERIOR DECENDING ARTERY: is occluded CIRCUMFLEX ARTERY: is occluded OM 2: Mid - 70 % Stenosis RIGHT CORONARY ARTERY: severe [place] vessel disease. GRAFTS: GANN graft to the Mid LAD is patent Saphenous Vein graft to the 2nd OM is patent Saphenous Vein graft to the RPDA is patent PCI: 01-08-2018 PTCA/VINICIO through the SVG to OM 2 with a 2.25x16 Promus Synergy drug-eluting stent Radiography Diagnostic Testing: Radiology Impression Chest X-Ray 07/30/21 16:50 IMPRESSION: No active disease. Electronically Signed: Werner Saldana MD at 17:05 EDT Tel , Service support ,
[2021-07-30] MEDS: Glucerna Shake 120 ML LIQUID PO (21:25)
[2021-07-30] MEDS: Atorvastatin Calcium 80 MG Tablet PO (21:28)
[2021-07-30] MEDS: Heparin Injection (Vial) 5,000 UNIT/ML VIAL 5000 UNIT SC (21:28)
[2021-07-30 22:11] LABS: Troponin-I HS 277 pg/mL (3.0-78.0)
[2021-07-30 23:00] LABS: Bedside Glucose 227 mg/dL (70-110)
[2021-07-30] MEDS: Zolpidem Tartrate 5 MG Tablet PO (23:30)
[2021-07-31] VITALS (11 sets, daily range): BP systolic 110–133; BP diastolic 63–85; PULSE 89–112; RESP 16–28; TEMP 36.2–37; O2SAT 93–97
[2021-07-31] MEDS: Heparin Injection (Vial) 5,000 UNIT/ML VIAL 5000 UNIT SC ×3 (05:32→22:28)
--- NOTE | 2021-07-31 05:55 | EKG12_ITS ---
Test Reason : AM Blood Pressure : / mmHG Vent. Rate : 102 BPM Atrial Rate : 102 BPM P-R Int : 192 ms QRS Dur : 150 ms QT Int : 404 ms P-R-T Axes : 104 -39 138 degrees QTc Int : 526 ms Sinus tachycardia with Fusion complexes Left axis deviation Left bundle branch block Abnormal ECG When compared with ECG of 10-FEB-2018 11:07, Fusion complexes are now Present Premature atrial complexes are no longer Present Left bundle branch block is now Present Confirmed by ABRAHAM KILGORE, IRINA ([id number]), editor sound DYLAN ALVAREZ ([id number]) on 07/31/2021 1:54:25 PM Referred By: CRIS Confirmed By:IRINA ROSARIO MD
[2021-07-31 06:58] LABS: Absolute Lymphocyte Count 0.68 X10^3/uL (0.83-4.51); Basophil# 0.03 X10^3/uL; Basophil% 0.5 % (0-1); Eosinophil# 0.15 X10^3/uL; Eosinophils% 2.3 % (0-5); Hematocrit 43.8 % (40-54); Hemoglobin 13.5 g/dL (13.0-16.5); Lymphocyte # 0.68 X10^3/ul (0.83-4.51); Lymphocyte % 10.4 % (19-41); Mean Corp Hgb Conc 30.8 g/dL (32-36); Mean Corpuscular Hgb 29.9 pg (27.0-32.0); Mean Corpuscular Volume 96.9 fL (80-94); Mean Platelet Vol. 11.5 fl (6.2-12.0); Monocyte# 0.66 X10^3/uL; Monocyte% 10.1 % (0-10); NRBC Flagged by Analyzer 0 % (0-5); Neutrophil # 4.97 X10^3/uL (2.7-7.7); Neutrophil % 76.2 % (47-70); POSITIVE COUNT YES; Platelet Count 97 K/mm3 (150-450); RBC Distribution Width CV 16.3 % (11.6-14.6); RBC Distribution Width SD 58.2 fl (35.1-43.9); Red Blood Count 4.52 M/mm3 (4.6-6.2); White Blood Count 6.5 K/mm3 (4.4-11.0)
[2021-07-31 07:52] LABS: Anion Gap 14 (5-15); BUN 128 mg/dL (7-18); BUN/Creat Ratio 38.1 RATIO (10-20); Calcium,Total 10.3 mg/dL (8.5-10.1); Chloride 95 mmol/L (98-107); Cholesterol 117 mg/dL (200); Creatinine, Serum 3.36 mg/dL (0.70-1.30); EST Glomerular Filtration Rate 19 mL/min (>60); Est Glom Filt Rate - Afr Amer 23 mL/min (>60); Estimated Creatinine Clearance 18.41 ml/min; Glucose 268 mg/dL (74-106); High Density Lipoprotein 29 mg/dL; Magnesium 2.6 mg/dL (1.6-2.6); Phosphorus 4.6 mg/dL (2.5-4.9); Potassium 3.9 mmol/L (3.5-5.1); Sodium Level 138 mmol/L (136-145); Thyroid Stim Hormone (TSH) 2.81 uIU/mL (0.358-3.74); Triglycerides 124 mg/dL; Very Low Density Lipoprotein 25 mg/dL (5-40)
[2021-07-31] MEDS: Insulin U-500 UNITS/ML PEN 80 UNITS SC ×2 (08:28→12:25)
[2021-07-31] MEDS: Aspirin E.C. 81 MG Tablet PO (08:29)
[2021-07-31] MEDS: Polyethylene Glycol 3350 17 GM PACKET PO (08:30)
[2021-07-31] MEDS: Calcitriol 0.25 MCG Capsule PO (08:30)
[2021-07-31] MEDS: Clopidogrel Bisulfate 75 MG Tablet PO (08:30)
[2021-07-31] MEDS: Allopurinol 100 MG Tablet PO ×2 (08:30→17:38)
[2021-07-31] MEDS: Cholecalciferol (VIT D3) 25 MCG TABLET (1,000 UNITS) 50 MCG PO (08:31)
[2021-07-31 08:41] LABS: Bedside Glucose 286 mg/dL (70-110)
--- NOTE | 2021-07-31 10:41 | PN.HOSP_ITS ---
Documented by User: Glenna Lindquist NP, SENIOR PROGRAM ANALYST-C 07/31/21 11:01 Subjective Subjective Patient seen and examined. Denies shortness of breath, chest pressure, palpitations. States he is about 7 to 8 pounds over his baseline weight. Reports chronic lower extremity swelling, does not feel it is significantly inc reased above his baseline. Objective Data Objective Data Vital Signs: Vital Signs Temp Pulse Resp BP Pulse Ox 97.2 F L 105 H 16 123/76 H 94 07/31/21 05:30 07/31/21 07:00 07/31/21 05:30 07/31/21 05:30 07/31/21 07:56 Oxygen Delivery Method Room Air Weight: 241 lb 10.026 oz Body Mass Index (BMI) 35.6 Intake & Output: Intake and Output for Last 24 Hours 07/29/21 07/30/21 07/31/21 23:59 23:59 23:59 Intake Total 240 / 240 240 / 240 Output Total 500 / 500 600 / 600 Balance -260 / -260 -360 / -360 Lab / Micro Data Result Diagrams: 07/31/21 05:56 07/31/21 05:56 Labs: Laboratory Results - last 24 hr 07/30/21 15:25: WBC 6.1, RBC 4.58 L, Hgb 13.6, Hct 43.6, MCV 95.2 H, MCH 29.7, MCHC 31.2 L, RDW Std Deviation 56.9 H, RDW Coeff of Alfreda 16.4 H, Plt Count 97 L, MPV 11.3, Immature Gran % (Auto) 0.500, Neut % (Auto) 74.4 H, Lymph % (Auto) 10 .4 L, [place] % (Auto) 11.1 H, Eos % (Auto) 3.1, Baso % (Auto) 0.5, Absolute Neuts (auto) 4.5, Absolute Lymphs (auto) 0.63 L, Nucleated RBC % 0, Platelet Estimate MOD DEC, Plt Morphology Comment LARGE, RBC Morphology N CHROM, Anisocytosis RARE, Macrocytosis RARE 07/30/21 15:25: Sodium 140, Potassium 3.7, Chloride 96 L, Carbon Dioxide 34.0 H, Anion Gap 10, BUN 128 H*, Creatinine 3.62 H, Estim Creat Clear Calc 17.09, Est GFR (MDRD) Af Amer 21 L, Est GFR (MDRD) Non-Af 17 L, BUN/Creatinine Ratio 35.4 H , Glucose 143 H, Calcium 10.0, Troponin I High Sens 196 H* 07/30/21 15:25: B-Natriuretic Peptide 828.9 H 07/30/21 17:25: Troponin I High Sens 248 H* 07/30/21 17:40: POC Glucose 88 07/30/21 18:15: Urine Color Yellow, Urine Clarity Clear, Urine pH 6.0, Ur Specific [place] 1.010, Urine Protein Negative, Urine Glucose (UA) Normal, Urine Ketones Negative, Urine Occult Blood Negative, Urine Nitrite Negative, Urine Bilirubin Negative, Urine Urobilinogen Normal, Ur Leukocyte Esterase Negative, Urine RBC 0 SEEN, Urine WBC 0 SEEN, Ur Squamous Epith Cells 0 SEEN, Urine Bacteria 0 SEEN, Urine Mucus 0 SEEN 07/30/21 20:55: Troponin I High Sens 277 H* 07/30/21 21:20: POC Glucose 227 H 07/31/21 05:56: WBC 6.5, RBC 4.52 L, Hgb 13.5, Hct 43.8, MCV 96.9 H, MCH 29.9, MCHC 30.8 L, RDW Std Deviation 58.2 H, RDW Coeff of Alfreda 16.3 H, Plt Count 97 L, MPV 11.5, Immature Gran % (Auto) 0.500, Neut % (Auto) 76.2 H, Lymph % (Auto) 10.4 L, [place] % (Auto) 10.1 H, Eos % (Auto) 2.3, Baso % (Auto) 0.5, Absolute Neuts (auto) 5.0, Absolute Lymphs (auto) 0.68 L, Nucleated RBC % 0 07/31/21 05:56: Sodium 138, Potassium 3.9, Chloride 95 L, Carbon Dioxide 29.0, Anion Gap 14, BUN 128 H*, Creatinine 3.36 H, Estim Creat Clear Calc 18.41, Est GFR (MDRD) Af Amer 23 L, Est GFR (MDRD) Non-Af 19 L, BUN/Creatinine Ratio 38.1 H , Glucose 268 H, Calcium 10.3 H, Phosphorus 4.6, Magnesium 2.6, Triglycerides 124, Cholesterol 117, LDL Cholesterol 63, VLDL Cholesterol 25, HDL Cholesterol 29 L, TSH 2.81 07/31/21 08:24: POC Glucose 286 H Micro: Microbiology 07/30/21 19:19 Mucosa - Nasopharyngeal Respiratory Panel (PCR) - Final 07/30/21 16:20 Nasal Secretion SARS-CoV-2 Antigen (Rapid) - Final Radiography Diagnostic Testing: Radiology Impression Chest X-Ray 07/30/21 16:50 IMPRESSION: No active disease. Electronically Signed: Werner Saldana MD at 17:05 EDT Tel , Service support , Physical Exam Const alert, oriented x3 and no apparent distress Orientation / Consciousness: awake, oriented to person, oriented to place and oriented to time HEENT normocephalic and moist oral mucous membranes Eyes PERRL, EOMs intact bilaterally and conjunctivae normal Neck no lymphadenopathy Resp clear to auscultation bilaterally Auscultation: diminished lung sounds Cardio regular rate, regular rhythm and no murmurs Peripheral Pulses: pulses 2+ throughout GI normal to inspection, nondistended, normoactive bowel sounds, non-tender and non-distended Extremity normal to inspection General Extremity: edema bilateral lower extremity Details: moderate Skin no rashes or lesions noted Lesions: no lesions Rashes: no rashes Trauma: no lacerations or abrasions Neuro CN's II-XII intact bilaterally, no focal motor deficits, no sensory deficits noted and deep tendon reflexes 2+ bilaterally Psych mental status grossly normal and affect normal Assessment & Plan Assessment/Plan (1) Abnormal cardiac enzyme level: (2) JUSTIN (acute kidney injury): (3) Acute on chronic congestive heart failure: QUALIFIERS: Heart failure type: combined systolic and diastolic Qualified Code(s): I50.43 - Acute on chronic combined systolic (congestive) and diastolic (congestive) heart failure PLAN: 1. Acute on chronic heart failure with preserved ejection fraction- BNP 828. CTA of chest with diffuse interstitial edema in both lungs rivera. Echocardiogram 07/25/2019 demonstrated an EF of 55%, stage II diastolic dysfunction. Lasix drip. Strict I&O. Daily weight. Repeat echocardiogram pending. Cardiology following. 2. NSTEMI-cardiology consulted. Suspect demand ischemia related to #1. Echocardiogram pending. 3. CAD with history of PCI and CABG-on aspirin, statin, Plavix, beta-monica. 4. JUSTIN on CKD stage IV-nephrology following. Trending trending down with Lasix drip. Trend BMP. 5. Type 2 diabetes tivemmax-Iqyw-Pdkzm with sliding scale insulin. Continue home insulin regimen. 6. Hypertension-continue carvedilol. Hold losartan. 7. Hyperlipidemia-continue statin. 8. Restrictive lung pattern-follows with pulmonary medicine. 9. Obesity- encouraged diet and lifestyle modifications. 10. Gout-on allopurinol. May need to consider reduced dose based on renal function. DVT prophylaxis- heparin sc This patient was seen by MARILUZ Arellano under the supervision of Dr. Martinez. Documented by User: Dr. James Martinez MD 07/31/21 13:51 Objective Data Lab / Micro Data Result Diagrams: 07/31/21 05:56 07/31/21 05:56 Charges/Coding Addendum Addendum: Dr. Martinez: I personally reviewed the chart and examined the patient, and agree with the above findings. 75-year-old male with a history of diabetes and chronic diastolic CHF presents with an acute exacerbation of his diastolic CHF. We will start him on a Lasix drip for diuresis, he states that his best dry weight is around 235 pounds. Given the elevated BNP as well as the dizziness and and heart failure his troponin elevation is likely secondary to demand ischemia as well as his JUSTIN on CKD 4. Continue with daily weights and fluid restriction. Visit Charges Inpatient E&M: 92614 Subs Hosp L2
--- NOTE | 2021-07-31 11:50 | CASEMGMT ---
RN CM DIGITAL LIBRARIAN CM to room to meet with patient for initial transition planning/care coordination assessment. JOSÉ LUIS GARCIA introduced self and role at [facility]. Pt voices understanding and consents to assessment at this time. Pt sitting up in recliner chair in no distress at this time. @ bedside, visiting. Pt is A/O at this time and answers all questions appropriately. Care providers, pharmacy, and demographics verified/updated at this time. PCP: Dr Mesa Specialists: Dr Rizo--cardiology, Dr Menchaca-nephrology, Dr Whalen--endocrinology, Dr Taylor--pulmonology Preferred Pharmacy: [facility] Insurance: [facility], MMO Prescription Benefit: yes Living Will/HPOA: Has both LW and HPOA, who is his daughter, Linda Toney LNOK: , Nessa. Daughter/POALinda. Living Arrangements: Lives w/his in one-story home w/1-2 steps to enter. Independent. Transportation: Pt states drives self and states no transportation concerns at this time. also drives DME: Ambulates independently. Uses [employer] glucose monitor. HHC/SNF: No hx of either. No needs identified. Pt wishes to return home and states has no concerns with going home at time of discharge. CM to follow for any discharge planning/needs. Pt/ voice no concerns/needs at this time. Advised them to ask for CM if an questions/concerns/needs arise. They voice understanding. PLAN: Home w/spousal support and discharge plans in place. Teto KOHLER RN, CM
[2021-07-31 12:00] LABS: Bedside Glucose 347 mg/dL (70-110)
--- NOTE | 2021-07-31 12:19 | CON.PCM.RE_ITS ---
Assessment & Plan Assessment/Plan (1) JUSTIN (acute kidney injury): (2) Acute on chronic congestive heart failure: QUALIFIERS: Heart failure type: combined systolic and diastolic Qualified Code(s): I50.43 - Acute on chronic combined systolic (congestive) and diastolic (congestive) heart failure (3) Stage 4 chronic kidney disease due to type 2 diabetes mellitus: (4) Elevated troponin: PLAN: -Patient has Hypervolemic nonoliguric JUSTIN on CKD with acute component likely secondary to cardiorenal syndrome physiology. He has underl jesus chronic kidney disease stage IV from diabetic nephropathy with baseline creatinine has been ranging around 2.7 to 3.2 mg/dL, baseline estimated GFR around 20 to 25 mL/min. Creatinine 3.62 mg/dL on admission and today is 3.36 mg/dL. 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 No significant uremic symptoms. Patient is hypervolemic and is on Lasix drip. Recommend continue as ordered. Daily weights. Strict I&O. It was discussed with patient and his importance of following fluid restriction of ~1.5L/day, they had not been doing this at home. Weight today around 110 kg (bed weight). -Cardiology is following. Echo pending. No plan for invasive cardiac assessment at this time. - Bps acceptable. - Further orders forthcoming as hospitalization evolves, thank you for allowing us to participate in the care of Mr. Orantes. HPI Consult Data Date of Consult: 07/31/21 HPI Narrative HPI Narrative: SANJAY ORANTES, is a 75 M with PMH significant for diabetes mellitus type 2, CHF, coronary artery disease, CABG, hypertension, CKD who presented to the emergency room with complaints of feeling lightheaded and dizzy. Patient also reports he has been feeling tired for the past week or so. Patient reports blood pressures have been low at home and because of this he stopped taking his antihypertensives but still continued his diuretic, bumet anide. Took metolazone as needed, about once every two weeks. He feels weight of ~235pounds is baseline weight for him. He weighs daily. Patient was admitted for decompensated heart failure and JUSTIN. We were consulted for acute kidney injury. Patient has known history of chronic kidney disease from diabetic nephropathy and has been following with Dr. Menchaca, last seen July 02. Patient denies NSAIDs. He does report appetite poor the last few days, denies any diarrhea or vomiting. 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 Premature atrial contractions Renal insufficiency Restrictive pattern present on pulmonary function testing Stage 4 chronic kidney disease due to type 2 diabetes mellitus Type II diabetes mellitus Home Medications atorvastatin 80 mg PO QHS 10/16/14 [History Last Taken 07/28/21] aspirin 81 mg tablet,delayed release 81 mg PO DAILY 10/27/17 [History Last Taken 07/28/21] bumetanide 2 mg tablet 2 mg PO BID 10/27/17 [History Last Taken 07/28/21] cholecalciferol (vitamin D3) 50 mcg (2,000 unit) capsule 2,000 unit PO DAILY 06/23/19 [History Last Taken 07/28/21] clopidogrel 75 mg tablet 75 mg PO DAILY #90 tab 10/10/19 [Rx Last Taken 07/28/21] metolazone 5 mg tablet 5 mg PO DAILY PRN 07/31/20 [History Last Taken 07/27/21] allopurinol 100 mg tablet 100 mg PO BID tab 11/29/20 [History Last Taken 07/28/21] carvedilol 6.25 mg tablet 6.25 mg PO BID #180 tab 02/05/21 [Rx Last Taken 07/28/21] zolpidem 5 mg tablet 5 mg PO QHS PRN 05/29/21 [History Last Taken 07/28/21] calcitriol 0.25 mcg PO DAILY 07/30/21 [History Last Taken 07/28/21] insulin regular hum U-500 conc 80 unit SC BREAKFAST 07/30/21 [History Last Taken 07/30/21] insulin regular hum U-500 conc [Humulin R U-500 (Conc) Kwikpen] 20 unit SUBCUT DINNER 07/30/21 [History Last Taken 07/29/21] insulin regular hum U-500 conc [Humulin R U-500 (Conc) Kwikpen] 80 unit SUBCUT LUNCH 07/30/21 [History Last Taken 07/30/21] isosorbide mononitrate 60 mg PO BID 07/30/21 [History Last Taken 07/28/21] losartan 25 mg PO DAILY 07/30/21 [History Last Taken 07/28/21] Allergy/AdvReac Type Severity Reaction Status Date / Time exenatide [From [place]] AdvReac Unknown Unknown Verified 07/30/21 15:29 lisinopril AdvReac Unknown Unknown Verified 07/30/21 15:29 Family History Mother Cancer Other Arthritis CVA (cerebral vascular accident) Diabetes High cholesterol Hypertension Myocardial infarction Surgical History H/O coronary artery bypass surgery (1988) H/O eye surgery History of coronary artery stent placement (01/12/18) History of parathyroidectomy Social History Smoking Status: Former smoker how long ago did patient quit smokin alcohol intake: current alcohol intake frequency: a few times a month substance use type: does not use caffeine: Yes Type: coffee Number of servings: 2 what type of physical activity do you participate in: none seatbelt use: always do you feel safe at home: Yes Physical Exam Narrative Constitutional: Alert and oriented x3 HEENT: Head is normocephalic, oral mucosa moist Respiratory: Lung sounds clear anteriorly & posteriorly Cardiovascular: S1 is 2 rhythm rate regular Extremities: 2+ pitting edema bilateral legs and feet Lab / Micro Data Result Diagrams: 07/31/21 05:56 07/31/21 05:56 Labs: Laboratory Results - last 24 hr 07/30/21 15:25: WBC 6.1, RBC 4.58 L, Hgb 13.6, Hct 43.6, MCV 95.2 H, MCH 29.7, MCHC 31.2 L, RDW Std Deviation 56.9 H, RDW Coeff of Alfreda 16.4 H, Plt Count 97 L, MPV 11.3, Immature Gran % (Auto) 0.500, Neut % (Auto) 74.4 H, Lymph % (Auto) 10.4 L, [place] % (Auto) 11.1 H, Eos % (Auto) 3.1, Baso % (Auto) 0.5, Absolute Neuts (auto) 4.5, Absolute Lymphs (auto) 0.63 L, Nucleated RBC % 0, Platelet Estimate MOD DEC, Plt Morphology Comment LARGE, RBC Morphology N CHROM, Anisocytosis RARE, Macrocytosis RARE 07/30/21 15:25: Sodium 140, Potassium 3.7, Chloride 96 L, Carbon Dioxide 34.0 H, Anion Gap 10, BUN 128 H*, Creatinine 3.62 H, Estim Creat Clear Calc 17.09, Est GFR (MDRD) Af Amer 21 L, Est GFR (MDRD) Non-Af 17 L, BUN/Creatinine Ratio 35.4 H , Glucose 143 H, Calcium 10.0, Troponin I High Sens 196 H* 07/30/21 15:25: B-Natriuretic Peptide 828.9 H 07/30/21 17:25: Troponin I High Sens 248 H* 07/30/21 17:40: POC Glucose 88 07/30/21 18:15: Urine Color Yellow, Urine Clarity Clear, Urine pH 6.0, Ur Specific [place] 1.010, Urine Protein Negative, Urine Glucose (UA) Normal, Urine Ketones Negative, Urine Occult Blood Negative, Urine Nitrite Negative, Urine Bilirubin Negative, Urine Urobilinogen Normal, Ur Leukocyte Esterase Negative, Urine RBC 0 SEEN, Urine WBC 0 SEEN, Ur Squamous Epith Cells 0 SEEN, Urine Bacteria 0 SEEN, Urine Mucus 0 SEEN 07/30/21 20:55: Troponin I High Sens 277 H* 07/30/21 21:20: POC Glucose 227 H 07/31/21 05:56: WBC 6.5, RBC 4.52 L, Hgb 13.5, Hct 43.8, MCV 96.9 H, MCH 29.9, MCHC 30.8 L, RDW Std Deviation 58.2 H, RDW Coeff of Alfreda 16.3 H, Plt Count 97 L, MPV 11.5, Immature Gran % (Auto) 0.500, Neut % (Auto) 76.2 H, Lymph % (Auto) 10.4 L, [place] % (Auto) 10.1 H, Eos % (Auto) 2.3, Baso % (Auto) 0.5, Absolute Neuts (auto) 5.0, Absolute Lymphs (auto) 0.68 L, Nucleated RBC % 0 07/31/21 05:56: Sodium 138, Potassium 3.9, Chloride 95 L, Carbon Dioxide 29.0, Anion Gap 14, BUN 128 H*, Creatinine 3.36 H, Estim Creat Clear Calc 18.41, Est GFR (MDRD) Af Amer 23 L, Est GFR (MDRD) Non-Af 19 L, BUN/Creatinine Ratio 38.1 H , Glucose 268 H, Calcium 10.3 H, Phosphorus 4.6, Magnesium 2.6, Triglycerides 124, Cholesterol 117, LDL Cholesterol 63, VLDL Cholesterol 25, HDL Cholesterol 29 L, TSH 2.81 07/31/21 08:24: POC Glucose 286 H 07/31/21 11:23: POC Glucose 347 H Micro: Microbiology 07/30/21 19:19 Mucosa - Nasopharyngeal Respiratory Panel (PCR) - Final 07/30/21 16:20 Nasal Secretion SARS-CoV-2 Antigen (Rapid) - Final Radiology Impression Chest X-Ray 07/30/21 16:50 IMPRESSION: No active disease. Electronically Signed: Werner Saldana MD at 17:05 EDT Tel , Service support , Echocardiogram 07/30/21 18:59 Interpretation Summary The study was technically difficult. Contrast injection was performed. Moderately dilated left ventricle. Severe segmental systolic dysfunction (see wall motion). The estimated ejection fraction is 15 %. Mildly dilated right ventricle. The left atrium is mildly enlarged. There is mild mitral annular calcification. Mild diffuse mitral valve thickening. The mitral valve chordae are thickened and/or calcified. Mild papillary muscle dysfunction of the mitral valve. Moderate (2+) eccentric mitral valve insufficiency. Mild tricuspid valve insufficiency. Moderate focal aortic valve calcification. Trivial pulmonic valve insufficiency. Calcified aortic root. Right ventricular systolic pressure estimated to be 34 mmHg. Diastolic function is indeterminate. Ordering Physician: Angelica Mac Referring Physician: Jackson Mesa Performed By: Saige Ferguson, DARRION, RVT
[2021-07-31] MEDS: Insulin Lispro 100 UNIT/ML INSULN.PEN SC (12:25)
--- NOTE | 2021-07-31 13:55 | PN.CARD_ITS ---
Subjective Subjective Patient's seen and evaluated. He seems to be breathing better Objective Data Vital Signs: Vital Signs Temp Pulse Resp BP Pulse Ox 98.1 F 104 H 28 H 126/73 H 93 07/31/21 13:34 07/31/21 13:34 07/31/21 13:34 07/31/21 13:34 07/31/21 13:34 Oxygen Delivery Method Room Air Weight: 241 lb 10.026 oz Body Mass Index (BMI) 35.6 Intake & Output: Intake and Output for Last 24 Hours 07/29/21 07/30/21 07/31/21 23:59 23:59 23:59 Intake Total 240 / 240 440 / 440 Output Total 500 / 500 880 / 880 Balance -260 / -260 -440 / -440 Lab / Micro Data Result Diagrams: 07/31/21 05:56 07/31/21 05:56 Labs: Laboratory Results - last 24 hr 07/30/21 15:25: WBC 6.1, RBC 4.58 L, Hgb 13.6, Hct 43.6, MCV 95.2 H, MCH 29.7, MCHC 31.2 L, RDW Std Deviation 56.9 H, RDW Coeff of Alfreda 16.4 H, Plt Count 97 L, MPV 11.3, Immature Gran % (Auto) 0.500, Neut % (Auto) 74.4 H, Lymph % (Auto) 10.4 L, [place] % (Auto) 11.1 H, Eos % (Auto) 3.1, Baso % (Auto) 0.5, Absolute Neuts (auto) 4.5, Absolute Lymphs (auto) 0.63 L, Nucleated RBC % 0, Platelet Estimate MOD DEC, Plt Morphology Comment LARGE, RBC Morphology N CHROM, Anisocytosis RARE, Macrocytosis RARE 07/30/21 15:25: Sodium 140, Potassium 3.7, Chloride 96 L, Carbon Dioxide 34.0 H, Anion Gap 10, BUN 128 H*, Creatinine 3.62 H, Estim Creat Clear Calc 17.09, Est GFR (MDRD) Af Amer 21 L, Est GFR (MDRD) Non-Af 17 L, BUN/Creatinine Ratio 35.4 H , Glucose 143 H, Calcium 10.0, Troponin I High Sens 196 H* 07/30/21 15:25: B-Natriuretic Peptide 828.9 H 07/30/21 17:25: Troponin I High Sens 248 H* 07/30/21 17:40: POC Glucose 88 07/30/21 18:15: Urine Color Yellow, Urine Clarity Clear, Urine pH 6.0, Ur Specific [place] 1.010, Urine Protein Negative, Urine Glucose (UA) Normal, Urine Ketones Negative, Urine Occult Blood Negative, Urine Nitrite Negative, Urine Bilirubin Negative, Urine Urobilinogen Normal, Ur Leukocyte Esterase Negative, Urine RBC 0 SEEN, Urine WBC 0 SEEN, Ur Squamous Epith Cells 0 SEEN, Urine Bacteria 0 SEEN, Urine Mucus 0 SEEN 07/30/21 20:55: Troponin I High Sens 277 H* 07/30/21 21:20: POC Glucose 227 H 07/31/21 05:56: WBC 6.5, RBC 4.52 L, Hgb 13.5, Hct 43.8, MCV 96.9 H, MCH 29.9, MCHC 30.8 L, RDW Std Deviation 58.2 H, RDW Coeff of Alfreda 16.3 H, Plt Count 97 L, MPV 11.5, Immature Gran % (Auto) 0.500, Neut % (Auto) 76.2 H, Lymph % (Auto) 10.4 L, [place] % (Auto) 10.1 H, Eos % (Auto) 2.3, Baso % (Auto) 0.5, Absolute Neuts (auto) 5.0, Absolute Lymphs (auto) 0.68 L, Nucleated RBC % 0 07/31/21 05:56: Sodium 138, Potassium 3.9, Chloride 95 L, Carbon Dioxide 29.0, Anion Gap 14, BUN 128 H*, Creatinine 3.36 H, Estim Creat Clear Calc 18.41, Est GFR (MDRD) Af Amer 23 L, Est GFR (MDRD) Non-Af 19 L, BUN/Creatinine Ratio 38.1 H , Glucose 268 H, Calcium 10.3 H, Phosphorus 4.6, Magnesium 2.6, Triglycerides 124, Cholesterol 117, LDL Cholesterol 63, VLDL Cholesterol 25, HDL Cholesterol 29 L, TSH 2.81 07/31/21 08:24: POC Glucose 286 H 07/31/21 11:23: POC Glucose 347 H Micro: Microbiology 07/30/21 19:19 Mucosa - Nasopharyngeal Respiratory Panel (PCR) - Final 07/30/21 16:20 Nasal Secretion SARS-CoV-2 Antigen (Rapid) - Final Cardiology Labs/Tests 07/30/21 15:25: WBC 6.1, RBC 4.58 L, Hgb 13.6, Hct 43.6, MCV 95.2 H, MCH 29.7, MCHC 31.2 L, Plt Count 97 L, MPV 11.3, Immature Gran % (Auto) 0.500, Neut % (Auto) 74.4 H, Lymph % (Auto) 10.4 L, [place] % (Auto) 11.1 H, Eos % (Auto) 3.1, Baso % (Auto) 0.5, Absolute Neuts (auto) 4.5, Nucleated RBC % 0 07/30/21 15:25: Sodium 140, Potassium 3.7, Chloride 96 L, Carbon Dioxide 34.0 H, Anion Gap 10, BUN 128 H*, Creatinine 3.62 H, Est GFR (MDRD) Af Amer 21 L, Est GFR (MDRD) Non-Af 17 L, BUN/Creatinine Ratio 35.4 H, Glucose 143 H, Calcium 10.0 07/30/21 15:25: B-Natriuretic Peptide 828.9 H 07/30/21 18:15: Urine Color Yellow, Urine Clarity Clear, Urine pH 6.0, Ur Specific [place] 1.010, Urine Protein Negative, Urine Glucose (UA) Normal, Urine Ketones Negative, Urine Occult Blood Negative, Urine Nitrite Negative, Urine Bilirubin Negative, Urine Urobilinogen Normal, Ur Leukocyte Esterase Negative, Urine RBC 0 SEEN, Urine WBC 0 SEEN 07/31/21 05:56: WBC 6.5, RBC 4.52 L, Hgb 13.5, Hct 43.8, MCV 96.9 H, MCH 29.9, MCHC 30.8 L, Plt Count 97 L, MPV 11.5, Immature Gran % (Auto) 0.500, Neut % (Auto) 76.2 H, Lymph % (Auto) 10.4 L, [place] % (Auto) 10.1 H, Eos % (Auto) 2.3, Baso % (Auto) 0.5, Absolute Neuts (auto) 5.0, Nucleated RBC % 0 07/31/21 05:56: Sodium 138, Potassium 3.9, Chloride 95 L, Carbon Dioxide 29.0, Anion Gap 14, BUN 128 H*, Creatinine 3.36 H, Est GFR (MDRD) Af Amer 23 L, Est GFR (MDRD) Non-Af 19 L, BUN/Creatinine Ratio 38.1 H, Glucose 268 H, Calcium 10.3 H, Phosphorus 4.6, Magnesium 2.6, Triglycerides 124, Cholesterol 117, LDL Cholesterol 63, VLDL Cholesterol 25, HDL Cholesterol 29 L Rhythm: EKG: ECHO: Stress Test: Cardiac Cath: PCI: CT Surgery: Holter monitor: EPS: PPM: CXR: Chest CT Scan: Radiography Diagnostic Testing: Radiology Impression Chest X-Ray 07/30/21 16:50 IMPRESSION: No active disease. Electronically Signed: Werner Saldana MD at 17:05 EDT Tel , Service support , Echocardiogram 07/30/21 18:59 Interpretation Summary The study was technically difficult. Contrast injection was performed. Moderately dilated left ventricle. Severe segmental systolic dysfunction (see wall motion). The estimated ejection fraction is 15 %. Mildly dilated right ventricle. The left atrium is mildly enlarged. There is mild mitral annular calcification. Mild diffuse mitral valve thickening. The mitral valve chordae are thickened and/or calcified. Mild papillary muscle dysfunction of the mitral valve. Moderate (2+) eccentric mitral valve insufficiency. Mild tricuspid valve insufficiency. Moderate focal aortic valve calcification. Trivial pulmonic valve insufficiency. Calcified aortic root. Right ventricular systolic pressure estimated to be 34 mmHg. Diastolic function is indeterminate. Ordering Physician: Angelica Mac Referring Physician: Jackson Mesa Performed By: Saige Ferguson, DARRION, RVT Physical Exam Const alert, oriented x3 and no apparent distress General Appearance: cooperative HEENT hearing grossly normal bilaterally Head and Scalp: atraumatic Eyes EOMs intact bilaterally Neck General: normal visual inspection Chest inspection of chest normal and palpation of chest normal Resp normal respiratory effort Auscultation: clear to auscultation bilaterally Cardio regular rate, regular rhythm, S1 normal heart sound and S2 normal heart sound Jugular Venous Distention: JVD GI normal to inspection, nondistended, normoactive bowel sounds Extremity normal capillary refill and no pedal edema Peripheral Pulses: Yes pulses 2+ throughout and femoral pulses present Skin no rashes or lesions noted Neuro oriented x3 and CN's II-XII intact bilaterally Psych Appearance: grossly normal and appropriate Assessment & Plan Assessment/Plan (1) Abnormal cardiac enzyme level: PLAN: The patient does have abnormal cardiac enzymes/troponin I levels. The above appears to be more likely secondary to a type II event related to his chronic renal insufficiency and his congestive heart failure. There are no plans for invasive therapy at this particular time. (2) History of coronary artery stent placement: PLAN: The patient has a history of both PCI and CABG. we'll continue to monitor the above. He does not appear to have any ongoing angina at this time. (3) H/O coronary artery bypass surgery: PLAN: The patient has undergone remote CABG in the past. No indications for reevaluation at this particular time. (4) Ischemic cardiomyopathy: PLAN: The patient has a history of an ischemic mediated cardiomyopathy. His most recent echocardiogram read demonstrates an ejection fraction of 15%. We will continue with current therapy including continuous IV Lasix. I would recommend switching him to carvedilol. * This represents a significant reduction in left ventricular systolic function. It appears to be global in the etiology is unlikely to be ischemic (5) Hyperlipidemia: QUALIFIERS: Hyperlipidemia type: mixed hyperlipidemia Qualified Code(s): E78.2 - Mixed hyperlipidemia PLAN: The patient should continue risk factor evaluation and care/medical management. (6) Essential (primary) hypertension: PLAN: The patient states his blood pressure has been low. My suspicion is that this is related to his low cardiac output. We'll adjust his medications as such. (7) Acute on chronic congestive heart failure: QUALIFIERS: Heart failure type: combined systolic and diastolic Qualified Code(s): I50.43 - Acute on chronic combined systolic (congestive) and diastolic (congestive) heart failure PLAN: He is to have developed acute systolic heart failure on chronic heart failure. He is ACC stage C, CHF grade 3-4. We will continue with intravenous diuretics as well as beta-monica. Depending on his blood pressure other agents will be added as appropriate. His kidney function as you know is also rather precarious. His overall prognosis is quite guarded. We'll await to see what the renal ser vice is in terms of dialysis.
[2021-07-31] MEDS: Benzonatate 100 MG Capsule PO (17:22)
[2021-07-31] MEDS: Insulin U-500 UNITS/ML PEN 20 UNITS SC (17:22)
[2021-07-31 18:40] LABS: Bedside Glucose 125 mg/dL (70-110)
--- NOTE | 2021-07-31 21:33 | EKG12_ITS ---
Test Reason : CP Blood Pressure : / mmHG Vent. Rate : 092 BPM Atrial Rate : 092 BPM P-R Int : 164 ms QRS Dur : 146 ms QT Int : 406 ms P-R-T Axes : 082 -37 160 degrees QTc Int : 502 ms Sinus rhythm with frequent Premature ventricular complexes Left axis deviation Left bundle branch block Abnormal ECG When compared with ECG of 31-JUL-2021 05:23, Fusion complexes are no longer Present Premature ventricular complexes are now Present T wave inversion more evident in Lateral leads Confirmed by BARBI KILGORE, DANIEL ([id number]), clinical editor DYLAN ALVAREZ ([id number]) on 08/02/2021 9:14:55 AM Referred By: DR OBRIEN Confirmed By:DANIEL LANDON MD
[2021-07-31 22:11] LABS: Bedside Glucose 36 mg/dL (70-110)
[2021-07-31 22:11] LABS: Bedside Glucose 82 mg/dL (70-110)
[2021-07-31] MEDS: Atorvastatin Calcium 80 MG Tablet PO (22:28)
[2021-07-31] MEDS: Zolpidem Tartrate 5 MG Tablet PO (22:28)
[2021-07-31] MEDS: Potassium Chloride Oral Tablet 10 MEQ PO (22:28)
[2021-07-31 23:31] LABS: Bedside Glucose 129 mg/dL (70-110)
[2021-08-01] VITALS (11 sets, daily range): BP systolic 111–129; BP diastolic 72–84; PULSE 94–114; RESP 14–20; TEMP 36.1–36.7; O2SAT 90–98
[2021-08-01] MEDS: Potassium Chloride Oral Tablet 10 MEQ PO (05:15)
[2021-08-01] MEDS: Heparin Injection (Vial) 5,000 UNIT/ML VIAL 5000 UNIT SC ×3 (05:15→19:39)
[2021-08-01] MEDS: Furosemide 500 MG in Empty Viaflex 50 mL 1 EACH CONT INF (05:27)
[2021-08-01 06:25] LABS: Absolute Lymphocyte Count 0.69 X10^3/uL (0.83-4.51); Absolute Neutrophil Count 6.4 X10^3/uL (2.0-7.7); Basophil# 0.03 X10^3/uL; Basophil% 0.4 % (0-1); Eosinophil# 0.11 X10^3/uL; Eosinophils% 1.4 % (0-5); Hematocrit 43.6 % (40-54); Hemoglobin 13.7 g/dL (13.0-16.5); Lymphocyte # 0.69 X10^3/ul (0.83-4.51); Lymphocyte % 8.6 % (19-41); Mean Corp Hgb Conc 31.4 g/dL (32-36); Mean Corpuscular Hgb 30.2 pg (27.0-32.0); Monocyte# 0.86 X10^3/uL; Monocyte% 10.7 % (0-10); NRBC Flagged by Analyzer 0 % (0-5); Neutrophil # 6.35 X10^3/uL (2.7-7.7); Neutrophil % 78.7 % (47-70); Platelet Count 109 K/mm3 (150-450); RBC Distribution Width CV 16.4 % (11.6-14.6); RBC Distribution Width SD 58.2 fl (35.1-43.9); Red Blood Count 4.54 M/mm3 (4.6-6.2); White Blood Count 8.1 K/mm3 (4.4-11.0)
[2021-08-01 06:26] LABS: Bedside Glucose 130 mg/dL (70-110)
[2021-08-01 06:52] LABS: Anion Gap 7 (5-15); BUN 123 mg/dL (7-18); BUN/Creat Ratio 42.3 RATIO (10-20); Calcium,Total 10.5 mg/dL (8.5-10.1); Chloride 96 mmol/L (98-107); Creatinine, Serum 2.91 mg/dL (0.70-1.30); EST Glomerular Filtration Rate 22 mL/min (>60); Est Glom Filt Rate - Afr Amer 27 mL/min (>60); Estimated Creatinine Clearance 21.26 ml/min; Glucose 137 mg/dL (74-106); Potassium 4.4 mmol/L (3.5-5.1); Sodium Level 141 mmol/L (136-145)
--- NOTE | 2021-08-01 07:52 | PN.CARD_ITS ---
Subjective Subjective Patient seen and evaluate. Appears to be doing somewhat better today Objective Data Vital Signs: Vital Signs Temp Pulse Resp BP Pulse Ox 97.0 F L 94 16 129/84 H 98 08/01/21 03:15 08/01/21 06:37 08/01/21 03:15 08/01/21 03:15 08/01/21 03:15 Oxygen Flow Rate (L/min) 2 Oxygen Delivery Method Nasal Cannula Weight: 241 lb 10.026 oz Body Mass Index (BMI) 35.6 Intake & Output: Intake and Output for Last 24 Hours 07/30/21 07/31/21 08/01/21 23:59 23:59 23:59 Intake Total 240 / 240 1240 / 1240 155.07 / 155.07 Output Total 500 / 500 1974 / 1974 465 / 465 Balance -260 / -260 -735 / -735 -309.93 / -309.93 Lab / Micro Data Result Diagrams: 08/01/21 05:50 08/01/21 05:50 Labs: Laboratory Results - last 24 hr 07/31/21 05:56: Sodium 138, Potassium 3.9, Chloride 95 L, Carbon Dioxide 29.0, Anion Gap 14, BUN 128 H*, Creatinine 3.36 H, Estim Creat Clear Calc 18.41, Est GFR (MDRD) Af Amer 23 L, Est GFR (MDRD) Non-Af 19 L, BUN/Creatinine Ratio 38.1 H , Glucose 268 H, Calcium 10.3 H, Phosphorus 4.6, Magnesium 2.6, Triglycerides 124, Cholesterol 117, LDL Cholesterol 63, VLDL Cholesterol 25, HDL Cholesterol 29 L, TSH 2.81 07/31/21 08:24: POC Glucose 286 H 07/31/21 11:23: POC Glucose 347 H 07/31/21 17:11: POC Glucose 125 H 07/31/21 21:28: POC Glucose 36 L* 07/31/21 22:06: POC Glucose 82 07/31/21 23:26: POC Glucose 129 H 08/01/21 05:15: POC Glucose 130 H 08/01/21 05:50: WBC 8.1, RBC 4.54 L, Hgb 13.7, Hct 43.6, MCV 96.0 H, MCH 30.2, MCHC 31.4 L, RDW Std Deviation 58.2 H, RDW Coeff of Alfreda 16.4 H, Plt Count 109 L, MPV 11.0, Immature Gran % (Auto) 0.200, Neut % (Auto) 78.7 H, Lymph % (Auto) 8.6 L, [place] % (Auto) 10.7 H, Eos % (Auto) 1.4, Baso % (Auto) 0.4, Absolute Neuts (auto) 6.4, Absolute Lymphs (auto) 0.69 L, Nucleated RBC % 0 08/01/21 05:50: Sodium 141, Potassium 4.4, Chloride 96 L, Carbon Dioxide 38.0 H, Anion Gap 7, BUN 123 H*, Creatinine 2.91 H, Estim Creat Clear Calc 21.26, Est GFR (MDRD) Af Amer 27 L, Est GFR (MDRD) Non-Af 22 L, BUN/Creatinine Ratio 42.3 H , Glucose 137 H, Calcium 10.5 H Micro: Microbiology 07/30/21 19:19 Mucosa - Nasopharyngeal Respiratory Panel (PCR) - Final Cardiology Labs/Tests 07/31/21 05:56: Sodium 138, Potassium 3.9, Chloride 95 L, Carbon Dioxide 29.0, Anion Gap 14, BUN 128 H*, Creatinine 3.36 H, Est GFR (MDRD) Af Amer 23 L, Est GFR (MDRD) Non-Af 19 L, BUN/Creatinine Ratio 38.1 H, Glucose 268 H, Calcium 10.3 H, Phosphorus 4.6, Magnesium 2.6, Triglycerides 124, Cholesterol 117, LDL Cholesterol 63, VLDL Cholesterol 25, HDL Cholesterol 29 L 08/01/21 05:50: WBC 8.1, RBC 4.54 L, Hgb 13.7, Hct 43.6, MCV 96.0 H, MCH 30.2, MCHC 31.4 L, Plt Count 109 L, MPV 11.0, Immature Gran % (Auto) 0.200, Neut % (Auto) 78.7 H, Lymph % (Auto) 8.6 L, [place] % (Auto) 10.7 H, Eos % (Auto) 1.4, Baso % (Auto) 0.4, Absolute Neuts (auto) 6.4, Nucleated RBC % 0 08/01/21 05:50: Sodium 141, Potassium 4.4, Chloride 96 L, Carbon Dioxide 38.0 H, Anion Gap 7, BUN 123 H*, Creatinine 2.91 H, Est GFR (MDRD) Af Amer 27 L, Est GFR (MDRD) Non-Af 22 L, BUN/Creatinine Ratio 42.3 H, Glucose 137 H, Calcium 10.5 H Rhythm: EKG: ECHO: Stress Test: Cardiac Cath: PCI: CT Surgery: Holter monitor: EPS: PPM: CXR: Chest CT Scan: Radiography Diagnostic Testing: Radiology Impression Echocardiogram 07/30/21 18:59 Interpretation Summary The study was technically difficult. Contrast injection was performed. Moderately dilated left ventricle. Severe segmental systolic dysfunction (see wall motion). The estimated ejection fraction is 15 %. Mildly dilated right ventricle. The left atrium is mildly enlarged. There is mild mitral annular calcification. Mild diffuse mitral valve thickening. The mitral valve chordae are thickened and/or calcified. Mild papillary muscle dysfunction of the mitral valve. Moderate (2+) eccentric mitral valve insufficiency. Mild tricuspid valve insufficiency. Moderate focal aortic valve calcification. Trivial pulmonic valve insufficiency. Calcified aortic root. Right ventricular systolic pressure estimated to be 34 mmHg. Diastolic function is indeterminate. Ordering Physician: Angelica Mac Referring Physician: Jackson Mesa Performed By: Saige Ferguson RDCS, RVT Physical Exam Const alert, oriented x3 and no apparent distress General Appearance: cooperative HEENT hearing grossly normal bilaterally Head and Scalp: atraumatic Eyes EOMs intact bilaterally Neck General: normal visual inspection Chest inspection of chest normal and palpation of chest normal Resp normal respiratory effort Auscultation: clear to auscultation bilaterally Cardio regular rate, regular rhythm, S1 normal heart sound and S2 normal heart sound Jugular Venous Distention: JVD GI normal to inspection, nondistended, normoactive bowel sounds Extremity normal capillary refill General Extremity: edema bilateral Peripheral Pulses: Yes pulses 2+ throughout and femoral pulses present Skin no rashes or lesions noted Neuro oriented x3 and CN's II-XII intact bilaterally Psych Appearance: grossly normal and appropriate Assessment & Plan Assessment/Plan (1) Abnormal cardiac enzyme level: PLAN: The patient does have abnormal cardiac enzymes/troponin I levels. The above appears to be more likely secondary to a type II event related to his chronic renal insufficiency and his congestive heart failure. There are no plans for invasive therapy at this particular time. We will discuss further with nephrology team (2) History of coronary artery stent placement: PLAN: The patient has a history of both PCI and CABG. we'll continue to monitor the above. He does not appear to have any ongoing angina at this time. (3) H/O coronary artery bypass surgery: PLAN: The patient has undergone remote CABG in the past. No indications for reevaluation at this particular time. (4) Ischemic cardiomyopathy: PLAN: The patient has a history of an ischemic mediated cardiomyopathy. His most recent echocardiogram read demonstrates an ejection fraction of 15%. We will continue with current therapy including continuous IV Lasix. I would recommend switching him to carvedilol. * This represents a significant reduction in left ventricular systolic function. It appears to be global in the etiology is unlikely to be ischemic (5) Hyperlipidemia: QUALIFIERS: Hyperlipidemia type: mixed hyperlipidemia Qualified Code(s): E78.2 - Mixed hyperlipidemia PLAN: The patient should continue risk factor evaluation and care/medical management. (6) Essential (primary) hypertension: PLAN: The patient states his blood pressure has been low. My suspicion is that this is related to his low cardiac output. We'll adjust his medications as such. (7) Acute on chronic congestive heart failure: QUALIFIERS: Heart failure type: combined systolic and diastolic Qualified Code(s): I50.43 - Acute on chronic combined systolic (congestive) and diastolic (congestive) heart failure PLAN: He is to have developed acute systolic heart failure on chronic heart failure. He is ACC stage C, CHF grade 3-4. We will continue with intravenous diuretics as well as beta-monica. Depending on his blood pressure other agents will be added as appropriate. His kidney function as you know is also rather precarious. His overall prognosis is quite guarded. We'll await to see what the renal service is in terms of dialysis.
[2021-08-01] MEDS: Cholecalciferol (VIT D3) 25 MCG TABLET (1,000 UNITS) 50 MCG PO (08:11)
[2021-08-01] MEDS: Allopurinol 100 MG Tablet PO ×2 (08:11→16:14)
[2021-08-01] MEDS: Polyethylene Glycol 3350 17 GM PACKET PO (08:11)
[2021-08-01] MEDS: Aspirin E.C. 81 MG Tablet PO (08:11)
[2021-08-01] MEDS: Insulin Lispro 100 UNIT/ML INSULN.PEN SC ×3 (08:12→16:14)
[2021-08-01] MEDS: Insulin U-500 UNITS/ML PEN 80 UNITS SC ×2 (08:12→11:08)
[2021-08-01 08:31] LABS: Bedside Glucose 158 mg/dL (70-110)
--- NOTE | 2021-08-01 09:34 | PN.RENAL_ITS ---
Subjective Subjective Sitting in chair, just returned from the bathroom. Denies any shortness of breath with exertion. Denies nausea, vomiting. Reports noticing that he is urinating more after Lasix drip started. Objective Data Objective Data Vital Signs: Vital Signs Temp Pulse Resp BP Pulse Ox 97.0 F L 94 16 129/84 H 96 08/01/21 03:15 08/01/21 06:37 08/01/21 03:15 08/01/21 03:15 08/01/21 08:30 Oxygen Flow Rate (L/min) 2 Oxygen Delivery Method Nasal Cannula Weight: 109.6 kg Body Mass Index (BMI) 35.6 Intake & Output: Intake and Output for Last 24 Hours 07/30/21 07/31/21 08/01/21 23:59 23:59 23:59 Intake Total 240 / 240 1240 / 1240 155.07 / 155.07 Output Total 500 / 500 1974 / 1974 465 / 465 Balance -260 / -260 -735 / -735 -309.93 / -309.93 Lab / Micro Data Result Diagrams: 08/01/21 05:50 08/01/21 05:50 Labs: Laboratory Results - last 24 hr 07/31/21 11:23: POC Glucose 347 H 07/31/21 17:11: POC Glucose 125 H 07/31/21 21:28: POC Glucose 36 L* 07/31/21 22:06: POC Glucose 82 07/31/21 23:26: POC Glucose 129 H 08/01/21 05:15: POC Glucose 130 H 08/01/21 05:50: WBC 8.1, RBC 4.54 L, Hgb 13.7, Hct 43.6, MCV 96.0 H, MCH 30.2, MCHC 31.4 L, RDW Std Deviation 58.2 H, RDW Coeff of Alfreda 16.4 H, Plt Count 109 L, MPV 11.0, Immature Gran % (Auto) 0.200, Neut % (Auto) 78.7 H, Lymph % (Auto) 8.6 L, [place] % (Auto) 10.7 H, Eos % (Auto) 1.4, Baso % (Auto) 0.4, Absolute Neuts (auto) 6.4, Absolute Lymphs (auto) 0.69 L, Nucleated RBC % 0 08/01/21 05:50: Sodium 141, Potassium 4.4, Chloride 96 L, Carbon Dioxide 38.0 H, Anion Gap 7, BUN 123 H*, Creatinine 2.91 H, Estim Creat Clear Calc 21.26, Est GFR (MDRD) Af Amer 27 L, Est GFR (MDRD) Non-Af 22 L, BUN/Creatinine Ratio 42.3 H , Glucose 137 H, Calcium 10.5 H 08/01/21 08:04: POC Glucose 158 H Micro: Microbiology 07/30/21 19:19 Mucosa - Nasopharyngeal Respiratory Panel (PCR) - Final 07/30/21 16:20 Nasal Secretion SARS-CoV-2 Antigen (Rapid) - Final Radiography Diagnostic Testing: Radiology Impression Echocardiogram 07/30/21 18:59 Interpretation Summary The study was technically difficult. Contrast injection was performed. Moderately dilated left ventricle. Severe segmental systolic dysfunction (see wall motion). The estimated ejection fraction is 15 %. Mildly dilated right ventricle. The left atrium is mildly enlarged. There is mild mitral annular calcification. Mild diffuse mitral valve thickening. The mitral valve chordae are thickened and/or calcified. Mild papillary muscle dysfunction of the mitral valve. Moderate (2+) eccentric mitral valve insufficiency. Mild tricuspid valve insufficiency. Moderate focal aortic valve calcification. Trivial pulmonic valve insufficiency. Calcified aortic root. Right ventricular systolic pressure estimated to be 34 mmHg. Diastolic function is indeterminate. Ordering Physician: Angelica Mac Referring Physician: Jackson Mesa Performed By: Saige Ferguson, DARRION, RVT Physical Exam Narrative Constitutional: Alert and oriented x3 HEENT: Head normocephalic, or mucosa moist Respiratory: Lung sounds clear anteriorly and posteriorly, no wheezes rhonchi rales Extremities: 2+ pitting edema bilateral lower legs Assessment & Plan Assessment/Plan (1) Acute renal failure superimposed on stage 4 chronic kidney disease: QUALIFIERS: Acute renal failure type: unspecified Qualified Code(s): N17.9 - Acute kidney failure, unspecified; N18.4 - Chronic kidney disease, stage 4 (severe) (2) Acute on chronic congestive heart failure: QUALIFIERS: Heart failure type: combined systolic and diastolic Qualified Code(s): I50.43 - Acute on chronic combined systolic (congestive) and diastolic (congestive) heart failure (3) Elevated troponin I level: (4) Stage 4 chronic kidney disease due to type 2 diabetes mellitus: PLAN: - Hypervolemic nonoliguric JUSTIN on CKD with acute component likely secondary to cardiorenal syndrome physiology. He has underlying chronic kidney disease stage IV from diabetic nephropathy with baseline creatinine has been ranging around 2.7 to 3.2 mg/dL, baseline estimated GFR around 20 to 25 mL/min. Creatinine 3.62 mg/dL on admission and today is 2.9 mg/dL. BUN 123 (previous 128). There is no acute indication for CHEMISTRY TECHNICAL OFFICER. No significant uremic symptoms. K+ and acid/base acceptable. Patient is hypervolemic and is on Lasix drip. Continue with lasix gtt again today and possibly transition to intermittent IV diuretics versus oral diuretics tomorrow. Daily weights. Strict I&O. FR 1.5L/d ay. Starting weight around 110 kg (bed weight). No weight today yet. Output >> input - long discussion with patient that should volume status not improve with high- dose diuretics and or renal function worsens that he would likely need CHEMISTRY TECHNICAL OFFICER. Patient voiced understanding. He is agreeable for CHEMISTRY TECHNICAL OFFICER when necessary. He also understands that if cardiac invasive assessment is necessary, renal function may worsen with dye to the point of needing CHEMISTRY TECHNICAL OFFICER, he voices understanding and is agreeable. -Cardiology is following. Echo showed decreased EF to 15%. No plan for invasive cardiac assessment at this time. - Bps acceptable and has improved.
[2021-08-01] MEDS: Calcitriol 0.25 MCG Capsule PO (09:56)
[2021-08-01] MEDS: Clopidogrel Bisulfate 75 MG Tablet PO (09:56)
[2021-08-01 12:10] LABS: Bedside Glucose 262 mg/dL (70-110)
--- NOTE | 2021-08-01 15:24 | PCM.PN.HOSP ---
Subjective Subjective Doing well had to wear some oxygen overnight but otherwise no shortness of breath this afternoon. Objective Data Objective Data Vital Signs: Vital Signs Temp Pulse Resp BP Pulse Ox 97.4 F L 114 H 18 111/72 94 08/01/21 09:54 08/01/21 14:59 08/01/21 09:54 08/01/21 09:54 08/01/21 09:54 Oxygen Flow Rate (L/min) 2 Oxygen Delivery Method Room Air Weight: 241 lb 10.026 oz Body Mass Index (BMI) 35.6 Intake & Output: Intake and Output for Last 24 Hours 07/31/21 08/01/21 08/02/21 03:59 03:59 03:59 Intake Total 240 / 240 1240 / 1240 555.07 / 555.07 Output Total 500 / 500 1974 990 / 990 Balance -260 / -260 -735 / -735 -434.93 / -434.93 Lab / Micro Data Result Diagrams: 08/01/21 05:50 08/01/21 05:50 Labs: Laboratory Results - last 24 hr 07/31/21 17:11: POC Glucose 125 H 07/31/21 21:28: POC Glucose 36 L* 07/31/21 22:06: POC Glucose 82 07/31/21 23:26: POC Glucose 129 H 08/01/21 05:15: POC Glucose 130 H 08/01/21 05:50: WBC 8.1, RBC 4.54 L, Hgb 13.7, Hct 43.6, MCV 96.0 H, MCH 30.2, MCHC 31.4 L, RDW Std Deviation 58.2 H, RDW Coeff of Alfreda 16.4 H, Plt Count 109 L, MPV 11.0, Immature Gran % (Auto) 0.200, Neut % (Auto) 78.7 H, Lymph % (Auto) 8.6 L, [place] % (Auto) 10.7 H, Eos % (Auto) 1.4, Baso % (Auto) 0.4, Absolute Neuts (auto) 6.4, Absolute Lymphs (auto) 0.69 L, Nucleated RBC % 0 08/01/21 05:50: Sodium 141, Potassium 4.4, Chloride 96 L, Carbon Dioxide 38.0 H, Anion Gap 7, BUN 123 H*, Creatinine 2.91 H, Estim Creat Clear Calc 21.26, Est GFR (MDRD) Af Amer 27 L, Est GFR (MDRD) Non-Af 22 L, BUN/Creatinine Ratio 42.3 H, Glucose 137 H, Calcium 10.5 H 08/01/21 08:04: POC Glucose 158 H 08/01/21 11:05: POC Glucose 262 H Micro: Microbiology 07/30/21 19:19 Mucosa - Nasopharyngeal Respiratory Panel (PCR) - Final 07/30/21 16:20 Nasal Secretion SARS-CoV-2 Antigen (Rapid) - Final Physical Exam Const alert, oriented x3 and no apparent distress General Appearance: cooperative HEENT normocephalic and moist oral mucous membranes Eyes PERRL, EOMs intact bilaterally and conjunctivae normal Neck supple and no JVD Resp normal respiratory effort, no retractions, no use of accessory muscles and clear to auscultation bilaterally Auscultation: Negative for crackles, rales, rhonchi or wheezes Cardio regular rate, regular rhythm, S1 normal heart sound, S2 normal heart sound and no murmurs GI soft to palpation, non-tender and non-distended; Negative for hepatosplenomegaly Extremity General Extremity: edema; Negative for clubbing or cyanosis Skin no rashes or lesions noted Neuro no focal motor deficits and no sensory deficits noted Psych affect normal Appearance: appropriate Assessment & Plan Assessment/Plan (1) Abnormal cardiac enzyme level: (2) JUSTIN (acute kidney injury): (3) Acute on chronic congestive heart failure: QUALIFIERS: Heart failure type: combined systolic and diastolic Qualified Code(s): I50.43 - Acute on chronic combined systolic (congestive) and diastolic (congestive) heart failure PLAN: 1. Acute on chronic systolic CHF/CAD status post stent and CABG/HTN/HLD/non-STEMI -Echo on this admission showed an EF of 15% with an RVSP of 34 mmHg. -Continue with the Lasix drip -Appreciate nephrology and cardiology assistance -Strict I's and O's, and will also put on a fluid restriction of 1500 cc -NSTEMI is likely secondary to demand ischemia -We will monitor and adjust his blood pressures, there is a possibility that he was little too hypotensive during this episode secondary to his blood pressure medications, will evaluate when he can tolerate prior to discharge. 2. JUSTIN on CKD4 -Appreciate nephrology's assistance, will continue to monitor creatinine -It is improving with Lasix drip -Nephrology has discussed with him the possible eventual need of dialysis -Had a 20-minute discussion on advance care planning secondary to his cardiorenal syndrome 3. DM2 -Continue with his home insulin -Accu-Cheks AC at bedtime -Sliding scale insulin, make adjustments as necessary 4. Restrictive lung disease, obesity, gout are all chronic medical conditions which complicate his care. His medications were continued where appropriate DVT: Heparin Charges/Coding Visit Charges Inpatient E&M: 44569 Subs Hosp L2
[2021-08-01] MEDS: Insulin U-500 UNITS/ML PEN 20 UNITS SC (16:15)
[2021-08-01 16:41] LABS: Bedside Glucose 229 mg/dL (70-110)
[2021-08-01] MEDS: Acetaminophen 325 MG Tablet 650 MG PO (19:38)
[2021-08-01] MEDS: Atorvastatin Calcium 80 MG Tablet PO (19:39)
--- NOTE | 2021-08-01 19:51 | NURSING ---
evening medications given early per pt request
[2021-08-01] MEDS: Zolpidem Tartrate 5 MG Tablet PO (21:31)
[2021-08-01] MEDS: Albuterol 2.5 MG/3 ML VIAL.NEB. INHALATION (21:43)
[2021-08-01 21:50] LABS: Bedside Glucose 198 mg/dL (70-110)
[2021-08-02] VITALS (15 sets, daily range): BP systolic 103–125; BP diastolic 68–87; PULSE 96–118; RESP 16–22; TEMP 36.3–37.1; O2SAT 90–100
[2021-08-02] MEDS: Heparin Injection (Vial) 5,000 UNIT/ML VIAL 5000 UNIT SC ×3 (05:09→22:23)
[2021-08-02 06:52] LABS: Anion Gap 7 (5-15); BUN 116 mg/dL (7-18); BUN/Creat Ratio 45.8 RATIO (10-20); Calcium,Total 10.4 mg/dL (8.5-10.1); Chloride 96 mmol/L (98-107); Creatinine, Serum 2.53 mg/dL (0.70-1.30); EST Glomerular Filtration Rate 26 mL/min (>60); Est Glom Filt Rate - Afr Amer 32 mL/min (>60); Estimated Creatinine Clearance 24.45 ml/min; Glucose 180 mg/dL (74-106); Magnesium 2.4 mg/dL (1.6-2.6); Potassium 3.4 mmol/L (3.5-5.1); Sodium Level 140 mmol/L (136-145)
[2021-08-02] MEDS: Cholecalciferol (VIT D3) 25 MCG TABLET (1,000 UNITS) 50 MCG PO (08:08)
[2021-08-02] MEDS: Aspirin E.C. 81 MG Tablet PO (08:08)
[2021-08-02] MEDS: Calcitriol 0.25 MCG Capsule PO (08:08)
[2021-08-02] MEDS: Clopidogrel Bisulfate 75 MG Tablet PO (08:08)
[2021-08-02] MEDS: Allopurinol 100 MG Tablet PO ×2 (08:08→17:06)
[2021-08-02] MEDS: Insulin U-500 UNITS/ML PEN 80 UNITS SC ×2 (08:09→11:57)
[2021-08-02] MEDS: Insulin Lispro 100 UNIT/ML INSULN.PEN SC ×2 (08:10→11:57)
[2021-08-02 08:21] LABS: Bedside Glucose 225 mg/dL (70-110)
--- NOTE | 2021-08-02 08:54 | PN.CARD_ITS ---
Subjective Subjective Patient seen and evaluated. Appears to be breathing somewhat better today. Objective Data Vital Signs: Vital Signs Temp Pulse Resp BP Pulse Ox 97.4 F L 109 H 18 125/81 H 100 08/02/21 03:24 08/02/21 07:00 08/02/21 03:24 08/02/21 03:24 08/02/21 08:22 Oxygen Flow Rate (L/min) 2 Oxygen Delivery Method Nasal Cannula Weight: 241 lb 10.026 oz Body Mass Index (BMI) 35.6 Intake & Output: Intake and Output for Last 24 Hours 07/31/21 08/01/21 08/02/21 23:59 23:59 23:59 Intake Total 1240 / 1240 855.07 / 855.07 420 / 420 Output Total 1974 / 1974 1590 / 1590 1275 / 1275 Balance -735 / -735 -734.93 / -734.93 -855 / -855 Lab / Micro Data Result Diagrams: 08/01/21 05:50 08/02/21 05:15 Labs: Laboratory Results - last 24 hr 08/01/21 11:05: POC Glucose 262 H 08/01/21 16:12: POC Glucose 229 H 08/01/21 21:28: POC Glucose 198 H 08/02/21 05:15: Sodium 140, Potassium 3.4 L, Chloride 96 L, Carbon Dioxide 37.0 H, Anion Gap 7, BUN 116 H*, Creatinine 2.53 H, Estim Creat Clear Calc 24.45, Est GFR (MDRD) Af Amer 32 L, Est GFR (MDRD) Non-Af 26 L, BUN/Creatinine Ratio 45.8 H , Glucose 180 H, Calcium 10.4 H, Magnesium 2.4 08/02/21 08:05: POC Glucose 225 H Cardiology Labs/Tests 08/02/21 05:15: Sodium 140, Potassium 3.4 L, Chloride 96 L, Carbon Dioxide 37.0 H, Anion Gap 7, BUN 116 H*, Creatinine 2.53 H, Est GFR (MDRD) Af Amer 32 L, Est GFR (MDRD) Non-Af 26 L, BUN/Creatinine Ratio 45.8 H, Glucose 180 H, Calcium 10.4 H, Magnesium 2.4 Rhythm: EKG: ECHO: Stress Test: Cardiac Cath: PCI: CT Surgery: Holter monitor: EPS: PPM: CXR: Chest CT Scan: Physical Exam Const alert, oriented x3 and no apparent distress General Appearance: cooperative HEENT hearing grossly normal bilaterally Head and Scalp: atraumatic Eyes EOMs intact bilaterally Neck General: normal visual inspection Chest inspection of chest normal and palpation of chest normal Resp normal respiratory effort Auscultation: clear to auscultation bilaterally Cardio regular rate, regular rhythm, S1 normal heart sound and S2 normal heart sound Jugular Venous Distention: JVD GI normal to inspection, nondistended, normoactive bowel sounds Extremity normal capillary refill and no pedal edema Peripheral Pulses: Yes pulses 2+ throughout and femoral pulses present Skin no rashes or lesions noted Neuro oriented x3 and CN's II-XII intact bilaterally Psych Appearance: grossly normal and appropriate Assessment & Plan Assessment/Plan (1) Abnormal cardiac enzyme level: PLAN: The patient does have abnormal cardiac enzymes/troponin I levels. The above appears to be more likely secondary to a type II event related to his chronic renal insufficiency and his congestive heart failure. There are no plans for invasive therapy at this particular time. We will discuss further with nephrology team (2) History of coronary artery stent placement: PLAN: The patient has a history of both PCI and CABG. we'll continue to monitor the above. He does not appear to have any ongoing angina at this time. (3) H/O coronary artery bypass surgery: PLAN: The patient has undergone remote CABG in the past. No indications for reevaluation at this particular time. (4) Ischemic cardiomyopathy: PLAN: The patient has a history of an ischemic mediated cardiomyopathy. His most recent echocardiogram read demonstrates an ejection fraction of 15%. We will continue with current therapy including continuous IV Lasix. I would recommend switching him to carvedilol. * This represents a significant reduction in left ventricular systolic function. It appears to be global in the etiology is unlikely to be ischemic (5) Hyperlipidemia: QUALIFIERS: Hyperlipidemia type: mixed hyperlipidemia Qualified Code(s): E78.2 - Mixed hyperlipidemia PLAN: The patient should continue risk factor evaluation and care/medical management. (6) Essential (primary) hypertension: PLAN: The patient states his blood pressure has been low. My suspicion is that this is related to his low cardiac output. We'll adjust his medications as such. (7) Acute on chronic congestive heart failure: QUALIFIERS: Heart failure type: combined systolic and diastolic Qualified Code(s): I50.43 - Acute on chronic combined systolic (congestive) and diastolic (congestive) heart failure PLAN: He is to have developed acute systolic heart failure on chronic heart failure. He is ACC stage C, CHF grade 3-4. We will continue with intravenous diuretics as well as beta-monica. Depending on his blood pressure other agents will be added as appropriate. His kidney function as you know is also rather precarious. His overall prognosis is quite guarded. We'll await to see what the renal service is in terms of dialysis.
[2021-08-02] MEDS: Furosemide 80 MG Tablet PO ×2 (10:47→17:07)
[2021-08-02 12:30] LABS: Bedside Glucose 225 mg/dL (70-110)
[2021-08-02] MEDS: Benzonatate 100 MG Capsule PO (13:29)
[2021-08-02] MEDS: Acetaminophen 325 MG Tablet 650 MG PO ×2 (13:29→20:09)
--- NOTE | 2021-08-02 14:27 | PCM.PN.REN ---
Subjective Subjective Sitting in chair. Denies any complaints. Denies nausea, vomiting, diarrhea. No asterixis. Reports feeling better overall. States he notices swelling to be improving in his legs. at bedside Objective Data Objective Data Vital Signs: Vital Signs Temp Pulse Resp BP Pulse Ox 98.7 F 113 H 22 H 113/76 92 08/02/21 13:43 08/02/21 13:43 08/02/21 13:43 08/02/21 13:43 08/02/21 13:43 Oxygen Flow Rate (L/min) 2 Oxygen Delivery Method Room Air Weight: 108.4 kg Body Mass Index (BMI) 35.6 Intake & Output: Intake and Output for Last 24 Hours 07/31/21 08/01/21 08/02/21 23:59 23:59 23:59 Intake Total 1240 / 1240 855.07 / 855.07 688.97 / 688.97 Output Total 1974 / 1974 1590 / 1590 1450 / 1450 Balance -735 / -735 -734.93 / -734.93 -761.03 / -761.03 Lab / Micro Data Result Diagrams: 08/01/21 05:50 08/02/21 05:15 Labs: Laboratory Results - last 24 hr 08/01/21 16:12: POC Glucose 229 H 08/01/21 21:28: POC Glucose 198 H 08/02/21 05:15: Sodium 140, Potassium 3.4 L, Chloride 96 L, Carbon Dioxide 37.0 H, Anion Gap 7, BUN 116 H*, Creatinine 2.53 H, Estim Creat Clear Calc 24.45, Est GFR (MDRD) Af Amer 32 L, Est GFR (MDRD) Non-Af 26 L, BUN/Creatinine Ratio 45.8 H, Glucose 180 H, Calcium 10.4 H, Magnesium 2.4 08/02/21 08:05: POC Glucose 225 H 08/02/21 11:54: POC Glucose 225 H Micro: Microbiology 07/30/21 19:19 Mucosa - Nasopharyngeal Respiratory Panel (PCR) - Final 07/30/21 16:20 Nasal Secretion SARS-CoV-2 Antigen (Rapid) - Final Physical Exam Narrative Constitutional: Alert and oriented x3 HEENT: Head normocephalic, or mucosa moist Respiratory: Lung sounds clear anteriorly and posteriorly, no wheezes rhonchi rales. On RA. Extremities: 2+ pitting edema bilateral lower legs Assessment & Plan Assessment/Plan (1) Acute renal failure superimposed on stage 4 chronic kidney disease: QUALIFIERS: Acute renal failure type: unspecified Qualified Code(s): N17.9 - Acute kidney failure, unspecified; N18.4 - Chronic kidney disease, stage 4 (severe) (2) Acute on chronic congestive heart failure: QUALIFIERS: Heart failure type: combined systolic and diastolic Qualified Code(s): I50.43 - Acute on chronic combined systolic (congestive) and diastolic (congestive) heart failure (3) Elevated troponin I level: (4) Stage 4 chronic kidney disease due to type 2 diabetes mellitus: PLAN: - Hypervolemic nonoliguric JUSTIN on CKD with acute component likely secondary to cardiorenal syndrome physiology. He has underlying chronic kidney disease stage IV from diabetic nephropathy with baseline creatinine has been ranging around 2.7 to 3.2 mg/dL, baseline estimated GFR around 20 to 25 mL/min. Creatinine 3.62 mg/dL on admission and today is 2.5 mg/dL. BUN 116 (previous 128). There is no acute indication for [facility]IENT CARE SPECIALIST. No significant uremic symptoms. K+ and acid/base acceptable. - lasix gtt stopped at ~1030am today, received lasix 80mg po today and again to receive evening dose - Patient to continue FR 1.5L/day at home and daily am weights after he voids. To note patient had not been following a fluid restriction before this hospitalization. Starting hospital weight around 110 kg (bed weight). weight 109kg today. Output >> input - Again today long discussion with patient/ that should volume status not improve with high-dose diuretics and or renal function worsens that he would likely need PATIENT CARE SPECIALIST. Patient voiced understanding. He is agreeable for PATIENT CARE SPECIALIST when necessary. He also understands that if cardiac invasive assessment is necessary, renal function may worsen with dye to the point of needing PATIENT CARE SPECIALIST, he voices understanding and is agreeable for cardiac invasive assessment if necessary. -Cardiology is following. Echo showed decreased EF to 15%. - Bps acceptable and has improved. - Calcium 10.4, will stop vitamin D and calcitriol for now - possible discharge to home tomorrow, patient has follow up with Dr. Menchaca
--- NOTE | 2021-08-02 15:22 | NURSING ---
Read and reviewed SN documentation. Reviewed plan of care with SN
--- NOTE | 2021-08-02 16:23 | PN.HOSP_ITS ---
Subjective Subjective Doing well, breathing a bit better, and his swelling is down. He still needing 2 L nasal cannula at night while he sleeps. His creatinine is also improving and cardiology today decreased his Lasix drip to 80 mg p.o. twice daily Objective Data Objective Data Vital Signs: Vital Signs Temp Pulse Resp BP Pulse Ox 98.7 F 107 H 18 109/87 H 92 08/02/21 14:41 08/02/21 15:00 08/02/21 14:41 08/02/21 14:41 08/02/21 14:41 Oxygen Flow Rate (L/min) 2 Oxygen Delivery Method Room Air Weight: 238 lb 15.697 oz Body Mass Index (BMI) 35.6 Intake & Output: Intake and Output for Last 24 Hours 08/01/21 08/02/21 08/03/21 03:59 03:59 03:59 Intake Total 1240 / 1240 1095.07 / 1095.07 448.97 / 448.97 Output Total 1974 / 2039 1000 / 1000 Balance -735 / -735 -944.93 / -944.93 -551.03 / -551.03 Lab / Micro Data Result Diagrams: 08/01/21 05:50 08/02/21 05:15 Labs: Laboratory Results - last 24 hr 08/01/21 16:12: POC Glucose 229 H 08/01/21 21:28: POC Glucose 198 H 08/02/21 05:15: Sodium 140, Potassium 3.4 L, Chloride 96 L, Carbon Dioxide 37.0 H, Anion Gap 7, BUN 116 H*, Creatinine 2.53 H, Estim Creat Clear Calc 24.45, Est GFR (MDRD) Af Amer 32 L, Est GFR (MDRD) Non-Af 26 L, BUN/Creatinine Ratio 45.8 H , Glucose 180 H, Calcium 10.4 H, Magnesium 2.4 08/02/21 08:05: POC Glucose 225 H 08/02/21 11:54: POC Glucose 225 H Micro: Microbiology 07/30/21 19:19 Mucosa - Nasopharyngeal Respiratory Panel (PCR) - Final 07/30/21 16:20 Nasal Secretion SARS-CoV-2 Antigen (Rapid) - Final Physical Exam Const alert, oriented x3 and no apparent distress General Appearance: cooperative HEENT normocephalic and moist oral mucous membranes Eyes PERRL, EOMs intact bilaterally and conjunctivae normal Neck supple and no JVD Neck Narrative: Positive JVD Resp normal respiratory effort, no retractions, no use of accessory muscles and clear to auscultation bilaterally Auscultation: Negative for crackles, rales, rhonchi or wheezes Cardio regular rate, regular rhythm, S1 normal heart sound, S2 normal heart sound and no murmurs GI soft to palpation, non-tender and non-distended; Negative for hepatosplenomegaly Extremity General Extremity: edema bilateral lower extremity Details: moderate; Negative for clubbing or cyanosis Skin no rashes or lesions noted Neuro no focal motor deficits and no sensory deficits noted Psych affect normal Appearance: appropriate Assessment & Plan Assessment/Plan (1) Abnormal cardiac enzyme level: (2) JUSTIN (acute kidney injury): (3) Acute on chronic congestive heart failure: QUALIFIERS: Heart failure type: combined systolic and diastolic Qualified Code(s): I50.43 - Acute on chronic combined systolic (congestive) and diastolic (congestive) heart failure PLAN: 1. Acute on chronic systolic CHF/CAD status post stent and CABG/HTN/HLD/non- STEMI -Echo on this admission showed an EF of 15% with an RVSP of 34 mmHg. -Continue with the Lasix drip -Appreciate nephrology and cardiology assistance -Strict I's and O's, and will also put on a fluid restriction of 1500 cc -NSTEMI is likely secondary to demand ischemia -We will monitor and adjust his blood pressures -Discontinue the Lasix drip and transition to p.o. medication, creatinine is improved to 2.53 2. JUSTIN on CKD4 -Appreciate nephrology's assistance, will continue to monitor creatinine -DC Lasix drip and transition to p.o. Lasix -Nephrology has discussed with him the possible eventual need of dialysis -Had a 20-minute discussion on advance care planning secondary to his cardiorenal syndrome 3. DM2 -Continue with his home insulin -Accu-Cheks AC at bedtime -Sliding scale insulin, make adjustments as necessary 4. Restrictive lung disease, obesity, gout are all chronic medical conditions which complicate his care. His medications were continued where appropriate DVT: Heparin Charges/Coding Visit Charges Inpatient E&M: 92845 Subs Hosp L2
[2021-08-02] MEDS: Potassium Chloride Oral Tablet 20 MEQ PO (17:08)
[2021-08-02] MEDS: Insulin U-500 UNITS/ML PEN 20 UNITS SC (17:09)
[2021-08-02 18:01] LABS: Bedside Glucose 128 mg/dL (70-110)
[2021-08-02] MEDS: Zolpidem Tartrate 5 MG Tablet PO (22:23)
[2021-08-02] MEDS: Atorvastatin Calcium 80 MG Tablet PO (22:23)
[2021-08-02 22:25] LABS: Bedside Glucose 186 mg/dL (70-110)
[2021-08-03] VITALS (9 sets, daily range): BP systolic 112–130; BP diastolic 62–86; PULSE 97–106; RESP 18; TEMP 36.3–36.8; O2SAT 95–98
[2021-08-03] MEDS: Heparin Injection (Vial) 5,000 UNIT/ML VIAL 5000 UNIT SC (05:32)
[2021-08-03 07:38] LABS: Anion Gap 5 (5-15); BUN 120 mg/dL (7-18); BUN/Creat Ratio 43.8 RATIO (10-20); Calcium,Total 10.3 mg/dL (8.5-10.1); Chloride 96 mmol/L (98-107); Creatinine, Serum 2.74 mg/dL (0.70-1.30); EST Glomerular Filtration Rate 24 mL/min (>60); Est Glom Filt Rate - Afr Amer 29 mL/min (>60); Estimated Creatinine Clearance 22.58 ml/min; Glucose 267 mg/dL (74-106); Potassium 4.3 mmol/L (3.5-5.1); Sodium Level 139 mmol/L (136-145)
[2021-08-03 08:21] LABS: Bedside Glucose 255 mg/dL (70-110)
[2021-08-03] MEDS: Insulin U-500 UNITS/ML PEN 80 UNITS SC (08:56)
[2021-08-03] MEDS: Insulin Lispro 100 UNIT/ML INSULN.PEN SC (08:56)
[2021-08-03] MEDS: Furosemide 80 MG Tablet PO (09:42)
[2021-08-03] MEDS: Allopurinol 100 MG Tablet PO (09:42)
[2021-08-03] MEDS: Aspirin E.C. 81 MG Tablet PO (09:42)
[2021-08-03] MEDS: Clopidogrel Bisulfate 75 MG Tablet PO (09:43)
--- NOTE | 2021-08-03 10:41 | PCM.PN.REN ---
Subjective Subjective Following for JUSTIN on CKD. The patient feels okay. He denies chest pain, shortness of breath, nausea, vomiting or increasing edema. He has been able to walk back and forth to his restroom without shortness of breath. However, he is on 2 L of nasal cannula oxygen. Objective Data Objective Data Vital Signs: Vital Signs Temp Pulse Resp BP Pulse Ox 98.0 F 106 H 18 112/62 98 08/03/21 09:40 08/03/21 09:40 08/03/21 09:40 08/03/21 09:40 08/03/21 09:40 Oxygen Flow Rate (L/min) 2 Oxygen Delivery Method Room Air Weight: 108.4 kg Body Mass Index (BMI) 35.6 Intake & Output: Intake and Output for Last 24 Hours 08/01/21 08/02/21 08/03/21 23:59 23:59 23:59 Intake Total 855.07 / 855.07 1368.97 / 1368.97 150 / 150 Output Total 1590 / 1590 1650 / 1650 450 / 450 Balance -734.93 / -734.93 -281.03 / -281.03 -300 / -300 Lab / Micro Data Result Diagrams: 08/01/21 05:50 08/03/21 06:46 Labs: Laboratory Results - last 24 hr 08/02/21 11:54: POC Glucose 225 H 08/02/21 17:04: POC Glucose 128 H 08/02/21 22:20: POC Glucose 186 H 08/03/21 06:46: Sodium 139, Potassium 4.3, Chloride 96 L, Carbon Dioxide 38.0 H, Anion Gap 5, BUN 120 H*, Creatinine 2.74 H, Estim Creat Clear Calc 22.58, Est GFR (MDRD) Af Amer 29 L, Est GFR (MDRD) Non-Af 24 L, BUN/Creatinine Ratio 43.8 H, Glucose 267 H, Calcium 10.3 H 08/03/21 08:16: POC Glucose 255 H Micro: Microbiology 07/30/21 19:19 Mucosa - Nasopharyngeal Respiratory Panel (PCR) - Final 07/30/21 16:20 Nasal Secretion SARS-CoV-2 Antigen (Rapid) - Final Physical Exam Narrative Constitutional: Alert and oriented x3 HEENT: Head normocephalic, or mucosa moist Respiratory: Lung sounds clear anteriorly and posteriorly, no wheezes rhonchi rales. On RA. Extremities: 2+ pitting edema bilateral lower legs Assessment & Plan Assessment/Plan (1) Acute renal failure superimposed on stage 4 chronic kidney disease: QUALIFIERS: Acute renal failure type: unspecified Qualified Code(s): N17.9 - Acute kidney failure, unspecified; N18.4 - Chronic kidney disease, stage 4 (severe) (2) Acute on chronic congestive heart failure: QUALIFIERS: Heart failure type: combined systolic and diastolic Qualified Code(s): I50.43 - Acute on chronic combined systolic (congestive) and diastolic (congestive) heart failure (3) Elevated troponin I level: (4) Stage 4 chronic kidney disease due to type 2 diabetes mellitus: PLAN: - Hypervolemic nonoliguric JUSTIN on CKD with acute component likely secondary to cardiorenal syndrome physiology. He has underlying chronic kidney disease stage IV from diabetic nephropathy with baseline creatinine has been ranging around 2.7 to 3.2 mg/dL, baseline estimated GFR around 20 to 25 mL/min. -Creatinine 3.62 mg/dL on admission and today is 2.74 mg/dL. BUN 120 (previous 128). There is no acute indication for [employer]. No significant uremic symptoms. K+ and acid/base acceptable. - Lasix gtt stopped at ~1030am yesterday. Currently on Lasix 80 mg p.o. twice daily. - Patient to continue fluid restriction 1.5L/day at home and daily am weights after he voids. To note patient had not been following a fluid restriction before this hospitalization. Starting hospital weight around 110 kg (bed weight). weight 109kg today. Output >> input. Reemphasized the importance of fluid restriction when he goes home. - Again today long discussion with patient/ that should volume status not improve with high-dose diuretics and or renal function worsens that he would likely need [employer]. Patient voiced understanding. He is agreeable for [employer] when necessary. - Calcium 10.4 on 08/02/2021, will stop vitamin D and calcitriol for now. -Okay from my standpoint to discharge the patient today. The patient has an appointment with Dr. Menchaca on 09/11/2021. I went over signs and symptoms of uremia and volume overload with the patient and his today. They are instructed to return to the hospital if the symptoms occur prior to his appointment with Dr. Menchaca. They are aware that if the symptoms recur is on current medical treatment, he will need to start dialysis at that time. -I will discuss above with Dr. Martinez.
--- NOTE | 2021-08-03 10:57 | PCM.DC ---
Discharge Instructions Diet Discharge Diet: Low fat / Low cholesterol, 6 Cup Fluid Restriction, 2000 mg Sodium Diet and Carb Control Diet Activity Discharge Activity: Return to Normal Activity Dressing / Incision Call your doctor if you observe: Fever of 101 or Higher, Shortness of breath, Dizziness, Fainting spells, Swelling in the ankles, Chest pain and Increased palpitations (irregular heartbeat) Follow Up Care Test Results: Test results from this visit will be discussed in further detail at your follow-up appointment, if applicable. Discharge Plan Admission Admit Date/Time: 07/30/21 17:58 Attending Provider: James Martinez Primary Care Provider: Jackson Mesa Consulting Providers: Mitch Menjivar ; Evan Menchaca Discharge Orders/Prescriptions Prescriptions: Continued bumetanide 2 mg tablet 2 mg PO BID RF: 0 aspirin [Adult Low Dose Aspirin] 81 mg tablet,delayed release (DR/EC) 81 mg PO DAILY RF: 0 clopidogrel 75 mg tablet 75 mg PO DAILY Qty: 90 RF: 3 metolazone 5 mg tablet 5 mg PO DAILY PRN (Reason: FLUID) RF: 0 allopurinol 100 mg tablet 100 mg PO BID RF: 0 zolpidem 5 mg tablet 5 mg PO QHS PRN (Reason: Edema) RF: 0 atorvastatin 80 MG tablet 80 mg PO QHS RF: 0 calcitriol 0.25 mcg capsule 0.25 mcg PO DAILY RF: 0 Humulin R U-500 (Conc) Kwikpen 500 unit/mL (3 mL) insulin pen 80 unit SUBCUT LUNCH RF: 0 Humulin R U-500 (Conc) Kwikpen 500 unit/mL (3 mL) insulin pen 20 unit SUBCUT DINNER RF: 0 insulin regular hum U-500 conc 500 unit/mL (3 mL) insulin pen 80 unit SC BREAKFAST RF: 0 carvedilol [Coreg] 6.25 mg tablet 6.25 mg PO BID Qty: 180 RF: 3 Held losartan 50 mg tablet 25 mg PO DAILY RF: 0 Hold Instructions: Resume on 08/08/21. isosorbide mononitrate 60 mg tablet extended release 24 hr 60 mg PO BID RF: 0 Hold Instructions: Resume on 08/08/21. Discontinued cholecalciferol (vitamin D3) 2,000 unit capsule 2,000 unit PO DAILY RF: 0 Referrals / Follow Up: Jackson Mesa MD [Primary Care Provider] - Within 1 Week Evan Menchaca MD [STAFF PHYSICIAN] - See Referral Note (As previously scheduled) Disposition Disposition (needs filled in before D/C Order can be placed): Home, Self Care
--- NOTE | 2021-08-03 11:42 | PCM.PN.CARD ---
Subjective Subjective Patient seen and rated at bedside along with the nursing staff today. at bedside at time of evaluation Sitting out in a chair not in acute distress. Objective Data Vital Signs: Vital Signs Temp Pulse Resp BP Pulse Ox 98.0 F 106 H 18 112/62 97 08/03/21 11:14 08/03/21 11:14 08/03/21 11:14 08/03/21 11:14 08/03/21 11:26 Oxygen Flow Rate (L/min) [ 0 AMBULATING on Room Air] Oxygen Flow Rate (L/min) [At 0 REST on Room Air] Oxygen Flow Rate (L/min) 2 Oxygen Delivery Method Room Air Weight: 238 lb 15.697 oz Body Mass Index (BMI) 35.6 Intake & Output: Intake and Output for Last 24 Hours 08/01/21 08/02/21 08/03/21 23:59 23:59 23:59 Intake Total 855.07 / 855.07 1368.97 / 1368.97 150 / 150 Output Total 1590 / 1590 1650 / 1650 450 / 450 Balance -734.93 / -734.93 -281.03 / -281.03 -300 / -300 Lab / Micro Data Result Diagrams: 08/01/21 05:50 08/03/21 06:46 Labs: Laboratory Results - last 24 hr 08/02/21 11:54: POC Glucose 225 H 08/02/21 17:04: POC Glucose 128 H 08/02/21 22:20: POC Glucose 186 H 08/03/21 06:46: Sodium 139, Potassium 4.3, Chloride 96 L, Carbon Dioxide 38.0 H, Anion Gap 5, BUN 120 H*, Creatinine 2.74 H, Estim Creat Clear Calc 22.58, Est GFR (MDRD) Af Amer 29 L, Est GFR (MDRD) Non-Af 24 L, BUN/Creatinine Ratio 43.8 H, Glucose 267 H, Calcium 10.3 H 08/03/21 08:16: POC Glucose 255 H Cardiology Labs/Tests 08/03/21 06:46: Sodium 139, Potassium 4.3, Chloride 96 L, Carbon Dioxide 38.0 H, Anion Gap 5, BUN 120 H*, Creatinine 2.74 H, Est GFR (MDRD) Af Amer 29 L, Est GFR (MDRD) Non-Af 24 L, BUN/Creatinine Ratio 43.8 H, Glucose 267 H, Calcium 10.3 H Physical Exam Narrative Review of patient monitor showed underlying normal sinus Cardiovascular exam S1-S2 is regular, no murmur no systolic or diastolic murmur Chest exam had mild bilateral basilar rales Examination of lower extremity had +2 lower extremity edema Central nervous system exam no focal neurological deficit. Assessment & Plan Assessment/Plan (1) H/O coronary artery bypass surgery: (2) History of coronary artery stent placement: (3) Ischemic cardiomyopathy: (4) Elevated troponin I level: (5) Acute renal failure superimposed on stage 4 chronic kidney disease: QUALIFIERS: Acute renal failure type: unspecified Qualified Code(s): N17.9 - Acute kidney failure, unspecified; N18.4 - Chronic kidney disease, stage 4 (severe) (6) Chronic combined systolic and diastolic CHF (congestive heart failure): PLAN: This patient was this patient with acute on chronic systolic and diastolic heart failure Known CAD with ischemic cardiomyopathy. Type II myocardial infarction/non-STEMI secondary to acute on chronic renal insufficiency and acute on chronic CHF. Demand myocardial ischemia, no plan for invasive cardiac evaluation at this time. Patient had CAD with prior CABG and coronary artery stent with severe LV systolic dysfunction ejection fraction of around 15%. I reviewed and discussed the current medication as well as discussed the cardiac care plan. Advised to weight himself daily and to use metolazone as needed only. Due to the renal insufficiency/acute on chronic renal insufficiency. 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 Conservative treatment and follow-up with the primary internal control specialist Dr. Rizo.
--- NOTE | 2021-08-03 12:48 | DS.PCM_ITS ---
Providers Date of Admission: 07/30/21 Primary Care Physician: Dr. Jackson Mesa MD Consultations 07/30/21 18:59 Consult: Cardiology Routine Consulting Provider: Mitch Menjivar Reason for Consult: HFrEF with exacerbation EMERGENT Consult: No Notified: Yes Date Notified: 07/30/21 Time Notified: 18:03 Method of Notification: consult note in. Consult: Nephrology Routine Consulting Provider: Evan Menchaca Reason for Consult: JUSTIN on CKD EMERGENT Consult: No Notified: Yes Date Notified: 07/31/21 Time Notified: 08:05 Method of Notification: Answering Service Reason For Visit: ACUCTE EXECERBATION OF HEART FAILURE Diagnosis Discharge Diagnosis (1) H/O coronary artery bypass surgery: Status: Chronic Code(s): Z95.1 - Presence of aortocoronary bypass graft (2) History of coronary artery stent placement: Status: Resolved Code(s): Z95.5 - Presence of coronary angioplasty implant and graft (3) Ischemic cardiomyopathy: Status: Chronic Code(s): I25.5 - Ischemic cardiomyopathy (4) Elevated troponin I level: Status: Acute Code(s): R77.8 - Other specified abnormalities of plasma proteins (5) Acute renal failure superimposed on stage 4 chronic kidney disease: Status: Chronic Code(s): N17.9 - Acute kidney failure, unspecified; N18.4 - Chronic kidney disease, stage 4 (severe) Qualifiers: Acute renal failure type: unspecified Qualified Code(s): N17.9 - Acute kidney failure, unspecified; N18.4 - Chronic kidney disease, stage 4 (severe) (6) Chronic combined systolic and diastolic CHF (congestive heart failure): Status: Chronic Code(s): I50.42 - Chronic combined systolic (congestive) and diastolic (congestive) heart failure Medications at Discharge Home Medications atorvastatin 80 mg PO QHS 10/16/14 aspirin 81 mg tablet,delayed release 81 mg PO DAILY 10/27/17 bumetanide 2 mg tablet 2 mg PO BID 10/27/17 clopidogrel 75 mg tablet 75 mg PO DAILY #90 tab 10/10/19 metolazone 5 mg tablet 5 mg PO DAILY PRN 07/31/20 allopurinol 100 mg tablet 100 mg PO BID tab 11/29/20 carvedilol 6.25 mg tablet 6.25 mg PO BID #180 tab 02/05/21 zolpidem 5 mg tablet 5 mg PO QHS PRN 05/29/21 Humulin R U-500 (Conc) Kwikpen 20 unit SUBCUT DINNER 07/30/21 Humulin R U-500 (Conc) Kwikpen 80 unit SUBCUT LUNCH 07/30/21 calcitriol 0.25 mcg PO DAILY 07/30/21 insulin regular hum U-500 conc 80 unit SC BREAKFAST 07/30/21 isosorbide mononitrate 60 mg PO BID 07/30/21 losartan 25 mg PO DAILY 07/30/21 Hospital Course Operations None Procedures 2-D Echocardiogram Summary of Care Provided Minutes Spent on Discharge: 45 Hospital Course: Per HPI: SANJAY MORRIS, is a 75 M who presents with dizziness. Patient states that approximately 2 weeks ago he began to feel dizzy and lightheaded when standing. Patient has been tracking his blood pressures and states that they were lower than his normal sometimes with systolics in the 80s to 100s. He notified cardiology who told him to hold his blood pressure meds x4 days however patient states that he held all of his blood pressure medications except for his Bumex due to concerns over increased swelling and causing CHF exacerbation. Patient states that he has not had any improvement in his symp toms since holding his blood pressure medications. Patient states that he is typically around 235 pounds and today he was on 247 however patient denies any increase in leg swelling or other signs and symptoms of CHF exacerbation. Hospital Course: 1. Acute on chronic systolic CHF/CAD status post stent and CABG/HTN/HLD/non- STEMI -Echo on this admission showed an EF of 15% with an RVSP of 34 mmHg. -Continue with the Lasix drip -Appreciate nephrology and cardiology assistance -Strict I's and O's, and will also put on a fluid restriction of 1500 cc -NSTEMI is likely secondary to demand ischemia -We will monitor and adjust his blood pressures -Discontinue the Lasix drip and transition to p.o. medication, creatinine is improved -Feels much better today, his creatinine did get a little bit worse to 2.73 however nephrology felt that he should be able to go home on his home Bumex and metolazone. His blood pressures have been low however given his heart rate being elevated I did resume his Coreg but held his Imdur and losartan. I do recommend that he follow-up with his PCP and cardiology as an outpatient and if his blood pressures to start to run high that these should be readded to his med list. I discussed with him the plan for discharge today and both he and his expressed understanding of the risk benefits of going home and would like to go home today. He is also aware that if this is to happen again with needing diuresis that nephrology has stated they will likely just start him on dialysis at that point. 2. JUSTIN on CKD4 -Appreciate nephrology's assistance, will continue to monitor creatinine -DC Lasix drip and transition to p.o. Lasix -Nephrology has discussed with him the possible eventual need of dialysis -Had a 20-minute discussion on advance care planning secondary to his cardiorenal syndrome -We will hold his vitamin D secondary to borderline elevated calcium and he can follow-up with nephrology as an outpatient for management 3. DM2 -Continue with his home insulin -Accu-Cheks AC at bedtime -Sliding scale insulin, make adjustments as necessary 4. Restrictive lung disease, obesity, gout are all chronic medical conditions which complicate his care. His medications were continued where appropriate Physical Exam Const alert, oriented x3 and no apparent distress General Appearance: cooperative HEENT normocephalic and moist oral mucous membranes Eyes PERRL, EOMs intact bilaterally and conjunctivae normal Neck supple and no JVD Resp normal respiratory effort, no retractions, no use of accessory muscles and clear to auscultation bilaterally Auscultation: Negative for crackles, rales, rhonchi or wheezes Cardio regular rate, regular rhythm, S1 normal heart sound, S2 normal heart sound and no murmurs GI soft to palpation, non-tender and non-distended; Negative for hepatosplenomegaly Extremity General Extremity: edema bilateral lower extremity Details: moderate; Negative for clubbing or cyanosis Skin no rashes or lesions noted Neuro no focal motor deficits and no sensory deficits noted Psych affect normal Appearance: appropriate Weight / BMI Weight Weight: 238 lb 15.697 oz Body Mass Index (BMI) 35.6 ABG / Lab / Microbiology Data Result Diagrams: 08/01/21 05:50 08/03/21 06:46 Laboratory: Laboratory Results - last 24 hr 08/02/21 17:04: POC Glucose 128 H 08/02/21 22:20: POC Glucose 186 H 08/03/21 06:46: Sodium 139, Potassium 4.3, Chloride 96 L, Carbon Dioxide 38.0 H, Anion Gap 5, BUN 120 H*, Creatinine 2.74 H, Estim Creat Clear Calc 22.58, Est GFR (MDRD) Af Amer 29 L, Est GFR (MDRD) Non-Af 24 L, BUN/Creatinine Ratio 43.8 H , Glucose 267 H, Calcium 10.3 H 08/03/21 08:16: POC Glucose 255 H Microbiology: Microbiology 07/30/21 19:19 Mucosa - Nasopharyngeal Respiratory Panel (PCR) - Final 07/30/21 16:20 Nasal Secretion SARS-CoV-2 Antigen (Rapid) - Final D/C Instructions Discharge Diet: Low fat / Low cholesterol, 6 Cup Fluid Restriction, 2000 mg Sodium Diet and Carb Control Diet Call your doctor if you observe: Fever of 101 or Higher, Shortness of breath, Dizziness, Fainting spells, Swelling in the ankles, Chest pain and Increased palpitations (irregular heartbeat) Meaningful Use Info Meaningful Use Diagnoses (Choose all that apply): None applicable Discharge Plan Admission Admit Date/Time: 07/30/21 17:58 Attending Provider: James Martinez Primary Care Provider: Jackson Mesa Consulting Providers: Mitch Menjivar ; Evan Menchaca Discharge Orders/Prescriptions Prescriptions: Continued bumetanide 2 mg tablet 2 mg PO BID RF: 0 aspirin [Adult Low Dose Aspirin] 81 mg tablet,delayed release (DR/EC) 81 mg PO DAILY RF: 0 clopidogrel 75 mg tablet 75 mg PO DAILY Qty: 90 RF: 3 metolazone 5 mg tablet 5 mg PO DAILY PRN (Reason: FLUID) RF: 0 allopurinol 100 mg tablet 100 mg PO BID RF: 0 zolpidem 5 mg tablet 5 mg PO QHS PRN (Reason: Edema) RF: 0 atorvastatin 80 MG tablet 80 mg PO QHS RF: 0 calcitriol 0.25 mcg capsule 0.25 mcg PO DAILY RF: 0 Humulin R U-500 (Conc) Kwikpen 500 unit/mL (3 mL) insulin pen 80 unit SUBCUT LUNCH RF: 0 Humulin R U-500 (Conc) Kwikpen 500 unit/mL (3 mL) insulin pen 20 unit SUBCUT DINNER RF: 0 insulin regular hum U-500 conc 500 unit/mL (3 mL) insulin pen 80 unit SC BREAKFAST RF: 0 carvedilol [Coreg] 6.25 mg tablet 6.25 mg PO BID Qty: 180 RF: 3 Held losartan 50 mg tablet 25 mg PO DAILY RF: 0 Hold Instructions: Resume on 08/08/21. isosorbide mononitrate 60 mg tablet extended release 24 hr 60 mg PO BID RF: 0 Hold Instructions: Resume on 08/08/21. Discontinued cholecalciferol (vitamin D3) 2,000 unit capsule 2,000 unit PO DAILY RF: 0 Referrals / Follow Up: Jackson Mesa MD [Primary Care Provider] - Within 1 Week Evan Menchaca MD [STAFF PHYSICIAN] - See Referral Note (As previously scheduled) Disposition Disposition (needs filled in before D/C Order can be placed): Home, Self Care Charges/Coding Visit Charges Inpatient E&M: 80377 Disch Hosp
--- NOTE | 2021-08-05 14:16 | CASEMGMT ---
JOSÉ LUIS GARCIA Discharge Follow-up Phone Call: EDWARD: 12 Strata: 3 Call Date: 08/05/21 Discharge Date: 08/03/21 Time of Call: [id number] Duration: 1 min Admitting Diagnosis: Acute exacerbation of heart failure RN JOSE attempted to complete follow-up phone call after recent hospitalization. NO answer, voice message left with return contact information.
== END 2021-08-03 11:55 | disposition home or self-care (01) | DRG 280 ==
LOC: ED 17:45 → PCU 18:23
PROVIDERS: Nurse Practitioner Adult Health; Nurse Practitioner Family; Admitting Provider Internal Medicine; Emergency Provider Emergency Medicine; PCP Family Medicine; Visit Provider Family Medicine
DX: I13.0 Hypertensive heart and chronic kidney disease with heart failure and stage 1 through stage 4 chronic kidney disease, or unspecified chronic kidney disease (principal); I50.43 Acute on chronic combined systolic (congestive) and diastolic (congestive) heart failure; I21.A1 Myocardial infarction type 2; N18.4 Chronic kidney disease, stage 4 (severe); N17.9 Acute kidney failure, unspecified; E66.2 Morbid (severe) obesity with alveolar hypoventilation; E11.22 Type 2 diabetes mellitus with diabetic chronic kidney disease; Z20.822 Contact with and (suspected) exposure to COVID-19; I25.5 Ischemic cardiomyopathy; I25.10 Atherosclerotic heart disease of native coronary artery without angina pectoris; E78.5 Hyperlipidemia, unspecified; E11.42 Type 2 diabetes mellitus with diabetic polyneuropathy; E11.51 Type 2 diabetes mellitus with diabetic peripheral angiopathy without gangrene; E11.319 Type 2 diabetes mellitus with unspecified diabetic retinopathy without macular edema; E78.2 Mixed hyperlipidemia; M10.9 Gout, unspecified; Z79.4 Long term (current) use of insulin; Z79.02 Long term (current) use of antithrombotics/antiplatelets; Z79.82 Long term (current) use of aspirin; Z79.899 Other long term (current) drug therapy; I25.2 Old myocardial infarction; Z87.891 Personal history of nicotine dependence; Z95.1 Presence of aortocoronary bypass graft; Z95.5 Presence of coronary angioplasty implant and graft; J98.4 Other disorders of lung; Z68.36 Body mass index [BMI] 36.0-36.9, adult
CPT/HCPCS: 36415; 71045; 80048; 80061; 81001; 82962; 83735; 83880; 84100; 84443; 84484; 85025; 87426; 87633; 93005; 93306; 94640; 97802; 97803; 99251; 99285; Q9957; A4216; C8929; G0463; J1940; J3490

== ENCOUNTER → 2021-08-21 14:06 | Outpatient (CLI) | payer MEDICARE, OTHER, SELFPAY ==
[2021-08-21 15:31] LABS: Anion Gap 10 (5-15); BUN 139 mg/dL (7-18); Calcium,Total 10.4 mg/dL (8.5-10.1); Chloride 92 mmol/L (98-107); Creatinine, Serum 3.31 mg/dL (0.70-1.30); EST Glomerular Filtration Rate 19 mL/min (>60); Est Glom Filt Rate - Afr Amer 23 mL/min (>60); Glucose 276 mg/dL (74-106); Potassium 3.2 mmol/L (3.5-5.1); Sodium Level 137 mmol/L (136-145)
== END ==
PROVIDERS: PCP Family Medicine; Referring Provider Physician Assistant Medical; Visit Provider Physician Assistant Medical
DX: N17.9 Acute kidney failure, unspecified (principal)
CPT/HCPCS: 36415; 80048

== ENCOUNTER → 2021-08-30 10:16 | Outpatient (CLI) | payer MEDICARE, OTHER, SELFPAY ==
[2021-08-30 12:10] LABS: Anion Gap 14 (5-15); BUN 150 mg/dL (7-18); BUN/Creat Ratio 40.3 RATIO (10-20); Calcium,Total 10.2 mg/dL (8.5-10.1); Chloride 87 mmol/L (98-107); Creatinine, Serum 3.72 mg/dL (0.70-1.30); EST Glomerular Filtration Rate 17 mL/min (>60); Est Glom Filt Rate - Afr Amer 20 mL/min (>60); Glucose 287 mg/dL (74-106); Potassium 4.1 mmol/L (3.5-5.1); Sodium Level 133 mmol/L (136-145)
[2021-08-30 16:02] LABS: Protein, Urine (Random) 17.4 mg/dL (<11.9); Protein:Creat Ratio 246 mg/g CRE (0-200)
== END ==
PROVIDERS: PCP Family Medicine; Referring Provider Internal Medicine Nephrology; Visit Provider Internal Medicine Nephrology
DX: N18.32 Chronic kidney disease, stage 3b (principal)
CPT/HCPCS: 36415; 80048; 82570; 84156

== ENCOUNTER 2021-09-02 15:37 | Inpatient (IN) | payer MEDICARE, OTHER, SELFPAY ==
[2021-09-02 15:39] VITALS: BP 113/60; PULSE 60; RESP 18; TEMP 36.4; O2SAT 95; BMI 35.1
[2021-09-02 18:28] LABS: Absolute Lymphocyte Count 0.62 X10^3/uL (0.83-4.51); Absolute Neutrophil Count 4.5 X10^3/uL (2.0-7.7); Basophil# 0.04 X10^3/uL; Basophil% 0.7 % (0-1); Eosinophil# 0.18 X10^3/uL; Hematocrit 42.8 % (40-54); Hemoglobin 13.7 g/dL (13.0-16.5); Lymphocyte # 0.62 X10^3/ul (0.83-4.51); Lymphocyte % 10.4 % (19-41); Mean Corpuscular Hgb 30.1 pg (27.0-32.0); Mean Corpuscular Volume 94.1 fL (80-94); Monocyte# 0.66 X10^3/uL; NRBC Flagged by Analyzer 0 % (0-5); Neutrophil # 4.47 X10^3/uL (2.7-7.7); Neutrophil % 74.6 % (47-70); Platelet Count 110 K/mm3 (150-450); RBC Distribution Width CV 16.6 % (11.6-14.6); RBC Distribution Width SD 57.1 fl (35.1-43.9); Red Blood Count 4.55 M/mm3 (4.6-6.2)
[2021-09-02 18:53] LABS: Anion Gap 11 (5-15); BUN 148 mg/dL (7-18); BUN/Creat Ratio 39.5 RATIO (10-20); Calcium,Total 10.4 mg/dL (8.5-10.1); Chloride 91 mmol/L (98-107); Creatinine, Serum 3.75 mg/dL (0.70-1.30); EST Glomerular Filtration Rate 17 mL/min (>60); Est Glom Filt Rate - Afr Amer 20 mL/min (>60); Glucose 113 mg/dL (74-106); Potassium 3.3 mmol/L (3.5-5.1); Sodium Level 138 mmol/L (136-145)
--- NOTE | 2021-09-02 19:25 | EKG12_ITS ---
Test Reason : GEN ILLNESS Blood Pressure : / mmHG Vent. Rate : 083 BPM Atrial Rate : 083 BPM P-R Int : 220 ms QRS Dur : 150 ms QT Int : 450 ms P-R-T Axes : 000 -47 131 degrees QTc Int : 528 ms Sinus rhythm with 1st degree A-V block with occasional Premature ventricular complexes Left axis deviation Left ventricular hypertrophy with QRS widening and repolarization abnormality Abnormal ECG Confirmed by BARBI KILGORE, DANIEL ([id number]), communications editor DYLAN ALVAREZ ([id number]) on 09/03/2021 10:17:12 AM Referred By: Evan Menchaca Confirmed By:DANIEL LANDON MD
[2021-09-02 19:53] LABS: Bacteria 0 SEEN /hpf (None Seen); Mucous, Urine 0 SEEN /hpf (<or=2+); Red Blood Cells-Urine 0 SEEN /hpf (0-5); Squamous Epithelial Cells - UA 0 SEEN /hpf (0-5); White Blood Cells 0 SEEN /hpf (0-5)
[2021-09-02 19:55] LABS: Color, Urine Yellow (Yellow); Glucose, Dipstick Normal (Normal); Ketone-Dipstick Negative (Negative); Leukocyte Esterase-Dipstick Negative /ul (Negative); Nitrite-Dipstick Negative (Negative); Occult Blood-Urine Negative /ul (Negative); Protein-Dipstick 15 mg/dl (Negative); Specific Gravity, Urine 1.015 (1.002-1.030); Urine Bilirubin Dipstick Negative (Negative); Urine Clarity Clear (Clear); Urine Urobilinogen Normal (Normal)
[2021-09-02 20:37] VITALS: BP 117/88; PULSE 82; RESP 16; O2SAT 95
--- NOTE | 2021-09-02 20:38 | EDS_ITS ---
HPI History of Present Illness Chief Complaint: General Illness [facility] Medical History Atherosclerotic heart disease of [place] coronary artery without angina pectoris Bilateral lower extremity edema Bronchitis with bronchospasm Chronic combined systolic and diastolic CHF (congestive heart failure) Chronic kidney disease (CKD) Claudication Diabetes Diastolic CHF Dizziness Dyspnea on effort Essential (primary) hypertension Gout of left knee Hyperlipidemia Ischemic cardiomyopathy Left ventricular diastolic dysfunction Neck pain NSTEMI (non-ST elevated myocardial infarction) (01/07/18) Obesity 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 Premature atrial contractions Renal insufficiency Restrictive pattern present on pulmonary function testing Stage 4 chronic kidney disease due to type 2 diabetes mellitus Type II diabetes mellitus Home Medications atorvastatin 80 mg PO QHS 10/16/14 [History Last Taken 07/28/21] aspirin 81 mg tablet,delayed release 81 mg PO DAILY 10/27/17 [History Last Taken 07/28/21] bumetanide 2 mg tablet 2 mg PO BID 10/27/17 [History Last Taken 07/28/21] clopidogrel 75 mg tablet 75 mg PO DAILY #90 tab 10/10/19 [Rx Last Taken 07/28/21] allopurinol 100 mg tablet 100 mg PO BID tab 11/29/20 [History Last Taken 07/28/21] carvedilol 6.25 mg tablet 6.25 mg PO BID #180 tab 02/05/21 [Rx Last Taken 07/28/21] zolpidem 5 mg tablet 5 mg PO QHS PRN 05/29/21 [History Last Taken 07/28/21] Humulin R U-500 (Conc) Kwikpen 500 unit/mL (3 mL) subcutaneous See Rx Instructions SUBCUT TID #33 ml NS 09/02/21 [Rx Last Taken Unknown] Allergy/AdvReac Type Severity Reaction Status Date / Time exenatide [From [place]] AdvReac Unknown Unknown Verified 09/02/21 15:46 lisinopril AdvReac Unknown Unknown Verified 09/02/21 15:46 Family History Mother Cancer Other Arthritis CVA (cerebral vascular accident) Diabetes High cholesterol Hypertension Myocardial infarction Surgical History H/O coronary artery bypass surgery (1988) H/O eye surgery History of coronary artery stent placement (01/12/18) History of parathyroidectomy Social History Smoking Status: Former smoker how long ago did patient quit smokin alcohol intake: current alcohol intake frequency: a few times a month substance use type: does not use caffeine: Yes Type: coffee Number of servings: 2 what type of physical activity do you participate in: none seatbelt use: always do you feel safe at home: Yes ROS ROS ED Constitutional Constitutional ED: Reports other Details: Generalized weakness ; Denies chills or fever(s) Eyes Eyes: Denies blurry vision or change in vision ENT ENT ED: Denies rhinorrhea or sore throat Cardiovascular Cardiovascular: Denies palpitations or racing heartbeat Respiratory/Chest Respiratory/Chest: Denies dyspnea or sputum Gastrointestinal Gastrointestinal: Denies abdominal pain, nausea or vomiting Genitourinary Genitourinary ED: Denies dysuria Musculoskeletal Musculoskeletal: Denies arthralgias or myalgias Integumentary Denies Abrasions or rash Neurologic Neurologic: Denies headache(s) or weakness EXAM Physical Exam Const Vital Signs: 09/02/21 15:39 09/02/21 18:19 Temperature 97.5 F L Temperature Source Temporal Pulse Rate 60 Respiratory Rate 18 Respiratory Effort Normal Non-Labored Respiratory Pattern Normal Blood Pressure 113/60 Blood Pressure Mean 77 Pulse Ox 95 Oxygen Delivery Method Room Air Positive well nourished General Appearance ED: NAD; Negative for pallor HEENT Reports moist mucous membranes Negative for trauma Eyes PERRL and EOMs intact bilaterally Resp normal respiratory effort and clear to auscultation bilaterally Cardio regular rate and regular rhythm Neuro oriented x3 and CN's II-XII intact bilaterally Sensorium / Orientation: alert Skin General Skin Exam: Negative for jaundice or pallor MDM MDM MDM Narrative Medical decision making narrative: Patient sent in by his home organizer for dialysis to be started. I did check basic lab work and his CBC and BMP have not significantly changed. His potassium slightly low at 3.3. Urinalysis negative for infection. Discussed with Dr. Menchaca who did recommend admission for his weakness and could not get this set up in a timely manner on an outpatient basis. This was discussed with Dr. Auguste. Patient admitted in stable condition. Impression: 1. End-stage renal disease 2. Generalized weakness Lab Data Labs: Laboratory Results - last 24 hr 09/02/21 09/02/21 09/02/21 18:15 18:15 19:50 WBC 6.0 RBC 4.55 L Hgb 13.7 Hct 42.8 MCV 94.1 H MCH 30.1 MCHC 32.0 RDW Std Deviation 57.1 H RDW Coeff of Alfreda 16.6 H Plt Count 110 L MPV 12.0 Immature Gran % (Auto) 0.300 Neut % (Auto) 74.6 H Lymph % (Auto) 10.4 L [place] % (Auto) 11.0 H Eos % (Auto) 3.0 Baso % (Auto) 0.7 Absolute Neuts (auto) 4.5 Absolute Lymphs (auto) 0.62 L Nucleated RBC % 0 Sodium 138 Potassium 3.3 L Chloride 91 L Carbon Dioxide 36.0 H Anion Gap 11 BUN 148 H* Creatinine 3.75 H Estim Creat Clear Calc 16.50 Est GFR (MDRD) Af Amer 20 L Est GFR (MDRD) Non-Af 17 L BUN/Creatinine Ratio 39.5 H Glucose 113 H Calcium 10.4 H Urine Color Yellow Urine Clarity Clear Urine pH 6.0 Ur Specific [place] 1.015 Urine Protein 15 H Urine Glucose (UA) Normal Urine Ketones Negative Urine Occult Blood Negative Urine Nitrite Negative Urine Bilirubin Negative Urine Urobilinogen Normal Ur Leukocyte Esterase Negative Urine RBC 0 SEEN Urine WBC 0 SEEN Ur Squamous Epith Cells 0 SEEN Urine Bacteria 0 SEEN Urine Mucus 0 SEEN Discharge Plan Triage Chief Complaint: General Illness ED Provider: Fernando Puente Dx/Rx/DC Orders Prescriptions: No Action bumetanide 2 mg tablet 2 mg PO BID RF: 0 aspirin [Adult Low Dose Aspirin] 81 mg tablet,delayed release (DR/EC) 81 mg PO DAILY RF: 0 clopidogrel 75 mg tablet 75 mg PO DAILY Qty: 90 RF: 3 allopurinol 100 mg tablet 100 mg PO BID RF: 0 Hold Instructions: renal zolpidem 5 mg tablet 5 mg PO QHS PRN (Reason: Edema) RF: 0 atorvastatin 80 MG tablet 80 mg PO QHS RF: 0 carvedilol [Coreg] 6.25 mg tablet 6.25 mg PO BID Qty: 180 RF: 3 Humulin R U-500 (Conc) Kwikpen 500 unit/mL (3 mL) insulin pen See Rx Instructions subcut TID Qty: 33 RF: 0 Primary Care Provider: Jackson Mesa
[2021-09-02 20:52] VITALS: BP 117/88; PULSE 82; RESP 16; TEMP 36.8; O2SAT 95
--- NOTE | 2021-09-02 21:24 | HP.PCM_ITS ---
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 Patient has become too weak to wait to initiate dialysis treatment and was sent in to expedite this treatment. The patient denies chest pain, shortness of breath, fever or chills. He was admitted 2 weeks ago and had similar concern for fluid overload at that time. Patient continues to have increased swelling of his lower extremities and generalized fatigue. [facility] Medical History (Updated 09/02/21 @ 21:[address] 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 Premature atrial contractions Renal insufficiency Restrictive pattern present on pulmonary function testing Stage 4 chronic kidney disease due to type 2 diabetes mellitus Type II diabetes mellitus Home Medications atorvastatin 80 mg PO QHS 10/16/14 [History Last Taken 07/28/21] aspirin 81 mg tablet,delayed release 81 mg PO DAILY 10/27/17 [History Last Taken 07/28/21] bumetanide 2 mg tablet 2 mg PO BID 10/27/17 [History Last Taken 07/28/21] clopidogrel 75 mg tablet 75 mg PO DAILY #90 tab 10/10/19 [Rx Last Taken 07/28/21] carvedilol 6.25 mg tablet 6.25 mg PO BID #180 tab 02/05/21 [Rx Last Taken 07/28/21] zolpidem 5 mg tablet 5 mg PO QHS PRN 05/29/21 [History Last Taken 07/28/21] Humulin R U-500 (Conc) Kwikpen 500 unit/mL (3 mL) subcutaneous See Rx I nstructions SUBCUT TID #33 ml NS 09/02/21 [Rx Last Taken Unknown] Allergy/AdvReac Type Severity Reaction Status Date / Time exenatide [From Byetta] AdvReac Unknown Unknown Verified 09/02/21 15:46 lisinopril AdvReac Unknown Unknown Verified 09/02/21 15:46 Family History Mother Cancer Other Arthritis CVA (cerebral vascular accident) Diabetes High cholesterol Hypertension Myocardial infarction Surgical History H/O coronary artery bypass surgery (1988) H/O eye surgery History of coronary artery stent placement (01/12/18) History of parathyroidectomy Social History Smoking Status: Former smoker how long ago did patient quit smokin alcohol intake: current alcohol intake frequency: a few times a month substance use type: does not use caffeine: Yes Type: coffee Number of servings: 2 what type of physical activity do you participate in: none seatbelt use: always do you feel safe at home: Yes ROS Constitutional Constitutional: Reports fatigue; Denies chills or fever(s) ENT HEENT: Denies abnormal hearing Cardiovascular Cardiovascular: Denies chest pain Respiratory/Chest Respiratory/Chest: Denies cough Gastrointestinal Gastrointestinal: Denies abdominal pain Genitourinary Genitourinary: Reports oliguria Musculoskeletal Musculoskeletal: Denies back pain Integumentary Integumentary: Denies dry skin Neurologic Neurologic: Denies abnormal gait Psychiatric Psychiatric: Denies anxiety Vital Signs Vital Signs Vital Signs: 09/02/21 15:39 09/02/21 18:19 09/02/21 20:37 Temperature 97.5 F L Temperature Source Temporal Pulse Rate 60 82 Respiratory Rate 18 16 Respiratory Effort Normal Non-Labored Respiratory Pattern Normal Blood Pressure 113/60 117/88 H Blood Pressure Mean 77 97 Pulse Ox 95 95 Oxygen Delivery Method Room Air Room Air 09/02/21 20:52 Temperature 98.2 F Temperature Source Temporal Pulse Rate 82 Respiratory Rate 16 Respiratory Effort Respiratory Pattern Blood Pressure 117/88 H Blood Pressure Mean 97 Pulse Ox 95 Oxygen Delivery Method Room Air Weight Weight: 238 lb Body Mass Index (BMI) 35.1 Physical Exam Const oriented x3 General Appearance: cooperative HEENT head/scalp atraumatic Eyes PERRL Neck supple Resp normal respiratory effort and clear to auscultation bilaterally Cardio regular rate, regular rhythm, S1 normal heart sound and S2 normal heart sound GI normal to inspection, nondistended, normoactive bowel sounds Extremity General Extremity: edema bilateral lower extremity Details: moderate Skin General Skin Exam: no breakdown Neuro CN's II-XII intact bilaterally Psych affect normal Results Lab / Micro Data Result Diagrams: 09/02/21 18:15 09/02/21 18:15 Labs: Laboratory Results - last 24 hr 09/02/21 18:15: WBC 6.0, RBC 4.55 L, Hgb 13.7, Hct 42.8, MCV 94.1 H, MCH 30.1, MCHC 32.0, RDW Std Deviation 57.1 H, RDW Coeff of Alfreda 16.6 H, Plt Count 110 L, MPV 12.0, Immature Gran % (Auto) 0.300, Neut % (Auto) 74.6 H, Lymph % (Auto) 10.4 L, Brown % (Auto) 11.0 H, Eos % (Auto) 3.0, Baso % (Auto) 0.7, Absolute Neuts (auto) 4.5, Absolute Lymphs (auto) 0.62 L, Nucleated RBC % 0 09/02/21 18:15: Sodium 138, Potassium 3.3 L, Chloride 91 L, Carbon Dioxide 36.0 H, Anion Gap 11, BUN 148 H*, Creatinine 3.75 H, Estim Creat Clear Calc 16.50, Est GFR (MDRD) Af Amer 20 L, Est GFR (MDRD) Non-Af 17 L, BUN/Creatinine Ratio 39.5 H, Glucose 113 H, Calcium 10.4 H 09/02/21 19:50: Urine Color Yellow, Urine Clarity Clear, Urine pH 6.0, Ur Specific [place] 1.015, Urine Protein 15 H, Urine Glucose (UA) Normal, Urine Ketones Negative, Urine Occult Blood Negative, Urine Nitrite Negative, Urine Bilirubin Negative, Urine Urobilinogen Normal, Ur Leukocyte Esterase Negative, Urine RBC 0 SEEN, Urine WBC 0 SEEN, Ur Squamous Epith Cells 0 SEEN, Urine Bacteria 0 SEEN, Urine Mucus 0 SEEN Assessment & Plan Assessment/Plan (1) Obesity: QUALIFIERS: Obesity type: due to excess calories Obesity classification: adult class 1 (BMI 30 - 34.9) Serious obesity comorbidity presence: with serious comorbidity Body mass index: BMI 34.0-34.9 Qualified Code(s): E66.09 - Other obesity due to excess calories; Z68.34 - Body mass index [BMI] 34.0-34.9, adult (2) ESRD (end stage renal disease): (3) Chronic combined systolic and diastolic CHF (congestive heart failure): (4) Polyneuropathy due to type 2 diabetes mellitus: PLAN: 1. End-stage renal disease?admit patient to general medical floor, consult nephrology Dr. Sarmiento 2. Diabetes?continue home medications 3. DVT prophylaxis?SCDs Charges/Coding Visit Charges Inpatient E&M: 26350 Init Hosp L3
[2021-09-02 21:47] VITALS: BMI 36.2
--- NOTE | 2021-09-02 21:48 | PCS.PANDOC ---
PANDEMIC DOCUMENTATION INITIATED: Date: 05/20/2021 Time: 190
[2021-09-02 21:56] VITALS: BP 101/65; PULSE 83; RESP 18; TEMP 36.1; O2SAT 97
[2021-09-02 23:00] VITALS: PULSE 79; RESP 16; O2SAT 97
[2021-09-02 23:16] LABS: Bedside Glucose 140 mg/dL (70-110)
[2021-09-02] MEDS: Zolpidem Tartrate 5 MG Tablet PO (23:19)
[2021-09-02] MEDS: Atorvastatin Calcium 80 MG Tablet PO (23:19)
[2021-09-02] MEDS: Bumetanide 2 MG Tablet PO (23:19)
[2021-09-03] VITALS (15 sets, daily range): BP systolic 107–125; BP diastolic 63–91; PULSE 74–95; RESP 16–18; TEMP 35.9–36.6; O2SAT 92–99; BMI 36.2
[2021-09-03] MEDS: Acetaminophen 325 MG Tablet 650 MG PO (04:49)
[2021-09-03] MEDS: Insulin Lispro 100 UNIT/ML INSULN.PEN SC ×4 (06:41→21:43)
[2021-09-03 06:46] LABS: Bedside Glucose 233 mg/dL (70-110)
[2021-09-03 06:53] LABS: Absolute Lymphocyte Count 0.38 X10^3/uL (0.83-4.51); Absolute Neutrophil Count 4.3 X10^3/uL (2.0-7.7); Basophil# 0.02 X10^3/uL; Basophil% 0.4 % (0-1); Eosinophil# 0.12 X10^3/uL; Eosinophils% 2.2 % (0-5); Hematocrit 43.3 % (40-54); Hemoglobin 13.2 g/dL (13.0-16.5); Lymphocyte # 0.38 X10^3/ul (0.83-4.51); Lymphocyte % 6.9 % (19-41); Mean Corp Hgb Conc 30.5 g/dL (32-36); Mean Corpuscular Hgb 29.5 pg (27.0-32.0); Mean Corpuscular Volume 96.7 fL (80-94); Mean Platelet Vol. 11.5 fl (6.2-12.0); Monocyte# 0.61 X10^3/uL; Monocyte% 11.1 % (0-10); NRBC Flagged by Analyzer 0 % (0-5); Neutrophil # 4.33 X10^3/uL (2.7-7.7); Neutrophil % 78.3 % (47-70); POSITIVE COUNT YES; POSITIVE DIFFERENTIAL YES; Platelet Count 75 K/mm3 (150-450); RBC Distribution Width CV 16.7 % (11.6-14.6); RBC Distribution Width SD 59.6 fl (35.1-43.9); Red Blood Count 4.48 M/mm3 (4.6-6.2); White Blood Count 5.5 K/mm3 (4.4-11.0)
[2021-09-03 06:54] LABS: Differential Indicated SCAN CRITERIA MET
[2021-09-03 07:05] LABS: Anion Gap 10 (5-15); BUN 106 mg/dL (7-18); BUN/Creat Ratio 44.5 RATIO (10-20); Calcium,Total 9.1 mg/dL (8.5-10.1); Chloride 97 mmol/L (98-107); Creatinine, Serum 2.38 mg/dL (0.70-1.30); EST Glomerular Filtration Rate 28 mL/min (>60); Est Glom Filt Rate - Afr Amer 34 mL/min (>60); Estimated Creatinine Clearance 25.99 ml/min; Glucose 183 mg/dL (74-106); Magnesium 2.6 mg/dL (1.6-2.6); Phosphorus 4.4 mg/dL (2.5-4.9); Potassium 3.9 mmol/L (3.5-5.1); Sodium Level 131 mmol/L (136-145)
--- NOTE | 2021-09-03 10:28 | CON.PCM_ITS ---
Assessment & Plan Assessment/Plan (1) Chronic kidney disease (CKD): QUALIFIERS: Chronic kidney disease stage: stage 4 (severe) Qualified Code(s): N18.4 - Chronic kidney disease, stage 4 (severe) PLAN: I have discussed this patient in conjunction with Dr. Culver. Dr. Culver will plan to perform a right possible left chest tunneled dialysis catheter placement. Procedure details, risks and benefits have been explained. Patient and his have had the opportunity to ask and have questions answered. Patient verbally understands and agrees with the plan. Unfortunately the patient ate breakfast this morning. We will place him NPO and hold his blood thinners for the procedure. Earliest patient may potentially proceed with the procedure is 1500 pm. Thank you for allowing us to participate in this patient's care. HPI Consult Data Date of Consult: 09/03/21 HPI Narrative HPI Narrative: SANJAY MORRIS, is a 75 M who presents with weakness, increased shortness of breath and bilateral lower extremity swelling. Patient states he was hospitalized approximately 2 weeks ago with similar symptoms. He notes he was given a Lasix drip which did not help with his symptoms. Patient has been following with Dr. Menchaca as an outpatient for a while now. He went to the dialysis seminar approximately 1 month ago in preparation for dialysis. He states he is putting out little to no urine. He denies previous dialysis or previous catheter placement. Patient follows with Dr. Rizo for cardiology monitoring. He has a previous history of cardiac bypass 20-22 years ago and has had 1 cardiac stent placed in 2018. He is maintained on Plavix and aspirin as an outpatient. He had a NSTEMI in 2018. He denies previous history of stroke and blood clots. Patient does wear oxygen via nasal canula at night time. He is unsure the reasoning. He denies having COVID previously. He has completed his COVID vaccination in Nov/Dec. Patient denies having vein mapping or consultation for fistula placement. Patient's creatinine has decreased from 3.[address] Menchaca has consulted Dr. Culver for tunneled dialysis catheter placement in preparation for acute dialysis treatment. [facility] Medical History (Updated 09/02/21 @ 21:[address] 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 Premature atrial contractions Renal insufficiency Restrictive pattern present on pulmonary function testing Stage 4 chronic kidney disease due to type 2 diabetes mellitus Type II diabetes mellitus Home Medications atorvastatin 80 mg PO QHS 10/16/14 [History Last Taken 07/28/21] aspirin 81 mg tablet,delayed release 81 mg PO DAILY 10/27/17 [History Last Taken 07/28/21] bumetanide 2 mg tablet 2 mg PO BID 10/27/17 [History Last Taken 07/28/21] clopidogrel 75 mg tablet 75 mg PO DAILY #90 tab 10/10/19 [Rx Last Taken 07/28/21] carvedilol 6.25 mg tablet 6.25 mg PO BID #180 tab 02/05/21 [Rx Last Taken 07/28/21] zolpidem 5 mg tablet 5 mg PO QHS PRN 05/29/21 [History Last Taken 07/28/21] Humulin R U-500 (Conc) Kwikpen 500 unit/mL (3 mL) subcutaneous See Rx Instructions SUBCUT TID #33 ml NS 09/02/21 [Rx Last Taken Unknown] polyethylene glycol 3350 [Miralax] 17 g PO DAILY 09/02/21 [History Last Taken Unknown] Allergy/AdvReac Type Severity Reaction Status Date / Time exenatide [From Byetta] AdvReac Unknown Unknown Verified 09/02/21 15:46 lisinopril AdvReac Unknown Unknown Verified 09/02/21 15:46 Family History Mother Cancer Other Arthritis CVA (cerebral vascular accident) Diabetes High cholesterol Hypertension Myocardial infarction Surgical History H/O coronary artery bypass surgery (1988) H/O eye surgery History of coronary artery stent placement (01/12/18) History of parathyroidectomy Social History Smoking Status: Former smoker how long ago did patient quit smokin alcohol intake: current alcohol intake frequency: a few times a month substance use type: does not use caffeine: Yes Type: coffee Number of servings: 2 what type of physical activity do you participate in: none seatbelt use: always do you feel safe at home: Yes ROS Constitutional Constitutional: Reports systems reviewed and no addt'l complaints, except as documented Eyes Eyes: Reports systems reviewed and no addt'l complaints, except as documented ENT HEENT: Reports systems reviewed and no addt'l complaints, except as documented Cardiovascular Cardiovascular: Reports systems reviewed and no addt'l complaints, except as documented Respiratory/Chest Respiratory/Chest: Reports systems reviewed and no addt'l complaints, except as documented Gastrointestinal Gastrointestinal: Reports systems reviewed and no addt'l complaints, except as documented Genitourinary Genitourinary: Reports systems reviewed and no addt'l complaints, except as documented Musculoskeletal Musculoskeletal: Reports systems reviewed and no addt'l complaints, except as documented Integumentary Integumentary: Reports systems reviewed and no addt'l complaints, except as documented Neurologic Neurologic: Reports systems reviewed and no addt'l complaints, except as documented Psychiatric Psychiatric: Reports systems reviewed and no addt'l complaints, except as documented Endocrine Endocrinology: Reports systems reviewed and no addt'l complaints, except as documented Hematologic/Lymphatic Hematologic/Lymphatic: Reports systems reviewed and no addt'l complaints, except as documented Allergic/Immunologic Allergic/Immunologic: Reports systems reviewed and no addt'l complaints, except as documented Physical Exam Const alert, oriented x3 and no apparent distress Constitutional Narrative: Oxygen given via nasal canula Nutritional Appearance: obese HEENT normocephalic and head/scalp atraumatic Eyes PERRL and EOMs intact bilaterally Neck full ROM Lymph Lymphatic: no lymphadenopathy noted Chest inspection of chest normal Resp normal respiratory effort, normal air movement and clear to auscultation bilaterally Cardio regular rate and regular rhythm GI normal to inspection, nondistended, normoactive bowel sounds no CVA tenderness Back/Spine no CVA tenderness Extremity General Extremity: edema bilateral lower extremity Skin no rashes or lesions noted Neuro no focal motor deficits and no sensory deficits noted Psych mental status grossly normal Lab / Micro Data Result Diagrams: 09/03/21 06:12 09/03/21 06:12 Labs: Laboratory Results - last 24 hr 09/02/21 18:15: WBC 6.0, RBC 4.55 L, Hgb 13.7, Hct 42.8, MCV 94.1 H, MCH 30.1, MCHC 32.0, RDW Std Deviation 57.1 H, RDW Coeff of Alfreda 16.6 H, Plt Count 110 L, MPV 12.0, Immature Gran % (Auto) 0.300, Neut % (Auto) 74.6 H, Lymph % (Auto) 10.4 L, [place] % (Auto) 11.0 H, Eos % (Auto) 3.0, Baso % (Auto) 0.7, Absolute Neuts (auto) 4.5, Absolute Lymphs (auto) 0.62 L, Nucleated RBC % 0 09/02/21 18:15: Sodium 138, Potassium 3.3 L, Chloride 91 L, Carbon Dioxide 36.0 H, Anion Gap 11, BUN 148 H*, Creatinine 3.75 H, Estim Creat Clear Calc 16.50, Est GFR (MDRD) Af Amer 20 L, Est GFR (MDRD) Non-Af 17 L, BUN/Creatinine Ratio 39.5 H, Glucose 113 H, Calcium 10.4 H 09/02/21 19:50: Urine Color Yellow, Urine Clarity Clear, Urine pH 6.0, Ur Specific [place] 1.015, Urine Protein 15 H, Urine Glucose (UA) Normal, Urine Ketones Negative, Urine Occult Blood Negative, Urine Nitrite Negative, Urine Bilirubin Negative, Urine Urobilinogen Normal, Ur Leukocyte Esterase Negative, Urine RBC 0 SEEN, Urine WBC 0 SEEN, Ur Squamous Epith Cells 0 SEEN, Urine Bacteria 0 SEEN, Urine Mucus 0 SEEN 09/02/21 23:07: POC Glucose 140 H 09/03/21 06:12: WBC 5.5, RBC 4.48 L, Hgb 13.2, Hct 43.3, MCV 96.7 H, MCH 29.5, MCHC 30.5 L, RDW Std Deviation 59.6 H, RDW Coeff of Alfreda 16.7 H, Plt Count 75 L, MPV 11.5, Immature Gran % (Auto) 1.100 H, Neut % (Auto) 78.3 H, Lymph % (Auto) 6.9 L, [place] % (Auto) 11.1 H, Eos % (Auto) 2.2, Baso % (Auto) 0.4, Absolute Neuts (auto) 4.3, Absolute Lymphs (auto) 0.38 L, Nucleated RBC % 0 09/03/21 06:12: Sodium 131 L, Potassium 3.9, Chloride 97 L, Carbon Dioxide 24.0, Anion Gap 10, BUN 106 H*, Creatinine 2.38 H, Estim Creat Clear Calc 25.99, Est GFR (MDRD) Af Amer 34 L, Est GFR (MDRD) Non-Af 28 L, BUN/Creatinine Ratio 44.5 H , Glucose 183 H, Calcium 9.1, Phosphorus 4.4, Magnesium 2.6 09/03/21 06:38: POC Glucose 233 H Charges/Coding Visit Charges Office Visits / Consults: 39806 IP Consult L3
--- NOTE | 2021-09-03 10:50 | CASEMGMT ---
RN CM Face to Face with patient for initial transition planning/care coordination assessment. RN CM introduced self and role at [facility]. Patient lying in bed, alert and oriented, at bedside. Patient willing to participate in assessment and is able to answer all questions appropriately. Care providers, pharmacy, and demographics verified. Patient wishes to discharge home, denies need for home health at this time. Patient states he has no further needs or concerns at this time. CM to follow for discharge planning needs that may arise. PCP: [facility] Specialists: Bernarda, pmo consultant; Darrius, ccnp; Brandon, pulmongologist; , spring fitter helper Preferred Pharmacy: [facility] at discharge Insurance: [facility], MMO Prescription Benefit: yes Living Will/HPOA: yes, Nessa Orantes LNOK: daughter Living Arrangements: patient lives with in a single story home with 2 steps to enter the home. Patient states he is independent at home. Transportation: self/ DME/HHC: Patient states he has built in shower chair, walker, grab bars, and home oxygen at through [employer]. No previous HHC or SNF Disposition Plan: Patient to discharge home with family support and follow-up plans in place. Beryl KOHLER, RN, CM
[2021-09-03 11:55] LABS: Bedside Glucose 389 mg/dL (70-110)
--- NOTE | 2021-09-03 11:56 | PCM.CONS.R ---
Assessment & Plan Assessment/Plan (1) ESRD (end stage renal disease): PLAN: Likely ESRD at this point. Start dialysis today. Tunneled dialysis catheter scheduled for 3 PM today. We will run a short session of dialysis today and continue daily for 3 days. He will also need placement in a dialysis unit. All questions answered. Patient is agreeable. (2) Chronic combined systolic and diastolic CHF (congestive heart failure): PLAN: Echocardiogram shows significant decline in ejection fraction. He was seen by cardiology in the past. HPI Consult Data Date of Consult: 09/03/21 HPI Narrative HPI Narrative: SANJAY MORRIS, is a 75 M who presents to the hospital with worsening dyspnea. Nephrology consulted for renal failure. He is well-known to me from office. Has known history of CKD stage IV, severe congestive heart failure. He has been requiring increasingly higher doses of diuretics. He was started on Bumex along with metolazone. Despite this had worsening azotemia and fluid overload. He was scheduled in my office yesterday so that we could discuss about potential dialysis. However he looked significantly weak, volume overloaded. Required 2 people to even get him out of the chair. Hence he was referred to emergency room to start dialysis on an emergent basis. Surgery has been consulted. He is scheduled for a tunneled dialysis catheter at 3 PM today. He is making little urine as per him. Has significant other uremic symptoms including poor appetite, nausea, generalized weakness, edema. [facility] Medical History (Updated 09/02/21 @ 21:[address] 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 Premature atrial contractions Renal insufficiency Restrictive pattern present on pulmonary function testing Stage 4 chronic kidney disease due to type 2 diabetes mellitus Type II diabetes mellitus Home Medications atorvastatin 80 mg PO QHS 10/16/14 [History Last Taken 07/28/21] aspirin 81 mg tablet,delayed release 81 mg PO DAILY 10/27/17 [History Last Taken 07/28/21] bumetanide 2 mg tablet 2 mg PO BID 10/27/17 [History Last Taken 07/28/21] clopidogrel 75 mg tablet 75 mg PO DAILY #90 tab 10/10/19 [Rx Last Taken 07/28/21] carvedilol 6.25 mg tablet 6.25 mg PO BID #180 tab 02/05/21 [Rx Last Taken 07/28/21] zolpidem 5 mg tablet 5 mg PO QHS PRN 05/29/21 [History Last Taken 07/28/21] Humulin R U-500 (Conc) Kwikpen 500 unit/mL (3 mL) subcutaneous See Rx Instructions SUBCUT TID #33 ml NS 09/02/21 [Rx Last Taken Unknown] polyethylene glycol 3350 [Miralax] 17 g PO DAILY 09/02/21 [History Last Taken Unknown] Allergy/AdvReac Type Severity Reaction Status Date / Time exenatide [From Byetta] AdvReac Unknown Unknown Verified 09/02/21 15:46 lisinopril AdvReac Unknown Unknown Verified 09/02/21 15:46 Family History Mother Cancer Other Arthritis CVA (cerebral vascular accident) Diabetes High cholesterol Hypertension Myocardial infarction Surgical History H/O coronary artery bypass surgery (1988) H/O eye surgery History of coronary artery stent placement (01/12/18) History of parathyroidectomy Social History Smoking Status: Former smoker how long ago did patient quit smokin alcohol intake: current alcohol intake frequency: a few times a month substance use type: does not use caffeine: Yes Type: coffee Number of servings: 2 what type of physical activity do you participate in: none seatbelt use: always do you feel safe at home: Yes ROS ROS Narrative Negative except history Physical Exam Narrative Alert awake oriented x 3 no obvious distress no pallor no icterus no JVD s1s2 no murmurs lungs clear abdomen soft no organomegaly +++ edema no cyanosis Lab / Micro Data Result Diagrams: 09/03/21 06:12 09/03/21 06:12 Labs: Laboratory Results - last 24 hr 09/02/21 18:15: WBC 6.0, RBC 4.55 L, Hgb 13.7, Hct 42.8, MCV 94.1 H, MCH 30.1, MCHC 32.0, RDW Std Deviation 57.1 H, RDW Coeff of Alfreda 16.6 H, Plt Count 110 L, MPV 12.0, Immature Gran % (Auto) 0.300, Neut % (Auto) 74.6 H, Lymph % (Auto) 10.4 L, [place] % (Auto) 11.0 H, Eos % (Auto) 3.0, Baso % (Auto) 0.7, Absolute Neuts (auto) 4.5, Absolute Lymphs (auto) 0.62 L, Nucleated RBC % 0 09/02/21 18:15: Sodium 138, Potassium 3.3 L, Chloride 91 L, Carbon Dioxide 36.0 H, Anion Gap 11, BUN 148 H*, Creatinine 3.75 H, Estim Creat Clear Calc 16.50, Est GFR (MDRD) Af Amer 20 L, Est GFR (MDRD) Non-Af 17 L, BUN/Creatinine Ratio 39.5 H, Glucose 113 H, Calcium 10.4 H 09/02/21 19:50: Urine Color Yellow, Urine Clarity Clear, Urine pH 6.0, Ur Specific [place] 1.015, Urine Protein 15 H, Urine Glucose (UA) Normal, Urine Ketones Negative, Urine Occult Blood Negative, Urine Nitrite Negative, Urine Bilirubin Negative, Urine Urobilinogen Normal, Ur Leukocyte Esterase Negative, Urine RBC 0 SEEN, Urine WBC 0 SEEN, Ur Squamous Epith Cells 0 SEEN, Urine Bacteria 0 SEEN, Urine Mucus 0 SEEN 09/02/21 23:07: POC Glucose 140 H 09/03/21 06:12: WBC 5.5, RBC 4.48 L, Hgb 13.2, Hct 43.3, MCV 96.7 H, MCH 29.5, MCHC 30.5 L, RDW Std Deviation 59.6 H, RDW Coeff of Alfreda 16.7 H, Plt Count 75 L, MPV 11.5, Immature Gran % (Auto) 1.100 H, Neut % (Auto) 78.3 H, Lymph % (Auto) 6.9 L, [place] % (Auto) 11.1 H, Eos % (Auto) 2.2, Baso % (Auto) 0.4, Absolute Neuts (auto) 4.3, Absolute Lymphs (auto) 0.38 L, Nucleated RBC % 0 09/03/21 06:12: Sodium 131 L, Potassium 3.9, Chloride 97 L, Carbon Dioxide 24.0, Anion Gap 10, BUN 106 H*, Creatinine 2.38 H, Estim Creat Clear Calc 25.99, Est GFR (MDRD) Af Amer 34 L, Est GFR (MDRD) Non-Af 28 L, BUN/Creatinine Ratio 44.5 H, Glucose 183 H, Calcium 9.1, Phosphorus 4.4, Magnesium 2.6 09/03/21 06:38: POC Glucose 233 H 09/03/21 11:44: POC Glucose 389 H
[2021-09-03] MEDS: LORazepam 2 MG/ML Syringe 0.5 MG IV (12:14)
[2021-09-03] MEDS: Ondansetron 4 MG/2 ML Vial IV (12:14)
[2021-09-03] MEDS: 0.9% Saline Lock 10 ML Syringe IV (12:14)
--- NOTE | 2021-09-03 12:16 | CASEMGMT ---
Per Dr. Menchaca, pt was sent in for OP dialysis set up and pt states would like [facility] at this time. Referral placed in [facility] portal and faxed to [facility] admissions as well as [facility] at this time. CM to follow. Socorro ORDONEZ CM
--- NOTE | 2021-09-03 12:26 | PN.HOSP_ITS ---
Documented by User: Eloy GAN 09/03/21 12:38 Subjective Subjective Patient is a 75-year-old male comfortably resting in a chair, alert and orient x3. Patient reports just some nausea and anxiety, but is otherwise without specific complaints. Does not appear in acute distress. Objective Data Objective Data Vital Signs: Vital Signs Temp Pulse Resp BP Pulse Ox 97.8 F 90 16 123/75 H 92 09/03/21 11:35 09/03/21 11:35 09/03/21 11:35 09/03/21 11:35 09/03/21 11:35 Oxygen Flow Rate (L/min) 2 Oxygen Delivery Method Room Air Weight: 245 lb 5.992 oz Body Mass Index (BMI) 36.2 Intake & Output: Intake and Output for Last 24 Hours 09/01/21 09/02/21 09/03/21 23:59 23:59 23:59 Output Total 200 / 200 325 / 325 Balance -200 / -200 -325 / -325 Lab / Micro Data Result Diagrams: 09/03/21 06:12 09/03/21 06:12 Labs: Laboratory Results - last 24 hr 09/02/21 18:15: WBC 6.0, RBC 4.55 L, Hgb 13.7, Hct 42.8, MCV 94.1 H, MCH 30.1, MCHC 32.0, RDW Std Deviation 57.1 H, RDW Coeff of Alfreda 16.6 H, Plt Count 110 L, MPV 12.0, Immature Gran % (Auto) 0.300, Neut % (Auto) 74.6 H, Lymph % (Auto) 10.4 L, [place] % (Auto) 11.0 H, Eos % (Auto) 3.0, Baso % (Auto) 0.7, Absolute Neuts (auto) 4.5, Absolute Lymphs (auto) 0.62 L, Nucleated RBC % 0 09/02/21 18:15: Sodium 138, Potassium 3.3 L, Chloride 91 L, Carbon Dioxide 36.0 H, Anion Gap 11, BUN 148 H*, Creatinine 3.75 H, Estim Creat Clear Calc 16.50, Est GFR (MDRD) Af Amer 20 L, Est GFR (MDRD) Non-Af 17 L, BUN/Creatinine Ratio 39.5 H, Glucose 113 H, Calcium 10.4 H 09/02/21 19:50: Urine Color Yellow, Urine Clarity Clear, Urine pH 6.0, Ur Specific [place] 1.015, Urine Protein 15 H, Urine Glucose (UA) Normal, Urine Ketones Negative, Urine Occult Blood Negative, Urine Nitrite Negative, Urine Bilirubin Negative, Urine Urobilinogen Normal, Ur Leukocyte Esterase Negative, Urine RBC 0 SEEN, Urine WBC 0 SEEN, Ur Squamous Epith Cells 0 SEEN, Urine Bact eria 0 SEEN, Urine Mucus 0 SEEN 09/02/21 23:07: POC Glucose 140 H 09/03/21 06:12: WBC 5.5, RBC 4.48 L, Hgb 13.2, Hct 43.3, MCV 96.7 H, MCH 29.5, MCHC 30.5 L, RDW Std Deviation 59.6 H, RDW Coeff of Alfreda 16.7 H, Plt Count 75 L, MPV 11.5, Immature Gran % (Auto) 1.100 H, Neut % (Auto) 78.3 H, Lymph % (Auto) 6.9 L, [place] % (Auto) 11.1 H, Eos % (Auto) 2.2, Baso % (Auto) 0.4, Absolute Neuts (auto) 4.3, Absolute Lymphs (auto) 0.38 L, Nucleated RBC % 0 09/03/21 06:12: Sodium 131 L, Potassium 3.9, Chloride 97 L, Carbon Dioxide 24.0, Anion Gap 10, BUN 106 H*, Creatinine 2.38 H, Estim Creat Clear Calc 25.99, Est GFR (MDRD) Af Amer 34 L, Est GFR (MDRD) Non-Af 28 L, BUN/Creatinine Ratio 44.5 H , Glucose 183 H, Calcium 9.1, Phosphorus 4.4, Magnesium 2.6 09/03/21 06:38: POC Glucose 233 H 09/03/21 11:44: POC Glucose 389 H Physical Exam Const alert, oriented x3 and no apparent distress HEENT head/scalp atraumatic and moist oral mucous membranes Head and Scalp: normocephalic Eyes PERRL, EOMs intact bilaterally and conjunctivae normal Neck no lymphadenopathy, supple and no JVD Resp normal respiratory effort, no retractions, no use of accessory muscles and clear to auscultation bilaterally Cardio regular rate, regular rhythm, no murmurs and no JVD GI normal to inspection, nondistended, normoactive bowel sounds, soft to palpation and non-tender Extremity General Extremity: edema bilateral lower extremity Skin no rashes or lesions noted, no wounds and skin turgor normal Neuro CN's II-XII intact bilaterally Psych affect normal Assessment & Plan Assessment/Plan (1) ESRD (end stage renal disease): (2) Chronic combined systolic and diastolic CHF (congestive heart failure): PLAN: Day 1 Discharge planning: Current plan is for patient to discharge home. 1) end-stage renal disease Seen by Dr. Chapa and Dr. Culver for placement of Tunneled Dialysis catheter placement today at 1500. Plan is to initiate a short session of dialys is today and to continue for 3 days. Case management following for placement in the dialysis unit. 2) chronic combined systolic and diastolic CHF Patient was evaluated by cardiology during last admission for exacerbation of CHF and at that time it was decided to continue current medications and no catheterization was done echocardiogram obtained in July 2021 showed an EF of 50%, moderately dilated left ventricle, moderate eccentric mitral valve insufficiency, moderate focal aortic valve calcification, and RVSP of 34 mmHg and indeterminate diastolic dysfunction. Plan is to continue Coreg and Bumex. 3) CAD status post stent Continue aspirin, statin and Plavix. 4) DM2 Hold home diabetic regimen. Continue Accu-Cheks with sliding scale insulin. DVT prophylaxis - SCDs Patient seen by Eloy Guardado PA-C, under the supervision of Dr. Isbell. Documented by User: Dr. Archana Isbell MD 09/03/21 19:10 Objective Data Lab / Micro Data Result Diagrams: 09/03/21 06:12 09/03/21 06:12
[2021-09-03] MEDS: LORazepam 2 MG/ML Syringe 1 MG IV (13:40)
[2021-09-03] MEDS: Cefazolin 2 GM in 0.9% Normal Saline 100 ML IV (14:05)
[2021-09-03] MEDS: Lidocaine 1% /Epi 1:100 (50ml) 50 ML VIAL (14:10)
[2021-09-03] MEDS: Bupivacaine Mpf 0.5% 30 ML VIAL (14:10)
[2021-09-03] MEDS: Heparin 10,000 UNITS/10 ML Vial 10000 UNITS (14:20)
--- NOTE | 2021-09-03 14:27 | RAD_ITS ---
STUDY: X-RAY CHEST REASON FOR EXAM: Male, 75 years old. HEMODIALYSIS PLACEMENT TECHNIQUE: Single AP portable view of the chest. COMPARISON: Comparison is made with prior study dated 07/30/2021. FINDINGS: The right-sided hemodialysis catheter has been placed with the tip at the junction of the superior vena cava and right atrium. Stable elevation of the right hemidiaphragm. Increased markings at the right lung base suggestive of atelectasis. There is no demonstrated pleural abnormality. Sternal cerclage wires and vascular clips are present from a prior sternotomy and coronary artery bypass graft procedure (CABG). Cardiomegaly. Normal mediastinum and jacinto. Normal visualized pulmonary arteries. There is atherosclerotic calcification of the aortic arch with tortuosity. Normal visualized thoracic spine. Normal visualized ribs, clavicles, and shoulders. There is no demonstrated abnormality of the visualized soft tissue structures of the upper abdomen. RAD/CXR for Line Placement IMPRESSION: The tip of the right hemodialysis catheter is at the junction of the superior vena cava and right atrium. Elevation of the right hemidiaphragm with right basilar atelectasis. Electronically Signed: Lonny Henry MD at 15:16 EST , Service support ,
--- NOTE | 2021-09-03 14:30 | OP.PCM_ITS ---
Report of Operation Date of Procedure: 09/03/21 Pre-Operative Diagnosis: Acute on chronic kidney disease Post-Operative Diagnosis: Same Surgery/Procedure Performed:: 1. Placement of right IJ tunneled dialysis catheter Surgeon: Nhi Culver veterinary nurse: None Type of Anesthesia: Local Special Medications: Ancef 2 g IV x1 Estimated Blood Loss (mL): 10 cc Description of Procedure: After informed consent was given, the patient was brought to the operating room and placed in the supine position. Appropriate time out protocol was followed. The patient's right upper chest and neck were then prepped with a surgical skin preparation and sterile surgical drapes were placed. After proper landmarks were ascertained, the skin at the upper right chest area was then infiltrated with 1:1 mixture of 1% lidocaine with epinephrine and 0.5% maricaine. A needle trocar was then inserted into the right internal jugular vein with ultrasound guidance-multiple vessels were viewed with u/s and the right IJ was chosen-- and there was good aspiration of venous blood. A wire was then threaded into the needle trocar and this was visualized under fluoroscopy to ensure that the wire was in the superior vena cava. Once this was done, then the needle trocar was removed. A small incision was made with an 11 blade knife at the wire entrance site. The dilator x2 with the introducer sheath attached was then placed over the wire into the right internal jugular vein via the Seldinger technique and this was visualized under fluoroscopy. Next the introducer and sheath were in proper position as visualized by fluoroscopy. The location of the cuffed was estimated on the skin, an incision was made with a 15 blade scalpel. The 14.5 Fr x 19 cm Palindrome dual lumen (Lot [id number] reference [id number]) was tunneled from the chest incision to the right neck incision. The sheath was removed. The catheter was placed through the introducer and was positioned with its tip at the junction of the superior vena cava and the right atrium as visualized under fluoroscopy. The cuff of the catheter was in the cosby bcutaneous tissue. The catheter flushed and quinn well with saline. Catheter was also flushed with 1.6 cc of 1-10,000 of heparin. Hemostasis was assured. Silver dressing was placed at the catheter exit site. Catheter was sutured with 3-0 nylon sutures. The neck incision was sutured with interrupted 3-0 Vicryl interrupted sutures x2 and Steri-Strips were placed. A large OpSite was placed over the catheter site and a small OpSite over the neck incision. The patient tolerated the procedure well. Grafts/Implants Used: 14.5 Fr x 19 cm Palindrome dual lumen (Lot [id number] reference [id number] Complications none
[2021-09-03 16:25] LABS: Bedside Glucose 379 mg/dL (70-110)
[2021-09-03] MEDS: Carvedilol 6.25 MG Tablet PO (17:01)
--- NOTE | 2021-09-03 21:03 | DIALYSIS ---
Hd x 1.5 hours complete. Tolerated tx well. UF of 1000ml. See tx sheet for more details. Report was given to JOSÉ LUIS Wade.
[2021-09-03] MEDS: Heparin 10,000 UNITS/10 ML Vial 3200 UNITS IV (21:41)
[2021-09-03] MEDS: Zolpidem Tartrate 5 MG Tablet PO (21:42)
[2021-09-03] MEDS: Atorvastatin Calcium 80 MG Tablet PO (21:42)
[2021-09-03] MEDS: Bumetanide 2 MG Tablet PO (21:42)
[2021-09-03 21:51] LABS: Bedside Glucose 380 mg/dL (70-110)
[2021-09-04 01:35] VITALS: BP 119/75; PULSE 88; RESP 18; TEMP 36.4; O2SAT 98
[2021-09-04 01:35] LABS: Bedside Glucose 396 mg/dL (70-110)
[2021-09-04 06:19] VITALS: BP 117/72; PULSE 87; RESP 17; TEMP 36.4; O2SAT 94
[2021-09-04] MEDS: Insulin Lispro 100 UNIT/ML INSULN.PEN SC ×2 (06:27→21:27)
[2021-09-04 06:45] LABS: Bedside Glucose 400 mg/dL (70-110)
[2021-09-04 06:57] LABS: Absolute Lymphocyte Count 0.31 X10^3/uL (0.83-4.51); Absolute Neutrophil Count 3.6 X10^3/uL (2.0-7.7); Basophil# 0.02 X10^3/uL; Basophil% 0.4 % (0-1); Differential Indicated SCAN CRITERIA MET; Eosinophil# 0.05 X10^3/uL; Eosinophils% 1.1 % (0-5); Hematocrit 40.1 % (40-54); Hemoglobin 12.4 g/dL (13.0-16.5); Lymphocyte # 0.31 X10^3/ul (0.83-4.51); Lymphocyte % 6.6 % (19-41); Mean Corp Hgb Conc 30.9 g/dL (32-36); Mean Corpuscular Hgb 29.5 pg (27.0-32.0); Mean Corpuscular Volume 95.2 fL (80-94); Mean Platelet Vol. 12.3 fl (6.2-12.0); Monocyte# 0.64 X10^3/uL; Monocyte% 13.7 % (0-10); NRBC Flagged by Analyzer 0 % (0-5); Neutrophil # 3.63 X10^3/uL (2.7-7.7); Neutrophil % 77.8 % (47-70); POSITIVE COUNT YES; POSITIVE DIFFERENTIAL YES; Platelet Count 85 K/mm3 (150-450); RBC Distribution Width CV 16.6 % (11.6-14.6); Red Blood Count 4.21 M/mm3 (4.6-6.2); White Blood Count 4.7 K/mm3 (4.4-11.0)
[2021-09-04 07:28] LABS: Anion Gap 13 (5-15); BUN 129 mg/dL (7-18); BUN/Creat Ratio 39.2 RATIO (10-20); Calcium,Total 9.6 mg/dL (8.5-10.1); Chloride 92 mmol/L (98-107); Creatinine, Serum 3.29 mg/dL (0.70-1.30); EST Glomerular Filtration Rate 19 mL/min (>60); Est Glom Filt Rate - Afr Amer 24 mL/min (>60); Glucose 389 mg/dL (74-106); Potassium 3.8 mmol/L (3.5-5.1); Sodium Level 135 mmol/L (136-145)
[2021-09-04 08:58] LABS: Hepatitis B Surface Antibody Non-Reactive
[2021-09-04 09:09] LABS: Hepatitis B Surface Antigen Non-Reactive (Nonreactive)
[2021-09-04 09:44] VITALS: O2SAT 98
[2021-09-04 09:46] VITALS: BP 104/55; PULSE 90; RESP 16; TEMP 36.6; O2SAT 93
--- NOTE | 2021-09-04 10:26 | CASEMGMT ---
Addendum entered by Beryl Roman 09/04/21 15:37: Schedule letter obtained and provided to pt/ at this time. CM to follow for any further discharge planning/needs. Socorro ORDONEZ CM Addendum entered by Beryl Roman 09/04/21 14:40: Call from Liliana at [facility] and she states pt's chair time will be TTS at 1140. Plan is for pt to dialyze again tomorrow then d/c home. Pt's 1st date of OP HD will be 09/07/21 at 1140. Pt/ updated on all, voices understanding. Schedule letter to be provided to pt once received from [facility]. Pt/ voices no further questions/concerns/needs. Socorro ORDONEZ CM Addendum entered by Beryl Roman 09/04/21 14:32: Call to Meggan at [facility] and she states pt has been financially and medically cleared at this time. Meggan states she will contact [facility] to finalize chair time and then fax schedule letter to this JOSÉ LUIS GARCIA. CM to follow. Socorro ORDONEZ CM Original Note: Updated clinicals faxed to [facility] and [facility], including hep, op report, CXR, and 1st dialysis run notes. CM to follow. Socorro ORDONEZ CM
--- NOTE | 2021-09-04 10:31 | PCM.PN.SRG ---
Subjective Subjective Patient did have dialysis yesterday no issues with dialysis catheter. Patient has no complaints. Objective Data Objective Data Vital Signs: Vital Signs Temp Pulse Resp BP Pulse Ox 97.9 F 90 16 104/55 L 93 09/04/21 09:46 09/04/21 09:46 09/04/21 09:46 09/04/21 09:46 09/04/21 09:46 Oxygen Flow Rate (L/min) 2 Oxygen Delivery Method Room Air Weight: 245 lb 5.992 oz Body Mass Index (BMI) 36.2 Intake & Output: Intake and Output for Last 24 Hours 09/02/21 09/03/21 09/04/21 23:59 23:59 23:59 Intake Total 710 / 710 0 / 0 Output Total 200 / 200 1425 / 1425 Balance -200 / -200 -715 / -715 0 / 0 Lab / Micro Data Result Diagrams: 09/04/21 05:55 09/04/21 05:55 Labs: Laboratory Results - last 24 hr 09/03/21 11:44: POC Glucose 389 H 09/03/21 16:22: POC Glucose 379 H 09/03/21 20:37: Hep Bs Antigen Non-Reactive 09/03/21 20:37: Hep Bs Antibody Non-Reactive 09/03/21 21:39: POC Glucose 380 H 09/04/21 01:29: POC Glucose 396 H 09/04/21 05:55: WBC 4.7, RBC 4.21 L, Hgb 12.4 L, Hct 40.1, MCV 95.2 H, MCH 29.5, MCHC 30.9 L, RDW Std Deviation 58.0 H, RDW Coeff of Alfreda 16.6 H, Plt Count 85 L, MPV 12.3 H, Immature Gran % (Auto) 0.400, Neut % (Auto) 77.8 H, Lymph % (Auto) 6.6 L, [place] % (Auto) 13.7 H, Eos % (Auto) 1.1, Baso % (Auto) 0.4, Absolute Neuts (auto) 3.6, Absolute Lymphs (auto) 0.31 L, Nucleated RBC % 0 09/04/21 05:55: Sodium 135 L, Potassium 3.8, Chloride 92 L, Carbon Dioxide 30.0, Anion Gap 13, BUN 129 H*, Creatinine 3.29 H, Estim Creat Clear Calc 18.80, Est GFR (MDRD) Af Amer 24 L, Est GFR (MDRD) Non-Af 19 L, BUN/Creatinine Ratio 39.2 H, Glucose 389 H, Calcium 9.6 09/04/21 06:26: POC Glucose 400 H Radiography Diagnostic Testing: Radiology Impression Chest X-Ray 09/03/21 14:27 IMPRESSION: The tip of the right hemodialysis catheter is at the junction of the superior vena cava and right atrium. Elevation of the right hemidiaphragm with right basilar atelectasis. Electronically Signed: Lonny Henry MD at 15:16 EST , Service support , Physical Exam Narrative Right neck/upper chest. Tunneled dialysis catheter in place and dressed Assessment & Plan Assessment/Plan (1) ESRD (end stage renal disease): PLAN: Tunneled dialysis catheter functioning well. Follow-up as needed. Patient is agreeable with plan. Nhi Culver M.D. Pager: [phone] [facility] [address] [place] [address], [facility], [address] [place] [address] Office: [phone]
[2021-09-04] MEDS: Insulin U-500 UNITS/ML PEN 80 UNITS SC (11:12)
[2021-09-04 11:21] LABS: Bedside Glucose 468 mg/dL (70-110)
--- NOTE | 2021-09-04 12:43 | PN.HOSP_ITS ---
Documented by User: Eloy GAN 09/04/21 12:54 Subjective Subjective Patient is a 75-year-old male comfortably resting in a chair, alert and orient x3. Patient still reports feeling anxious especially while he is being dialyzed, but denies development of any new symptoms overnight. Does not appear in acute distress. Objective Data Objective Data Vital Signs: Vital Signs Temp Pulse Resp BP Pulse Ox 97.9 F 90 16 104/55 L 93 09/04/21 09:46 09/04/21 09:46 09/04/21 09:46 09/04/21 09:46 09/04/21 09:46 Oxygen Flow Rate (L/min) 2 Oxygen Delivery Method Room Air Weight: 245 lb 5.992 oz Body Mass Index (BMI) 36.2 Intake & Output: Intake and Output for Last 24 Hours 09/02/21 09/03/21 09/04/21 23:59 23:59 23:59 Intake Total 710 / 710 0 / 0 Output Total 200 / 200 1425 / 1425 Balance -200 / -200 -715 / -715 0 / 0 Lab / Micro Data Result Diagrams: 09/04/21 05:55 09/04/21 05:55 Labs: Laboratory Results - last 24 hr 09/03/21 16:22: POC Glucose 379 H 09/03/21 20:37: Hep Bs Antigen Non-Reactive 09/03/21 20:37: Hep Bs Antibody Non-Reactive 09/03/21 21:39: POC Glucose 380 H 09/04/21 01:29: POC Glucose 396 H 09/04/21 05:55: WBC 4.7, RBC 4.21 L, Hgb 12.4 L, Hct 40.1, MCV 95.2 H, MCH 29.5, MCHC 30.9 L, RDW Std Deviation 58.0 H, RDW Coeff of Alfreda 16.6 H, Plt Count 85 L, MPV 12.3 H, Immature Gran % (Auto) 0.400, Neut % (Auto) 77.8 H, Lymph % (Auto) 6.6 L, [place] % (Auto) 13.7 H, Eos % (Auto) 1.1, Baso % (Auto) 0.4, Absolute Neuts (auto) 3.6, Absolute Lymphs (auto) 0.31 L, Nucleated RBC % 0 09/04/21 05:55: Sodium 135 L, Potassium 3.8, Chloride 92 L, Carbon Dioxide 30.0, Anion Gap 13, BUN 129 H*, Creatinine 3.29 H, Estim Creat Clear Calc 18.80, Est GFR (MDRD) Af Amer 24 L, Est GFR (MDRD) Non-Af 19 L, BUN/Creatinine Ratio 39.2 H , Glucose 389 H, Calcium 9.6 09/04/21 06:26: POC Glucose 400 H 09/04/21 11:11: POC Glucose 468 H* Radiography Diagnostic Testing: Radiology Impression Chest X-Ray 09/03/21 14:27 IMPRESSION: The tip of the right hemodialysis catheter is at the junction of the superior vena cava and right atrium. Elevation of the right hemidiaphragm with right basilar atelectasis. Electronically Signed: Lonny Henry MD at 15:16 EST , Service support , Physical Exam Const alert, oriented x3 and no apparent distress HEENT head/scalp atraumatic and moist oral mucous membranes Head and Scalp: normocephalic Eyes PERRL, EOMs intact bilaterally and conjunctivae normal Neck no lymphadenopathy, supple and no JVD Resp normal respiratory effort, no retractions, no use of accessory muscles and clear to auscultation bilaterally Cardio regular rate, regular rhythm, no murmurs and no JVD GI normal to inspection, nondistended, normoactive bowel sounds, soft to palpation and non-tender Extremity normal to inspection, full ROM and no clubbing, cyanosis or edema Skin no rashes or lesions noted, no wounds, skin turgor normal and no jaundice Neuro CN's II-XII intact bilaterally Psych affect normal Assessment & Plan Assessment/Plan (1) ESRD (end stage renal disease): PLAN: Day 2 Discharge planning: Current plan is for patient to discharge home. 1) end-stage renal disease Creatinine currently 3.29, estimated GFR is 19, which is a significant decrease from last month. Management per nephrology, Dr. Menchaca. Patient was successfully dialyzed on 09/03/2021, and is to be dialyzed again today as well as 09/05. 2) chronic combined systolic and diastolic CHF Patient was evaluated by cardiology during last admission for exacerbation of CHF and at that time it was decided to continue current medications and no catheterization was done echocardiogram obtained in July 2021 showed an EF of 50%, moderately dilated left ventricle, moderate eccentric mitral valve insufficiency, moderate focal aortic valve calcification, and RVSP of 34 mmHg and indeterminate diastolic dysfunction. Plan is to continue Coreg, Bumex and apply Thanh wraps. 3) CAD status post stent Continue aspirin, statin and Plavix. 4) DM2 Hold home diabetic regimen. Continue home insulin regimen as well as Accu-Cheks with sliding scale insulin. 5) anxiety Patient reports to significant months of anxiety to swing around in the hospital, especially when he is being dialyzed. As needed Ativan ordered twice daily. DVT prophylaxis - SCDs Patient seen by Eloy Guardado PA-C, under the supervision of Dr. Isbell. Documented by User: Dr. Archana Isbell MD 09/04/21 17:10 Objective Data Lab / Micro Data Result Diagrams: 09/04/21 05:55 09/04/21 05:55
[2021-09-04] MEDS: Acetaminophen 325 MG Tablet 650 MG PO ×2 (13:40→21:26)
[2021-09-04] MEDS: LORazepam 0.5 MG Tablet PO (13:41)
[2021-09-04] MEDS: Heparin 10,000 UNITS/10 ML Vial IV (14:40)
[2021-09-04 16:54] VITALS: BP 117/67; PULSE 83; RESP 16; TEMP 36.6; O2SAT 96
[2021-09-04] MEDS: Insulin U-500 UNITS/ML PEN 20 UNITS SC (16:56)
[2021-09-04 17:00] LABS: Bedside Glucose 309 mg/dL (70-110)
--- NOTE | 2021-09-04 17:35 | DIALYSIS ---
HD tx 2.5 hrs completed without complication. Pt stable, tolerated tx well. Total UF removed 1400ml. Report given to JOSÉ LUIS Carolina.
[2021-09-04 21:18] VITALS: BP 115/76; PULSE 92; RESP 17; TEMP 36.6; O2SAT 95
[2021-09-04] MEDS: Zolpidem Tartrate 5 MG Tablet PO (21:26)
[2021-09-04] MEDS: Atorvastatin Calcium 80 MG Tablet PO (21:26)
[2021-09-04] MEDS: Bumetanide 2 MG Tablet PO (21:26)
[2021-09-04 21:36] LABS: Bedside Glucose 379 mg/dL (70-110)
[2021-09-05 03:15] VITALS: BP 121/80; PULSE 87; RESP 17; TEMP 36.6; O2SAT 95
[2021-09-05] MEDS: Acetaminophen 325 MG Tablet 650 MG PO ×2 (04:58→11:18)
[2021-09-05 06:40] LABS: Absolute Lymphocyte Count 0.31 X10^3/uL (0.83-4.51); Absolute Neutrophil Count 3.5 X10^3/uL (2.0-7.7); Basophil# 0.02 X10^3/uL; Basophil% 0.4 % (0-1); Eosinophil# 0.09 X10^3/uL; Hematocrit 39.1 % (40-54); Hemoglobin 12.3 g/dL (13.0-16.5); Lymphocyte # 0.31 X10^3/ul (0.83-4.51); Lymphocyte % 6.9 % (19-41); Mean Corp Hgb Conc 31.5 g/dL (32-36); Mean Corpuscular Hgb 29.6 pg (27.0-32.0); Mean Platelet Vol. 10.7 fl (6.2-12.0); Monocyte# 0.53 X10^3/uL; Monocyte% 11.9 % (0-10); NRBC Flagged by Analyzer 0 % (0-5); Neutrophil # 3.49 X10^3/uL (2.7-7.7); Neutrophil % 78.1 % (47-70); POSITIVE COUNT YES; POSITIVE DIFFERENTIAL YES; Platelet Count 79 K/mm3 (150-450); RBC Distribution Width CV 16.3 % (11.6-14.6); RBC Distribution Width SD 55.9 fl (35.1-43.9); Red Blood Count 4.16 M/mm3 (4.6-6.2); White Blood Count 4.5 K/mm3 (4.4-11.0)
[2021-09-05 06:57] LABS: Differential Indicated SCAN CRITERIA MET
[2021-09-05 07:10] LABS: Anion Gap 9 (5-15); BUN 83 mg/dL (7-18); BUN/Creat Ratio 24.2 RATIO (10-20); Calcium,Total 9.6 mg/dL (8.5-10.1); Chloride 94 mmol/L (98-107); Creatinine, Serum 3.43 mg/dL (0.70-1.30); EST Glomerular Filtration Rate 19 mL/min (>60); Est Glom Filt Rate - Afr Amer 22 mL/min (>60); Estimated Creatinine Clearance 18.04 ml/min; Glucose 373 mg/dL (74-106); Potassium 4.2 mmol/L (3.5-5.1); Sodium Level 133 mmol/L (136-145)
[2021-09-05 07:15] VITALS: O2SAT 96
[2021-09-05] MEDS: LORazepam 0.5 MG Tablet PO (07:58)
[2021-09-05] MEDS: Insulin U-500 UNITS/ML PEN 80 UNITS SC ×2 (08:05→12:16)
[2021-09-05 08:45] LABS: Bedside Glucose 373 mg/dL (70-110)
[2021-09-05 09:15] VITALS: BP 113/53; PULSE 79; RESP 16; TEMP 36.6; O2SAT 97
--- NOTE | 2021-09-05 09:28 | PCM.PN.REN ---
Subjective Subjective seen while on HD On room air No NV/SOB Objective Data Objective Data Vital Signs: Vital Signs Temp Pulse Resp BP Pulse Ox 97.8 F 87 17 121/80 H 95 09/05/21 03:15 09/05/21 03:15 09/05/21 03:15 09/05/21 03:15 09/05/21 03:15 Oxygen Flow Rate (L/min) 2 Oxygen Delivery Method Room Air Weight: 111.3 kg Body Mass Index (BMI) 36.2 Intake & Output: Intake and Output for Last 24 Hours 09/03/21 09/04/21 09/05/21 23:59 23:59 23:59 Intake Total 710 / 710 120 / 120 50 / 50 Output Total 1425 / 1425 1400 / 1400 Balance -715 / -715 -1280 / -1280 50 / 50 Lab / Micro Data Result Diagrams: 09/05/21 06:16 09/05/21 06:16 Labs: Laboratory Results - last 24 hr 09/04/21 11:11: POC Glucose 468 H* 09/04/21 16:51: POC Glucose 309 H 09/04/21 21:25: POC Glucose 379 H 09/05/21 06:16: WBC 4.5, RBC 4.16 L, Hgb 12.3 L, Hct 39.1 L, MCV 94.0, MCH 29.6, MCHC 31.5 L, RDW Std Deviation 55.9 H, RDW Coeff of Alfreda 16.3 H, Plt Count 79 L, MPV 10.7, Immature Gran % (Auto) 0.700, Neut % (Auto) 78.1 H, Lymph % (Auto) 6.9 L, [place] % (Auto) 11.9 H, Eos % (Auto) 2.0, Baso % (Auto) 0.4, Absolute Neuts (auto) 3.5, Absolute Lymphs (auto) 0.31 L, Nucleated RBC % 0 09/05/21 06:16: Sodium 133 L, Potassium 4.2, Chloride 94 L, Carbon Dioxide 30.0, Anion Gap 9, BUN 83 H, Creatinine 3.43 H, Estim Creat Clear Calc 18.04, Est GFR (MDRD) Af Amer 22 L, Est GFR (MDRD) Non-Af 19 L, BUN/Creatinine Ratio 24.2 H, Glucose 373 H, Calcium 9.6 09/05/21 08:02: POC Glucose 373 H Physical Exam Narrative Alert awake oriented x 3 no obvious distress no pallor no icterus no JVD s1s2 no murmurs lungs clear abdomen soft no organomegaly +++ edema no cyanosis Assessment & Plan Assessment/Plan (1) ESRD (end stage renal disease): PLAN: Started on HD 09/03 HD access R IJ TC 3rd HD session today: BQ 300 DQ 60 UF 2-3L (2) Chronic combined systolic and diastolic CHF (congestive heart failure): PLAN: UF as tolerated with HD session.
--- NOTE | 2021-09-05 09:40 | PCM.DC ---
Discharge Instructions Diet Discharge Diet: Renal Diet Activity Discharge Activity: Return to Normal Activity Dressing / Incision Call your doctor if your incision/area has: Continuous Slow Oozing, Increased Pain/ Swelling and Increased Redness Call your doctor if you observe: Shortness of breath Follow Up Care Please Follow Up With: Evan Menchaca MD When: 1 week Test Results: Test results from this visit will be discussed in further detail at your follow-up appointment, if applicable. Discharge Plan Admission Admit Date/Time: 09/02/21 21:31 Primary Reason for Your Visit: Weakness, SOB Attending Provider: Archana Isbell Primary Care Provider: Jackson Mesa Consulting Providers: Evan Menchaca ; Nhi Culver Instructions Patient Instructions: Hemodialysis Discharge Orders/Prescriptions Prescriptions: New lorazepam 0.5 mg Tablet 0.5 mg PO Q12H PRN PRN (Reason: Anxiety) Qty: 10 RF: 0 Continued bumetanide 2 mg tablet 2 mg PO BID RF: 0 aspirin [Adult Low Dose Aspirin] 81 mg tablet,delayed release (DR/EC) 81 mg PO DAILY RF: 0 clopidogrel 75 mg tablet 75 mg PO DAILY Qty: 90 RF: 3 zolpidem 5 mg tablet 5 mg PO QHS PRN (Reason: Insomnia) RF: 0 atorvastatin 80 MG tablet 80 mg PO QHS RF: 0 polyethylene glycol 3350 [Miralax] 17 gram Powder In Packet 17 g PO DAILY RF: 0 carvedilol [Coreg] 6.25 mg tablet 6.25 mg PO BID Qty: 180 RF: 3 Humulin R U-500 (Conc) Kwikpen 500 unit/mL (3 mL) insulin pen See Rx Instructions subcut TID Qty: 33 RF: 0 Referrals / Follow Up: Jackson Mesa MD [Primary Care Provider] - Disposition Disposition (needs filled in before D/C Order can be placed): Home, Self Care
--- NOTE | 2021-09-05 09:51 | DS.PCM_ITS ---
Providers Date of Admission: 09/02/21 Primary Care Physician: Dr. Jackson Mesa MD Consultations 09/02/21 21:47 Consult: Nephrology Routine Consulting Provider: Evan Menchaca Reason for Consult: dialysis EMERGENT Consult: Yes MD Notified: Yes Date Notified: 09/02/21 Time Notified: 21:36 Method of Notification: Verbal 09/03/21 08:10 Consult: General Surgery Routine Consulting Provider: Nhi Culver Reason for Consult: tunneled dialysis catheter EMERGENT Consult: No MD Notified: Yes Date Notified: 09/03/21 Time Notified: 08:29 Method of Notification: Text Reason For Visit: END STAGE RENAL DISEASE Diagnosis Discharge Diagnosis (1) ESRD (end stage renal disease): Status: Acute Code(s): N18.6 - End stage renal disease (2) Chronic combined systolic and diastolic CHF (congestive heart failure): Status: Chronic Code(s): I50.42 - Chronic combined systolic (congestive) and diastolic (congestive) heart failure (3) Obesity: Status: Chronic Code(s): E66.9 - Obesity, unspecified Qualifiers: Obesity type: due to excess calories Obesity classification: adult class 1 (BMI 30 - 34.9) Serious obesity comorbidity presence: with serious comorbidity Body mass index: BMI 34.0-34.9 Qualified Code(s): E66.09 - Other obesity due to excess calories; Z68.34 - Body mass index [BMI] 34.0-34.9, adult (4) Polyneuropathy due to type 2 diabetes mellitus: Status: Chronic Code(s): E11.42 - Type 2 diabetes mellitus with diabetic polyneuropathy Medications at Discharge Home Medications atorvastatin 80 mg PO QHS 10/16/14 aspirin 81 mg tablet,delayed release 81 mg PO DAILY 10/27/17 bumetanide 2 mg tablet 2 mg PO BID 10/27/17 clopidogrel 75 mg tablet 75 mg PO DAILY #90 tab 10/10/19 carvedilol 6.25 mg tablet 6.25 mg PO BID #180 tab 02/05/21 zolpidem 5 mg tablet 5 mg PO QHS PRN 05/29/21 Humulin R U-500 (Conc) Kwikpen 500 unit/mL (3 mL) subcutaneous See Rx Instructions SUBCUT TID #33 ml NS 09/02/21 polyethylene glycol 3350 [Miralax] 17 g PO DAILY 09/02/21 lorazepam 0.5 mg PO Q12H PRN PRN #10 tab 09/05/21 Hospital Course Procedures Dialysis Summary of Care Provided Minutes Spent on Discharge: 35 Hospital Course: Patient is a 75-year-old male who presented from his primary care physician's office due to severe weakness. Patient was known to have chronic kidney disease and was in the initial stages of planning outpatient for initiation of dialysis however due to his increased weakness was sent to the emergency room for initiation of dialysis. Patient has been seen by nephrology during his stay. A dialysis catheter was placed by Dr. Culver on 09/03/2021. Patient has been dialyzed on 09/03/2021, 09/04/2021 and 09/05/2021. Patient will be discharged home with outpatient dialysis set up. Patient experiencing anxiety with dialysis, will discharge patient home with as needed Ativan to be taken 1 hour prior to dialysis treatment. Physical Exam Const alert, oriented x3 and no apparent distress General Appearance: cooperative HEENT normocephalic and head/scalp atraumatic Eyes conjunctivae normal and no scleral icterus Neck full ROM and supple General: trachea midline Resp normal respiratory effort, normal air movement and clear to auscultation bilaterally Effort and Inspection: able to speak in complete sentences and symmetric chest movement Auscultation: diminished lung sounds Cardio regular rate, regular rhythm, S1 normal heart sound and S2 normal heart sound GI normal to inspection, nondistended, normoactive bowel sounds, soft to palpation and non-tender Extremity normal capillary refill and no clubbing, cyanosis or edema General Extremity: no tenderness to palpation of joints or extremities Skin skin turgor normal General Skin Exam: no breakdown Lesions: no lesions Rashes: no rashes Neuro oriented x3, moves all extremities, no focal motor deficits and no sensory deficits noted Speech: speech normal Motor Exam: general weakness Psych affect normal Appearance: appropriate Weight / BMI Weight Weight: 245 lb 5.992 oz Body Mass Index (BMI) 36.2 ABG / Lab / Microbiology Data Result Diagrams: 09/05/21 06:16 09/05/21 06:16 Laboratory: Laboratory Results - last 24 hr 09/04/21 11:11: POC Glucose 468 H* 09/04/21 16:51: POC Glucose 309 H 09/04/21 21:25: POC Glucose 379 H 09/05/21 06:16: WBC 4.5, RBC 4.16 L, Hgb 12.3 L, Hct 39.1 L, MCV 94.0, MCH 29.6, MCHC 31.5 L, RDW Std Deviation 55.9 H, RDW Coeff of Alfreda 16.3 H, Plt Count 79 L, MPV 10.7, Immature Gran % (Auto) 0.700, Neut % (Auto) 78.1 H, Lymph % (Auto) 6.9 L, Weston % (Auto) 11.9 H, Eos % (Auto) 2.0, Baso % (Auto) 0.4, Absolute Neuts (auto) 3.5, Absolute Lymphs (auto) 0.31 L, Nucleated RBC % 0 09/05/21 06:16: Sodium 133 L, Potassium 4.2, Chloride 94 L, Carbon Dioxide 30.0, Anion Gap 9, BUN 83 H, Creatinine 3.43 H, Estim Creat Clear Calc 18.04, Est GFR (MDRD) Af Amer 22 L, Est GFR (MDRD) Non-Af 19 L, BUN/Creatinine Ratio 24.2 H, Glucose 373 H, Calcium 9.6 09/05/21 08:02: POC Glucose 373 H D/C Instructions Discharge Diet: Renal Diet Call your doctor if your incision/area has: Continuous Slow Oozing, Increased Pain/ Swelling and Increased Redness Call your doctor if you observe: Shortness of breath Additional Instructions: Patient has appointment at [facility] on 09/07/21 at 1140 for dialysis Please Follow Up With: Evan Menchaca MD When: 1 week Meaningful Use Info Meaningful Use Diagnoses (Choose all that apply): None applicable Discharge Plan Admission Admit Date/Time: 09/02/21 21:31 Primary Reason for Your Visit: Weakness, SOB Attending Provider: Archana Isbell Primary Care Provider: Jackson Mesa Consulting Providers: Evan Menchaca ; Nhi Culver Instructions Patient Instructions: Hemodialysis Discharge Orders/Prescriptions Prescriptions: New lorazepam 0.5 mg Tablet 0.5 mg PO Q12H PRN PRN (Reason: Anxiety) Qty: 10 RF: 0 Continued bumetanide 2 mg tablet 2 mg PO BID RF: 0 aspirin [Adult Low Dose Aspirin] 81 mg tablet,delayed release (DR/EC) 81 mg PO DAILY RF: 0 clopidogrel 75 mg tablet 75 mg PO DAILY Qty: 90 RF: 3 zolpidem 5 mg tablet 5 mg PO QHS PRN (Reason: Insomnia) RF: 0 atorvastatin 80 MG tablet 80 mg PO QHS RF: 0 polyethylene glycol 3350 [Miralax] 17 gram Powder In Packet 17 g PO DAILY RF: 0 carvedilol [Coreg] 6.25 mg tablet 6.25 mg PO BID Qty: 180 RF: 3 Humulin R U-500 (Conc) Kwikpen 500 unit/mL (3 mL) insulin pen See Rx Instructions subcut TID Qty: 33 RF: 0 Referrals / Follow Up: Jackson Mesa MD [Primary Care Provider] - Disposition Disposition (needs filled in before D/C Order can be placed): Home, Self Care
[2021-09-05] MEDS: Insulin Lispro 100 UNIT/ML INSULN.PEN SC (09:55)
[2021-09-05 11:25] LABS: Bedside Glucose 195 mg/dL (70-110)
--- NOTE | 2021-09-05 11:34 | PHA.DC.MC ---
Pharmacy Service has performed discharge medication reconciliation and counseling for this patient. The patient was counseled on the following discharge medications and changes in medications for homegoing were reviewed. 1. LORAZEPAM The Reason for Use, instructions for use, and potential side effects were reviewed for all new medications. The patient's questions regarding all of their medications were answered. The patient was able to verbally demonstrate an understanding of their discharge medications. Home Medications atorvastatin 80 mg PO QHS 10/16/14 aspirin 81 mg tablet,delayed release 81 mg PO DAILY 10/27/17 bumetanide 2 mg tablet 2 mg PO BID 10/27/17 clopidogrel 75 mg tablet 75 mg PO DAILY #90 tab 10/10/19 carvedilol 6.25 mg tablet 6.25 mg PO BID #180 tab 02/05/21 zolpidem 5 mg tablet 5 mg PO QHS PRN 05/29/21 Humulin R U-500 (Conc) Kwikpen 500 unit/mL (3 mL) subcutaneous See Rx Instructions SUBCUT TID #33 ml NS 09/02/21 polyethylene glycol 3350 [Miralax] 17 g PO DAILY 09/02/21 lorazepam 0.5 mg PO Q12H PRN PRN #10 tab 09/05/21 The patient's discharge medication list was reviewed for discrepancies and discrepancies were resolved.
[2021-09-05] MEDS: Clopidogrel Bisulfate 75 MG Tablet PO ×2 (12:17)
[2021-09-05 12:34] VITALS: BP 105/78; PULSE 76; RESP 16; TEMP 36.6; O2SAT 97
== END 2021-09-05 12:41 | disposition home or self-care (01) | DRG 291 ==
LOC: ED 20:08 → PCU 21:39
PROVIDERS: Emergency Medicine; Internal Medicine Nephrology; Physician Assistant; Surgery; Admitting Provider Family Medicine; Emergency Provider Student in an Organized Health Care Education/Training Program; PCP Family Medicine; Visit Provider Family Medicine
DX: I13.2 Hypertensive heart and chronic kidney disease with heart failure and with stage 5 chronic kidney disease, or end stage renal disease (principal); N18.6 End stage renal disease; N17.9 Acute kidney failure, unspecified; E11.22 Type 2 diabetes mellitus with diabetic chronic kidney disease; I50.42 Chronic combined systolic (congestive) and diastolic (congestive) heart failure; I25.5 Ischemic cardiomyopathy; J98.4 Other disorders of lung; E11.42 Type 2 diabetes mellitus with diabetic polyneuropathy; I25.10 Atherosclerotic heart disease of native coronary artery without angina pectoris; F41.9 Anxiety disorder, unspecified; E78.5 Hyperlipidemia, unspecified; E66.09 Other obesity due to excess calories; Z68.36 Body mass index [BMI] 36.0-36.9, adult; Z99.2 Dependence on renal dialysis; Z79.82 Long term (current) use of aspirin; Z79.4 Long term (current) use of insulin; Z79.899 Other long term (current) drug therapy; I25.2 Old myocardial infarction; Z87.891 Personal history of nicotine dependence; Z95.1 Presence of aortocoronary bypass graft; Z95.5 Presence of coronary angioplasty implant and graft
CPT/HCPCS: 36415; 71045; 76000; 80048; 81001; 82570; 82962; 83735; 84100; 84156; 85025; 86706; 87340; 90937; 93005; 99284; A4216; C1750; G0257; J2405

== ENCOUNTER 2021-10-10 11:53 | Emergency (ER) | payer MEDICARE, OTHER, SELFPAY ==
[2021-10-10] VITALS (16 sets, daily range): BP systolic 32–215; BP diastolic 14–176; PULSE 24–85; RESP 8–22; TEMP 36.7; O2SAT 80–100; BMI 33.7
--- NOTE | 2021-10-10 11:55 | EKG12_ITS ---
Test Reason : R/O STROKE Blood Pressure : / mmHG Vent. Rate : 051 BPM Atrial Rate : 030 BPM P-R Int : 000 ms QRS Dur : 126 ms QT Int : 456 ms P-R-T Axes : 000 -49 170 degrees QTc Int : 420 ms Wide QRS rhythm Left axis deviation Right bundle branch block T wave abnormality, consider inferolateral ischemia Abnormal ECG Confirmed by BARBI KILGORE, DANIEL ([id number]), digital editor ILIANA BANGURA ([id number]) on 10/14/2021 10:20:08 AM Referred By: KISHAN Confirmed By:DANIEL LANDON MD
--- NOTE | 2021-10-10 11:57 | CT_ITS ---
STUDY: CT HEAD STROKE PROTOCOL W/O CONTRAST INJECTION REASON FOR EXAM: Male, 75 years old. Neuro deficit, acute, stroke suspected RADIATION DOSAGE (If Supplied By Facility): CTDIvol = ( 44.99 ) mGy, DLP = ( a 46.73 ) mGycm TECHNIQUE: Transaxial CT imaging of the brain was performed without administration of intravenous contrast material. Individualized dose optimization techniques were used for this CT. COMPARISON: No relevant priors. FINDINGS: Scattered small calcific densities in the scalp. Normal calvarium. There is moderate cerebral atrophy with widening of the extra-axial spaces and ventricular dilatation. There are areas of decreased attenuation within the white matter tracts of the supratentorial brain, consistent with microvascular disease changes. Normal basal ganglia and thalami. Normal brainstem. Normal cerebellum. There is no intracranial hemorrhage. There are no findings of an acute ischemic infarction. Atherosclerotic plaque formation of the vertebral arteries and cavernous portions of the internal carotid arteries bilaterally. Normal visualized paranasal sinuses. CT/STROKE Brain/Head without Cont IMPRESSION: Chronic involutional changes of the brain. N.B. : The above Results were Read Back by Lonny Henry MD to Fernando Puente and understanding confirmed on 10/10/2021 12:14:41 (ET). Electronically Signed: Lonny Henry MD at 12:16 EST , Service support ,
--- NOTE | 2021-10-10 12:12 | NURSING ---
STROKE ALERT CALLED PRIOR TO ARRIVAL [id number]
--- NOTE | 2021-10-10 12:13 | NURSING ---
FACESHEET FAXED TO [facility]
[2021-10-10 12:16] LABS: Absolute Lymphocyte Count 1.08 X10^3/uL (0.83-4.51); Absolute Neutrophil Count 7.8 X10^3/uL (2.0-7.7); Basophil# 0.02 X10^3/uL; Basophil% 0.2 % (0-1); Eosinophil# 0.05 X10^3/uL; Eosinophils% 0.5 % (0-5); Hematocrit 40.3 % (40-54); Hemoglobin 12.1 g/dL (13.0-16.5); Lymphocyte # 1.08 X10^3/ul (0.83-4.51); Lymphocyte % 10.6 % (19-41); Mean Corpuscular Hgb 29.9 pg (27.0-32.0); Mean Corpuscular Volume 99.5 fL (80-94); Mean Platelet Vol. 11.4 fl (6.2-12.0); Monocyte# 1.16 X10^3/uL; Monocyte% 11.4 % (0-10); NRBC Flagged by Analyzer 0 % (0-5); Neutrophil # 7.82 X10^3/uL (2.7-7.7); Neutrophil % 76.4 % (47-70); Platelet Count 185 K/mm3 (150-450); RBC Distribution Width CV 16.6 % (11.6-14.6); RBC Distribution Width SD 61.5 fl (35.1-43.9); Red Blood Count 4.05 M/mm3 (4.6-6.2); White Blood Count 10.2 K/mm3 (4.4-11.0)
[2021-10-10 12:24] LABS: International Normalized Ratio 1.4; Partial Thromboplast Time 22.3 Seconds (24.1-36.2); Prothrombin Time (Protime)PT. 16.4 SECONDS (11.7-14.9)
--- NOTE | 2021-10-10 12:32 | NURSING ---
[address] [facility] [place] [facility]
[2021-10-10] MEDS: Rocuronium Bromide 50 MG/5 ML Vial 40 MG IV (12:39)
[2021-10-10] MEDS: Etomidate 20 MG/10 ML Vial IV (12:39)
[2021-10-10 12:40] LABS: Anion Gap 17 (5-15); BUN 56 mg/dL (7-18); BUN/Creat Ratio 14.4 RATIO (10-20); Calcium,Total 10.2 mg/dL (8.5-10.1); Chloride 94 mmol/L (98-107); Creatinine, Serum 3.88 mg/dL (0.70-1.30); EST Glomerular Filtration Rate 16 mL/min (>60); Est Glom Filt Rate - Afr Amer 19 mL/min (>60); Estimated Creatinine Clearance 15.94 ml/min; Glucose 252 mg/dL (74-106); Potassium 5.5 mmol/L (3.5-5.1); Sodium Level 134 mmol/L (136-145); Troponin-I HS 416 pg/mL (3.0-78.0)
[2021-10-10] MEDS: [UNRECOGNIZED DRUG - REMARK] IV (12:41)
[2021-10-10] MEDS: Dextrose 50%-Water 25 GM/50 ML DISP.SYRIN IV (12:43)
--- NOTE | 2021-10-10 12:51 | CM.ED ---
SW Note Referral Source: Stroke Alert Referral Reason: Stroke Alert SW met with patient's . SW provided emotional support. SW remains available if social work needs arise. Meggan BUTLER
--- NOTE | 2021-10-10 12:55 | RAD_ITS ---
STUDY: X-RAY CHEST REASON FOR EXAM: Male, 75 years old. Neuro deficit, acute, stroke suspected TECHNIQUE: Single AP portable view of the chest. COMPARISON: Comparison is made with prior study dated 09/03/2021. FINDINGS: The endotracheal tube is in situ. The tip is at 4.8 cm proximal to the stef. A right-sided double-lumen catheter seen with the tip at the junction of the superior vena cava and right atrium. EKG electrodes are seen. An orogastric tube is seen with the tip below the left hemidiaphragm. Stable elevation of the right hemidiaphragm. Stable increase in markings at the lung bases suggestive possible atelectasis slightly more prominent on the left lung base. There is no demonstrated pleural abnormality. Normal size heart. Normal mediastinum and jacinto. Normal visualized pulmonary arteries. There is atherosclerotic calcification of the aortic arch with tortuosity. There are diffuse degenerative changes of the visualized thoracic spine. Normal visualized ribs, clavicles, and shoulders. There is no demonstrated abnormality of the visualized soft tissue structures of the upper abdomen. RAD/Chest 1 View IMPRESSION: Elevation of the right hemidiaphragm with findings suggestive of bibasilar atelectasis likely worse on the left side. Electronically Signed: Lonny Henry MD at 13:11 EST , Service support ,
--- NOTE | 2021-10-10 13:11 | CPS ---
Pt now w/heartbeat, bagged by RN & R.T. placed back on vent on former settings.
--- NOTE | 2021-10-10 13:17 | EKG12_ITS ---
Test Reason : POST ROSC Blood Pressure : / mmHG Vent. Rate : 059 BPM Atrial Rate : 059 BPM P-R Int : 128 ms QRS Dur : 136 ms QT Int : 432 ms P-R-T Axes : 005 -49 168 degrees QTc Int : 427 ms Sinus bradycardia with sinus arrhythmia Left axis deviation Non-specific intra-ventricular conduction block Marked ST abnormality, possible anterior subendocardial injury Abnormal ECG Confirmed by BARBI KILGORE, DANIEL ([id number]), editor managing director DYLAN ALVAREZ ([id number]) on 10/16/2021 10:49:28 AM Referred By: TEREZA Confirmed By:DANIEL LANDON MD
[2021-10-10] MEDS: Midazolam 5 MG/ML Syringe IV (13:34)
--- NOTE | 2021-10-10 13:35 | ED.RN ---
PT'S HR IS 34, PER DR. PIRES GIVE 0.5MG ATROPINE.
--- NOTE | 2021-10-10 13:36 | ED.RN ---
PER DR. Patton ANOTHER 0.5MG ATROPINE TO BE GIVE FOR BRADYCARDIA AT 22BPM
--- NOTE | 2021-10-10 13:46 | CPS ---
Terminally extubated pt per Dr Puente at pt request.
--- NOTE | 2021-10-10 13:47 | ED.RN ---
DR STARKS AT BEDSIDE, PT IS ASYSTOLE WITH NO PULSE. TIME OF CALLED AT 1347.
--- NOTE | 2021-10-10 13:52 | ED.RN ---
Addendum entered by Itzel Mehta RN 10/10/21 13:53: EXTUBATION DECIDED AT 1347 Original Note: FAMILY AND DR STARKS MADE DECISION TO TERMINALLY EXTUBATE THE PATIENT AT THIS TIME. OG, IV D/C'D AT THIS TIME ALSO
--- NOTE | 2021-10-10 14:05 | ED.RN ---
TIME OF 4340
--- NOTE | 2021-10-10 14:44 | ED.RN ---
Addendum entered by Alison Garcia 10/10/21 14:52: 1500 ML OF NS IN LAST HOUR OF LIFE Original Note: 1500ML IN LAST HOUR OF LIFE
--- NOTE | 2021-10-10 14:57 | PCM.CONS.C ---
Documented by User: Lisandra GAN PA 10/10/21 15:35 Assessment & Plan Assessment/Plan (1) NSTEMI (non-ST elevated myocardial infarction): (2) Chronic kidney disease (CKD): QUALIFIERS: Chronic kidney disease stage: stage 4 (severe) Qualified Code(s): N18.4 - Chronic kidney disease, stage 4 (severe) (3) LOC (loss of consciousness): HPI Consult Data Date of Consult: 10/10/21 HPI Narrative HPI Narrative: SANJAY MORRIS, is a 75 M who presented to the ER for decreased LOC with concerns of a stroke. He was brought in by squad. He did undergo an urgent Head CT- this was negative. It was noted that his left Pupil was dilated. During the initial part of the consultation he was able to answer questions. He became unresponsive. He has a history of coronary artery disease status post bypass surgery x4 in 1997, status post PTCA/VINICIO to [place] in January 2018, hypertension, diastolic heart failure, hyperlipidemia, and renal insufficiency. He was recently started on dialysis. During a hospital stay in August of 2021, he was noted to have a NSTEMI, it was felt that this was related to demand ischemia. He was not taken to the cleaning laborer d/t his renal function as he had not been placed on dialysis yet. It was noted that he had a decrease in his EF from 55% to 15%. He was d/c with medical management. He was in the office last week with no complaints. It was noted that his BP was on the low side and his medications were adjusted. It was felt that since he did not have any acute EKG changes indicative of an STEMI that he was stable to pursue a heart cath here. He did have a CODE BLUE called twice. made pt a DNR. He at 1347. 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 Premature atrial contractions Renal insufficiency Restrictive pattern present on pulmonary function testing Stage 4 chronic kidney disease due to type 2 diabetes mellitus Type II diabetes mellitus Home Medications atorvastatin 80 mg PO QHS 10/16/14 [History Last Taken 07/28/21] aspirin 81 mg tablet,delayed release 81 mg PO DAILY 10/27/17 [History Last Taken 07/28/21] clopidogrel 75 mg tablet 75 mg PO DAILY #90 tab 10/10/19 [Rx Last Taken 07/28/21] Humulin R U-500 (Conc) Kwikpen 500 unit/mL (3 mL) subcutaneous See Rx Instructions SUBCUT TID #33 ml NS 09/02/21 [Rx Last Taken Unknown] polyethylene glycol 3350 [Miralax] 17 g PO DAILY 09/02/21 [History Last Taken Unknown] bumetanide 2 mg tablet 2 mg PO BID 10/02/21 [History Last Taken Unknown] carvedilol 6.25 mg tablet 6.25 mg PO BID tab 10/02/21 [History Last Taken Unknown] lorazepam 0.5 mg tablet 0.5 mg PO Q8H PRN tab 10/02/21 [History Last Taken Unknown] metolazone 5 mg tablet 5 mg PO .PRN PRN tab 10/02/21 [History Last Taken Unknown] zolpidem 5 mg tablet 5 mg PO QHS 10/02/21 [History Last Taken Unknown] Allergy/AdvReac Type Severity Reaction Status Date / Time exenatide [From Byetta] AdvReac Unknown Unknown Verified 09/02/21 15:46 lisinopril AdvReac Unknown Agitation Verified 10/02/21 08:57 Family History Mother Cancer Other Arthritis CVA (cerebral vascular accident) Diabetes High cholesterol Hypertension Myocardial infarction Surgical History H/O coronary artery bypass surgery (1988) H/O eye surgery History of coronary artery stent placement (01/12/18) History of parathyroidectomy Social History Smoking Status: Former smoker how long ago did patient quit smokin alcohol intake: current alcohol intake frequency: a few times a month substance use type: does not use caffeine: Yes Type: coffee Number of servings: 2 what type of physical activity do you participate in: none seatbelt use: always do you feel safe at home: Yes Risk Stratification Risk Stratification Applicable: No Objective Data Vital Signs: Vital Signs Temp Pulse Resp BP Pulse Ox 98.1 F 65 20 H 65/37 L 94 10/10/21 14:00 10/10/21 14:00 10/10/21 14:00 10/10/21 14:00 10/10/21 14:00 Oxygen Flow Rate (L/min) 15 Oxygen Delivery Method Mechanical Ventilator Weight: 228 lb 13.437 oz Body Mass Index (BMI) 33.7 Intake & Output: Intake and Output for Last 24 Hours 10/08/21 10/09/21 10/10/21 23:59 23:59 23:59 Intake Total 224.26 / 224.26 Balance 224.26 / 224.26 Lab / Micro Data Result Diagrams: 10/10/21 12:05 10/10/21 12:05 Labs: Laboratory Results - last 24 hr 10/10/21 12:05: WBC 10.2, RBC 4.05 L, Hgb 12.1 L, Hct 40.3, MCV 99.5 H, MCH 29.9, MCHC 30.0 L, RDW Std Deviation 61.5 H, RDW Coeff of Alfreda 16.6 H, Plt Count 185, MPV 11.4, Immature Gran % (Auto) 0.900, Neut % (Auto) 76.4 H, Lymph % (Auto) 10.6 L, Gage % (Auto) 11.4 H, Eos % (Auto) 0.5, Baso % (Auto) 0.2, Absolute Neuts (auto) 7.8 H, Absolute Lymphs (auto) 1.08, Nucleated RBC % 0 10/10/21 12:05: PT 16.4 H, INR 1.4, APTT 22.3 L 10/10/21 12:05: Sodium 134 L, Potassium 5.5 H, Chloride 94 L, Carbon Dioxide 23.0, Anion Gap 17 H, BUN 56 H, Creatinine 3.88 H, Estim Creat Clear Calc 15.94, Est GFR (MDRD) Af Amer 19 L, Est GFR (MDRD) Non-Af 16 L, BUN/Creatinine Ratio 14.4, Glucose 252 H, Calcium 10.2 H, Troponin I High Sens 416 H* Cardiology Labs/Tests 10/10/21 12:05: WBC 10.2, RBC 4.05 L, Hgb 12.1 L, Hct 40.3, MCV 99.5 H, MCH 29.9, MCHC 30.0 L, Plt Count 185, MPV 11.4, Immature Gran % (Auto) 0.900, Neut % (Auto) 76.4 H, Lymph % (Auto) 10.6 L, Gage % (Auto) 11.4 H, Eos % (Auto) 0.5, Baso % (Auto) 0.2, Absolute Neuts (auto) 7.8 H, Nucleated RBC % 0 10/10/21 12:05: PT 16.4 H, INR 1.4, APTT 22.3 L 10/10/21 12:05: Sodium 134 L, Potassium 5.5 H, Chloride 94 L, Carbon Dioxide 23.0, Anion Gap 17 H, BUN 56 H, Creatinine 3.88 H, Est GFR (MDRD) Af Amer 19 L, Est GFR (MDRD) Non-Af 16 L, BUN/Creatinine Ratio 14.4, Glucose 252 H, Calcium 10.2 H Rhythm: EKG: Radiography Diagnostic Testing: Radiology Impression Brain CT 10/10/21 11:57 IMPRESSION: Chronic involutional changes of the brain. N.B. : The above Results were Read Back by Lonny Henry MD to Fernando Puente and understanding confirmed on 10/10/2021 12:14:41 (ET). Electronically Signed: Lonny Henry MD at 12:16 EST , Service support , ADDENDUM: 10/10/21 1223 IMPRESSION: Chronic involutional changes of the brain. N.B. : The above Results were Read Back by Lonny Henry MD to Fernando Puente and understanding confirmed on 10/10/2021 12:14:41 (ET). Electronically Signed: Lonny Henry MD at 12:16 EST , Service support , Chest X-Ray 10/10/21 12:55 IMPRESSION: Elevation of the right hemidiaphragm with findings suggestive of bibasilar atelectasis likely worse on the left side. Electronically Signed: Lonny Henry MD at 13:11 EST , Service support , Documented by User: Dr. Saul Claudio MD 10/10/21 15:51 Assessment & Plan Assessment/Plan (1) NSTEMI (non-ST elevated myocardial infarction): PLAN: 75-year-old patient, very high risk patient with complex coronary atherosclerosis S/p coronary bypass surgery 1997 and PCI and stent of the left circumflex in 2018 Severe LV systolic dysfunction with ischemic cardiomyopathy ejection fraction from 15 with recent non-ST elevation AK. No symptoms of chest pain reported, and family daughters and son were at bedside at time of evaluation Chronic renal insufficiency with recent dialysis Patient brought to the ER was unresponsive evaluation by the CT head normal Noted had significant change in the EKG and the traffic monitor specialist showed evidence of nonsustained V. tach with ventricular couplets and a junctional bradycardia Patient coded in the ER x3. 1. We will continue resuscitation in the ER with correction of electrolytes Family decided DNR. 2. Patient pronounced at 13: 48 (2) LOC (loss of consciousness): (3) NSTEMI, initial episode of care: (4) ESRD (end stage renal disease): (5) Chronic combined systolic and diastolic CHF (congestive heart failure): (6) Polyneuropathy due to type 2 diabetes mellitus: HPI Consult Data Date of Consult: 10/10/21 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 Premature atrial contractions Renal insufficiency Restrictive pattern present on pulmonary function testing Stage 4 chronic kidney disease due to type 2 diabetes mellitus Type II diabetes mellitus Home Medications atorvastatin 80 mg PO QHS 10/16/14 [History Last Taken 07/28/21] aspirin 81 mg tablet,delayed release 81 mg PO DAILY 10/27/17 [History Last Taken 07/28/21] clopidogrel 75 mg tablet 75 mg PO DAILY #90 tab 10/10/19 [Rx Last Taken 07/28/21] Humulin R U-500 (Conc) Kwikpen 500 unit/mL (3 mL) subcutaneous See Rx Instructions SUBCUT TID #33 ml NS 09/02/21 [Rx Last Taken Unknown] polyethylene glycol 3350 [Miralax] 17 g PO DAILY 09/02/21 [History Last Taken Unknown] bumetanide 2 mg tablet 2 mg PO BID 10/02/21 [History Last Taken Unknown] carvedilol 6.25 mg tablet 6.25 mg PO BID tab 10/02/21 [History Last Taken Unknown] lorazepam 0.5 mg tablet 0.5 mg PO Q8H PRN tab 10/02/21 [History Last Taken Unknown] metolazone 5 mg tablet 5 mg PO .PRN PRN tab 10/02/21 [History Last Taken Unknown] zolpidem 5 mg tablet 5 mg PO QHS 10/02/21 [History Last Taken Unknown] Allergy/AdvReac Type Severity Reaction Status Date / Time exenatide [From Byetta] AdvReac Unknown Unknown Verified 09/02/21 15:46 lisinopril AdvReac Unknown Agitation Verified 10/02/21 08:57 Family History Mother Cancer Other Arthritis CVA (cerebral vascular accident) Diabetes High cholesterol Hypertension Myocardial infarction Surgical History H/O coronary artery bypass surgery (1988) H/O eye surgery History of coronary artery stent placement (01/12/18) History of parathyroidectomy Social History Smoking Status: Former smoker how long ago did patient quit smokin alcohol intake: current alcohol intake frequency: a few times a month substance use type: does not use caffeine: Yes Type: coffee Number of servings: 2 what type of physical activity do you participate in: none seatbelt use: always do you feel safe at home: Yes Physical Exam Narrative along with the ER physician and evaluate and family were at bedside d in the ERThis patient seen Patient has CPR for CODE BLUE X3 in the ER He was unresponsive with hypotension with a systolic blood pressure in the range of 60-70 mmHg Intubated by ER physician and CPR performed with chest compression. traffic monitor specialist showed junctional bradycardia, with episodes of nonsustained V. tach and ventricular couplets. Card examination S1-S2 is irregular. Lab / Micro Data Result Diagrams: 10/10/21 12:05 10/10/21 12:05
--- NOTE | 2021-10-10 15:50 | CHAPLAIN ---
Type of Pastoral Visit ___ Initial Visit ___ Follow-up Visit ___ On-call Visit ___ General Patient Visit ___ Spiritual Assessment ___ Family Conference ___ Bereavement _x__ Rapid Response _x__ Code Blue ___ Other (describe below) Pastoral Care Referral From ___ Patient ___ Family ___ Nurse ___ Physician ___ Vacuum Cleaner Operator ___ Driver Trainer _x__ Other (describe below) Sacrament/Intervention _x__ Active listening ___ Anointing ___ Hoahaoism _x__ Bereavement ___ Communion ___ Alice exploration ___ ___ Life review _x__ Prayer ___ Reconciliation ___ Sacrament of Sick _x__ Supportive presence ___ Wedding ___ Other (describe below) Pastoral Comments came to first stroke alert and met the when she arrived; SW at that time was available to address the needs; returned later when code blue was issued for this patient; met again with and gave presence and prayer; daughter arrived; was present at meeting with the doctor and the request for decision about code status; a second resuscitation was initiated and then stopped; son arrived; decision made to end measures to sustain life; prayer, scripture, and presence continued as needed; was present at and continued support
--- NOTE | 2021-10-10 16:09 | EDS_ITS ---
HPI History of Present Illness Chief Complaint: Alt LOC Narrative Narrative: 75-year-old male with history of CAD, end-stage renal disease on dialysis Thursday, , Thursday, NSTEMI, diabetes presenting with altered mental status. Initially stroke team was activated due to his weakness. EMS stated that his last known well was 30 minutes prior to arrival. Patient is not able to give any history and appears generally weak. There is no visualized facial droop. 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 Premature atrial contractions Renal insufficiency Restrictive pattern present on pulmonary function testing Stage 4 chronic kidney disease due to type 2 diabetes mellitus Type II diabetes mellitus Home Medications atorvastatin 80 mg PO QHS 10/16/14 [History Last Taken 07/28/21] aspirin 81 mg tablet,delayed release 81 mg PO DAILY 10/27/17 [History Last Taken 07/28/21] clopidogrel 75 mg tablet 75 mg PO DAILY #90 tab 10/10/19 [Rx Last Taken 07/28/21] Humulin R U-500 (Conc) Kwikpen 500 unit/mL (3 mL) subcutaneous See Rx Instructions SUBCUT TID #33 ml NS 09/02/21 [Rx Last Taken Unknown] polyethylene glycol 3350 [Miralax] 17 g PO DAILY 09/02/21 [History Last Taken Unknown] bumetanide 2 mg tablet 2 mg PO BID 10/02/21 [History Last Taken Unknown] carvedilol 6.25 mg tablet 6.25 mg PO BID tab 10/02/21 [History Last Taken Unknown] lorazepam 0.5 mg tablet 0.5 mg PO Q8H PRN tab 10/02/21 [History Last Taken Unknown] metolazone 5 mg tablet 5 mg PO .PRN PRN tab 10/02/21 [History Last Taken Unknown] zolpidem 5 mg tablet 5 mg PO QHS 10/02/21 [History Last Taken Unknown] Allergy/AdvReac Type Severity Reaction Status Date / Time exenatide [From [place]] AdvReac Unknown Unknown Verified 09/02/21 15:46 lisinopril AdvReac Unknown Agitation Verified 10/02/21 08:57 Family History Mother Cancer Other Arthritis CVA (cerebral vascular accident) Diabetes High cholesterol Hypertension Myocardial infarction Surgical History H/O coronary artery bypass surgery (1988) H/O eye surgery History of coronary artery stent placement (01/12/18) History of parathyroidectomy Social History Smoking Status: Former smoker how long ago did patient quit smokin alcohol intake: current alcohol intake frequency: a few times a month substance use type: does not use caffeine: Yes Type: coffee Number of servings: 2 what type of physical activity do you participate in: none seatbelt use: always do you feel safe at home: Yes ROS ROS ED Review of Systems ROS Unobtainable: due to mental condition and due to mental status EXAM Physical Exam Const Vital Signs: 10/10/21 11:55 10/10/21 12:26 10/10/21 12:29 Temperature Temperature Source Pulse Rate 65 Pulse Rate [3] 54 L Respiratory Rate 20 H Respiratory Rate [3] 16 Respiratory Effort Respiratory Depth Respiratory Pattern Blood Pressure 65/37 L Blood Pressure Mean 46 Blood Pressure Source Blood Pressure Position Blood Pressure Location Pulse Ox 94 Oxygen Delivery Method Room Air Room Air Ambu-Bag Oxygen Flow Rate (L/min) 15 Fraction of Inspired Oxygen (FIO2) 10/10/21 12:35 10/10/21 12:36 10/10/21 12:47 Temperature Temperature Source Pulse Rate 78 45 L Pulse Rate [3] Respiratory Rate 16 20 H Respiratory Rate [3] Respiratory Effort Respiratory Depth Respiratory Pattern Blood Pressure 215/176 H 107/61 Blood Pressure Mean 189 76 Blood Pressure Source Blood Pressure Position Blood Pressure Location Pulse Ox 85 Oxygen Delivery Method Ambu-Bag Ambu-Bag Oxygen Flow Rate (L/min) 15 Fraction of Inspired Oxygen (FIO2) 10/10/21 12:50 10/10/21 12:51 10/10/21 12:59 Temperature Temperature Source Pulse Rate 52 L 58 L 58 L Pulse Rate [3] Respiratory Rate 16 20 H 22 H Respiratory Rate [3] Respiratory Effort Respiratory Depth Respiratory Pattern Gasping Blood Pressure 100/74 79/58 L Blood Pressure Mean 82 65 Blood Pressure Source Blood Pressure Position Blood Pressure Location Pulse Ox 100 96 100 Oxygen Delivery Method Ambu-Bag Ambu-Bag Oxygen Flow Rate (L/min) Fraction of Inspired Oxygen (FIO2) 80 10/10/21 13:02 10/10/21 13:05 10/10/21 13:11 Temperature Temperature Source Pulse Rate 41 L 30 L 65 Pulse Rate [3] Respiratory Rate 16 16 Respiratory Rate [3] Respiratory Effort Respiratory Depth Respiratory Pattern Blood Pressure 79/58 L Blood Pressure Mean 65 Blood Pressure Source Monitor Blood Pressure Position Supine Blood Pressure Location Left Arm Pulse Ox 99 80 Oxygen Delivery Method Mechanical Ventilator Ambu-Bag Oxygen Flow Rate (L/min) Fraction of Inspired Oxygen (FIO2) 80 10/10/21 13:13 10/10/21 13:15 10/10/21 13:25 Temperature Temperature Source Pulse Rate 80 85 44 L Pulse Rate [3] Respiratory Rate 18 16 16 Respiratory Rate [3] Respiratory Effort Respiratory Depth Respiratory Pattern Gasping Blood Pressure 176/107 H 166/96 H 69/50 L Blood Pressure Mean 130 119 56 Blood Pressure Source Blood Pressure Position Blood Pressure Location Pulse Ox 95 96 99 Oxygen Delivery Method Mechanical Ventilator Mechanical Ventilator Mechanical Ventilator Oxygen Flow Rate (L/min) Fraction of Inspired Oxygen (FIO2) 80 10/10/21 13:34 10/10/21 13:45 10/10/21 13:46 Temperature Temperature Source Pulse Rate 42 L 24 L Pulse Rate [3] Respiratory Rate 8 L Respiratory Rate [3] Respiratory Effort Respiratory Depth Respiratory Pattern Blood Pressure 69/50 L 32/14 L Blood Pressure Mean 56 20 Blood Pressure Source Blood Pressure Position Blood Pressure Location Pulse Ox Oxygen Delivery Method Mechanical Ventilator Room Air Oxygen Flow Rate (L/min) Fraction of Inspired Oxygen (FIO2) 10/10/21 14:00 10/10/21 14:10 Temperature 98.1 F Temperature Source Temporal Pulse Rate 65 Pulse Rate [3] Respiratory Rate 20 H Respiratory Rate [3] Respiratory Effort Agonal Respiratory Depth Shallow Respiratory Pattern Blood Pressure 65/37 L Blood Pressure Mean 46 Blood Pressure Source Blood Pressure Position Blood Pressure Location Pulse Ox 94 Oxygen Delivery Method Room Air Mechanical Ventilator Oxygen Flow Rate (L/min) Fraction of Inspired Oxygen (FIO2) Positive well nourished General Appearance ED: NAD; Negative for pallor HEENT normocephalic and atraumatic Eyes PERRL and EOMs intact bilaterally Neck full ROM and supple Cardio regular rate and regular rhythm GI non-tender and non-distended Palpation: soft Neuro CN's II-XII intact bilaterally Sensorium / Orientation: alert and confused Skin General Skin Exam: Negative for jaundice or pallor MDM MDM MDM Narrative Medical decision making narrative: Patient initially arrived as a stroke team. I did meet him at the door and I did not find anything focal but he was taken to have CT of the brain. I had him back in the room and he appeared to be hypotensive and while he was being evaluated by neurology I had a 250 bolus given. His is now present and she states that his blood pressure is usually in the 90s systolically. He is supposed to take midodrine 5 mg before he goes to dialysis to keep his blood pressure up. He has not missed any dialysis. She states that earlier this morning at about 9 he stood up and became weak and lightheaded and became more confused than usual. He did not complain of any pain. He has not had any facial droop but is having trouble speaking. Patient's blood work had already been ordered because he was a stroke team and was pending. I already had sent his abnormal EKG to Dr. Claudio. Apparently had a history of NSTEMI previously in July which was being medically managed due to his renal disease and he had an EF of 15%. He did come to the room to evaluate the patient. While he was talking to the patient's apparently he went into cardiac arrest and CPR was started. I came to the room and took over ACLS and protocol was followed. Patient did have ROSC. Patient's rhythm appeared to be a junctional rhythm. Since patient has renal disease I had concern for hyperkalemia and he was given amp of calcium chloride, 10 of insulin IV, an amp of D50, and an amp of sodium bicarb. 2 g of magnesium was also given. Patient appears to be stabilized. At this point Dr. Claudio recommended a 150 dose of amiodarone and a drip was started. The patient's blood pressure was high enough that I could safely intubate him and I did using RSI and a glide scope. This was performed on first pass. ET tube appears to be in good place and there is good color change. Patient was placed on a ventilator and Levophed was started to keep his pressure up. This was started peripherally. I discussed with the family what their wishes are as far as continued CPR whether they would want to keep him on a ventilator long-term. I left them to discuss this. I was then called back to the room because the patient ambulated went back into cardiac arrest and CPR was started. At this point his family came into the room and told us to stop CPR. The patient did have a pulse. We did keep him on the ventilator to help him breathe. He continued Levophed however the patient started to bradycardia down into the 30s. Dr. Graham gave 2 doses of atropine which had no effect. The blood pressure was also dropping. At this point the patient's family requested that we do nothing further. After about 10 minutes the patient's heart did stop I came and evaluated the patient and he was . Time of is 1347. Impression: 1. Cardiopulmonary arrest 2. NSTEMI 3. Hypotension 4. Bradycardia 5. Renal failure 6. Hyperkalemia Lab Data Labs: Laboratory Results - last 24 hr 10/10/21 10/10/21 10/10/21 12:05 12:05 12:05 WBC 10.2 RBC 4.05 L Hgb 12.1 L Hct 40.3 MCV 99.5 H MCH 29.9 MCHC 30.0 L RDW Std Deviation 61.5 H RDW Coeff of Alfreda 16.6 H Plt Count 185 MPV 11.4 Immature Gran % (Auto) 0.900 Neut % (Auto) 76.4 H Lymph % (Auto) 10.6 L [place]ulk[place] % (Auto) 11.4 H Eos % (Auto) 0.5 Baso % (Auto) 0.2 Absolute Neuts (auto) 7.8 H Absolute Lymphs (auto) 1.08 Nucleated RBC % 0 PT 16.4 H INR 1.4 APTT 22.3 L Sodium 134 L Potassium 5.5 H Chloride 94 L Carbon Dioxide 23.0 Anion Gap 17 H BUN 56 H Creatinine 3.88 H Estim Creat Clear Calc 15.94 Est GFR (MDRD) Af Amer 19 L Est GFR (MDRD) Non-Af 16 L BUN/Creatinine Ratio 14.4 Glucose 252 H Calcium 10.2 H Troponin I High Sens 416 H* Radiography Diagnostic Testing: Clinical Impression(s) from Imaging Studies Brain CT 10/10/21 11:57 IMPRESSION: Chronic involutional changes of the brain. N.B. : The above Results were Read Back by Lonny Henry MD to Fernando Puente and understanding confirmed on 10/10/2021 12:14:41 (ET). Electronically Signed: Lonny Henry MD at 12:16 EST , Service support , ADDENDUM: 10/10/21 1223 IMPRESSION: Chronic involutional changes of the brain. N.B. : The above Results were Read Back by Lonny Henry MD to Fernando Puente and understanding confirmed on 10/10/2021 12:14:41 (ET). Electronically Signed: Lonny Henry MD at 12:16 EST , Service support , Chest X-Ray 10/10/21 12:55 IMPRESSION: Elevation of the right hemidiaphragm with findings suggestive of bibasilar atelectasis likely worse on the left side. Electronically Signed: Lonny Henry MD at 13:11 EST , Service support , Critical Care Time Critical care time (excluding procedures): 30-74 minutes (70), Discussing w/Patient &/or Family/A[employer] Detail [employer]sperson, Discussing w/Consultants and Performing Direct Patient Care at Bedside Discharge Plan Triage Chief Complaint: Alt LOC ED Provider: Fernando Puente Dx/Rx/DC Orders Prescriptions: No Action aspirin [Adult Low Dose Aspirin] 81 mg tablet,delayed release (DR/EC) 81 mg PO DAILY RF: 0 bumetanide 2 mg tablet 2 mg PO BID RF: 0 clopidogrel 75 mg tablet 75 mg PO DAILY Qty: 90 RF: 3 zolpidem 5 mg tablet 5 mg PO QHS RF: 0 metolazone 5 mg tablet 5 mg PO .PRN PRNRF: 0 lorazepam 0.5 mg tablet 0.5 mg PO Q8H PRN (Reason: Anxiety) RF: 0 carvedilol [Coreg] 6.25 mg tablet 6.25 mg PO BID RF: 0 atorvastatin 80 MG tablet 80 mg PO QHS RF: 0 polyethylene glycol 3350 [Miralax] 17 gram Powder In Packet 17 g PO DAILY RF: 0 Humulin R U-500 (Conc) Kwikpen 500 unit/mL (3 mL) insulin pen See Rx Instructions subcut TID Qty: 33 RF: 0 Primary Care Provider: Jackson Mesa Referrals: Jackson Mesa MD [Primary Care Provider] - Disposition Disposition: Discharge Date/Time: 10/10/21 16:05 Date/Time: 10/10/21 13:47
== END 2021-10-10 16:05 ==
PROVIDERS: Emergency Provider Student in an Organized Health Care Education/Training Program; PCP Family Medicine; Visit Provider Student in an Organized Health Care Education/Training Program
DX: I46.9 Cardiac arrest, cause unspecified (principal); I13.2 Hypertensive heart and chronic kidney disease with heart failure and with stage 5 chronic kidney disease, or end stage renal disease; Z99.2 Dependence on renal dialysis; I50.42 Chronic combined systolic (congestive) and diastolic (congestive) heart failure; E11.22 Type 2 diabetes mellitus with diabetic chronic kidney disease; E11.42 Type 2 diabetes mellitus with diabetic polyneuropathy; N18.6 End stage renal disease; I24.8 Other forms of acute ischemic heart disease; Z79.4 Long term (current) use of insulin; E87.5 Hyperkalemia; I25.10 Atherosclerotic heart disease of native coronary artery without angina pectoris; I95.9 Hypotension, unspecified; I25.2 Old myocardial infarction; I25.5 Ischemic cardiomyopathy; E66.9 Obesity, unspecified; E78.5 Hyperlipidemia, unspecified; R00.1 Bradycardia, unspecified; Z79.02 Long term (current) use of antithrombotics/antiplatelets; Z79.82 Long term (current) use of aspirin; Z79.899 Other long term (current) drug therapy; Z87.891 Personal history of nicotine dependence
CPT/HCPCS: 31500; 51702; 70450; 71045; 80048; 84484; 85025; 85610; 85730; 92950; 93005; 94002; 96365; 96367; 96375; 99285; J7030; J7050; A4216; J3475; J3490